=== PATIENT | female | born 1945 | race Caucasian/White ===

== ENCOUNTER 2019-07-24 16:11 | Emergency (ER) | payer MEDICARE, SELFPAY ==
[2019-07-24 16:44] VITALS: BP 159/96; PULSE 113; RESP 16; TEMP 36.6; O2SAT 97; BMI 27.6
--- NOTE | 2019-07-24 17:39 | CTR_ITS ---
PROCEDURE INFORMATION: Exam: CT Head Without Contrast Exam date and time: 07/24/2019 5:40 PM Age: 74 years old Clinical indication: Injury or trauma; Fall; Dizziness and other: Forehead pain; Additional info: Fall/estrada TECHNIQUE: Imaging protocol: Computed tomography of the head without contrast. Total DLP: 735.55 mGy-cm Radiation optimization: All CT scans at this facility use at least one of these dose optimization techniques: automated exposure control; mA and/or kV adjustment per patient size (includes targeted exams where dose is matched to clinical indication); or iterative reconstruction. COMPARISON: CT head wo con* [id number] 07/19/2018 5:55 AM FINDINGS: Brain: There is diffuse volume loss and periventricular low density compatible with small vessel disease changes. There are unchanged basal ganglia calcifications. No hemorrhage. Otherwise unremarkable white matter. No mass effect. Ventricles: Normal. No ventriculomegaly. Bones/joints: Unremarkable. No acute fracture. Sinuses: Visualized sinuses are unremarkable. No fluid levels. Mastoid air cells: Visualized mastoid air cells are well aerated. Soft tissues: Unremarkable. CT/CT head wo con* [id number] IMPRESSION: No acute intracranial abnormality. Unchanged exam. Radiation Dose CTDIVOL = (mGy): DLP = 735.55 (mGy-cm)
--- NOTE | 2019-07-24 17:39 | XR_ITS ---
WS: [id number] RIGHT WRIST 3 VIEWS HISTORY: 74 years old Female with fall/pain AP, oblique, and lateral views no comparison FINDINGS: First carpometacarpal and triscaphe the joint space narrowing with marginal hypertrophic change and s ubcortical sclerosis. No fracture lucency or cortical disruption. No dislocation or subluxation. No o steolytic or osteoblastic change. Arterial calcifications. XR/XR wrist RT min 3V* [id number] IMPRESSION: 1. No evidence of right wrist fracture or dislocation. If there's clinical conc christian for occult fracture, including scaphoid, consider conservative management f ollow-up radiographs in 10 days. 2. Polyarticular degenerative arthritic change. 3. Atherosclerosis.
--- NOTE | 2019-07-24 17:39 | XR_ITS ---
WS: [id number] RIGHT HAND 3 VIEWS HISTORY: 74 years old Female with fall/pain AP, oblique, and lateral views right hand no comparison FINDINGS: Mild-moderate bone demineralization. No fracture lucency or cortical disruption. No dislocation or malin bluxation. No osteolytic or osteoblastic. Arterial calcifications. No radiopaque foreign body. XR/XR hand RT min 3V* [id number] IMPRESSION: 1. No evidence of right hand fracture or dislocation. 2. Atherosclerosis. 3. Mild-moderate bony mineralization.
--- NOTE | 2019-07-24 17:50 | W.ED.FALL ---
HPI - Fall General: Chief Complaint: Fall Stated Complaint: Fall Time Seen by Provider: 07/24/19 17:28 Source: patient Mode of arrival: ambulatory Limitations: no limitations History of Present Illness: HPI Narrative: Patient is a 74-year-old female who presents to ED today requesting an evaluation following a fall. Patient tells me she was upstairs visiting her and was walking down the hallway when she was trying to do too many things at once and reports that she slipped and fell. She states she was carrying a large tote and trying to remove a cell phone from her coat pocket at the same time. Patient denies dizziness, lightheadedness, chest pain, shortness of breath prior to the fall. She complains of right wrist and hand pain and also states that she struck the right side of her forehead. No LOC. No neck or back pain. Patient has been ambulatory since the fall without difficulty. Patient is on Eliquis. complaint: fall Onset (ago): minute(s) Fall from: standing Fall witnessed: yes, by bystander Place fall occurred: other (hospital) Loss of consciousness: None Prolonged down time: no Symptoms prior to fall: none Context: tripped/slipped Location of injury: head Location of injury - extremities: Right: hand Associated symptoms-after fall: Reports no associated symptoms and headache(s); Denies abdominal pain, chest pain, confusion, difficulty walking, lightheadedness or neck pain Review of Systems Const: Denies: fever, chills or body aches Eyes: Denies: change in vision or blurry vision Card: Denies: chest pain, palpitations, irregular heart rhythm, edema, lightheadedness, syncope, pre-syncope, shortness of breath on exertion or shortness of breath when lying down Resp: Denies: shortness of breath, productive cough or pain on inspiration GI: Denies: abdominal pain, nausea, vomiting, heartburn/indigestion or diarrhea : Denies: flank pain Musc: Reports: joint pain (R wrist); Denies: neck pain, back pain, extremity swelling, joint swelling or joint warmth Skin/Breast: Denies: rash Neuro: Reports: headache; Denies: numbness in extremities, weakness in extremities, changes in sensation, lack of coordination, difficulty walking, frequent falls, dizziness, confusion, behavioral changes or slurred speech PFSH ED PFSH: Statuses (acute, chronic, etc) shown below reflect problem list status as previously entered and may not be historically accurate Social History Smoking and tobacco status: former smoker Physical Exam Const: COMMON NORMALS: no apparent distress, oriented x3, no limitations, alert and well nourished ORIENTATION/CONSCIOUSNESS: Yes oriented to person, Yes oriented to place and Yes oriented to time HENMT: COMMON NORMALS: normocephalic, head/scalp atraumatic, EAC's normal, TM's normal bilaterally and external nose normal HEAD & SCALP: normocephalic and atraumatic FACE & SINUS: normal facial exam NOSE: external nose normal EXTERNAL AUDITORY CANAL: EAC's normal TYMPANIC MEMBRANE: TM's normal bilaterally OTHER: complains of pain to R forehead; no abrasions/hematomas noted Eye: COMMON NORMALS: PERRL and EOMs intact bilaterally PUPIL: Yes PERRL Neck/C-Spine: COMMON NORMALS: full ROM and supple CERVICAL SPINE: Yes cervical ROM normal, No pain with cervical ROM, No cervical spine tenderness and No paracervical muscle tenderness Chest: COMMONS NORMALS: inspection of chest normal and palpation of chest normal Resp: COMMON NORMALS: normal respiratory effort and clear to auscultation bilaterally AUSCULTATION: clear to auscultation bilaterally Cardio: COMMON NORMALS: regular rate and regular rhythm RATE: regular rate RHYTHM: regular rhythm GI: COMMON NORMALS: normal to inspection, nondistended, normoactive bowel sounds, soft to palpation and non-tender PALPATION: Yes soft Back/Pelvis: COMMON NORMALS: thoracic and lumbar spine normal to inspection Extremity: OTHER: TTP over dorsal R wrist/hand; minimal swelling noted; ROM intact Neuro: CHERY COMA SCALE: document GCS findings [place] coma scale eye opening: Spontaneous Chery coma scale verbal response: Orientated Chery coma scale motor response: Obey commands Chery coma scale total score: 15 COMMON NORMALS: oriented x3, CN's II-XII intact bilaterally, moves all extremities, no focal motor deficits, no sensory deficits noted and gait normal SENSORIUM/ORIENTATION: Yes alert, Yes oriented to person, Yes oriented to place and Yes oriented to time Skin: COMMON NORMALS: no rashes or lesions noted GENERAL SKIN EXAM: no rashes or lesions noted Course Vital Signs: Vital signs: Vital Signs Temperature 97.8 F 07/24/19 16:44 Pulse Rate 113 H 07/24/19 16:44 Respiratory Rate 16 07/24/19 16:44 Blood Pressure 159/96 07/24/19 16:44 Pulse Oximetry 97 07/24/19 16:44 MDM - Fall Imaging Data^: CT Head: Radiologist's impression: [facility] [address] [place] [address] CT Scan Report Signed Patient: Unique Gage Unit #: [id number] : [id number] Age/Sex: 74 / F ADM Date: 07/24/19 Loc: ER Room/Bed: Attending Dr: Ordering Provider/Ordering MD: Arianna Murdock Date of Service: 07/24/19 Procedure(s): CT head wo con* [id number] Accession Number(s): [id number] Report Number: [id number] PROCEDURE INFORMATION: Exam: CT Head Without Contrast Exam date and time: 07/24/2019 5:40 PM Age: 74 years old Clinical indication: Injury or trauma; Fall; Dizziness and other: Forehead pain; Additional info: Fall/estrada TECHNIQUE: Imaging protocol: Computed tomography of the head without contrast. Total DLP: 735.55 mGy-cm Radiation optimization: All CT scans at this facility use at least one of these dose optimization techniques: automated exposure control; mA and/or kV adjustment per patient size (includes targeted exams where dose is matched to clinical indication); or iterative reconstruction. COMPARISON: CT head wo con* [id number] 07/19/2018 5:55 AM FINDINGS: Brain: There is diffuse volume loss and periventricular low density compatible with small vessel disease changes. There are unchanged basal ganglia calcifications. No hemorrhage. Otherwise unremarkable white matter. No mass effect. Ventricles: Normal. No ventriculomegaly. Bones/joints: Unremarkable. No acute fracture. Sinuses: Visualized sinuses are unremarkable. No fluid levels. Mastoid air cells: Visualized mastoid air cells are well aerated. Soft tissues: Unremarkable. CT/CT head wo con* [id number] IMPRESSION: No acute intracranial abnormality. Unchanged exam. Radiation Dose CTDIVOL = (mGy): DLP = 735.55 (mGy-cm) Dictated By: Eloise Buckley Signed By: Eloise Buckley Signed Date/Time: 07/24/191816 DD/ 15 R wrist/hand XR: My impression: NAD Discharge Plan Discharge Patient Disposition: Home, Self-Care Clinical Impression: Fall Qualifiers: Encounter type: initial encounter Qualified Code(s): W19.XXXA - Unspecified fall, initial encounter Forehead contusion Qualifiers: Encounter type: initial encounter Qualified Code(s): S00.83XA - Contusion of other part of head, initial encounter Right wrist sprain Qualifiers: Encounter type: initial encounter Qualified Code(s): S63.501A - Unspecified sprain of right wrist, initial encounter Condition: Stable Discharge Orders: Discharge Order (Routine); Ordered 07/24/19 Ordered By: Arianna Murdock Referrals: Dao Alba DO [Family Provider] - Discharge Diet: Usual diet Discharge Activity: Increase activity as tolerated Coding Level of Care Code ED Labor Standards Director for Kathyg Fwd Exam Problem Focused
[2019-07-24 18:49] VITALS: BP 141/64; PULSE 78; RESP 16; O2SAT 98
== END 2019-07-24 18:50 | disposition home or self-care (01) ==
PROVIDERS: Emergency Provider Physician Assistant; Family Provider Internal Medicine
DX: S63.501A Unspecified sprain of right wrist, initial encounter (principal); S00.83XA Contusion of other part of head, initial encounter; W01.0XXA Fall on same level from slipping, tripping and stumbling without subsequent striking against object, initial encounter; Y92.239 Unspecified place in hospital as the place of occurrence of the external cause; Z87.891 Personal history of nicotine dependence
CPT/HCPCS: 29125; 70450; 73110; 73130; 99281; 99283

== ENCOUNTER 2019-12-12 17:00 | Emergency (ER) | payer MEDICARE, MEDICAID, SELFPAY ==
[2019-12-12 17:07] VITALS: BP 149/83; PULSE 108; RESP 18; TEMP 36.8; O2SAT 95; BMI 25.4
--- NOTE | 2019-12-12 17:13 | ED_ITS ---
Documented by User: Paz Carrasco MD 12/14/19 13:29 HPI - Altered Mental Status General: Chief Complaint: Psychiatric Symptoms Stated Complaint: VISUAL HALLUCINATIONS; AMS Time Seen by Provider: 12/12/19 17:01 History of Present Illness: HPI narrative: This patient is a 74-year-old female presenting to the emergency department by ambulance. She denies complaints and does not know why the ambulance was called. Per EMS the patient reportedly locked herself out of her apartment accidentally and neighbors apparently called EMS because she was acting strangely. Per EMS she thinks there are some kids with them which there is not. The patient denies a history of schizophrenia to me and is not on any medications that would indicate that history however EMS was told by someone at the scene that she does have a history of schizophrenia. On review of prior records she does have a history of dementia and some delusions. Her blood sugar was over 400. She tells me that is not unusual for her. She takes some sort of injection and metformin for her blood sugar. Her primary care doctor is Dr. Alba. The patient's daughter called the ER looking for her mother. She tells me that the patient lost her in July. Since that time she has been under increased stress and has had problems with confusion. She recently has started seeing people in her apartment that are not there. Her daughter says they are in the process of moving her from her old house to an apartment at the [facility]. Apparently the patient does not have a history of schizophrenia but has been diagnosed with early dementia. Her daughter is going to come to the ED and we can discuss appropriate disposition for her once she is medically evaluated. Review of Systems General: Reports: 10 or more systems reviewed and unremarkable except in HPI and below Const: Denies: fever(s), chills, fatigue or malaise Eyes: Denies: change in vision ENMT: Denies: odynophagia Card: Denies: chest pain or swelling of feet/ankles Resp: Denies: dyspnea, productive cough or non-productive cough GI: Denies: abdominal pain, nausea or vomiting : Denies: flank pain or difficulty voiding Musc: Denies: neck pain or back pain Skin/Breast: Denies: rash Neuro: Denies: headache(s), numbness in extremities or weakness in extremities Oleksandr/Lymph: Denies: easy bruising or easy bleeding PFSH ED PFSH: Social History Smoking and tobacco status: never smoked Physical Exam Const: COMMON NORMALS: no acute distress, patient oriented x3, no limitations and alert GENERAL APPEARANCE: cooperative and comfortable HENMT: HEAD & SCALP: normal to inspection FACE & SINUS: normal facial exam Eye: GENERAL EYE: appearance normal, both eyes and all related structures Neck/C-Spine: COMMON NORMALS: supple, no meningeal signs and no JVD Chest: COMMONS NORMALS: normal inspection of the chest Resp: COMMON NORMALS: normal respiratory effort, No use of accessory muscles and clear to auscultation bilaterally AUSCULTATION: clear to auscultation bilaterally Cardio: COMMON NORMALS: no JVD, regular rate, regular rhythm and No murmurs present (Cardio) RATE: regular rate RHYTHM: regular rhythm GI: COMMON NORMALS: Normal to inspection, nondistended, normoactive bowel sounds present, Soft to palpation and non-tender INSPECTION: Yes normal to inspection AUSCULTATION: Yes normoactive bowel sounds PALPATION: Yes Soft to palpation Back/Pelvis: COMMON NORMALS: thoracic and lumbar spine normal to inspection Extremity: COMMON NORMALS: normal to inspection Neuro: COMMON NORMALS: patient oriented x3, moves all extremities, no focal motor deficits and no sensory deficits noted SENSORIUM/ORIENTATION: Yes alert MENINGEAL SIGNS: Yes no meningeal signs Psych: COMMON NORMALS: mental status grossly normal, cooperative and normal affect Skin: COMMON NORMALS: no rashes or lesions noted and turgor normal GENERAL SKIN EXAM: no rashes or lesions noted and turgor normal Course ED course: The patient initially seemed normal and was able to give me a fairly good history. Prior to my leaving the room however she told me that there were 4 kids in the room and that we needed to let the parents know that they were here. When I told her that I could not see them she looked around the room and then seem to realize that they were not there. She is agreeable to some screening tests and we will continue to evaluate her mental status. We will try to get in touch with her daughter to see if this is her baseline or an acute change. Reevaluation(s): Reevaluation #1: Patient calm and cooperative now. She is able to give a fairly good history but is confused and hallucinating visually. Daughter is on her way to the ER and will help to determine the appropriate disposition. Her blood sugar was elevated on her chemistry but she is not in DKA. Subcutaneous insulin has been ordered. I will be turning her care over to Dr. Machado who is coming on for the night worker. Reevaluation #2: Patient is still in the ED this morning while we attempt to find placement for her. It is felt that she will benefit from admission for medication management and further evaluation of her hallucinations. Time: 11:00 Vital Signs: Vital signs: Vital Signs Temperature 98.3 F 12/12/19 17:07 Pulse Rate 76 12/13/19 12:50 Respiratory Rate 16 12/13/19 12:50 Blood Pressure 113/91 12/13/19 12:50 Pulse Oximetry 93 12/13/19 12:50 MDM - Altered Mental Status Lab Data: Labs: Lab Results 12/12/19 12/12/19 12/12/19 Range/Units 09:11 17:13 17:13 WBC 8.3 (4.0-10.0) 10^3/ uL RBC 4.56 (4.1-5.3) 10^6/u L Hgb 12.1 (11.5-15.3) g/dL Hct 37.6 (37.0-47.0) % MCV 82.5 (81-99) fL MCH 26.5 L (28.0-34.0) pg MCHC 32.2 (30.0-36.0) g/dL RDW 13.0 (12.1-15.1) % Plt Count 381 (130-400) 10^3/c mm MPV 10.9 H (7.4-10.4) fL Neut % (Auto) 70.5 % Lymph % (Auto) 20.0 % [place] % (Auto) 7.9 % Eos % (Auto) 0.4 % Baso % (Auto) 1.0 % Neut # (Auto) 5.9 (1.8-7.7) 10^3/u L Lymph # (Auto) 1.7 (0.8-4.8) 10^3/u L [place] # (Auto) 0.7 (0.2-0.9) 10^3/u L Eos # (Auto) 0.0 (0.0-0.8) 10^3/u L Baso # (Auto) 0.1 (0.0-0.1) 10^3/u L Nucleated RBC % (a uto) 0 % Nucleated RBCs # 0.0 /100WBC Sodium 138 (136-145) mmol/L Potassium 4.0 (3.5-5.1) mmol/L Chloride 97 L (98-107) mmol/L Carbon Dioxide 24 (22-29) mmol/L Anion Gap 21.0 H (5-19) BUN 17 (8-23) mg/dL Creatinine 0.9 (0.5-0.9) mg/dL Glucose 427 H (65-115) mg/dL POC Glucose (70-110) mg/dL Calculated Osmolal ity 301 H (285-295) mOsm/k g Calcium 9.8 (8.5-10.5) mg/dL Total Bilirubin 0.6 (0.15-1.2) mg/dL AST 26 (0-32) U/L ALT 8 (0-33) U/L Alkaline Phosphata se 92 (35-105) IU/L Total Protein 7.1 (6.6-8.7) g/dL Albumin 4.9 (3.5-5.2) g/dL Globulin 2.2 (1.3-4.6) g/dL Urine Color (Yellow) Urine Appearance (CLEAR) Urine pH (5-7) Ur Specific Gravit y (1.005-1.030) Urine Protein (Negative) Urine Glucose (UA) (Normal) Urine Ketones (Negative) Urine Blood (Negative) Urine Nitrate (Negative) Urine Bilirubin (NEGATIVE) Urine Urobilinogen (Negative) mg/dL Ur Leukocyte Mary ase (Negative) Urine Opiates Scre en Negative (Negative) ng/mL Ur Barbiturates Sc reen Negative (Negative) ng/mL Ur Phencyclidine S crn Negative (Negative) ng/mL Ur Amphetamines Sc reen Negative (Negative) ng/mL U Benzodiazepines Scrn Negative (Negative) ng/mL Urine Cocaine Scre en Negative (Negative) ng/mL U Marijuana (THC) Screen Negative (Negative) ng/mL 12/12/19 12/12/19 12/12/19 Range/Units 18:21 21:15 22:09 WBC (4.0-10.0) 10^3/ uL RBC (4.1-5.3) 10^6/u L Hgb (11.5-15.3) g/dL Hct (37.0-47.0) % MCV (81-99) fL MCH (28.0-34.0) pg MCHC (30.0-36.0) g/dL RDW (12.1-15.1) % Plt Count (130-400) 10^3/c mm MPV (7.4-10.4) fL Neut % (Auto) % Lymph % (Auto) % [place] % (Auto) % Eos % (Auto) % Baso % (Auto) % Neut # (Auto) (1.8-7.7) 10^3/u L Lymph # (Auto) (0.8-4.8) 10^3/u L [place] # (Auto) (0.2-0.9) 10^3/u L Eos # (Auto) (0.0-0.8) 10^3/u L Baso # (Auto) (0.0-0.1) 10^3/u L Nucleated RBC % (a uto) % Nucleated RBCs # /100WBC Sodium (136-145) mmol/L Potassium (3.5-5.1) mmol/L Chloride (98-107) mmol/L Carbon Dioxide (22-29) mmol/L Anion Gap (5-19) BUN (8-23) mg/dL Creatinine (0.5-0.9) mg/dL Glucose (65-115) mg/dL POC Glucose 383 108 (70-110) mg/dL Calculated Osmolal ity (285-295) mOsm/k g Calcium (8.5-10.5) mg/dL Total Bilirubin (0.15-1.2) mg/dL AST (0-32) U/L ALT (0-33) U/L Alkaline Phosphata se (35-105) IU/L Total Protein (6.6-8.7) g/dL Albumin (3.5-5.2) g/dL Globulin (1.3-4.6) g/dL Urine Color Yellow (Yellow) Urine Appearance Clear (CLEAR) Urine pH 5 (5-7) Ur Specific Gravit y 1.020 (1.005-1.030) Urine Protein Neg (Negative) Urine Glucose (UA) 4+ H (Normal) Urine Ketones 1+ H (Negative) Urine Blood Neg (Negative) Urine Nitrate Negative (Negative) Urine Bilirubin Neg (NEGATIVE) Urine Urobilinogen Norm (Negative) mg/dL Ur Leukocyte Mary ase Negative (Negative) Urine Opiates Scre en (Negative) ng/mL Ur Barbiturates Sc reen (Negative) ng/mL Ur Phencyclidine S crn (Negative) ng/mL Ur Amphetamines Sc reen (Negative) ng/mL U Benzodiazepines Scrn (Negative) ng/mL Urine Cocaine Scre en (Negative) ng/mL U Marijuana (THC) Screen (Negative) ng/mL 12/12/19 12/13/19 12/13/19 Range/Units 22:53 01:12 01:56 WBC (4.0-10.0) 10^3/ uL RBC (4.1-5.3) 10^6/u L Hgb (11.5-15.3) g/dL Hct (37.0-47.0) % MCV (81-99) fL MCH (28.0-34.0) pg MCHC (30.0-36.0) g/dL RDW (12.1-15.1) % Plt Count (130-400) 10^3/c mm MPV (7.4-10.4) fL Neut % (Auto) % Lymph % (Auto) % [place] % (Auto) % Eos % (Auto) % Baso % (Auto) % Neut # (Auto) (1.8-7.7) 10^3/u L Lymph # (Auto) (0.8-4.8) 10^3/u L [place] # (Auto) (0.2-0.9) 10^3/u L Eos # (Auto) (0.0-0.8) 10^3/u L Baso # (Auto) (0.0-0.1) 10^3/u L Nucleated RBC % (a uto) % Nucleated RBCs # /100WBC Sodium (136-145) mmol/L Potassium (3.5-5.1) mmol/L Chloride (98-107) mmol/L Carbon Dioxide (22-29) mmol/L Anion Gap (5-19) BUN (8-23) mg/dL Creatinine (0.5-0.9) mg/dL Glucose (65-115) mg/dL POC Glucose 109 67 115 (70-110) mg/dL Calculated Osmolal ity (285-295) mOsm/k g Calcium (8.5-10.5) mg/dL Total Bilirubin (0.15-1.2) mg/dL AST (0-32) U/L ALT (0-33) U/L Alkaline Phosphata se (35-105) IU/L Total Protein (6.6-8.7) g/dL Albumin (3.5-5.2) g/dL Globulin (1.3-4.6) g/dL Urine Color (Yellow) Urine Appearance (CLEAR) Urine pH (5-7) Ur Specific Gravit y (1.005-1.030) Urine Protein (Negative) Urine Glucose (UA) (Normal) Urine Ketones (Negative) Urine Blood (Negative) Urine Nitrate (Negative) Urine Bilirubin (NEGATIVE) Urine Urobilinogen (Negative) mg/dL Ur Leukocyte Mary ase (Negative) Urine Opiates Scre en (Negative) ng/mL Ur Barbiturates Sc reen (Negative) ng/mL Ur Phencyclidine S crn (Negative) ng/mL Ur Amphetamines Sc reen (Negative) ng/mL U Benzodiazepines Scrn (Negative) ng/mL Urine Cocaine Scre en (Negative) ng/mL U Marijuana (THC) Screen (Negative) ng/mL 12/13/19 12/13/19 12/13/19 Range/Units 03:20 05:30 06:45 WBC (4.0-10.0) 10^3/ uL RBC (4.1-5.3) 10^6/u L Hgb (11.5-15.3) g/dL Hct (37.0-47.0) % MCV (81-99) fL MCH (28.0-34.0) pg MCHC (30.0-36.0) g/dL RDW (12.1-15.1) % Plt Count (130-400) 10^3/c mm MPV (7.4-10.4) fL Neut % (Auto) % Lymph % (Auto) % [place] % (Auto) % Eos % (Auto) % Baso % (Auto) % Neut # (Auto) (1.8-7.7) 10^3/u L Lymph # (Auto) (0.8-4.8) 10^3/u L [place] # (Auto) (0.2-0.9) 10^3/u L Eos # (Auto) (0.0-0.8) 10^3/u L Baso # (Auto) (0.0-0.1) 10^3/u L Nucleated RBC % (a uto) % Nucleated RBCs # /100WBC Sodium (136-145) mmol/L Potassium (3.5-5.1) mmol/L Chloride (98-107) mmol/L Carbon Dioxide (22-29) mmol/L Anion Gap (5-19) BUN (8-23) mg/dL Creatinine (0.5-0.9) mg/dL Glucose (65-115) mg/dL POC Glucose 113 125 124 (70-110) mg/dL Calculated Osmolal ity (285-295) mOsm/k g Calcium (8.5-10.5) mg/dL Total Bilirubin (0.15-1.2) mg/dL AST (0-32) U/L ALT (0-33) U/L Alkaline Phosphata se (35-105) IU/L Total Protein (6.6-8.7) g/dL Albumin (3.5-5.2) g/dL Globulin (1.3-4.6) g/dL Urine Color (Yellow) Urine Appearance (CLEAR) Urine pH (5-7) Ur Specific Gravit y (1.005-1.030) Urine Protein (Negative) Urine Glucose (UA) (Normal) Urine Ketones (Negative) Urine Blood (Negative) Urine Nitrate (Negative) Urine Bilirubin (NEGATIVE) Urine Urobilinogen (Negative) mg/dL Ur Leukocyte Mary ase (Negative) Urine Opiates Scre en (Negative) ng/mL Ur Barbiturates Sc reen (Negative) ng/mL Ur Phencyclidine S crn (Negative) ng/mL Ur Amphetamines Sc reen (Negative) ng/mL U Benzodiazepines Scrn (Negative) ng/mL Urine Cocaine Scre en (Negative) ng/mL U Marijuana (THC) Screen (Negative) ng/mL Discharge Plan Discharge Prescriptions: No Action benazepril 5 mg tablet 5 mg PO DAILY RF: 0 simvastatin 20 mg tablet 20 mg PO DAILY RF: 0 metformin 500 mg tablet extended release 24 hr 1,000 mg PO BID RF: 0 Novolog Flexpen U-100 Insulin 100 unit/mL (3 mL) insulin pen See Rx Instructions .ROUTE .COMPLEX RF: 0 Eliquis 5 mg tablet 5 mg PO BID RF: 0 Tresiba FlexTouch U-200 200 unit/mL (3 mL) insulin pen 40 unit SUBCUT BEDTIME RF: 0 Referrals: Dao Alba DO [Primary Care Provider] - Discharge Date/Time: 12/13/19 13:57 Coding Level of Care Code ED Shower Attendant for Chg 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 Documented by User: Preet Machado DO 12/13/19 07:02 HPI - Altered Mental Status General: Chief Complaint: Psychiatric Symptoms Stated Complaint: VISUAL HALLUCINATIONS; AMS Time Seen by Provider: 12/12/19 17:01 PFS ED PFSH: Social History Smoking and tobacco status: never smoked Course Vital Signs: Vital signs: Vital Signs Temperature 98.3 F 12/12/19 17:07 Pulse Rate 76 12/13/19 12:50 Respiratory Rate 16 12/13/19 12:50 Blood Pressure 113/91 12/13/19 12:50 Pulse Oximetry 93 12/13/19 12:50 MDM - Altered Mental Status MDM Narrative: Medical decision making narrative: 74-year-old lady checked out to me at shift change by Dr. Carrasco. She presented confused, and uncooperative. Later she was much more cooperative. Her sugar had been high, she was given insulin, with good reduction in her sugar. She was also actively hallucinating which resolved after 3 mg of IV Haldol her laboratory besides the sugar is essentially benign. Head CT is negative. Chest x-ray is negative no evidence for infection. Her sugar is normalized. With resolution of her visual hallucinations and auditory hallucinations following Haldol, and the fact that this lady lives alone, it was thought and geriatric psychiatry evaluation would be valuable. We have received a denial from one facility, and are currently looking for another facility this patient will be checked out at shift change to Dr. Patel while awaiting a geriatric psychiatry bed. The patient's daughter has been informed, and will continue to be. Lab Data: Labs: Lab Results 12/12/19 12/12/19 12/12/19 Range/Units 09:11 17:13 17:13 WBC 8.3 (4.0-10.0) 10^3/ uL RBC 4.56 (4.1-5.3) 10^6/u L Hgb 12.1 (11.5-15.3) g/dL Hct 37.6 (37.0-47.0) % MCV 82.5 (81-99) fL MCH 26.5 L (28.0-34.0) pg MCHC 32.2 (30.0-36.0) g/dL RDW 13.0 (12.1-15.1) % Plt Count 381 (130-400) 10^3/c mm MPV 10.9 H (7.4-10.4) fL Neut % (Auto) 70.5 % Lymph % (Auto) 20.0 % [place] % (Auto) 7.9 % Eos % (Auto) 0.4 % Baso % (Auto) 1.0 % Neut # (Auto) 5.9 (1.8-7.7) 10^3/u L Lymph # (Auto) 1.7 (0.8-4.8) 10^3/u L [place] # (Auto) 0.7 (0.2-0.9) 10^3/u L Eos # (Auto) 0.0 (0.0-0.8) 10^3/u L Baso # (Auto) 0.1 (0.0-0.1) 10^3/u L Nucleated RBC % (a uto) 0 % Nucleated RBCs # 0.0 /100WBC Sodium 138 (136-145) mmol/L Potassium 4.0 (3.5-5.1) mmol/L Chloride 97 L (98-107) mmol/L Carbon Dioxide 24 (22-29) mmol/L Anion Gap 21.0 H (5-19) BUN 17 (8-23) mg/dL Creatinine 0.9 (0.5-0.9) mg/dL Glucose 427 H (65-115) mg/dL POC Glucose (70-110) mg/dL Calculated Osmolal ity 301 H (285-295) mOsm/k g Calcium 9.8 (8.5-10.5) mg/dL Total Bilirubin 0.6 (0.15-1.2) mg/dL AST 26 (0-32) U/L ALT 8 (0-33) U/L Alkaline Phosphata se 92 (35-105) IU/L Total Protein 7.1 (6.6-8.7) g/dL Albumin 4.9 (3.5-5.2) g/dL Globulin 2.2 (1.3-4.6) g/dL Urine Color (Yellow) Urine Appearance (CLEAR) Urine pH (5-7) Ur Specific Gravit y (1.005-1.030) Urine Protein (Negative) Urine Glucose (UA) (Normal) Urine Ketones (Negative) Urine Blood (Negative) Urine Nitrate (Negative) Urine Bilirubin (NEGATIVE) Urine Urobilinogen (Negative) mg/dL Ur Leukocyte Mary ase (Negative) Urine Opiates Scre en Negative (Negative) ng/mL Ur Barbiturates Sc reen Negative (Negative) ng/mL Ur Phencyclidine S crn Negative (Negative) ng/mL Ur Amphetamines Sc reen Negative (Negative) ng/mL U Benzodiazepines Scrn Negative (Negative) ng/mL Urine Cocaine Scre en Negative (Negative) ng/mL U Marijuana (THC) Screen Negative (Negative) ng/mL 12/12/19 12/12/19 12/12/19 Range/Units 18:21 21:15 22:09 WBC (4.0-10.0) 10^3/ uL RBC (4.1-5.3) 10^6/u L Hgb (11.5-15.3) g/dL Hct (37.0-47.0) % MCV (81-99) fL MCH (28.0-34.0) pg MCHC (30.0-36.0) g/dL RDW (12.1-15.1) % Plt Count (130-400) 10^3/c mm MPV (7.4-10.4) fL Neut % (Auto) % Lymph % (Auto) % [place] % (Auto) % Eos % (Auto) % Baso % (Auto) % Neut # (Auto) (1.8-7.7) 10^3/u L Lymph # (Auto) (0.8-4.8) 10^3/u L [place] # (Auto) (0.2-0.9) 10^3/u L Eos # (Auto) (0.0-0.8) 10^3/u L Baso # (Auto) (0.0-0.1) 10^3/u L Nucleated RBC % (a uto) % Nucleated RBCs # /100WBC Sodium (136-145) mmol/L Potassium (3.5-5.1) mmol/L Chloride (98-107) mmol/L Carbon Dioxide (22-29) mmol/L Anion Gap (5-19) BUN (8-23) mg/dL Creatinine (0.5-0.9) mg/dL Glucose (65-115) mg/dL POC Glucose 383 108 (70-110) mg/dL Calculated Osmolal ity (285-295) mOsm/k g Calcium (8.5-10.5) mg/dL Total Bilirubin (0.15-1.2) mg/dL AST (0-32) U/L ALT (0-33) U/L Alkaline Phosphata se (35-105) IU/L Total Protein (6.6-8.7) g/dL Albumin (3.5-5.2) g/dL Globulin (1.3-4.6) g/dL Urine Color Yellow (Yellow) Urine Appearance Clear (CLEAR) Urine pH 5 (5-7) Ur Specific Gravit y 1.020 (1.005-1.030) Urine Protein Neg (Negative) Urine Glucose (UA) 4+ H (Normal) Urine Ketones 1+ H (Negative) Urine Blood Neg (Negative) Urine Nitrate Negative (Negative) Urine Bilirubin Neg (NEGATIVE) Urine Urobilinogen Norm (Negative) mg/dL Ur Leukocyte Mary ase Negative (Negative) Urine Opiates Scre en (Negative) ng/mL Ur Barbiturates Sc reen (Negative) ng/mL Ur Phencyclidine S crn (Negative) ng/mL Ur Amphetamines Sc reen (Negative) ng/mL U Benzodiazepines Scrn (Negative) ng/mL Urine Cocaine Scre en (Negative) ng/mL U Marijuana (THC) Screen (Negative) ng/mL 12/12/19 12/13/19 12/13/19 Range/Units 22:53 01:12 01:56 WBC (4.0-10.0) 10^3/ uL RBC (4.1-5.3) 10^6/u L Hgb (11.5-15.3) g/dL Hct (37.0-47.0) % MCV (81-99) fL MCH (28.0-34.0) pg MCHC (30.0-36.0) g/dL RDW (12.1-15.1) % Plt Count (130-400) 10^3/c mm MPV (7.4-10.4) fL Neut % (Auto) % Lymph % (Auto) % [place] % (Auto) % Eos % (Auto) % Baso % (Auto) % Neut # (Auto) (1.8-7.7) 10^3/u L Lymph # (Auto) (0.8-4.8) 10^3/u L [place] # (Auto) (0.2-0.9) 10^3/u L Eos # (Auto) (0.0-0.8) 10^3/u L Baso # (Auto) (0.0-0.1) 10^3/u L Nucleated RBC % (a uto) % Nucleated RBCs # /100WBC Sodium (136-145) mmol/L Potassium (3.5-5.1) mmol/L Chloride (98-107) mmol/L Carbon Dioxide (22-29) mmol/L Anion Gap (5-19) BUN (8-23) mg/dL Creatinine (0.5-0.9) mg/dL Glucose (65-115) mg/dL POC Glucose 109 67 115 (70-110) mg/dL Calculated Osmolal ity (285-295) mOsm/k g Calcium (8.5-10.5) mg/dL Total Bilirubin (0.15-1.2) mg/dL AST (0-32) U/L ALT (0-33) U/L Alkaline Phosphata se (35-105) IU/L Total Protein (6.6-8.7) g/dL Albumin (3.5-5.2) g/dL Globulin (1.3-4.6) g/dL Urine Color (Yellow) Urine Appearance (CLEAR) Urine pH (5-7) Ur Specific Gravit y (1.005-1.030) Urine Protein (Negative) Urine Glucose (UA) (Normal) Urine Ketones (Negative) Urine Blood (Negative) Urine Nitrate (Negative) Urine Bilirubin (NEGATIVE) Urine Urobilinogen (Negative) mg/dL Ur Leukocyte Mary ase (Negative) Urine Opiates Scre en (Negative) ng/mL Ur Barbiturates Sc reen (Negative) ng/mL Ur Phencyclidine S crn (Negative) ng/mL Ur Amphetamines Sc reen (Negative) ng/mL U Benzodiazepines Scrn (Negative) ng/mL Urine Cocaine Scre en (Negative) ng/mL U Marijuana (THC) Screen (Negative) ng/mL 12/13/19 12/13/19 12/13/19 Range/Units 03:20 05:30 06:45 WBC (4.0-10.0) 10^3/ uL RBC (4.1-5.3) 10^6/u L Hgb (11.5-15.3) g/dL Hct (37.0-47.0) % MCV (81-99) fL MCH (28.0-34.0) pg MCHC (30.0-36.0) g/dL RDW (12.1-15.1) % Plt Count (130-400) 10^3/c mm MPV (7.4-10.4) fL Neut % (Auto) % Lymph % (Auto) % [place] % (Auto) % Eos % (Auto) % Baso % (Auto) % Neut # (Auto) (1.8-7.7) 10^3/u L Lymph # (Auto) (0.8-4.8) 10^3/u L [place] # (Auto) (0.2-0.9) 10^3/u L Eos # (Auto) (0.0-0.8) 10^3/u L Baso # (Auto) (0.0-0.1) 10^3/u L Nucleated RBC % (a uto) % Nucleated RBCs # /100WBC Sodium (136-145) mmol/L Potassium (3.5-5.1) mmol/L Chloride (98-107) mmol/L Carbon Dioxide (22-29) mmol/L Anion Gap (5-19) BUN (8-23) mg/dL Creatinine (0.5-0.9) mg/dL Glucose (65-115) mg/dL POC Glucose 113 125 124 (70-110) mg/dL Calculated Osmolal ity (285-295) mOsm/k g Calcium (8.5-10.5) mg/dL Total Bilirubin (0.15-1.2) mg/dL AST (0-32) U/L ALT (0-33) U/L Alkaline Phosphata se (35-105) IU/L Total Protein (6.6-8.7) g/dL Albumin (3.5-5.2) g/dL Globulin (1.3-4.6) g/dL Urine Color (Yellow) Urine Appearance (CLEAR) Urine pH (5-7) Ur Specific Gravit y (1.005-1.030) Urine Protein (Negative) Urine Glucose (UA) (Normal) Urine Ketones (Negative) Urine Blood (Negative) Urine Nitrate (Negative) Urine Bilirubin (NEGATIVE) Urine Urobilinogen (Negative) mg/dL Ur Leukocyte Mary ase (Negative) Urine Opiates Scre en (Negative) ng/mL Ur Barbiturates Sc reen (Negative) ng/mL Ur Phencyclidine S crn (Negative) ng/mL Ur Amphetamines Sc reen (Negative) ng/mL U Benzodiazepines Scrn (Negative) ng/mL Urine Cocaine Scre en (Negative) ng/mL U Marijuana (THC) Screen (Negative) ng/mL Discharge Plan Discharge Prescriptions: No Action benazepril 5 mg tablet 5 mg PO DAILY RF: 0 simvastatin 20 mg tablet 20 mg PO DAILY RF: 0 metformin 500 mg tablet extended release 24 hr 1,000 mg PO BID RF: 0 Novolog Flexpen U-100 Insulin 100 unit/mL (3 mL) insulin pen See Rx Instructions .ROUTE .COMPLEX RF: 0 Eliquis 5 mg tablet 5 mg PO BID RF: 0 Tresiba FlexTouch U-200 200 unit/mL (3 mL) insulin pen 40 unit SUBCUT BEDTIME RF: 0 Referrals: Dao Alba DO [Primary Care Provider] - Discharge Date/Time: 12/13/19 13:57 Coding Level of Care Code ED Shower Attendant for Chg 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
[2019-12-12 17:24] LABS: Basophils # 0.1 10^3/uL (0.0-0.1); Eosinophils % 0.4 %; Hematocrit 37.6 % (37.0-47.0); Hemoglobin 12.1 g/dL (11.5-15.3); Lymphocytes # 1.7 10^3/uL (0.8-4.8); Mean Corpuscular HGB Conc 32.2 g/dL (30.0-36.0); Mean Corpuscular Hemoglobin 26.5 pg (28.0-34.0); Mean Corpuscular Volume 82.5 fL (81-99); Mean Platelet Volume 10.9 fL (7.4-10.4); Monocytes # 0.7 10^3/uL (0.2-0.9); Monocytes % 7.9 %; Neutrophils # 5.9 10^3/uL (1.8-7.7); Neutrophils % 70.5 %; Nucleated Red Blood Cells % 0 %; Platelet Count 381 10^3/cmm (130-400); Red Blood Count 4.56 10^6/uL (4.1-5.3); White Blood Count 8.3 10^3/uL (4.0-10.0)
[2019-12-12 17:39] LABS: Alanine Aminotransferase 8 U/L (0-33); Albumin Level 4.9 g/dL (3.5-5.2); Alkaline Phosphatase 92 IU/L (35-105); Aspartate Amino Transferase 26 U/L (0-32); Blood Urea Nitrogen 17 mg/dL (8-23); Calcium 9.8 mg/dL (8.5-10.5); Carbon Dioxide 24 mmol/L (22-29); Chloride 97 mmol/L (98-107); Globulin 2.2 g/dL (1.3-4.6); Glucose 427 mg/dL (65-115); Osmolality Calculated 301 mOsm/kg (285-295); Sodium 138 mmol/L (136-145); Total Bilirubin 0.6 mg/dL (0.15-1.2); Total Protein 7.1 g/dL (6.6-8.7)
[2019-12-12] MEDS: insulin aspart 70/30 100 units/1 mL 5 UNIT SUBCUT (17:46)
--- NOTE | 2019-12-12 18:22 | PC.NURSE ---
Patients glucose obtained at this time and reports it is 383.
[2019-12-12 18:25] LABS: Glucose Point of Care 383 mg/dL (70-110)
--- NOTE | 2019-12-12 19:03 | PC.NURSE ---
report received from SREEDHAR Flanagan and care transferred to SREEDHAR Robison
[2019-12-12 19:22] VITALS: BP 135/97; PULSE 114; RESP 16; O2SAT 98
[2019-12-12] MEDS: sodium chloride 0.9% 1,000 ML 999 ML IV (19:36)
[2019-12-12] MEDS: insulin regular-human 100 units/1 mL 10 UNIT IVP (19:37)
[2019-12-12] MEDS: haloperidol inj 5 mg/mL INJ 1 mL 3 MG IVP (20:00)
[2019-12-12 20:01] VITALS: BP 145/86; PULSE 99; RESP 16; O2SAT 96
--- NOTE | 2019-12-12 20:12 | XRR_ITS ---
PROCEDURE INFORMATION: Exam: XR Chest, 1 View Exam date and time: 12/12/2019 8:24 PM Age: 74 years old Clinical indication: Patient HX: AMS with hallucinations TECHNIQUE: Imaging protocol: XR of the chest Views: 1 view. COMPARISON: [facility] Chest 2 views 10/31/2018 7:43 AM FINDINGS: Lungs: Unremarkable. No consolidation. Pleural space: Unremarkable. No pleural effusion. No pneumothorax. Heart/Mediastinum: Unremarkable. No cardiomegaly. Bones/joints: Dextroscoliosis. XR/XR chest 1V portable [id number] IMPRESSION: No acute findings.
--- NOTE | 2019-12-12 20:49 | CTR_ITS ---
[facility] Final Radiology Report Call: [phone] assistance Online chat: [email or web address] Name: XANDER GARCIA Age: 74Years F Date: 12/12/2019 SSN: -- : 1945 Study: CT HEAD WO Requesting Physician: Preet Machado Images: 184 Add?l Studies: Provided Clinical History: ams Procedure Accession CTDI Vol (mGy) DLP (mGy-cm) CT HEAD WO [id number] 741.75 PROCEDURE INFORMATION: Exam: CT Head Without Contrast Exam date and time: 12/12/2019 8:09 PM Age: 74 years old Clinical indication: Altered mental status/memory loss; Patient HX: AMS with hallucinations TECHNIQUE: Imaging protocol: Computed tomography of the head without contrast. Radiation optimization: All CT scans at this facility use at least one of these dose optimization techniques: automated exposure control; mA and/or kV adjustment per patient size (includes targeted exams where dose is matched to clinical indication); or iterative reconstruction. COMPARISON: CT head wo con* [id number] 07/24/2019 6:06 PM RADIATION DOSE METRICS: Total DLP (mGy-cm): 741.75 FINDINGS: Brain: Joe cisterna magna which is a normal variant. Mild to moderate cerebral atrophy and ischemic leukoencephalopathy. Ventricles: Normal. No ventriculomegaly. Bones/joints: Unremarkable. No acute fracture. Sinuses: Visualized sinuses are unremarkable. No fluid levels. Mastoid air cells: Visualized mastoid air cells are well aerated. Soft tissues: Unremarkable. IMPRESSION: No acute intracranial findings. Thank you for allowing us to participate in the care of your patient. Dictated and Authenticated by: Mark Roberts MD 12/12/2019 8:49 PM Central Time ([place] & [place]) [facility]
[2019-12-12 21:17] VITALS: BP 124/80; PULSE 103; RESP 16; O2SAT 96
[2019-12-12 21:41] LABS: Add Urine Microscopic? NO
[2019-12-12 21:52] LABS: Protein Urine Neg (Negative); Urine Appearance Clear (CLEAR); Urine Color Yellow (Yellow); pH Urine 5 (5-7)
[2019-12-12 21:53] LABS: Bilirubin Urine Neg (NEGATIVE); Blood Urine Neg (Negative); Glucose Urine UA 4+ (Normal); Ketones Urine 1+ (Negative); Leukocyte Esterase Urine Negative (Negative); Nitrate Urine Negative (Negative); Urobilinogen Urine Norm (Negative)
[2019-12-12 22:12] VITALS: BP 110/73; PULSE 94; RESP 16; O2SAT 94
--- NOTE | 2019-12-12 22:15 | PC.NURSE ---
bg 108
[2019-12-12 22:18] LABS: Glucose Point of Care 108 mg/dL (70-110)
--- NOTE | 2019-12-12 22:55 | PC.NURSE ---
Patient blood glucose is 109 E.R doctor informed
[2019-12-12 22:58] LABS: Glucose Point of Care 109 mg/dL (70-110)
[2019-12-12 23:19] VITALS: BP 136/76; PULSE 90; RESP 14; O2SAT 97
[2019-12-13] VITALS (13 sets, daily range): BP systolic 101–146; BP diastolic 59–92; PULSE 76–101; RESP 14–18; O2SAT 92–98
[2019-12-13 01:20] LABS: Glucose Point of Care 67 mg/dL (70-110)
[2019-12-13 02:01] LABS: Glucose Point of Care 115 mg/dL (70-110)
[2019-12-13 03:25] LABS: Glucose Point of Care 113 mg/dL (70-110)
--- NOTE | 2019-12-13 05:10 | PC.NURSE ---
Called and faxed to [facility] and received call back of denial of acceptance for patient. faxed at [phone]
--- NOTE | 2019-12-13 05:11 | PC.NURSE ---
called [facility] but no availability for patient. called at [phone]
--- NOTE | 2019-12-13 05:18 | PC.NURSE ---
Called [facility] requested paperwork on patient, paperwork faxed by nurse at [phone]
--- NOTE | 2019-12-13 05:25 | PC.NURSE ---
called [facility] for placement for patient but facility had no beds available
[2019-12-13 05:34] LABS: Glucose Point of Care 125 mg/dL (70-110)
--- NOTE | 2019-12-13 06:26 | PC.NURSE ---
called [facility] for patient placement but no beds available for patient
--- NOTE | 2019-12-13 06:28 | PC.NURSE ---
called for placement at [facility] but no beds available for placement
--- NOTE | 2019-12-13 06:28 | PC.NURSE ---
called for placement in in [facility] but no beds available
--- NOTE | 2019-12-13 06:31 | PC.NURSE ---
called [facility] for patient placement and faxed information to facility at [phone]
--- NOTE | 2019-12-13 06:37 | PC.NURSE ---
called [facility] for placement but no beds available.
--- NOTE | 2019-12-13 06:37 | PC.NURSE ---
called [facility] for placement but no beds available
--- NOTE | 2019-12-13 06:41 | PC.NURSE ---
called [facility] for placement but not beds available
[2019-12-13 06:49] LABS: Glucose Point of Care 124 mg/dL (70-110)
--- NOTE | 2019-12-13 09:22 | PC.NURSE ---
Patient assisted setting up in bed. Breakfast tray set up for patient. Patient currently eating. Will continue to monitor patient. Patient is alert and oriented at this time and is aware she is at [facility].
[2019-12-13 09:43] LABS: Amphetamines Screen Urine Negative (Negative); Barbiturates Screen Urine Negative (Negative); Benzodiazepines Screen Urine Negative (Negative); Cocaine Screen Urine Negative (Negative); Opiate Screen Urine Negative (Negative); PCP Screen Urine Negative (Negative); THC Screen Urine Negative (Negative)
--- NOTE | 2019-12-13 11:37 | PC.NURSE ---
Patient food tray given to patient and set up. Patient setting up in bed eating lunch while watching tv. Patient has no other needs at this time. Will continue to monitor patient.
== END 2019-12-13 13:57 ==
PROVIDERS: Emergency Medicine; Family Medicine; Emergency Provider Emergency Medicine; PCP Internal Medicine
DX: R44.1 Visual hallucinations (principal); Z79.01 Long term (current) use of anticoagulants; Z79.4 Long term (current) use of insulin; Z79.899 Other long term (current) drug therapy
CPT/HCPCS: 12345; 36415; 36416; 70450; 71045; 80053; 80306; 81003; 82962; 85025; 96361; 96372; 96374; 96375; 99285; J1630; J1815; J7030

== ENCOUNTER 2020-05-30 12:03 | Emergency (ER) | payer MEDICARE, MEDICAID, SELFPAY ==
[2020-05-30 12:08] VITALS: BP 134/82; PULSE 118; RESP 18; TEMP 36.4; O2SAT 98; BMI 25.6
--- NOTE | 2020-05-30 12:09 | CT_ITS ---
WS: [id number] CT HEAD TECHNIQUE: Noncontrast CT of the head obtained from the skullbase to the vertex. CLINICAL INFORMATION: fall COMPARISON: December 12, 2019 DLP: 668.[address] scans at [facility] use at least one of these dose optimization techniques: automat ed exposure control; mA and/or kV adjustment per patient size (includes targeted exams where dose is matched to clinical indication); or iterative reconstruction. FINDINGS: No evidence of intracranial hemorrhage or mass effect. Ventricular system and basal cisterns are sanders nt. Mild small vessel changes with moderate parenchymal volume loss. No extra-axial fluid collections . No evidence of mass or mass effect. Normal wilson-white differentiation. Soft tissue edema with scalp hematoma overlying the right frontal calvarium. No underlying frontal ca lvarial fractures. Soft tissue hematoma measures 4.5 x 1.[address]/CT head wo con* [id number] IMPRESSION: 1. No evidence of intracranial hemorrhage or mass effect. 2. Mild small vessel changes with moderate parenchymal volume loss. 3. Right frontal scalp hematoma. No underlying fractures. 4. Paranasal sinuses and mastoid air cells are well aerated. 5. No other significant findings.
--- NOTE | 2020-05-30 12:09 | W.ED.FALL ---
HPI - Fall General: Chief Complaint: Head Injury Stated Complaint: FALL Time Seen by Provider: 05/30/20 12:04 Source: patient and EMS Mode of arrival: EMS Limitations: no limitations History of Present Illness: HPI Narrative: 75-year-old female who is here by EMS after a fall. She states she tripped and fell in her house has concrete floors. She does have a large hematoma to her forehead. She denies any loss of consciousness denies any pain elsewhere and has a mild headache she rates a 2 out of 10. She is on Eliquis at home. Denies any vomiting or diarrhea. Associated symptoms-after fall: Reports headache(s); Denies abdominal pain, chest pain or neck pain Review of Systems Const: Denies: fever(s), chills, body aches or change in appetite Eyes: Denies: blurry vision or eye discomfort ENMT: Denies: throat pain or dental pain Card: Denies: chest pain Resp: Denies: dyspnea GI: Denies: abdominal pain, nausea, vomiting or diarrhea : Denies: dysuria Musc: Denies: neck pain or back pain Skin/Breast: Denies: rash Neuro: Reports: headache(s) Psych: Denies: depression Oleksandr/Lymph: Denies: easy bruising All/Imm: Denies: urticaria PFSH ED PFSH: Social History Smoking and tobacco status: never smoked Physical Exam Const: COMMON NORMALS: no acute distress, patient oriented x3 and healthy appearing HENMT: COMMON NORMALS: normocephalic HEAD & SCALP: normocephalic OTHER: hematoma to forehead Eye: COMMON NORMALS: Equal, round and reactive pupils present and EOMs intact bilaterally PUPIL: Yes Equal, round and reactive pupils present Neck/C-Spine: COMMON NORMALS: full ROM and supple Chest: COMMONS NORMALS: normal inspection of the chest and normal palpation of entire chest wall Resp: COMMON NORMALS: normal respiratory effort, No retractions, No use of accessory muscles and clear to auscultation bilaterally AUSCULTATION: clear to auscultation bilaterally Cardio: COMMON NORMALS: regular rate, regular rhythm and No murmurs present (Cardio) RATE: regular rate RHYTHM: regular rhythm GI: COMMON NORMALS: Normal to inspection, nondistended, normoactive bowel sounds present, Soft to palpation, non-tender and no masses PALPATION: Yes Soft to palpation Extremity: COMMON NORMALS: normal to inspection and full ROM Neuro: COMMON NORMALS: patient oriented x3, moves all extremities and no focal motor deficits Psych: COMMON NORMALS: mental status grossly normal, Normal thought process present and cooperative THOUGHT PROCESS: Normal thought process present Skin: COMMON NORMALS: no rashes or lesions noted and no wounds GENERAL SKIN EXAM: no rashes or lesions noted Course Vital Signs: Vital signs: Vital Signs Temperature 97.6 F 05/30/20 12:08 Pulse Rate 118 H 05/30/20 12:08 Respiratory Rate 18 05/30/20 12:08 Blood Pressure 134/82 05/30/20 12:08 Pulse Oximetry 98 05/30/20 12:08 MDM - Fall MDM Narrative: Medical decision making narrative: Patient presents here with closed head injury from a fall. She does have a hematoma. Patient CT head here is normal. Patient is on Eliquis and I did give her instructions for return. I did inform her that she is at an increased risk for delayed bleed over the next 24 to 48 hours due to her Eliquis. I informed her she has any lightheadedness or headache she is to return immediately. She understands and agrees to this plan. Lab Data: Labs: Lab Results 05/30/20 Range/Units 13:00 PT 14.50 (12.1-14.9) SECO NDS INR 1.09 (0.8-1.2) Imaging Data^: CT Head: Radiologist's impression: [address] [place] [address] CT Scan Report Signed Patient: Unique Gage Unit #: [id number] : 1945 Age/Sex: 75 / F ADM Date: 05/30/20 Loc: ER Room/Bed: Attending Dr: Ordering Provider/Ordering MD: Melissa Jett MD Date of Service: 05/30/20 Procedure(s): CT head wo con* [id number] Accession Number(s): [id number] Report Number: [id number] WS: [id number] CT HEAD TECHNIQUE: Noncontrast CT of the head obtained from the skullbase to the vertex. CLINICAL INFORMATION: fall COMPARISON: December 12, 2019 DLP: 668.[address] scans at [facility] use at least one of these dose optimization techniques: automated exposure control; mA and/or kV adjustment per patient size (includes targeted exams where dose is matched to clinical indication); or iterative reconstruction. FINDINGS: No evidence of intracranial hemorrhage or mass effect. Ventricular system and basal cisterns are patent. Mild small vessel changes with moderate parenchymal volume loss. No extra-axial fluid collections. No evidence of mass or mass effect. Normal wilson-white differentiation. Soft tissue edema with scalp hematoma overlying the right frontal calvarium. No underlying frontal calvarial fractures. Soft tissue hematoma measures 4.5 x 1[address]/CT head wo con* [id number] IMPRESSION: 1. No evidence of intracranial hemorrhage or mass effect. 2. Mild small vessel changes with moderate parenchymal volume loss. 3. Right frontal scalp hematoma. No underlying fractures. 4. Paranasal sinuses and mastoid air cells are well aerated. 5. No other significant findings. Discharge Plan Discharge Patient Disposition: Home Clinical Impression: Closed head injury Qualifiers: Encounter type: initial encounter Qualified Code(s): S09.90XA - Unspecified injury of head, initial encounter Condition: Stable Prescriptions: No Action DOK 100 mg capsule 100 mg PO BID PRN (Reason: Constipation) RF: 0 sertraline 25 mg tablet 25 mg PO BEDTIME@1999 RF: 0 risperidone 0.5 mg tablet 0.5 mg PO BEDTIME@1999 RF: 0 Tylenol 325 mg Tablet 325 mg PO Q4H PRN (Reason: Pain) RF: 0 benazepril 5 mg tablet 5 mg PO DAILY@0700 RF: 0 simvastatin 20 mg tablet 20 mg PO DAILY@0700 RF: 0 metformin 500 mg tablet extended release 24 hr 1,000 mg PO BID@699,1999 RF: 0 Eliquis 5 mg tablet 5 mg PO BID@699,1999 RF: 0 Tresiba FlexTouch U-200 200 unit/mL (3 mL) insulin pen 40 unit SUBCUT BEDTIME@1999 RF: 0 Discharge Orders: Discharge ED (Routine); Ordered 05/30/20 Ordered By: Melissa Jett Referrals: Dao Alba DO [Primary Care Provider] - 1-3 days Discharge Diet: Advance as tolerated Discharge Activity: Resume usual activity Patient Instructions: Minor Head Injury (ED) Coding Level of Care Code ED Sales Support Manager for Shaniqua 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
[2020-05-30 13:40] LABS: INR 1.09 (0.8-1.2)
[2020-05-30 14:21] VITALS: BP 169/99; PULSE 115; RESP 16; O2SAT 99
== END 2020-05-30 14:22 | disposition home or self-care (01) ==
PROVIDERS: Emergency Provider Emergency Medicine; PCP Internal Medicine
DX: S09.8XXA Other specified injuries of head, initial encounter (principal); Z79.01 Long term (current) use of anticoagulants; Z79.4 Long term (current) use of insulin; W01.198A Fall on same level from slipping, tripping and stumbling with subsequent striking against other object, initial encounter
CPT/HCPCS: 12345; 70450; 85610; 99282; 99283

== ENCOUNTER 2020-09-26 14:56 | Emergency (ER) | payer MEDICARE, MEDICAID, SELFPAY ==
[2020-09-26 15:11] VITALS: BP 123/87; PULSE 115; RESP 15; TEMP 36.7; O2SAT 96; BMI 26.6
--- NOTE | 2020-09-26 15:16 | XRR_ITS ---
PROCEDURE INFORMATION: Exam: XR Chest Exam date and time: 09/26/2020 3:20 PM Age: 75 years old Clinical indication: Cough and dyspnea; Additional info: Dyspnea/cough TECHNIQUE: Imaging protocol: XR of the chest. Views: 1 view. Total images: 1 COMPARISON: NM XR chest 1V portable [id number] 12/12/2019 7:39 PM FINDINGS: Lungs: No visible active interstitial or alveolar airspace disease. Pleural spaces: Unremarkable. No pleural effusion. No pneumothorax. Heart/Mediastinum: Cardiac structures and configuration with mild arteriosclerosis. Bones/joints: Scoliosis. Age-appropriate degenerative disease. XR/XR chest 1V portable [id number] IMPRESSION: Nonacute.
--- NOTE | 2020-09-26 15:16 | CT_ITS ---
WS: [id number] CT HEAD NONCONTRAST HISTORY: altered mental status TECHNIQUE: Contiguous axial imaging performed through the brain in 2.5 mm imaging. Bone and soft tiss ue windows. Sagittal and coronal reformats reviewed. All CT scans at [facility] use at ast one of these dose optimization techniques: automated exposure control; mA and/or kV adjustment pe r patient size (includes targeted exams where dose is matched to clinical indication); or iterative r econstruction. DLP: 817.7 mGy.cm COMPARISON: 05/30/2020 No acute intracranial hemorrhage, midline shift or mass effect. Mild atrophy with moderate chronic microvascular ischemic type changes. No prior infarcts. Ventricles: Normal size with no hydrocephalus. No inferior displacement of cerebellar tonsils. Paranasal sinuses: As visualized are clear. Mastoid air cells: Well pneumatized. Calvarium and scalp: Skull is intact with no soft tissue edema or swelling. Residual scalp thickening over the RIGHT frontal bone from the hematoma on 05/30/2020. CT/CT head wo con* [id number] IMPRESSION: 1. No acute intracranial hemorrhage or edema. 2. Mild atrophy with moderate chronic microvascular ischemic disease.
--- NOTE | 2020-09-26 15:17 | ECG_ITS ---
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 Measurements Intervals [place] Rate: 103 P: 66 AR: 147 QRS: 71 QRSD: 90 T: 25 QT: 324 QTc: 425 Interpretive Statements SINUS TACHYCARDIA WITH OCCASIONAL SUPRAVENTRICULAR PREMATURE COMPLEXES NONSPECIFIC ST & T-WAVE ABNORMALITY Compared to ECG 07/19/2018 10:54:09 T-wave abnormality now present Electronically Signed On 09-26-2020 20:10:12 CDT by Bill Sherman M.D. [id number]
[2020-09-26 15:42] LABS: ABG PCO2 37.9 mmHg (35-45); ABG PH Result 7.46 (7.35-7.45); Alveolar-Arterial Oxygen Gradi 3.8 mmHg (5-10); Arterial Blood Gas Hematocrit 40.4 % (37-47); Base Excess ABG 3.1 mmol/L (-2.0-2.0); Blood Gas Operator Identificat AMH; Blood Gas Sample Site Brachial, left; Blood Gas Sample Type Arterial; Carboxyhemoglobin 0.8 %THgb (0.4-20.1); HGB O2 Sat 94.6 % (95-100); Ionized Calcium Level - ABG 1.2 mmol/L (1.1-1.4); Methemoglobin 0.8 % (0.4-1.5); Oxygen Device ROOM AIR; Oxygen Saturation ABG 96.1; PO2 ABG 72.5 mmHg (80.0-100.0); Potassium Level - ABG 3.9 mmol/L (3.5-5.0); Total Hemoglobin 13.2 g/dL (12-16)
--- NOTE | 2020-09-26 15:53 | ED_ITS ---
HPI - Altered Mental Status General: Chief Complaint: Altered Mental Status Stated Complaint: CONFUSION, DEMENTIA, AGITATED @ HOME Time Seen by Provider: 09/26/20 15:12 History of Present Illness: HPI narrative: 75-year-old female presents to the emergency room with a complaint of altered mental status per home health care nurse. Last known normal was yesterday she has been having hallucinations been mildly agitated at home. The emergency room she is pleasantly confused but has no focal neurologic deficits noted she denies any chest pain or shortness of breath. She denies any nausea vomiting or diarrhea no abdominal pain. No dysuria urgency or frequency. MD complaint: altered mental status and confusion Onset (ago): day(s) Timing confirmed by: caregiver Severity: mild Consistency of symptoms: Getting Worse Associated symptoms: Reports auditory hallucinations and visual hallucinations; Deny delusions, depression, homicidal ideation, racing thoughts or suicidal ideation Review of Systems Const: Denies: fever(s), chills, body aches, change in appetite, fatigue or malaise ENMT: Denies: throat pain, ear or mastoid pain, nasal discharge or nasal congestion Card: Denies: chest pain, edema, dyspnea on exertion or orthopnea Resp: Denies: dyspnea, productive cough or non-productive cough GI: Denies: abdominal pain, nausea, vomiting, hematemesis, coffee ground emesis, diarrhea, constipation, bloating, hematochezia or melena : Denies: flank pain, difficulty voiding, dysuria, urinary frequency or urinary urgency Skin/Breast: Denies: rash or pruritus Psych: Reports: visual hallucinations and auditory hallucinations; Denies: depression, suicidal ideation or homicidal ideation [facility] ED PFSH: Social History Smoking and tobacco status: never smoked Physical Exam Const: COMMON NORMALS: no acute distress GENERAL APPEARANCE: cooperative and comfortable ORIENTATION/CONSCIOUSNESS: Yes awake, Yes oriented to person, Yes oriented to place and Yes oriented to time HENMT: COMMON NORMALS: normocephalic, atraumatic and hearing grossly normal bilaterally HEAD & SCALP: normocephalic and atraumatic Neck/C-Spine: COMMON NORMALS: no JVD Resp: COMMON NORMALS: normal respiratory effort, No retractions, No use of accessory muscles and clear to auscultation bilaterally AUSCULTATION: clear to auscultation bilaterally Cardio: COMMON NORMALS: no JVD, regular rate, regular rhythm and No murmurs present (Cardio) RATE: regular rate RHYTHM: regular rhythm GI: COMMON NORMALS: Soft to palpation and No hepatosplenomegaly present AUSCULTATION: Yes normoactive bowel sounds PALPATION: Yes Soft to palpation, No Tenderness to palpation present (GI), No Guarding due to palpation present (GI) and Yes No hepatosplenomegaly present Extremity: COMMON NORMALS: normal to inspection, capillary refill normal, no clubbing, cyanosis or edema, no calf tenderness and no pedal edema Neuro: SENSORIUM/ORIENTATION: Yes oriented to person, Yes oriented to place and Yes oriented to time Psych: THOUGHT CONTENT: No delusions Skin: COMMON NORMALS: no rashes or lesions noted GENERAL SKIN EXAM: no rashes or lesions noted Course Vital Signs: Vital signs: Vital Signs Temperature 98.1 F 09/26/20 15:11 Pulse Rate 104 H 09/26/20 18:00 Respiratory Rate 20 H 09/26/20 18:00 Blood Pressure 132/96 09/26/20 18:00 Pulse Oximetry 98 09/26/20 18:00 MDM - Altered Mental Status MDM Narrative: Medical decision making narrative: Care turned over to Dr. Dumont at change of shift we are waiting on a second troponin. She does have a cystitis for which she was given Rocephin. See his note for final diagnosis and disposition Lab Data: Labs: Lab Results 09/26/20 09/26/20 09/26/20 Range/Units 15:31 15:45 15:45 WBC 8.9 (4.0-10.0) 10^3/ uL RBC 4.53 (4.1-5.3) 10^6/u L Hgb 12.4 (11.5-15.3) g/dL Hct 37.3 (37.0-47.0) % MCV 82.3 (81-99) fL MCH 27.4 L (28.0-34.0) pg MCHC 33.2 (30.0-36.0) g/dL RDW 12.6 (12.1-15.1) % Plt Count 347 (130-400) 10^3/c mm MPV 11.6 H (7.4-10.4) fL Neut % (Auto) 66.9 % Lymph % (Auto) 23.5 % [place] % (Auto) 6.1 % Eos % (Auto) 1.9 % Baso % (Auto) 1.1 % Neut # (Auto) 5.92 (1.8-7.7) 10^3/u L Lymph # (Auto) 2.1 (0.8-4.8) 10^3/u L [place] # (Auto) 0.5 (0.2-0.9) 10^3/u L Eos # (Auto) 0.2 (0.0-0.8) 10^3/u L Baso # (Auto) 0.1 (0.0-0.1) 10^3/u L Nucleated RBC % (a uto) 0 % Nucleated RBCs # 0.0 /100WBC Specimen Type Arterial Sample Site Brachial, left ABG pH 7.46 H (7.35-7.45) ABG pCO2 37.9 (35-45) mmHg ABG pO2 72.5 L (80.0-100.0) mmH g ABG HCO3 27.0 H (22-26) mmol/L ABG O2 Saturation 96.1 ABG Base Excess 3.1 H (-2.0-2.0) mmol/ L Armando Test N/a A-a O2 Gradient 3.8 L (5-10) mmHg Hematocrit 40.4 (37-47) % Hgb O2 Saturation 94.6 L (95-100) % Carboxyhemoglobin 0.8 (0.4-20.1) %THgb Methemoglobin 0.8 (0.4-1.5) % Total Hemoglobin 13.2 (12-16) g/dL Sodium 136.0 137 (131-143) mmol/L Potassium 3.9 4.2 (3.5-5.0) mmol/L Glucose 318.0 H 313 H (70-115) mg/dL Ionized Calcium 1.2 (1.1-1.4) mmol/L O2 Delivery Device Room air FiO2 21.0 % Oil Exploration Engineer ID Amh Chloride 99 (98-107) mmol/L Carbon Dioxide 26 (22-29) mmol/L Anion Gap 16.2 (5-19) BUN 13 (8-23) mg/dL Creatinine 0.6 (0.5-0.9) mg/dL GFR Calculation Not Reportable Calculated Osmolal ity 296 H (285-295) mOsm/k g Calcium 9.1 (8.5-10.5) mg/dL Total Bilirubin 0.3 (0.15-1.2) mg/dL AST 13 (0-32) U/L ALT 11 (0-33) U/L Alkaline Phosphata se 84 (35-105) IU/L Creatine Kinase 160 (26-192) U/L Troponin T Baselin e (0-10) ng/L Total Protein 6.3 L (6.6-8.7) g/dL Albumin 4.4 (3.5-5.2) g/dL Globulin 1.9 (1.3-4.6) g/dL Urine Color (Yellow) Urine Appearance (CLEAR) Urine pH (5-7) Ur Specific Gravit y (1.005-1.030) Urine Protein (Negative) Urine Glucose (UA) (Normal) Urine Ketones (Negative) Urine Blood (Negative) Urine Nitrate (Negative) Urine Bilirubin (Negative) Urine Urobilinogen (Negative) mg/dL Ur Leukocyte Mary ase (Negative) Urine RBC (0-2) /hpf Urine WBC (0-5) /hpf Ur Squamous Epith Cells (0-5) /hpf Amorphous Sediment Urine Bacteria (NONE) /hpf 09/26/20 09/26/20 Range/Units 15:45 15:45 WBC (4.0-10.0) 10^3/ uL RBC (4.1-5.3) 10^6/u L Hgb (11.5-15.3) g/dL Hct (37.0-47.0) % MCV (81-99) fL MCH (28.0-34.0) pg MCHC (30.0-36.0) g/dL RDW (12.1-15.1) % Plt Count (130-400) 10^3/c mm MPV (7.4-10.4) fL Neut % (Auto) % Lymph % (Auto) % [place] % (Auto) % Eos % (Auto) % Baso % (Auto) % Neut # (Auto) (1.8-7.7) 10^3/u L Lymph # (Auto) (0.8-4.8) 10^3/u L [place] # (Auto) (0.2-0.9) 10^3/u L Eos # (Auto) (0.0-0.8) 10^3/u L Baso # (Auto) (0.0-0.1) 10^3/u L Nucleated RBC % (a uto) % Nucleated RBCs # /100WBC Specimen Type Sample Site ABG pH (7.35-7.45) ABG pCO2 (35-45) mmHg ABG pO2 (80.0-100.0) mmH g ABG HCO3 (22-26) mmol/L ABG O2 Saturation ABG Base Excess (-2.0-2.0) mmol/ L Armando Test A-a O2 Gradient (5-10) mmHg Hematocrit (37-47) % Hgb O2 Saturation (95-100) % Carboxyhemoglobin (0.4-20.1) %THgb Methemoglobin (0.4-1.5) % Total Hemoglobin (12-16) g/dL Sodium (131-143) mmol/L Potassium (3.5-5.0) mmol/L Glucose (70-115) mg/dL Ionized Calcium (1.1-1.4) mmol/L O2 Delivery Device FiO2 % Oil Exploration Engineer ID Chloride (98-107) mmol/L Carbon Dioxide (22-29) mmol/L Anion Gap (5-19) BUN (8-23) mg/dL Creatinine (0.5-0.9) mg/dL GFR Calculation Calculated Osmolal ity (285-295) mOsm/k g Calcium (8.5-10.5) mg/dL Total Bilirubin (0.15-1.2) mg/dL AST (0-32) U/L ALT (0-33) U/L Alkaline Phosphata se (35-105) IU/L Creatine Kinase (26-192) U/L Troponin T Baselin e 86 H (0-10) ng/L Total Protein (6.6-8.7) g/dL Albumin (3.5-5.2) g/dL Globulin (1.3-4.6) g/dL Urine Color Yellow (Yellow) Urine Appearance Cloudy (CLEAR) Urine pH 5 (5-7) Ur Specific Gravit y 1.010 (1.005-1.030) Urine Protein Neg (Negative) Urine Glucose (UA) 4+ H (Normal) Urine Ketones 1+ H (Negative) Urine Blood Neg (Negative) Urine Nitrate Positive H (Negative) Urine Bilirubin Neg (Negative) Urine Urobilinogen Norm (Negative) mg/dL Ur Leukocyte Mary ase 1+ H (Negative) Urine RBC 0-4 H (0-2) /hpf Urine WBC 10-15 H (0-5) /hpf Ur Squamous Epith Cells 0-4 H (0-5) /hpf Amorphous Sediment Not Reportable Urine Bacteria 2+ H (NONE) /hpf Discharge Plan Discharge Prescriptions: No Action DOK 100 mg capsule 100 mg PO BID PRN (Reason: Constipation) RF: 0 sertraline 25 mg tablet 25 mg PO BEDTIME@1999 RF: 0 risperidone 0.5 mg tablet 0.5 mg PO BEDTIME@1999 RF: 0 Tylenol 325 mg Tablet 325 mg PO Q4H PRN (Reason: Pain) RF: 0 benazepril 5 mg tablet 5 mg PO DAILY@0700 RF: 0 simvastatin 20 mg tablet 20 mg PO DAILY@0700 RF: 0 metformin 500 mg tablet extended release 24 hr 1,000 mg PO BID@ RF: 0 Eliquis 5 mg tablet 5 mg PO BID@ RF: 0 Tresiba FlexTouch U-200 200 unit/mL (3 mL) insulin pen 40 unit SUBCUT BEDTIME@1999 RF: 0 Coding Level of Care Code ED Safety And Skill Based Pay Manager for Shaniqua 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
[2020-09-26 16:02] LABS: Basophils # 0.1 10^3/uL (0.0-0.1); Basophils % 1.1 %; Eosinophils # 0.2 10^3/uL (0.0-0.8); Eosinophils % 1.9 %; Hematocrit 37.3 % (37.0-47.0); Hemoglobin 12.4 g/dL (11.5-15.3); Lymphocytes # 2.1 10^3/uL (0.8-4.8); Lymphocytes % 23.5 %; Mean Corpuscular HGB Conc 33.2 g/dL (30.0-36.0); Mean Corpuscular Hemoglobin 27.4 pg (28.0-34.0); Mean Corpuscular Volume 82.3 fL (81-99); Mean Platelet Volume 11.6 fL (7.4-10.4); Monocytes # 0.5 10^3/uL (0.2-0.9); Monocytes % 6.1 %; Neutrophils # 5.92 10^3/uL (1.8-7.7); Neutrophils % 66.9 %; Nucleated Red Blood Cells % 0 %; Platelet Count 347 10^3/cmm (130-400); Red Blood Count 4.53 10^6/uL (4.1-5.3); Red Cell Distribution Width 12.6 % (12.1-15.1); White Blood Count 8.9 10^3/uL (4.0-10.0)
[2020-09-26 16:26] LABS: Alanine Aminotransferase 11 U/L (0-33); Albumin Level 4.4 g/dL (3.5-5.2); Alkaline Phosphatase 84 IU/L (35-105); Anion Gap 16.2 (5-19); Aspartate Amino Transferase 13 U/L (0-32); Blood Urea Nitrogen 13 mg/dL (8-23); Calcium 9.1 mg/dL (8.5-10.5); Carbon Dioxide 26 mmol/L (22-29); Chloride 99 mmol/L (98-107); Creatine Phosphokinase 160 U/L (26-192); Creatinine Clr Calc Pharmacy 62.5165; Globulin 1.9 g/dL (1.3-4.6); Glucose 313 mg/dL (65-115); Osmolality Calculated 296 mOsm/kg (285-295); Potassium 4.2 mmol/L (3.5-5.1); Sodium 137 mmol/L (136-145); Total Bilirubin 0.3 mg/dL (0.15-1.2); Total Protein 6.3 g/dL (6.6-8.7)
[2020-09-26 16:31] LABS: Troponin(5th) Baseline 86 ng/L (0-10)
[2020-09-26 16:38] VITALS: BP 138/84; PULSE 110; RESP 18; O2SAT 98
[2020-09-26 16:48] LABS: Bilirubin Urine Neg (Negative); Blood Urine Neg (Negative); Glucose Urine UA 4+ (Normal); Ketones Urine 1+ (Negative); Nitrate Urine Positive (Negative); Protein Urine Neg (Negative); Urine Appearance Cloudy (CLEAR); Urine Color Yellow (Yellow); Urobilinogen Urine Norm (Negative); pH Urine 5 (5-7)
[2020-09-26 16:49] LABS: Add Urine Culture? Yes; Add Urine Microscopic? YES; Bacteria Urine 2+ /hpf; Leukocyte Esterase Urine 1+ (Negative); RBC Urine 0-4 /hpf (0-2); Squamous Epithelial Cell Urine 0-4 /hpf (0-5)
--- NOTE | 2020-09-26 17:17 | ECG_ITS ---
[facility] Test Date: 2020-09-26 Pat Name: Unique Gage Department: Room: Gender: Female Canoe Builder: : 1945 Requested By: Tigre Byrd Order Number: [id number] Jose Francisco MD: Bill Sherman M.D. Measurements Intervals [place] Rate: 98 P: 51 MS: 152 QRS: 47 QRSD: 90 T: -8 QT: 337 QTc: 430 Interpretive Statements SINUS RHYTHM NONSPECIFIC ST & T-WAVE ABNORMALITY Compared to ECG 09/26/2020 15:43:43 Sinus tachycardia no longer present T-wave abnormality still present Electronically Signed On 09-26-2020 20:13:46 CDT by Bill Sherman M.D. [id number]
[2020-09-26] MEDS: cefTRIAXone 1,000 MG in lidocaine 1% 2.1 ML 1 MG IM (17:53)
[2020-09-26 18:00] VITALS: BP 132/96; PULSE 104; RESP 20; O2SAT 98
--- NOTE | 2020-09-26 18:08 | PC.PHAR ---
pt unable to verify medications-pt states she has someone help her but cant remember who it is-pt states to call her daugher states she will know her meds-pts daughter erica verified what medications she thought the pt was taking-notes are made in the pharmacy comments about last fill dates-pts daughter states she is unsure if the pt is taking benazepril-shon states they have a note from 03/10/2020 that benazepril was dced per a nurse from [facility]-shon states they have a rx on hold from 05/24/20-
[2020-09-26 18:57] LABS: Troponin 5 2HR 83.82 ng/L (0-10)
[2020-09-26 19:05] LABS: Troponin 5 2HR Delta -2.18 ABS# (0-10)
[2020-09-26] MEDS: nitrofurantoin SR (BID) 100 mg Capsule PO (19:42)
[2020-09-26 19:47] VITALS: BP 150/100; PULSE 101; RESP 17; TEMP 36.7; O2SAT 97
== END 2020-09-26 20:36 | disposition home or self-care (01) ==
PROVIDERS: Family Medicine; Emergency Provider Emergency Medicine; PCP Internal Medicine
DX: R41.82 Altered mental status, unspecified (principal); Z79.01 Long term (current) use of anticoagulants; Z79.4 Long term (current) use of insulin
CPT/HCPCS: 36415; 36600; 70450; 71045; 80051; 80053; 81001; 82330; 82550; 82805; 84484; 85025; 87077; 87086; 87186; 93005; 96372; 99284; J0696

== ENCOUNTER 2020-10-03 18:19 | Emergency (ER) | payer MEDICARE, MEDICAID, SELFPAY ==
[2020-10-03 18:19] VITALS: BP 126/66; PULSE 100; RESP 16; TEMP 36.9; O2SAT 99; BMI 26.1
[2020-10-03 18:49] VITALS: BP 126/66; PULSE 90; RESP 16; O2SAT 99
[2020-10-03 18:49] LABS: Basophils # 0.1 10^3/uL (0.0-0.1); Basophils % 1.1 %; Eosinophils # 0.1 10^3/uL (0.0-0.8); Eosinophils % 1.5 %; Hematocrit 38.1 % (37.0-47.0); Hemoglobin 12.6 g/dL (11.5-15.3); Lymphocytes # 2.3 10^3/uL (0.8-4.8); Lymphocytes % 26.6 %; Mean Corpuscular HGB Conc 33.1 g/dL (30.0-36.0); Mean Corpuscular Hemoglobin 27.3 pg (28.0-34.0); Mean Corpuscular Volume 82.5 fL (81-99); Mean Platelet Volume 11.8 fL (7.4-10.4); Monocytes # 0.6 10^3/uL (0.2-0.9); Monocytes % 6.4 %; Neutrophils # 5.63 10^3/uL (1.8-7.7); Neutrophils % 63.9 %; Nucleated Red Blood Cells % 0 %; Platelet Count 367 10^3/cmm (130-400); Red Blood Count 4.62 10^6/uL (4.1-5.3); Red Cell Distribution Width 12.7 % (12.1-15.1); White Blood Count 8.8 10^3/uL (4.0-10.0)
--- NOTE | 2020-10-03 19:00 | W.ED.AMS ---
HPI - Altered Mental Status General: Chief Complaint: Altered Mental Status Stated Complaint: AMS WITH HALLUCINATIONS Time Seen by Provider: 10/03/20 18:23 History of Present Illness: HPI narrative: 75-year-old female brought in due to mental status changes and visual hallucinations. Patient was treated here last week for UTI. Patient called EMS because she states that she is seeing children running around her house. And that the boy makes her so mad patient states that she has been seen in the children for a couple years and has seen them grow up. These are not new visual hallucinations. However today she was angry about them. Patient does not have any fevers, chills, nausea, vomiting or other systemic complaints. Associated symptoms: Reports visual hallucinations Review of Systems Const: Denies: fever(s) ENMT: Denies: throat pain Card: Denies: chest pain or palpitations Resp: Denies: dyspnea or productive cough GI: Denies: abdominal pain, nausea or vomiting : Reports: other (see hpi) Skin/Breast: Denies: rash Neuro: Denies: headache(s) or dizziness Psych: Reports: visual hallucinations [facility] ED PFSH: Social History Smoking and tobacco status: never smoked Physical Exam Const: COMMON NORMALS: no acute distress GENERAL APPEARANCE: cooperative ORIENTATION/CONSCIOUSNESS: Yes awake, Yes oriented to person and Yes oriented to place; not oriented to time (thinks 2018) Eye: COMMON NORMALS: Equal, round and reactive pupils present PUPIL: Yes Equal, round and reactive pupils present Resp: COMMON NORMALS: normal respiratory effort and clear to auscultation bilaterally EFFORT & INSPECTION: Yes able to speak in complete sentences AUSCULTATION: clear to auscultation bilaterally Cardio: COMMON NORMALS: regular rate and regular rhythm RATE: regular rate RHYTHM: regular rhythm GI: COMMON NORMALS: Soft to palpation and non-tender PALPATION: Yes Soft to palpation Extremity: COMMON NORMALS: normal to inspection and full ROM Neuro: COMMON NORMALS: no focal motor deficits SENSORIUM/ORIENTATION: Yes oriented to person, Yes oriented to place and No oriented to time (thinks 2018) Psych: COMMON NORMALS: speech normal APPEARANCE: Yes grossly normal SPEECH: Yes normal speech THOUGHT CONTENT: Yes Hallucination(s) present visual Course Vital Signs: Vital signs: Vital Signs Temperature 98.4 F 10/03/20 18:19 Pulse Rate 92 10/03/20 20:07 Respiratory Rate 16 10/03/20 20:07 Blood Pressure 126/66 10/03/20 18:49 Pulse Oximetry 100 10/03/20 20:07 MDM - Altered Mental Status MDM Narrative: Medical decision making narrative: Patient states that her visual hallucinations of seeing the children are longstanding. That these are not new. She does have a possible urinary tract infection. I will treat her with Keflex. She should follow-up with her primary care provider within the week for further evaluation Lab Data: Attestation: I reviewed the patient's lab results. Labs: Lab Results 10/03/20 10/03/20 10/03/20 Range/Units 18:32 18:32 19:20 WBC 8.8 (4.0-10.0) 10^3/ uL RBC 4.62 (4.1-5.3) 10^6/u L Hgb 12.6 (11.5-15.3) g/dL Hct 38.1 (37.0-47.0) % MCV 82.5 (81-99) fL MCH 27.3 L (28.0-34.0) pg MCHC 33.1 (30.0-36.0) g/dL RDW 12.7 (12.1-15.1) % Plt Count 367 (130-400) 10^3/c mm MPV 11.8 H (7.4-10.4) fL Neut % (Auto) 63.9 % Lymph % (Auto) 26.6 % [place]ansom % (Auto) 6.4 % Eos % (Auto) 1.5 % Baso % (Auto) 1.1 % Neut # (Auto) 5.63 (1.8-7.7) 10^3/u L Lymph # (Auto) 2.3 (0.8-4.8) 10^3/u L Ransom # (Auto) 0.6 (0.2-0.9) 10^3/u L Eos # (Auto) 0.1 (0.0-0.8) 10^3/u L Baso # (Auto) 0.1 (0.0-0.1) 10^3/u L Nucleated RBC % (a uto) 0 % Nucleated RBCs # 0.0 /100WBC Sodium 138 (136-145) mmol/L Potassium 3.8 (3.5-5.1) mmol/L Chloride 99 (98-107) mmol/L Carbon Dioxide 28 (22-29) mmol/L Anion Gap 14.8 (5-19) BUN 10 (8-23) mg/dL Creatinine 0.6 (0.5-0.9) mg/dL GFR Calculation Not Reportable Glucose 166 H (65-115) mg/dL Calculated Osmolal ity 289 (285-295) mOsm/k g Lactate 2.6 H (0.5-2.2) mmol/L Calcium 8.8 (8.5-10.5) mg/dL Magnesium 1.6 L (1.7-2.3) mg/dL Total Bilirubin 0.4 (0.15-1.2) mg/dL AST 25 (0-32) U/L ALT 14 (0-33) U/L Alkaline Phosphata se 74 (35-105) IU/L Total Protein 6.4 L (6.6-8.7) g/dL Albumin 4.2 (3.5-5.2) g/dL Globulin 2.2 (1.3-4.6) g/dL Urine Color (Yellow) Urine Appearance (CLEAR) Urine pH (5-7) Ur Specific Gravit y (1.005-1.030) Urine Protein (Negative) Urine Glucose (UA) (Normal) Urine Ketones (Negative) Urine Blood (Negative) Urine Nitrate (Negative) Urine Bilirubin (Negative) Urine Urobilinogen (Negative) mg/dL Ur Leukocyte Mary ase (Negative) Urine RBC (0-2) /hpf Urine WBC (0-5) /hpf Ur Squamous Epith Cells (0-5) /hpf Amorphous Sediment Urine Bacteria (NONE) /hpf / Range/Units 20:03 WBC (4.0-10.0) 10^3/ uL RBC (4.1-5.3) 10^6/u L Hgb (11.5-15.3) g/dL Hct (37.0-47.0) % MCV (81-99) fL MCH (28.0-34.0) pg MCHC (30.0-36.0) g/dL RDW (12.1-15.1) % Plt Count (130-400) 10^3/c mm MPV (7.4-10.4) fL Neut % (Auto) % Lymph % (Auto) % Ransom % (Auto) % Eos % (Auto) % Baso % (Auto) % Neut # (Auto) (1.8-7.7) 10^3/u L Lymph # (Auto) (0.8-4.8) 10^3/u L Ransom # (Auto) (0.2-0.9) 10^3/u L Eos # (Auto) (0.0-0.8) 10^3/u L Baso # (Auto) (0.0-0.1) 10^3/u L Nucleated RBC % (a uto) % Nucleated RBCs # /100WBC Sodium (136-145) mmol/L Potassium (3.5-5.1) mmol/L Chloride (98-107) mmol/L Carbon Dioxide (22-29) mmol/L Anion Gap (5-19) BUN (8-23) mg/dL Creatinine (0.5-0.9) mg/dL GFR Calculation Glucose (65-115) mg/dL Calculated Osmolal ity (285-295) mOsm/k g Lactate (0.5-2.2) mmol/L Calcium (8.5-10.5) mg/dL Magnesium (1.7-2.3) mg/dL Total Bilirubin (0.15-1.2) mg/dL AST (0-32) U/L ALT (0-33) U/L Alkaline Phosphata se (35-105) IU/L Total Protein (6.6-8.7) g/dL Albumin (3.5-5.2) g/dL Globulin (1.3-4.6) g/dL Urine Color Yellow (Yellow) Urine Appearance Clear (CLEAR) Urine pH 6.5 (5-7) Ur Specific Gravit y 1.005 (1.005-1.030) Urine Protein Neg (Negative) Urine Glucose (UA) 2+ (Normal) Urine Ketones Negative (Negative) Urine Blood Neg (Negative) Urine Nitrate Negative (Negative) Urine Bilirubin Neg (Negative) Urine Urobilinogen Norm (Negative) mg/dL Ur Leukocyte Mary ase 1+ H (Negative) Urine RBC 0-4 H (0-2) /hpf Urine WBC 10-15 H (0-5) /hpf Ur Squamous Epith Cells 5-10 H (0-5) /hpf Amorphous Sediment Not Reportable Urine Bacteria 1+ H (NONE) /hpf Discharge Plan Discharge Patient Disposition: Home Clinical Impression: Acute UTI (urinary tract infection), Hallucination, visual Condition: Stable Prescriptions: New cephalexin 500 mg capsule 500 mg PO BID 7 Days Qty: 14 RF: 0 No Action docusate sodium [DOK] 100 mg capsule 100 mg PO PRN PRN (Reason: Constipation) RF: 0 risperidone 0.5 mg tablet 0.5 mg PO BEDTIME@1999 RF: 0 acetaminophen [Tylenol] 325 mg Tablet 650 mg PO BID PRN (Reason: Pain) RF: 0 furosemide 40 mg tablet 40 mg PO DAILY PRN (Reason: Edema) RF: 0 insulin aspart U-100 [Novolog Flexpen U-100 Insulin] 100 unit/mL (3 mL) insulin pen See Rx Instructions .ROUTE .COMPLEX RF: 0 simvastatin 20 mg tablet 20 mg PO DAILY RF: 0 metformin 500 mg tablet extended release 24 hr 1,000 mg PO BID@699,1999 RF: 0 Eliquis 5 mg tablet 5 mg PO BID@699,1999 RF: 0 Tresiba FlexTouch U-200 200 unit/mL (3 mL) insulin pen 20 unit SUBCUT BEDTIME@1999 RF: 0 nitrofurantoin monohyd/m-cryst 100 mg capsule 100 mg PO BID RF: 0 Discharge Orders: Discharge ED (Routine); Ordered 10/03/20 Ordered By: Heladio Roland Referrals: Dao Alba DO [Primary Care Provider] - Discharge Diet: Usual diet Discharge Activity: Resume usual activity Patient Instructions: Urinary Tract Infection in Women (ED), Opioid Safety Activity Restrictions/Additional Instructions: Follow-up with your primary care provider this week to address your longstanding visual hallucinations Coding Level of Care Code 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
[2020-10-03 19:01] LABS: Alanine Aminotransferase 14 U/L (0-33); Albumin Level 4.2 g/dL (3.5-5.2); Alkaline Phosphatase 74 IU/L (35-105); Anion Gap 14.8 (5-19); Aspartate Amino Transferase 25 U/L (0-32); Blood Urea Nitrogen 10 mg/dL (8-23); Calcium 8.8 mg/dL (8.5-10.5); Carbon Dioxide 28 mmol/L (22-29); Chloride 99 mmol/L (98-107); Globulin 2.2 g/dL (1.3-4.6); Glucose 166 mg/dL (65-115); Magnesium 1.6 mg/dL (1.7-2.3); Osmolality Calculated 289 mOsm/kg (285-295); Potassium 3.8 mmol/L (3.5-5.1); Sodium 138 mmol/L (136-145); Total Bilirubin 0.4 mg/dL (0.15-1.2); Total Protein 6.4 g/dL (6.6-8.7)
--- NOTE | 2020-10-03 19:18 | PC.NURSE ---
Report received from GERALD Ovalle and care transferred to SREEDHAR Robison
[2020-10-03] MEDS: sodium chloride 0.9% 1,000 ML 999 ML IV (19:24)
[2020-10-03 20:03] LABS: Lactate (Lactic Acid level) 2.6 mmol/L (0.5-2.2)
[2020-10-03 20:07] VITALS: PULSE 92; RESP 16; O2SAT 100
[2020-10-03 20:29] LABS: Add Urine Microscopic? YES; Bilirubin Urine Neg (Negative); Blood Urine Neg (Negative); Glucose Urine UA 2+ (Normal); Ketones Urine Negative (Negative); Leukocyte Esterase Urine 1+ (Negative); Nitrate Urine Negative (Negative); Protein Urine Neg (Negative); Specific Gravity, Urine 1.005 (1.005-1.030); Urine Appearance Clear (CLEAR); Urine Color Yellow (Yellow); Urobilinogen Urine Norm (Negative); pH Urine 6.5 (5-7)
[2020-10-03 20:30] LABS: Add Urine Culture? Yes; Bacteria Urine 1+ /hpf; RBC Urine 0-4 /hpf (0-2)
[2020-10-03] MEDS: cefTRIAXone 1,000 MG in sodium chloride 0.9% (plus) 50 ML 100 MG IV (20:55)
[2020-10-03 21:23] VITALS: BP 145/75; PULSE 93; O2SAT 97
--- NOTE | 2020-10-03 21:48 | PC.NURSE ---
patient up to bedside bathroom
[2020-10-03 22:38] VITALS: BP 131/80; PULSE 95; RESP 16; O2SAT 99
[2020-10-03 22:39] VITALS: BP 150/82; PULSE 94; RESP 17; O2SAT 100
[2020-10-04 22:19] LABS: Glucose Point of Care 241 mg/dL (70-110)
[2020-10-05 06:40] LABS: Glucose Point of Care 115 mg/dL (70-110)
== END 2020-10-03 22:52 | disposition home or self-care (01) ==
PROVIDERS: Emergency Provider Student in an Organized Health Care Education/Training Program; PCP Internal Medicine
DX: N39.0 Urinary tract infection, site not specified (principal); R44.1 Visual hallucinations; Z79.01 Long term (current) use of anticoagulants; Z79.4 Long term (current) use of insulin
CPT/HCPCS: 36415; 80053; 81001; 83605; 83735; 85025; 87086; 96365; 99284; J0696; J7030

== ENCOUNTER 2020-10-04 15:02 | Inpatient (IN) | payer MEDICARE, MEDICAID, SELFPAY ==
[2020-10-04 15:09] VITALS: BP 133/80; PULSE 115; RESP 18; O2SAT 96; BMI 22.9
--- NOTE | 2020-10-04 15:14 | W.ED.AMS ---
HPI - Altered Mental Status General: Chief Complaint: Altered Mental Status Stated Complaint: INCREASED AMS Time Seen by Provider: 10/04/20 15:03 History of Present Illness: HPI narrative: 75-year-old female brought in by EMS. Patient was found wandering around outside [facility] in the rain/snow. Patient cannot tell you why she is wandering around. Patient is able to tell dates and is really struggling with her memory today. Patient was seen yesterday by me due to visual hallucinations which have been longstanding. However today her mental status seems to be much worse. Her work-up was questionable UTI yesterday but otherwise no acute findings. Patient had a negative head CT yesterday. Patient lives alone at home. Review of Systems Const: Denies: fever(s) or chills ENMT: Denies: throat pain Card: Denies: chest pain or palpitations Resp: Denies: dyspnea or productive cough GI: Denies: abdominal pain, nausea or vomiting : Denies: difficulty voiding or dysuria Skin/Breast: Denies: rash Neuro: Reports: other (Please see HPI) Psych: Reports: other (Please see HPI) PFSH ED PFSH: Social History Smoking and tobacco status: never smoked Physical Exam Const: COMMON NORMALS: no acute distress and patient oriented x3 GENERAL APPEARANCE: disheveled ORIENTATION/CONSCIOUSNESS: Yes oriented to person, Yes oriented to place and Yes confused; not oriented to time HENMT: COMMON NORMALS: moist oral mucous membranes Eye: COMMON NORMALS: Equal, round and reactive pupils present Resp: COMMON NORMALS: normal respiratory effort and clear to auscultation bilaterally EFFORT & INSPECTION: Yes able to speak in complete sentences AUSCULTATION: clear to auscultation bilaterally Cardio: COMMON NORMALS: regular rate and regular rhythm RATE: regular rate RHYTHM: regular rhythm Extremity: COMMON NORMALS: normal to inspection and full ROM Neuro: COMMON NORMALS: patient oriented x3, CN's II-XII intact bilaterally and no focal motor deficits SENSORIUM/ORIENTATION: Yes oriented to person, Yes oriented to place and No oriented to time Psych: THOUGHT PROCESS: disorganized and confused MEMORY/COGNITION: Yes memory grossly impaired INSIGHT: Limited insight present (Psych) Skin: COMMON NORMALS: no rashes or lesions noted GENERAL SKIN EXAM: no rashes or lesions noted Course Vital Signs: Vital signs: Vital Signs Pulse Rate 115 H 10/04/20 15:09 Respiratory Rate 18 10/04/20 15:09 Blood Pressure 133/80 10/04/20 15:09 Pulse Oximetry 96 10/04/20 15:09 MDM - Altered Mental Status MDM Narrative: Medical decision making narrative: Patient is much more confused today than she was yesterday. Patient was stable labs, urine looks improved with no UTI. I am concerned that patient has some worsening dementia or confusional episodes. Discussed with Dr. Guy. Will admit patient for confusion since at this time I do not feel she is safe to be discharged home and lives alone. Patient may have worsening Alzheimer's. Lab Data: Attestation: I reviewed the patient's lab results. Labs: Lab Results 10/04/20 10/04/20 10/04/20 Range/Units 15:29 15:29 15:45 WBC 10.0 (4.0-10.0) 10^3/ uL RBC 4.68 (4.1-5.3) 10^6/u L Hgb 12.7 (11.5-15.3) g/dL Hct 39.6 (37.0-47.0) % MCV 84.6 (81-99) fL MCH 27.1 L (28.0-34.0) pg MCHC 32.1 (30.0-36.0) g/dL RDW 12.7 (12.1-15.1) % Plt Count 351 (130-400) 10^3/c mm MPV 11.0 H (7.4-10.4) fL Neut % (Auto) 76.6 % Lymph % (Auto) 15.5 % [place] % (Auto) 6.0 % Eos % (Auto) 0.4 % Baso % (Auto) 0.8 % Neut # (Auto) 7.64 (1.8-7.7) 10^3/u L Lymph # (Auto) 1.6 (0.8-4.8) 10^3/u L [place] # (Auto) 0.6 (0.2-0.9) 10^3/u L Eos # (Auto) 0.0 (0.0-0.8) 10^3/u L Baso # (Auto) 0.1 (0.0-0.1) 10^3/u L Nucleated RBC % (a uto) 0 % Nucleated RBCs # 0.0 /100WBC Sodium (136-145) mmol/L Potassium (3.5-5.1) mmol/L Chloride (98-107) mmol/L Carbon Dioxide (22-29) mmol/L Anion Gap (5-19) BUN (8-23) mg/dL Creatinine (0.5-0.9) mg/dL GFR Calculation Glucose (65-115) mg/dL Calculated Osmolal ity (285-295) mOsm/k g Calcium (8.5-10.5) mg/dL Total Bilirubin (0.15-1.2) mg/dL AST (0-32) U/L ALT (0-33) U/L Alkaline Phosphata se (35-105) IU/L Total Protein (6.6-8.7) g/dL Albumin (3.5-5.2) g/dL Globulin (1.3-4.6) g/dL Urine Color Yellow (Yellow) Urine Appearance Clear (CLEAR) Urine pH 5 (5-7) Ur Specific Gravit y 1.025 (1.005-1.030) Urine Protein Neg (Negative) Urine Glucose (UA) 4+ H (Normal) Urine Ketones 2+ H (Negative) Urine Blood Neg (Negative) Urine Nitrate Negative (Negative) Urine Bilirubin Neg (Negative) Urine Urobilinogen Norm (Negative) mg/dL Ur Leukocyte Mary ase Negative (Negative) Urine Opiates Scre en Negative (Negative) ng/mL Ur Barbiturates Sc reen Negative (Negative) ng/mL Ur Phencyclidine S crn Negative (Negative) ng/mL Ur Amphetamines Sc reen Negative (Negative) ng/mL U Benzodiazepines Scrn Negative (Negative) ng/mL Urine Cocaine Scre en Negative (Negative) ng/mL U Marijuana (THC) Screen Negative (Negative) ng/mL 10/04/20 Range/Units 15:45 WBC (4.0-10.0) 10^3/ uL RBC (4.1-5.3) 10^6/u L Hgb (11.5-15.3) g/dL Hct (37.0-47.0) % MCV (81-99) fL MCH (28.0-34.0) pg MCHC (30.0-36.0) g/dL RDW (12.1-15.1) % Plt Count (130-400) 10^3/c mm MPV (7.4-10.4) fL Neut % (Auto) % Lymph % (Auto) % [place] % (Auto) % Eos % (Auto) % Baso % (Auto) % Neut # (Auto) (1.8-7.7) 10^3/u L Lymph # (Auto) (0.8-4.8) 10^3/u L [place] # (Auto) (0.2-0.9) 10^3/u L Eos # (Auto) (0.0-0.8) 10^3/u L Baso # (Auto) (0.0-0.1) 10^3/u L Nucleated RBC % (a uto) % Nucleated RBCs # /100WBC Sodium 134 L (136-145) mmol/L Potassium 4.1 (3.5-5.1) mmol/L Chloride 95 L (98-107) mmol/L Carbon Dioxide 26 (22-29) mmol/L Anion Gap 17.1 (5-19) BUN 10 (8-23) mg/dL Creatinine 0.6 (0.5-0.9) mg/dL GFR Calculation Not Reportable Glucose 221 H (65-115) mg/dL Calculated Osmolal ity 284 L (285-295) mOsm/k g Calcium 9.0 (8.5-10.5) mg/dL Total Bilirubin 0.5 (0.15-1.2) mg/dL AST 28 (0-32) U/L ALT 14 (0-33) U/L Alkaline Phosphata se 76 (35-105) IU/L Total Protein 6.8 (6.6-8.7) g/dL Albumin 4.3 (3.5-5.2) g/dL Globulin 2.5 (1.3-4.6) g/dL Urine Color (Yellow) Urine Appearance (CLEAR) Urine pH (5-7) Ur Specific Gravit y (1.005-1.030) Urine Protein (Negative) Urine Glucose (UA) (Normal) Urine Ketones (Negative) Urine Blood (Negative) Urine Nitrate (Negative) Urine Bilirubin (Negative) Urine Urobilinogen (Negative) mg/dL Ur Leukocyte Mary ase (Negative) Urine Opiates Scre en (Negative) ng/mL Ur Barbiturates Sc reen (Negative) ng/mL Ur Phencyclidine S crn (Negative) ng/mL Ur Amphetamines Sc reen (Negative) ng/mL U Benzodiazepines Scrn (Negative) ng/mL Urine Cocaine Scre en (Negative) ng/mL U Marijuana (THC) Screen (Negative) ng/mL Discharge Plan Discharge Patient Disposition: Placed in Observation Clinical Impression: Hallucination, visual, Delirium Condition: Stable Prescriptions: No Action docusate sodium [DOK] 100 mg capsule 100 mg PO PRN PRN (Reason: Constipation) RF: 0 risperidone 0.5 mg tablet 0.5 mg PO BEDTIME@1999 RF: 0 acetaminophen [Tylenol] 325 mg Tablet 650 mg PO BID PRN (Reason: Pain) RF: 0 furosemide 40 mg tablet 40 mg PO DAILY PRN (Reason: Edema) RF: 0 insulin aspart U-100 [Novolog Flexpen U-100 Insulin] 100 unit/mL (3 mL) insulin pen See Rx Instructions .ROUTE .COMPLEX RF: 0 simvastatin 20 mg tablet 20 mg PO DAILY RF: 0 metformin 500 mg tablet extended release 24 hr 1,000 mg PO BID@ RF: 0 Eliquis 5 mg tablet 5 mg PO BID@699,1999 RF: 0 Tresiba FlexTouch U-200 200 unit/mL (3 mL) insulin pen 20 unit SUBCUT BEDTIME@1999 RF: 0 nitrofurantoin monohyd/m-cryst 100 mg capsule 100 mg PO BID RF: 0 cephalexin 500 mg capsule 500 mg PO BID 7 Days Qty: 14 RF: 0 Referrals: Dao Alba DO [Primary Care Provider] - Coding Level of Care Code 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
[2020-10-04 15:36] LABS: Add Urine Microscopic? NO; Charge for UA Resulting for Rev
[2020-10-04 15:49] LABS: Bilirubin Urine Neg (Negative); Blood Urine Neg (Negative); Glucose Urine UA 4+ (Normal); Ketones Urine 2+ (Negative); Leukocyte Esterase Urine Negative (Negative); Nitrate Urine Negative (Negative); Protein Urine Neg (Negative); Specific Gravity, Urine 1.025 (1.005-1.030); Urine Appearance Clear (CLEAR); Urine Color Yellow (Yellow); Urobilinogen Urine Norm (Negative); pH Urine 5 (5-7)
[2020-10-04 15:53] LABS: Basophils # 0.1 10^3/uL (0.0-0.1); Basophils % 0.8 %; Eosinophils % 0.4 %; Hematocrit 39.6 % (37.0-47.0); Hemoglobin 12.7 g/dL (11.5-15.3); Lymphocytes # 1.6 10^3/uL (0.8-4.8); Lymphocytes % 15.5 %; Mean Corpuscular HGB Conc 32.1 g/dL (30.0-36.0); Mean Corpuscular Hemoglobin 27.1 pg (28.0-34.0); Mean Corpuscular Volume 84.6 fL (81-99); Monocytes # 0.6 10^3/uL (0.2-0.9); Neutrophils # 7.64 10^3/uL (1.8-7.7); Neutrophils % 76.6 %; Nucleated Red Blood Cells % 0 %; Platelet Count 351 10^3/cmm (130-400); Red Blood Count 4.68 10^6/uL (4.1-5.3); Red Cell Distribution Width 12.7 % (12.1-15.1)
[2020-10-04 15:54] LABS: Amphetamines Screen Urine Negative (Negative); Barbiturates Screen Urine Negative (Negative); Benzodiazepines Screen Urine Negative (Negative); Cocaine Screen Urine Negative (Negative); Opiate Screen Urine Negative (Negative); PCP Screen Urine Negative (Negative); THC Screen Urine Negative (Negative)
[2020-10-04 16:22] LABS: Alanine Aminotransferase 14 U/L (0-33); Albumin Level 4.3 g/dL (3.5-5.2); Alkaline Phosphatase 76 IU/L (35-105); Anion Gap 17.1 (5-19); Aspartate Amino Transferase 28 U/L (0-32); Blood Urea Nitrogen 10 mg/dL (8-23); Carbon Dioxide 26 mmol/L (22-29); Chloride 95 mmol/L (98-107); Creatinine Clr Calc Pharmacy 58.5699; Globulin 2.5 g/dL (1.3-4.6); Glucose 221 mg/dL (65-115); Osmolality Calculated 284 mOsm/kg (285-295); Potassium 4.1 mmol/L (3.5-5.1); Sodium 134 mmol/L (136-145); Total Bilirubin 0.5 mg/dL (0.15-1.2); Total Protein 6.8 g/dL (6.6-8.7)
--- NOTE | 2020-10-04 17:32 | PM.HP ---
Providers/Chief Complaint Primary Care Provider: Dao Alba DO Chief Complaint: INCREASED AMS History of Present Illness Unique Gage is a 75 year old female with a past medical history of pulmonary emboli on Eliquis, history of congestive heart failure, history of insulin-dependent type 2 diabetes mellitus, hyperlipidemia, history of early dementia, history of visual hallucinations, who has had multiple ER visits in the last few months for visual hallucinations and confusion, who roughly a year ago was transferred [facility] and [facility] who presents [facility] for confusion patient was here in the emergency room yesterday evening for confusion, was treated for UTI and sent home. However patient was brought in by EMS, was found wandering outside [facility] in the rain and snow, was found to be confused, with complaints of visual hallucinations. During my examination, patient is alert to person, not to place, not to time, she does follow commands, but she has no particular complaints, she does not know why she is here, denies any significant pain complaints, no chest pain, no shortness of breath, no headache, no blurry vision, no weakness, but is fairly confused, is difficult to get a straight answer from her, she is often lost in the train of thought. I was able to speak to patient's daughter, who tells me that her roughly a year ago, and since then she has had a slow decline, they have been suspicious of early dementia, but she has been quite confused over the last few days, they think that it might be secondary to UTI, she is not voiced any particular complaints to family members. Patient and Dr. Alba are trying to get her over to an assisted living facility. Review of Systems Const: Denies: fever(s) Eyes: Denies: change in vision or blurry vision ENMT: Denies: nasal congestion Card: Reports: edema; Denies: chest pain or palpitations Resp: Denies: dyspnea, productive cough, non-productive cough or wheezing GI: Denies: abdominal pain, nausea, vomiting, hematemesis, diarrhea, constipation, hematochezia or melena : Denies: flank pain, dysuria or urinary frequency Musc: Denies: neck pain or back pain Skin/Breast: Denies: rash Neuro: Denies: headache(s), dizziness or vertigo Medications/Allergies Home Medications Medication Instructions Recorded Confirmed Last Taken Type apixaban [Eliquis] 5 mg PO BID@0700,199912/13/19 10/04/20 05/30/20 History insulin degludec [Tresiba 20 unit SUBCUT BEDTIME@199912/13/19 10/04/20 05/29/20 History FlexTouch U-200] metformin 1,000 mg PO BID@07,199912/13/19 10/04/20 05/30/20 History simvastatin 20 mg PO DAILY@0712/13/19 10/04/20 05/30/20 History acetaminophen [Tylenol] 650 mg PO Q4H PRN 05/30/20 10/04/20 Unknown History docusate sodium [DOK] 100 mg PO PRN PRN 05/30/20 10/04/20 05/29/20 History risperidone 0.5 mg PO BEDTIME@199905/30/20 10/04/20 05/29/20 History furosemide 40 mg PO DAILY PRN 09/26/20 10/04/20 Unknown History insulin aspart U-100 [Novolog See Rx Instructions .ROUTE .COMPLEX 09/26/20 10/04/20 Unknown History Flexpen U-100 Insulin] aspirin [Aspir-Low] 81 mg PO DAILY 10/04/20 10/04/20 Unknown History benazepril 5 mg PO DAILY@0710/04/20 10/04/20 Unknown History bimatoprost [Lumigan] 1 drp OPHTHALMIC (EYE) BEDTIME@199910/04/20 10/04/20 Unknown History donepezil 5 mg PO BEDTIME@199910/04/20 10/04/20 Unknown History sertraline 25 mg PO DAILY@0700 10/04/20 10/04/20 Unknown History trazodone 50 mg PO BEDTIME PRN 10/04/20 10/04/20 Unknown History Allergies Allergy/AdvReac Type Severity Reaction Status Date / Time flu vaccine Allergy ADR-Nausea Uncoded 10/03/20 18:31 PFSH Acute PFSH: Medical History (Updated 10/04/20 @ 18:00 by Ayo Guy MD) History of heart failure History of pulmonary embolism Hyperlipidemia Insulin dependent type 2 diabetes mellitus Macular degeneration Surgical History (Updated 10/04/20 @ 17:55 by Ayo Guy MD) History of Family History (Updated 10/04/20 @ 17:56 by Ayo Guy MD) Mother Dementia Social History (Updated 10/04/20 @ 17:56 by Ayo Guy MD) Smoking and tobacco status: never smoked Alcohol intake: never Substance/Drug Use: never Vitals/I&O/Wt Last Vital Signs Pulse 115 H 10/04/20 15:09 Resp 18 10/04/20 15:09 BP 133/80 10/04/20 15:09 Pulse Ox 96 10/04/20 15:09 Weight last 48 hrs Weight 62.596 kg Physical Exam Const: COMMON NORMALS: no acute distress GENERAL APPEARANCE: cooperative and comfortable ORIENTATION/CONSCIOUSNESS: Yes awake, Yes oriented to person and Yes confused; not oriented to place and not oriented to time HENMT: COMMON NORMALS: normocephalic HEAD & SCALP: normocephalic Eye: COMMON NORMALS: Equal, round and reactive pupils present GENERAL EYE: appearance normal, both eyes and all related structures PUPIL: Yes Equal, round and reactive pupils present Neck/C-Spine: COMMON NORMALS: full ROM, no lymphadenopathy, no JVD and Thyroid normal Lymph: LYMPHATIC: no lymphadenopathy noted Resp: COMMON NORMALS: normal respiratory effort, No retractions, No use of accessory muscles and clear to auscultation bilaterally AUSCULTATION: clear to auscultation bilaterally Cardio: COMMON NORMALS: no JVD, regular rate, regular rhythm, S1 normal heart sound present, S2 normal heart sound present, No gallops present (Cardio), No clicks present (Cardio) and No murmurs present (Cardio) RATE: regular rate RHYTHM: regular rhythm HEART SOUNDS: S1 normal heart sound present and S2 normal heart sound present GI: COMMON NORMALS: Normal to inspection, nondistended, normoactive bowel sounds present, Soft to palpation, non-tender and No hepatosplenomegaly present PALPATION: Yes Soft to palpation and Yes No hepatosplenomegaly present Extremity: COMMON NORMALS: normal to inspection, full ROM and no pedal edema Neuro: COMMON NORMALS: CN's II-XII intact bilaterally, moves all extremities and no focal motor deficits Psych: APPEARANCE: Yes unkempt ATTITUDE: Yes Withdrawn affect present ACTIVITY/MOTOR BEHAVIOR: Yes fidgeting THOUGHT PROCESS: incoherent, disorganized and confused Data : 10/04/20 15:45 10/04/20 15:45 A&P Assessment and plan (1) Delirium: -Possibly secondary to underlying UTI -Reviewed the records have shown that there is been concerns for dementia, but no formal diagnosis -She was transferred to geriatric psych facility in [facility] for concerns for confusion that was dementia related Plan: -Admit to general medical floors, neurochecks, aspiration precautions seizure precautions -Rocephin for antibiotic coverage -Urine cultures, blood cultures -CT of the head done yesterday had no acute findings -Carotid artery ultrasound, cardiac echo -TSH, B12, folate -Monitor mental status Status: Acute (2) Hallucination, visual: -May be related to UTI, underlying dementia -Continue home risperidone, sertraline Status: Acute (3) History of pulmonary embolism: Continue Eliquis Status: Acute (4) Macular degeneration: Status: Acute (5) Hyperlipidemia: Status: Acute (6) Insulin dependent type 2 diabetes mellitus: -Low-dose sliding scale Status: Acute Additional A&P Information Eliquis for DVT prophylaxis Patient is a full code Attestations Medical Necessity Statement*: Patient requires hospitalization, for delirium, secondary UTI Coding Level of Care Code 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
[2020-10-04 20:13] VITALS: BP 136/72; PULSE 99; RESP 15; TEMP 37.1; O2SAT 97
--- NOTE | 2020-10-04 20:13 | ECG_ITS ---
[facility] ED Test Date: 2020-10-04 Pat Name: Unique Gage Department: Room: 259 Gender: Female Sociology Faculty Member: CHEN AKERS: 1945 Requested By: Ayo Guy Order Number: [id number] Jose Francisco MD: Joseline Vasquez M.D. Measurements Intervals [place] Rate: 95 P: 64 RI: 143 QRS: 72 QRSD: 99 T: -30 QT: 352 QTc: 443 Interpretive Statements SINUS RHYTHM WITH FREQUENT SUPRAVENTRICULAR PREMATURE COMPLEXES NONSPECIFIC ST & T-WAVE ABNORMALITY Compared to ECG 09/26/2020 17:56:32 No significant changes Electronically Signed On 10-08-2020 5:29:08 CDT by Joseline Vasquez M.D. [id number]
[2020-10-04 21:09] LABS: Troponin(5th) Baseline 256 ng/L (0-10)
[2020-10-04 21:13] LABS: NT Pro B Type Natriuretic Pept 3231 pg/mL (0-125); Procalcitonin 0.06 ng/mL (0-0.5)
[2020-10-04 21:32] LABS: Folate Level 14.7 ng/mL (4.8-37.3)
[2020-10-04 21:42] LABS: Thyroid Stimulating Hormone 1.47 uIU/mL (0.27-4.20)
[2020-10-04 21:46] LABS: D Dimer <= 0.27 ug/mIFEU (0-0.59); Vitamin B12 312 pg/mL (232-1245)
[2020-10-04] MEDS: sodium chloride 0.9% 1,000 ML 75 ML IV (22:49)
[2020-10-04] MEDS: apixaban 5 mg Tablet PO (22:54)
[2020-10-04] MEDS: risperiDONE 0.25 mg Tablet 0.5 MG PO (22:54)
[2020-10-04] MEDS: aspirin 81 mg Chew Tablet PO (22:54)
[2020-10-04] MEDS: atorvastatin 40 mg Tablet PO (22:54)
[2020-10-04 23:10] LABS: Troponin 5 2HR 291.2 ng/L (0-10); Troponin 5 2HR Delta 35.2 ABS# (0-10)
[2020-10-05] VITALS (12 sets, daily range): BP systolic 80–113; BP diastolic 44–72; PULSE 75–103; RESP 12–22; TEMP 36.8–37.2; O2SAT 91–97
[2020-10-05] MEDS: cefTRIAXone 1,000 MG in sodium chloride 0.9% (plus) 50 ML 100 MG IV ×2 (00:01→20:40)
--- NOTE | 2020-10-05 00:02 | ECG_ITS ---
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 Measurements Intervals [place] Rate: 95 P: 62 [place]: 143 QRS: 69 QRSD: 97 T: -25 QT: 362 QTc: 457 Interpretive Statements SINUS RHYTHM WITH OCCASIONAL SUPRAVENTRICULAR PREMATURE COMPLEXES NONSPECIFIC ST & T-WAVE ABNORMALITY Compared to ECG 10/04/2020 20:54:28 No significant changes Electronically Signed On 10-08-2020 5:28:56 CDT by Joseline Vasquez M.D. [id number]
[2020-10-05] MEDS: ziprasidone hcl 20 mg Capsule PO (01:55)
[2020-10-05 02:48] LABS: Basophils # 0.1 10^3/uL (0.0-0.1); Basophils % 0.9 %; Eosinophils % 0.4 %; Hematocrit 35.5 % (37.0-47.0); Hemoglobin 11.6 g/dL (11.5-15.3); Lymphocytes # 2.6 10^3/uL (0.8-4.8); Lymphocytes % 27.2 %; Mean Corpuscular HGB Conc 32.7 g/dL (30.0-36.0); Mean Corpuscular Hemoglobin 27.4 pg (28.0-34.0); Mean Corpuscular Volume 83.9 fL (81-99); Monocytes # 0.9 10^3/uL (0.2-0.9); Monocytes % 9.7 %; Neutrophils # 5.79 10^3/uL (1.8-7.7); Neutrophils % 61.6 %; Nucleated Red Blood Cells % 0 %; Platelet Count 328 10^3/cmm (130-400); Red Blood Count 4.23 10^6/uL (4.1-5.3); Red Cell Distribution Width 12.8 % (12.1-15.1); White Blood Count 9.4 10^3/uL (4.0-10.0)
[2020-10-05 03:10] LABS: Alanine Aminotransferase 9 U/L (0-33); Albumin Level 3.7 g/dL (3.5-5.2); Alkaline Phosphatase 63 IU/L (35-105); Anion Gap 9.1 (5-19); Aspartate Amino Transferase 16 U/L (0-32); Blood Urea Nitrogen 8 mg/dL (8-23); Calcium 8.4 mg/dL (8.5-10.5); Carbon Dioxide 29 mmol/L (22-29); Chloride 100 mmol/L (98-107); Creatinine Clr Calc Pharmacy 58.5699; Globulin 1.9 g/dL (1.3-4.6); Glucose 100 mg/dL (65-115); Magnesium 1.4 mg/dL (1.7-2.3); Osmolality Calculated 278 mOsm/kg (285-295); Phosphorus 2.9 mg/dL (2.5-4.5); Potassium 3.1 mmol/L (3.5-5.1); Sodium 135 mmol/L (136-145); Total Bilirubin 0.6 mg/dL (0.15-1.2); Total Protein 5.6 g/dL (6.6-8.7)
[2020-10-05] MEDS: sertraline 50 mg Tablet 25 MG PO (06:09)
[2020-10-05] MEDS: apixaban 5 mg Tablet PO (06:09)
[2020-10-05] MEDS: lisinopril 5 mg Tablet PO (06:09)
--- NOTE | 2020-10-05 07:00 | USCV_ITS ---
Unique Gage Age: 75 Gender: F : 1945 Exam Date: 10/05/2020 07:05 Ordering Phys: Ayo Guy MD Technologist: Kay Fischer [place] [facility] [place]: AMS Risk Factors: Previous Vascular Surgery: Right Brachial BP: / Left Brachial BP: / Right Left Velocity (cm/s) Spectral Plaque Velocity (cm/s) Spectral Plaque Syst/Diast Broadening Syst/Diast Broadening 64.50/ 9.00 Prox CCA 80.80 / 13.30 74.30/ 15.40 Mid CCA 81.70 / 8.00 93.80/ 14.70 Distal CCA 60.40 / 11.50 47.60/ 16.10 Prox ICA 46.30 / 11.10 58.45/ 19.35 Mid ICA 37.70 / 8.60 79.00/ 19.30 Distal ICA 46.30 / 17.20 99.70 ECA 88.80 1.06 ICA/CCA 0.57 Antegrade Vertebral Antegrade 46.00/ 8.90 cm/s 28.60/ 7.70 cm/s Tri Subclavian Tri 47.10 49.10 FINDINGS Minimal dense plaques of the right bifurcation and proximal internal carotid artery moderate heterogeneous plaques of the left bifurcation and proximal internal carotid artery. Intimal thickening in the common carotid arteries bilaterally Antegrade flow in the vertebral arteries bilaterally Normal Doppler flow velocities in the external carotid arteries bilaterally CONCLUSIONS Minimal dense plaques of the right bifurcation and proximal internal carotid artery with the Doppler features, suggesting less than 50% stenosis Moderate heterogeneous plaques of the left bifurcation and proximal internal carotid artery with the Doppler features suggesting less than 50% stenosis. Intimal thickening in the common carotid arteries bilaterally No previous studies are available for comparison. Dr Desmond Ramirez MD [facility] (Electronically Signed) Final Date: 06 October 2020 23:07 S
--- NOTE | 2020-10-05 07:00 | USCV_ITS ---
Unique Gage Age: 75 Gender: F : 1945 Exam Date: 10/05/2020 06:53 Ordering Phys: Ayo Guy MD Technologist: Kay Fischer [place] [facility] [place]ication: AMS BP: 113 / 68 HR: 93 Rhythm: Sinus Technical Quality: Adequate MEASUREMENTS (Male / Female) Normal Values 2D ECHO LV Diastolic Diameter PLAX 3.1 cm 4.2 - 5.9 / 3.9 - 5.3 cm LV Systolic Diameter PLAX 2.4 cm LV Chamber Size 2.5 cm IVS Diastolic Thickness 1.3 cm 0.6 - 1.0 / 0.6 - 0.9 cm IVS Systolic Thickness 1.2 cm LVPW Diastolic Thickness 1.8 cm 0.6 - 1.0 / 0.6 - 0.9 cm LVPW Systolic Thickness 1.8 cm RV Chamber Size 2.2 cm LVOT Diameter 2.1 cm LV Ejection Fraction 2D Teich 49.5 % LV Ejection Fraction MOD 2C 56.0 % LV Ejection Fraction 2C AL 56.9 % LA Diameter 3.1 cm LA Width 3.0 cm LA Height 5.7 cm RA Width 2.8 cm RA Height 4.9 cm Aorta at Sinotubular Diameter 2.3 cm M-MODE LV Diastolic Diameter MM 5.2 cm 4.2 - 5.9 / 3.9 - 5.3 cm LV Systolic Diameter MM 2.8 cm LV Ejection Fraction MM Teich 78.1 % IVS Diastolic Thickness MM 0.9 cm 0.6 - 1.0 / 0.6 - 0.9 cm IVS Systolic Thickness MM 1.3 cm LVPW Diastolic Thickness MM 1.1 cm 0.6 - 1.0 / 0.6 - 0.9 cm LVPW Systolic Thickness MM 1.6 cm Aortic Annulus Diameter 3.1 cm LA Ao Ratio MM 1.0 MV E Point Septal Separation 1.0 cm DOPPLER AV Peak Velocity 119.7 cm/s LVOT Peak Velocity 105.3 cm/s AV Area Cont Eq vti 3.2 cm squared AV Area Cont Eq pk 2.9 cm squared MV Area PHT 2.7 cm squared Mitral E to A Ratio 0.7 MV E' Velocity 47.5 cm/s Mitral E to MV E' Ratio 9.2 Mitral E to LV E' Lateral Ratio 8.2 Mitral E to LV E' Septal Ratio 10.4 TR Peak Velocity 309.0 cm/s TR Peak Gradient 38.2 mmHg TV Peak E Velocity 47.0 cm/s Right Atrial Pressure 3.0 mmHg Pulmonary Artery Systolic Pressu 41.2 mmHg PV Peak Velocity 85.0 cm/s RV Acceleration Time 0.1 s RV Ejection Time 0.4 s RV AcT/ET 0.3 FINDINGS Left Ventricle Normal left ventricular size and systolic function, EF 57 %. No regional wall motion abnormalities. Mild left ventricular hypertrophy. Grade I/IV diastolic dysfunction (abnormal relaxation filling pattern), normal to mildly elevated filling pressures. Right Ventricle The right ventricle is normal in size and function. Right Atrium The right atrium is normal in size. Left Atrium Upper limit of normal size Mitral Valve Thickened mitral valve. Moderate mitral annular calcification. Aortic Valve Thickened aortic valve. Tricuspid Valve Trace tricuspid valve regurgitation. Pulmonic Valve Pulmonic valve not well visualized. Pericardium Normal pericardium without effusion. Aorta Normal ascending aorta dimension. CONCLUSIONS Normal left ventricular size and systolic function, EF 57 %. No regional wall motion abnormalities. Mild left ventricular hypertrophy. Grade I/IV diastolic dysfunction (abnormal relaxation filling pattern), normal to mildly elevated filling pressures. Thickened mitral valve. Moderate mitral annular calcification. Thickened aortic valve. Trace tricuspid valve regurgitation. Estimated pulmonary peak systolic pressure 41 mmHg There is no pericardial effusion. There are no intracardiac masses. Compared to the study from 07/19/2018, there may not be a significant change Dr Desmond Ramirez MD [facility] (Electronically Signed) Final Date: 05 October 2020 14:15 S
--- NOTE | 2020-10-05 07:12 | ECG_ITS ---
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 Measurements Intervals [place] Rate: 74 P: 48 NV: 142 QRS: 44 QRSD: 95 T: -40 QT: 413 QTc: 461 Interpretive Statements SINUS RHYTHM WITH OCCASIONAL SUPRAVENTRICULAR PREMATURE COMPLEXES MODERATE T-WAVE ABNORMALITY, CONSIDER INFERIOR ISCHEMIA [-0.1+ mV T WAVE IN II/aVF] Compared to ECG 10/05/2020 01:27:28 Possible ischemia now present T-wave abnormality still present Electronically Signed On 10-08-2020 5:28:50 CDT by Joseline Vasquez M.D. [id number]
[2020-10-05 07:31] LABS: Glucose Point of Care 119 mg/dL (70-110)
[2020-10-05] MEDS: aspirin 81 mg EC Tablet PO (09:13)
[2020-10-05] MEDS: metoprolol tartrate 25 mg Tablet 12.5 MG PO ×2 (09:13→20:41)
--- NOTE | 2020-10-05 09:15 | ECG_ITS ---
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 Measurements Intervals [place] Rate: 75 P: 50 MO: 146 QRS: 51 QRSD: 93 T: -30 QT: 418 QTc: 468 Interpretive Statements SINUS RHYTHM MODERATE T-WAVE ABNORMALITY, CONSIDER INFERIOR ISCHEMIA [-0.1+ mV T WAVE IN II/aVF] Compared to ECG 10/05/2020 08:58:03 No significant changes Electronically Signed On 10-08-2020 5:28:42 CDT by Joseline Vasquez M.D. [email or web address]/[id number] f
--- NOTE | 2020-10-05 09:45 | P.CONIM_ITS ---
Providers/Reason For Consult Consulting Physican/Specialty*: DYLAN Ramirez MD/cardiology Reason for Consult*: Patient is altered mental status and elevated troponin T Attending Physician: Ayo Guy MD Primary Care Provider: Dao Alba DO History of Present Illness History of Present Illness Unique Gage is a 75 year old female admitted to hospital with a complaints of altered mental status. She was found to have elevated troponin T with significant delta. Cardiology consult is requested for further cardiac evaluation recommendations. Patient is an extremely poor historian. She seems to be drowsy and answers to questions only by us or no. She is not able to give any detailed history. Apparently she was brought to the hospital yesterday when the family found her confused, disoriented, wandering in the [facility] parking lot. He denies any chest pain or chest tightness. No unusual shortness of breath. No fever or chills. No similar cough. She was found to have better troponin T with a 6- hour delta of 150. Patient has no previous history for coronary disease, myocardial infarction or congestive heart failure. Apparently she had multiple ER visits in the recent past for altered mental status. Patient is known to have essential benign hypertension, type 2 diabetes and dyslipidemia. She has not had any recent cardiac work-up. Patient apparently had multiple ER visits in the recent past for various complaints, mostly with confusion, altered mental status, recurrent falls, visual hallucination etc. Patient is known to have dementia. She was in a geriatric psych facility for some time. Review of Systems Narrative: CONSTITUTIONAL: No fever or chills. [] EYES: No blurring of vision or other visual disturbances lately. [] ENT: No hoarseness of voice, auditory disturbances or sore throat. [] CARDIOVASCULAR: As mentioned above. RESPIRATORY: No significant cough. GASTROINTESTINAL: No hematemesis or melena. GENITOURINARY: No dysuria or hematuria. INTEGUMENTARY: No skin rashes or history of skin cancer. NEURO: Altered mental status, disorientation as mentioned above PSYCHIATRIC: No history of psychosis or major depression. HEMATOLOGIC: No bleeding disorders or significant anemia. ENDOCRINE: History of diabetes MUSCULOSKELETAL: No recent joint pain or swelling. ALLERGY/IMMUNOLOGY: As mentioned above. Meds/Allergies Home Medications and Allergies Home Medications Medication Instructions Recorded Confirmed Last Taken Type apixaban [Eliquis] 5 mg PO BID@0700,199912/13/19 10/04/20 05/30/20 History insulin degludec [Tresiba 20 unit SUBCUT BEDTIME@199912/13/19 10/04/20 05/29/20 History FlexTouch U-200] metformin 1,000 mg PO BID@07,199912/13/19 10/04/20 05/30/20 History simvastatin 20 mg PO DAILY@0712/13/19 10/04/20 05/30/20 History acetaminophen [Tylenol] 650 mg PO Q4H PRN 05/30/20 10/04/20 Unknown History docusate sodium [DOK] 100 mg PO PRN PRN 05/30/20 10/04/20 05/29/20 History risperidone 0.5 mg PO BEDTIME@199905/30/20 10/04/20 05/29/20 History furosemide 40 mg PO DAILY PRN 09/26/20 10/04/20 Unknown History insulin aspart U-100 [Novolog See Rx Instructions .ROUTE .COMPLEX 09/26/20 10/04/20 Unknown History Flexpen U-100 Insulin] aspirin [Aspir-Low] 81 mg PO DAILY 10/04/20 10/04/20 Unknown History benazepril 5 mg PO DAILY@69910/04/20 10/04/20 Unknown History bimatoprost [Lumigan] 1 drp OPHTHALMIC (EYE) BEDTIME@199910/04/20 10/04/20 Unknown History donepezil 5 mg PO BEDTIME@199910/04/20 10/04/20 Unknown History sertraline 25 mg PO DAILY@0710/04/20 10/04/20 Unknown History trazodone 50 mg PO BEDTIME PRN 10/04/20 10/04/20 Unknown History Allergies Allergy/AdvReac Type Severity Reaction Status Date / Time flu vaccine Allergy ADR-Nausea Uncoded 10/03/20 18:31 Current Medications Current Medications Generic Name Dose Route Start Last Admin Trade Name Freq PRN Reason Stop Dose Admin Apixaban 5 mg 10/04/20 20:13 10/05/20 06:09 Apixaban 5 Mg Tablet PO 5 mg BID@ MILKA Administration Aspirin 81 mg 10/05/20 09:00 10/05/20 09:13 Aspirin 81 Mg Ec Tablet PO 81 mg DAILY MILKA Administration Atorvastatin Calcium 40 mg 10/04/20 21:00 10/04/20 22:54 Atorvastatin 40 Mg Tablet PO 40 mg BEDTIME MILKA Administration Bimatoprost 1 drop 10/04/20 20:13 10/04/20 22:55 Bimatoprost 0.01% Op Soln 2.5 Ml Btl EYE-BOTH Not Given BEDTIME@1999 MILKA Ceftriaxone Sodium 1,000 mg/ 50 mls @ 100 mls/hr 10/04/20 21:00 10/05/20 00:36 Sodium Chloride IV Infused Q24H MILKA Infusion Protocol Insulin Aspart 0 unit 10/04/20 20:13 10/05/20 07:34 Insulin Aspart 100 Unit/1 Ml SUBCUT Not Given TIDWM [facility] Protocol Lisinopril 5 mg 10/05/20 07:00 10/05/20 06:09 Lisinopril 5 Mg Tablet PO 5 mg DAILY@0700 MILKA Administration Metoprolol Tartrate 12.5 mg 10/05/20 09:00 10/05/20 09:13 Metoprolol Tartrate 25 Mg Tablet PO 12.5 mg BID@0900,2100 MILKA Administration Risperidone 0.5 mg 10/04/20 21:00 10/04/20 22:54 Risperidone 0.25 Mg Tablet PO 0.5 mg BEDTIME@1999 MILKA Administration Sertraline HCl 25 mg 10/05/20 07:00 10/05/20 06:09 Sertraline 50 Mg Tablet PO 25 mg DAILY@0700 MILKA Administration PFSH Acute PFSH: Medical History History of heart failure History of pulmonary embolism Hyperlipidemia Insulin dependent type 2 diabetes mellitus Macular degeneration Surgical History History of Family History Mother Dementia Social History Smoking and tobacco status: never smoked Alcohol intake: never Substance/Drug Use: never Vitals/I&O/Wt Last Vital Signs Temp 98.3 F 10/05/20 07:59 Pulse 83 10/05/20 07:59 Resp 17 10/05/20 07:59 BP 101/57 10/05/20 07:59 Pulse Ox 93 10/05/20 07:59 10/04/20 10/05/20 10/05/20 22:59 06:59 14:59 Intake Total 50 / 50 Output Total Balance 49 / 49 Weight last 48 hrs Weight 138 lb Physical Exam Narrative: EXAM NARRATIVE: GENERAL: The patient is drowsy and answers to questions by yes or no. Spontaneously moving all extremities. HEENT: Minimal pallor. No icterus or lymphadenopathy. Oral cavity: There are no mucous membrane lesions. Funduscopic examination: Fundus is not visualized NECK: Trachea appears to be central. No masses noted. No JVD or thyromegaly appreciated. No carotid bruit. [] RESPIRATORY: Chest is symmetrical. No intercostals muscle retraction or any accessory muscle activation. There is no chest wall tenderness. Breath sounds are heard bilaterally. No rales or rhonchi heard. No evidence of any consolidation. [] BREASTS: Deferred. [] HEART: The PMI could not be palpated . No palpable precordial events. S1 and S2 are normal. No S3 or S4 heard. No pericardial rub or any click heard. [] ABDOMEN: No vessel pulsations or distention. No tenderness. No organomegaly appreciated. No abdominal bruit. Bowel sounds are normally heard. [] : Deferred. [] RECTAL: Deferred. [] LYMPHATIC: No lymphadenopathy noted in the neck or groin. [] EXTREMITIES: No edema or cyanosis. No clubbing. The dorsalis pedis and posterior tibial pulses are palpable but weak bilaterally. MUSCULOSKELETAL: No acute joint deformities or swelling SKIN: There are no significant scars or skin rash noted. [] NEUROPSYCHIATRIC: The patient is very drowsy. Answers to questions by yes or no. No focal motor deficits. Data Labs: Other Labs: Laboratory Last Values WBC 9.4 10^3/uL (4.0- 10.0) 10/05/20 02:35 RBC 4.23 10^6/uL (4.1 -5.3) 10/05/20 02:35 Hgb 11.6 g/dL (11.5-1 5.3) 10/05/20 02:35 Hct 35.5 % (37.0-47.0 ) L 10/05/20 02:35 MCV 83.9 fL (81-99) 10/05/20 02:35 MCH 27.4 pg (28.0-34. 0) L 10/05/20 02:35 MCHC 32.7 g/dL (30.0-3 6.0) 10/05/20 02:35 RDW 12.8 % (12.1-15.1 ) 10/05/20 02:35 Plt Count 328 10^3/cmm (130 -400) 10/05/20 02:35 MPV 11.0 fL (7.4-10.4 ) H 10/05/20 02:35 Neut % (Auto) 61.6 % 10/05/20 02:35 Lymph % (Auto) 27.2 % 10/05/20 02:35 [place] % (Auto) 9.7 % 10/05/20 02:35 Eos % (Auto) 0.4 % 10/05/20 02:35 Baso % (Auto) 0.9 % 10/05/20 02:35 Neut # (Auto) 5.79 10^3/uL (1.8 -7.7) 10/05/20 02:35 Lymph # (Auto) 2.6 10^3/uL (0.8- 4.8) 10/05/20 02:35 [place] # (Auto) 0.9 10^3/uL (0.2- 0.9) 10/05/20 02:35 Eos # (Auto) 0.0 10^3/uL (0.0- 0.8) 10/05/20 02:35 Baso # (Auto) 0.1 10^3/uL (0.0- 0.1) 10/05/20 02:35 Nucleated RBC % (a uto) 0 % 10/05/20 02:35 Nucleated RBCs # 0.0 /100WBC 10/05/20 02:35 D-Dimer <= 0.27 ug/mIFEU (0-0.59) 10/04/20 20:30 Sodium 135 mmol/L (136-1 45) L 10/05/20 02:35 Potassium 3.1 mmol/L (3.5-5 .1) L 10/05/20 02:35 Chloride 100 mmol/L (98-10 7) 10/05/20 02:35 Carbon Dioxide 29 mmol/L (22-29) 10/05/20 02:35 Anion Gap 9.1 (5-19) 10/05/20 02:35 BUN 8 mg/dL (8-23) 10/05/20 02:35 Creatinine 0.6 mg/dL (0.5-0. 9) 10/05/20 02:35 GFR Calculation Not Reportable 10/05/20 02:35 Glucose 100 mg/dL (65-115 ) 10/05/20 02:35 POC Glucose 119 mg/dL (70-110 ) H 10/05/20 07:27 Calculated Osmolal ity 278 mOsm/kg (285- 295) L 10/05/20 02:35 Calcium 8.4 mg/dL (8.5-10 .5) L 10/05/20 02:35 Phosphorus 2.9 mg/dL (2.5-4. 5) 10/05/20 02:35 Magnesium 1.4 mg/dL (1.7-2. 3) L 10/05/20 02:35 Total Bilirubin 0.6 mg/dL (0.15-1 .2) 10/05/20 02:35 AST 16 U/L (0-32) 10/05/20 02:35 ALT 9 U/L (0-33) 10/05/20 02:35 Alkaline Phosphata se 63 IU/L (35-105) 10/05/20 02:35 Troponin T Baselin e 256 ng/L (0-10) H* 10/04/20 20:30 Troponin T 120 Min port gamble 291.2 ng/L (0-10) H 10/04/20 22:41 Delta Troponin T 35.2 ABS# (0-10) H* 10/04/20 22:41 Troponin T Hi Sens 6Hr 407.0 ng/L (0-10) H 10/05/20 02:35 Troponin T Hi Sens 6Hr Delta 151.0 ng/L (0-12) H* 10/05/20 02:35 NT-Pro-B Natriuret Pep 3231 pg/mL (0-125 ) H 10/04/20 20:30 Total Protein 5.6 g/dL (6.6-8.7 ) L 10/05/20 02:35 Albumin 3.7 g/dL (3.5-5.2 ) 10/05/20 02:35 Globulin 1.9 g/dL (1.3-4.6 ) 10/05/20 02:35 Vitamin B12 312 pg/mL (232-12 45) 10/04/20 20:30 Folate 14.7 ng/mL (4.8-3 7.3) 10/04/20 20:30 Procalcitonin 0.06 ng/mL (0-0.5 ) 10/04/20 20:30 TSH 1.47 uIU/mL (0.27 -4.20) 10/04/20 20:30 Urine Color Yellow (Yellow) 10/04/20 15:29 Urine Appearance Clear (CLEAR) 10/04/20 15:29 Urine pH 5 (5-7) 10/04/20 15:29 Ur Specific Gravit y 1.025 (1.005-1.0 30) 10/04/20 15:29 Urine Protein Neg (Negative) 10/04/20 15:29 Urine Glucose (UA) 4+ (Normal) H 10/04/20 15:29 Urine Ketones 2+ (Negative) H 10/04/20 15:29 Urine Blood Neg (Negative) 10/04/20 15:29 Urine Nitrate Negative (Negati ve) 10/04/20 15:29 Urine Bilirubin Neg (Negative) 10/04/20 15:29 Urine Urobilinogen Norm mg/dL (Negat biju) 10/04/20 15:29 Ur Leukocyte [place] Negative (Negati ve) 10/04/20 15:29 Urine Opiates Scre en Negative ng/mL (N egative) 10/04/20 15:29 Ur Barbiturates Sc reen Negative ng/mL (N egative) 10/04/20 15:29 Ur Phencyclidine S crn Negative ng/mL (N egative) 10/04/20 15:29 Ur Amphetamines Sc reen Negative ng/mL (N egative) 10/04/20 15:29 U Benzodiazepines Scrn Negative ng/mL (N egative) 10/04/20 15:29 Urine Cocaine Scre en Negative ng/mL (N egative) 10/04/20 15:29 U Marijuana (THC) Screen Negative ng/mL (N egative) 10/04/20 15:29 Micro: Micro: Microbiology 10/04/20 20:30 Blood Culture - Pr eliminary Blood SPECIMEN [facility] 10/04/20 20:33 Blood Culture - Pr eliminary Blood SPECIMEN [facility] Imaging^: Echo: My impression: Normal left ventricular size and systolic function, EF 57 %. No regional wall motion abnormalities. Mild left ventricular hypertrophy. Grade I/IV diastolic dysfunction (abnormal relaxation filling pattern), normal to mildly elevated filling pressures. Thickened mitral valve. Moderate mitral annular calcification. Thickened aortic valve. Trace tricuspid valve regurgitation. Estimated pulmonary peak systolic pressure 41 mmHg There is no pericardial effusion. There are no intracardiac masses. Compared to the study from 07/19/2018, there may not be a significant change EKG^: EKG 1: My Interpretation: Normal sinus rhythm with diffuse nonspecific T wave changes. Prolonged QTC of 461. Occasional PACs. A&P Assessment and plan (1) NSTEMI (non-ST elevated myocardial infarction): In view of the abnormal EKG and elevated troponin T, it may be appropriate to start her on subcu Lovenox, Plavix and a beta-adriano. Echocardiogram would be helpful to evaluate the LV function and rule out any other pathology. She may require a stress test or cardiac catheterization to further evaluate her coronary status. This will be decided after reviewing the echocardiogram. I also will be discussing this with the patient's family. Status: Acute (2) Insulin dependent type 2 diabetes mellitus: Aggressive management of the diabetes would be appropriate at this point. Status: Acute (3) Hyperlipidemia: May continue on the current medications. Status: Acute Qualifiers: Hyperlipidemia type: mixed hyperlipidemia Qualified Code(s): E78.2 - Mixed hyperlipidemia (4) History of pulmonary embolism: Patient is not on any oral anticoagulant at this point. 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 Status: Acute (5) Hypotension (arterial): The etiology of hypotension is not clear at this point. This could be multifactorial. Poor fluid intake, LV dysfunction, etc. are considerations. Patient may be carefully treated with IV hydration. Discontinue all the blood pressure lowering agents. Status: Acute Qualifiers: Hypotension type: unspecified hypotension type Qualified Code(s): I95.9 - Hypotension, unspecified Additional A&P Information Other problems are Hypokalemia, needs to be corrected Dementia Recurrent falls Based on the patient's clinical progress and the results of the above, further recommendations will be made. Thank you for the opportunity to eval this patient make these recommendations Consult Attestations Medical Necessity Statement: Patient requires continued hospital stay for close monitoring and further management Coding Level of Care Code Acute [facility] for [facility] Diagnoses NSTEMI (non-ST elevated myocardial infarction) I21.4 Insulin dependent type 2 diabetes mellitus E11.9; Z79.4 Hyperlipidemia E78.2 Hyperlipidemia type: mixed hyperlipidemia History of pulmonary embolism Z86.711 Hypotension (arterial) I95.9 Hypotension type: unspecified hypotension type
[2020-10-05 10:22] LABS: Troponin T (5th) Once 364 ng/L (0-10)
[2020-10-05] MEDS: sodium chloride 0.9% 500 ML IV (11:02)
[2020-10-05 11:34] LABS: Glucose Point of Care 128 mg/dL (70-110)
--- NOTE | 2020-10-05 12:15 | ECG_ITS ---
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 Measurements Intervals [place] Rate: 75 P: 46 NM: 144 QRS: 50 QRSD: 96 T: -34 QT: 426 QTc: 476 Interpretive Statements SINUS RHYTHM WITH OCCASIONAL SUPRAVENTRICULAR PREMATURE COMPLEXES ST DEVIATION AND MODERATE T-WAVE ABNORMALITY, CONSIDER INFERIOR ISCHEMIA [-0.1+ mV T WAVE IN II/aVF] Compared to ECG 10/05/2020 10:26:50 No significant changes Electronically Signed On 10-08-2020 5:28:34 CDT by Joseline Vasquez M.D. [email or web address]/[id number]
--- NOTE | 2020-10-05 12:42 | PM.PN ---
Subjective Subjective: Interval history: Patient was seen this morning, she does have episodes of confusion, she did knows her name, she does know that she is in the hospital, she does not know the year, she does follow commands, her mentation has improved, but she does have episodes of forgetfulness, difficult for her to answer questions at times Vitals/I&O/Wt Last Vital Signs Temp 98.7 F 10/05/20 12:00 Pulse 75 10/05/20 12:00 Resp 17 10/05/20 12:00 BP 84/72 10/05/20 12:00 Pulse Ox 95 10/05/20 12:00 10/04/20 10/05/20 10/05/20 22:59 06:59 14:59 Intake Total 50 / 50 Output Total Balance 49 / 49 Weight last 48 hrs Weight 62.596 kg Physical Exam Const: COMMON NORMALS: no acute distress ORIENTATION/CONSCIOUSNESS: Yes awake, Yes oriented to person, Yes oriented to place and Yes confused; not oriented to time Neck/C-Spine: COMMON NORMALS: no JVD Resp: COMMON NORMALS: normal respiratory effort, No retractions, No use of accessory muscles and clear to auscultation bilaterally AUSCULTATION: clear to auscultation bilaterally Cardio: COMMON NORMALS: no JVD, regular rate, regular rhythm, S1 normal heart sound present and S2 normal heart sound present RATE: regular rate RHYTHM: regular rhythm HEART SOUNDS: S1 normal heart sound present and S2 normal heart sound present GI: COMMON NORMALS: Normal to inspection, nondistended, normoactive bowel sounds present, Soft to palpation, non-tender and No hepatosplenomegaly present PALPATION: Yes Soft to palpation and Yes No hepatosplenomegaly present Neuro: SENSORIUM/ORIENTATION: Yes oriented to person, Yes oriented to place and No oriented to time OTHER: Does follow commands Data : 10/05/20 02:35 10/05/20 02:35 Micro: Microbiology 10/04/20 20:30 Blood Culture - Preliminary Blood SPECIMEN COLLECTED 10/04/20 20:33 Blood Culture - Preliminary Blood SPECIMEN COLLECTED A&P Assessment and plan (1) NSTEMI (non-ST elevated myocardial infarction): -No complaints of chest pain, asymptomatic, except persistent confusion -No known cardiovascular history -Baseline troponin 256, 6-hour 407, delta 151, troponin at 9 AM 364 -BNP 3231 -EKG this morning shows T wave inversions inferior leads indicated with ischemia -Blood pressures are a bit borderline, is receiving 1 unit PRBC Plan: -Move to CSU -Received Eliquis this morning, hold for now -Aspirin, statin, switch to Lovenox, Plavix load -Telemetry monitoring, monitor for chest pain, monitor pressures -Cardiac echocardiogram ordered -Cardiology consulted for cardiac catheterization -I have talked to patient's daughter, advised her of our concern, she will come to the hospital to see her mom Status: Acute (2) Insulin dependent type 2 diabetes mellitus: -Low-dose sliding scale Status: Acute (3) Hyperlipidemia: Status: Acute (4) Macular degeneration: Status: Acute (5) History of pulmonary embolism: Currently on Lovenox Status: Acute (6) Hallucination, visual: Currently no visual hallucinations Status: Acute (7) Delirium: -Possibly secondary to underlying UTI, NSTEMI -Reviewed the records have shown that there is been concerns for dementia, but no formal diagnosis -She was transferred to geriatric psych facility in [facility] for concerns for confusion that was dementia related Plan: -neurochecks, aspiration precautions seizure precautions -Rocephin for antibiotic coverage -Urine cultures, blood cultures -CT of the head done yesterday had no acute findings -Carotid artery ultrasound, cardiac echo pending -TSH, B12, folate within normal limits -Monitor mental status Status: Acute Additional A&P Information Eliquis for DVT prophylaxis Patient is a full code Attestations Medical Necessity Statement*: Patient requires hospitalization, inpatient, greater than 2 midnights, for NSTEMI, delirium, UTI, proceeding to cardiac catheterization Coding Level of Care Code Acute Vendor Relationship Manager for [facility] Diagnoses NSTEMI (non-ST elevated myocardial infarction) I21.4 Insulin dependent type 2 diabetes mellitus E11.9; Z79.4 Hyperlipidemia E78.5 Macular degeneration H35.30 History of pulmonary embolism Z86.711 Hallucination, visual R44.1 Delirium R41.0
--- NOTE | 2020-10-05 12:47 | PC.OT ---
OT note: From chart review potassium under 3.2 and pt has elevated troponins. Will hold at this time.
[2020-10-05] MEDS: clopidogrel 300 mg Tablet 600 MG PO (13:53)
--- NOTE | 2020-10-05 15:15 | ECG_ITS ---
[facility] Test Date: 2020-10-05 Pat Name: Unique Gage Department: Room: 111 Gender: Female School Principal: : 1945 Requested By: Ayo Guy Order Number: [id number] Reading MD: CECIL GARCIA Measurements Intervals [place] Rate: 73 P: 46 AL: 134 QRS: 38 QRSD: 94 T: -51 QT: 422 QTc: 466 Interpretive Statements SINUS RHYTHM WITH OCCASIONAL SUPRAVENTRICULAR PREMATURE COMPLEXES ST DEVIATION AND MODERATE T-WAVE ABNORMALITY, CONSIDER ANTERIOR ISCHEMIA [-0.1+ mV T WAVE IN V3/V4] ST DEVIATION AND MODERATE T-WAVE ABNORMALITY, CONSIDER INFERIOR ISCHEMIA [-0.1+ mV T WAVE IN II/aVF] Compared to ECG 10/05/2020 11:59:23 No significant changes Electronically Signed On 10-05-2020 19:23:50 CDT by CECIL GARCIA [id number] f
[2020-10-05] MEDS: lactated ringers 500 ML 999 ML IV (17:40)
[2020-10-05] MEDS: enoxaparin 60 mg/0.6 mL Syringe SUBCUT (17:40)
--- NOTE | 2020-10-05 17:44 | PC.PT ---
From chart review potassium under 3.2 and pt has elevated troponins. Will hold at this time.
--- NOTE | 2020-10-05 18:15 | ECG_ITS ---
[facility] Test Date: 2020-10-05 Pat Name: Unique Gage Department: Room: 111 Gender: Female Placement Specialist: : 1945 Requested By: Ayo Guy Order Number: [id number] Reading MD: CECIL GARCIA Measurements Intervals [place] Rate: 73 P: 55 MD: 137 QRS: 55 QRSD: 92 T: -20 QT: 395 QTc: 436 Interpretive Statements SINUS RHYTHM NONSPECIFIC T-WAVE ABNORMALITY Compared to ECG 10/05/2020 15:54:20 Possible ischemia no longer present T-wave abnormality still present Electronically Signed On 10-05-2020 19:23:42 CDT by CECIL GARCIA [email or web address].[email or web address]/store/[id number] f
[2020-10-05 20:24] LABS: Glucose Point of Care 450 mg/dL (70-110)
[2020-10-05] MEDS: risperiDONE 1 mg Tablet 0.5 MG PO (20:40)
[2020-10-05] MEDS: atorvastatin 40 mg Tablet PO (20:41)
[2020-10-05] MEDS: donepezil 5 MG Tablet PO (20:41)
--- NOTE | 2020-10-05 21:15 | ECG_ITS ---
[facility] Test Date: 2020-10-05 Pat Name: Unique Gage Department: Room: 111 Gender: Female Franchise Development Manager: samir AKERS: 1945 Requested By: Ayo Guy Order Number: [id number] Jose Francicso MD: Desmond Ramirez M.D. Measurements Intervals [place] Rate: 84 P: 61 NC: 147 QRS: 63 QRSD: 96 T: -48 QT: 400 QTc: 475 Interpretive Statements SINUS RHYTHM ST DEVIATION AND MODERATE T-WAVE ABNORMALITY, CONSIDER INFERIOR ISCHEMIA [-0.1+ mV T WAVE IN II/aVF] Compared to ECG 10/05/2020 18:08:19 Possible ischemia now present T-wave abnormality still present Electronically Signed On 10-06-2020 21:51:56 CDT by Desmond Ramirez M.D. [email or web address]/[id number]
[2020-10-06] VITALS (47 sets, daily range): BP systolic 115–142; BP diastolic 57–83; PULSE 72–123; RESP 10–34; TEMP 36.6–37.1; O2SAT 94–98
[2020-10-06] MEDS: trazodone 50 mg Tablet PO ×2 (03:05→20:48)
--- NOTE | 2020-10-06 04:06 | PC.NURSE ---
Patient becoming more agitated, aggressive and uncooperative. Patient not wanting to stay in bed and is confused by surroundings. Informed Dr Goodwin and received telephone orders for Geodon 20mg PO to be attempted first once. If patient, refuses may give Geodon 20mg IM once. RBVO.
[2020-10-06] MEDS: ziprasidone hcl 20 mg Capsule PO (04:11)
--- NOTE | 2020-10-06 04:20 | PC.NURSE ---
Patient took PO Geodon. IM dose nonadministered per Dr. Goodwin's telephone orders. Patient confused at this time. Unsure of surroundings. Bed in low, locked position, bed alarm activated. call light within reach. nurse to continue to monitor.
[2020-10-06 05:37] LABS: Basophils # 0.1 10^3/uL (0.0-0.1); Basophils % 0.9 %; Eosinophils # 0.2 10^3/uL (0.0-0.8); Eosinophils % 1.8 %; Hematocrit 37.1 % (37.0-47.0); Lymphocytes # 2.3 10^3/uL (0.8-4.8); Lymphocytes % 26.7 %; Mean Corpuscular HGB Conc 32.3 g/dL (30.0-36.0); Mean Corpuscular Hemoglobin 27.1 pg (28.0-34.0); Mean Corpuscular Volume 83.9 fL (81-99); Mean Platelet Volume 11.9 fL (7.4-10.4); Monocytes # 0.8 10^3/uL (0.2-0.9); Monocytes % 9.2 %; Neutrophils # 5.15 10^3/uL (1.8-7.7); Nucleated Red Blood Cells % 0 %; Platelet Count 306 10^3/cmm (130-400); Red Blood Count 4.42 10^6/uL (4.1-5.3); Red Cell Distribution Width 12.6 % (12.1-15.1); White Blood Count 8.4 10^3/uL (4.0-10.0)
[2020-10-06] MEDS: enoxaparin 60 mg/0.6 mL Syringe SUBCUT ×2 (05:41→18:02)
[2020-10-06 05:53] LABS: Alanine Aminotransferase 9 U/L (0-33); Albumin Level 3.8 g/dL (3.5-5.2); Alkaline Phosphatase 65 IU/L (35-105); Anion Gap 12.5 (5-19); Aspartate Amino Transferase 15 U/L (0-32); Blood Urea Nitrogen 13 mg/dL (8-23); Calcium 8.5 mg/dL (8.5-10.5); Carbon Dioxide 25 mmol/L (22-29); Chloride 99 mmol/L (98-107); Creatinine Clr Calc Pharmacy 58.5699; Globulin 2.2 g/dL (1.3-4.6); Glucose 156 mg/dL (65-115); Magnesium 1.6 mg/dL (1.7-2.3); Osmolality Calculated 279 mOsm/kg (285-295); Phosphorus 3.4 mg/dL (2.5-4.5); Potassium 3.5 mmol/L (3.5-5.1); Sodium 133 mmol/L (136-145); Total Bilirubin 0.5 mg/dL (0.15-1.2)
[2020-10-06 07:20] LABS: Glucose Point of Care 261 mg/dL (70-110)
[2020-10-06] MEDS: sertraline 50 mg Tablet 25 MG PO (07:51)
[2020-10-06] MEDS: aspirin 81 mg EC Tablet PO (07:51)
--- NOTE | 2020-10-06 08:51 | PC.NURSE ---
Patients blood pressure is 84/50 manually. Held metoprolol and lisinopril. Received orders from Dr. Ramirez for a 250ml NS bolus at 75ml/hr. Will continue to monitor patient.
--- NOTE | 2020-10-06 09:26 | PM.PN ---
Subjective Subjective: Interval history: Patient has not had any chest pain. She still seems to be confused. He was somewhat coherent and cooperative this morning. But this afternoon, she become very agitated and is hallucinating. Her daughter came to the hospital. Medications: Reviewed: Yes Medication Review Details: Current Medications Acetaminophen (Acetaminophen 325 Mg Tablet) 650 mg PO Q6H PRN PRN Reason: Mild/Mod Pain Or Temp >/= 101 Apixaban (Apixaban 5 Mg Tablet) 5 mg PO BID@699,1999 [facility] Last Admin: 10/05/20 06:09 Dose: 5 mg Documented by: Aspirin (Aspirin 81 Mg Ec Tablet) 81 mg PO DAILY [facility] Last Admin: 10/06/20 07:51 Dose: 81 mg Documented by: Atorvastatin Calcium (Atorvastatin 40 Mg Tablet) 40 mg PO BEDTIME [facility] Last Admin: 10/05/20 20:41 Dose: 40 mg Documented by: Bimatoprost (Bimatoprost 0.01% Op Soln 2.5 Ml Btl) 1 drop EYE-BOTH BEDTIME@1999 [facility] Last Admin: 10/05/20 20:29 Dose: Not Given Documented by: Dextrose (Dextrose 50% Syringe 50 Ml) 25 ml IVP ONCE PRN; Protocol PRN Reason: hypoglycemia protocol Dextrose (Dextrose 50% Syringe 50 Ml) 50 ml IVP PRN PRN; Protocol PRN Reason: hypoglycemia protocol Donepezil HCl (Donepezil 5 Mg Tablet) 5 mg PO BEDTIME@1999 [facility] Last Admin: 10/05/20 20:41 Dose: 5 mg Documented by: Enoxaparin Sodium (Enoxaparin 60 Mg/0.6 Ml Syringe) 60 mg SUBCUT Q12H [facility] Last Admin: 10/06/20 05:41 Dose: 60 mg Documented by: Glucagon (Glucagon 1 Mg/Ml Inj 1 Ml) 1 mg IM ONCE PRN; Protocol PRN Reason: Adult Acute Hypoglycemia Prot. Ceftriaxone Sodium 1,000 mg/ (Sodium Chloride) 50 mls @ 100 mls/hr IV Q24H [facility]; Protocol Last Infusion: 10/05/20 21:47 Dose: Infused Documented by: Dextrose (D5w) 500 mls @ 100 mls/hr IV ONCE PRN; Protocol PRN Reason: Adult Acute Hypoglycemia Prot Sodium Chloride (Sodium Chloride 0.9%) 250 mls @ 75 mls/hr IV .Q3H20M [facility] Stop: 10/06/20 12:00 Insulin Aspart (Insulin Aspart 100 Unit/1 Ml) 0 unit SUBCUT TIDWM [facility]; Protocol Last Admin: 10/06/20 07:51 Dose: 8 unit Documented by: Insulin Aspart (Insulin Aspart 100 Unit/1 Ml) 0 unit SUBCUT BEDTIME [facility]; Protocol Last Admin: 10/05/20 21:17 Dose: 14 unit Documented by: Lisinopril (Lisinopril 5 Mg Tablet) 5 mg PO DAILY [facility] Last Admin: 10/06/20 08:51 Dose: Not Given Documented by: Metoprolol Tartrate (Metoprolol Tartrate 25 Mg Tablet) 12.5 mg PO BID@0900,2100 [facility] Last Admin: 10/06/20 08:51 Dose: Not Given Documented by: Naloxone HCl (Naloxone 0.4 Mg/Ml Sdv) 0.1 mg IVP Q2M PRN PRN Reason: OPIATERV Ondansetron HCl (Ondansetron 2 Mg/Ml Sdv 2 Ml) 4 mg IVP Q8H PRN PRN Reason: vomiting, or N/V if npo Risperidone (Risperidone 1 Mg Tablet) 0.5 mg PO BEDTIME@1999 [facility] Last Admin: 10/05/20 20:40 Dose: 0.5 mg Documented by: Sertraline HCl (Sertraline 50 Mg Tablet) 25 mg PO DAILY [facility] Last Admin: 10/06/20 07:51 Dose: 25 mg Documented by: Trazodone HCl (Trazodone 50 Mg Tablet) 50 mg PO BEDTIME PRN PRN Reason: Insomnia Last Admin: 10/06/20 03:05 Dose: 50 mg Documented by: Ziprasidone (Ziprasidone Hcl 20 Mg Capsule) 20 mg PO ONCE [facility] Last Admin: 10/06/20 04:11 Dose: 20 mg Documented by: Vitals/I&O/Wt Last Vital Signs Temp 98.4 F 10/06/20 08:00 Pulse 93 10/06/20 08:00 Resp 21 H 10/06/20 08:00 BP 133/71 10/06/20 08:00 Pulse Ox 97 10/06/20 07:49 10/05/20 10/06/20 10/06/20 22:59 06:59 14:59 Intake Total 2150 / 2150 100 / 2250 360 / 360 Output Total 600 / 600 300 / 900 Balance 1550 / 1550 -200 / 1350 360 / 360 Weight last 48 hrs Weight 138 lb Physical Exam Narrative: EXAM NARRATIVE: GENERAL: The patient is agitated and seems hallucinating. Spontaneously moving all extremities. HEENT: Minimal pallor. No icterus or lymphadenopathy. Oral cavity: There are no mucous membrane lesions. NECK: Trachea appears to be central. No masses noted. No JVD or thyromegaly appreciated. No carotid bruit. RESPIRATORY: Chest is symmetrical. No intercostals muscle retraction or any accessory muscle activation. There is no chest wall tenderness. Breath sounds are heard bilaterally. No rales or rhonchi heard. No evidence of any consolidation. BREASTS: Deferred. HEART: The PMI could not be palpated . No palpable precordial events. S1 and S2 are normal. No S3 or S4 heard. No pericardial rub or any click heard. Short systolic murmur at the base of the heart. No diastolic murmurs. ABDOMEN: No vessel pulsations or distention. No tenderness. No organomegaly appreciated. No abdominal bruit. Bowel sounds are normally heard. : Deferred. RECTAL: Deferred. LYMPHATIC: No lymphadenopathy noted in the neck or groin. EXTREMITIES: No edema or cyanosis. No clubbing. The dorsalis pedis and posterior tibial pulses are palpable but weak bilaterally. MUSCULOSKELETAL: No acute joint deformities or swelling SKIN: There are no significant scars or skin rash noted. NEUROPSYCHIATRIC: The patient is very drowsy. Answers to questions by yes or no. No focal motor deficits. Data : 10/06/20 04:12 10/06/20 04:12 Other Labs: Laboratory Last Values WBC 8.4 10^3/uL (4.0-10.0) 10/06/20 04:12 RBC 4.42 10^6/uL (4.1-5.3) 10/06/20 04:12 Hgb 12.0 g/dL (11.5-15.3) 10/06/20 04:12 Hct 37.1 % (37.0-47.0) 10/06/20 04:12 MCV 83.9 fL (81-99) 10/06/20 04:12 MCH 27.1 pg (28.0-34.0) L 10/06/20 04:12 MCHC 32.3 g/dL (30.0-36.0) 10/06/20 04:12 RDW 12.6 % (12.1-15.1) 10/06/20 04:12 Plt Count 306 10^3/cmm (130-400) 10/06/20 04:12 MPV 11.9 fL (7.4-10.4) H 10/06/20 04:12 Neut % (Auto) 61.0 % 10/06/20 04:12 Lymph % (Auto) 26.7 % 10/06/20 04:12 [place] % (Auto) 9.2 % 10/06/20 04:12 Eos % (Auto) 1.8 % 10/06/20 04:12 Baso % (Auto) 0.9 % 10/06/20 04:12 Neut # (Auto) 5.15 10^3/uL (1.8-7.7) 10/06/20 04:12 Lymph # (Auto) 2.3 10^3/uL (0.8-4.8) 10/06/20 04:12 [place] # (Auto) 0.8 10^3/uL (0.2-0.9) 10/06/20 04:12 Eos # (Auto) 0.2 10^3/uL (0.0-0.8) 10/06/20 04:12 Baso # (Auto) 0.1 10^3/uL (0.0-0.1) 10/06/20 04:12 Nucleated RBC % (auto) 0 % 10/06/20 04:12 Nucleated RBCs # 0.0 /100WBC 10/06/20 04:12 D-Dimer <= 0.27 ug/mIFEU (0-0.59) 10/04/20 20:30 Sodium 133 mmol/L (136-145) L 10/06/20 04:12 Potassium 3.5 mmol/L (3.5-5.1) 10/06/20 04:12 Chloride 99 mmol/L (98-107) 10/06/20 04:12 Carbon Dioxide 25 mmol/L (22-29) 10/06/20 04:12 Anion Gap 12.5 (5-19) 10/06/20 04:12 BUN 13 mg/dL (8-23) 10/06/20 04:12 Creatinine 0.6 mg/dL (0.5-0.9) 10/06/20 04:12 GFR Calculation Not Reportable 10/06/20 04:12 Glucose 156 mg/dL (65-115) H 10/06/20 04:12 POC Glucose 261 mg/dL (70-110) H 10/06/20 06:40 Calculated Osmolality 279 mOsm/kg (285-295) L 10/06/20 04:12 Lactic Acid 1.0 mmol/L (0.5-2.2) 10/05/20 17:42 Calcium 8.5 mg/dL (8.5-10.5) 10/06/20 04:12 Phosphorus 3.4 mg/dL (2.5-4.5) 10/06/20 04:12 Magnesium 1.6 mg/dL (1.7-2.3) L 10/06/20 04:12 Total Bilirubin 0.5 mg/dL (0.15-1.2) 10/06/20 04:12 AST 15 U/L (0-32) 10/06/20 04:12 ALT 9 U/L (0-33) 10/06/20 04:12 Alkaline Phosphatase 65 IU/L (35-105) 10/06/20 04:12 Troponin T Gen 5 ng/L 364 ng/L (0-10) H* 10/05/20 09:38 Troponin T Baseline 256 ng/L (0-10) H* 10/04/20 20:30 Troponin T 120 Minute 291.2 ng/L (0-10) H 10/04/20 22:41 Delta Troponin T 35.2 ABS# (0-10) H* 10/04/20 22:41 Troponin T Hi Sens 6Hr 407.0 ng/L (0-10) H 10/05/20 02:35 Troponin T Hi Sens 6Hr Delta 151.0 ng/L (0-12) H* 10/05/20 02:35 NT-Pro-B Natriuret Pep 3231 pg/mL (0-125) H 10/04/20 20:30 Total Protein 6.0 g/dL (6.6-8.7) L 10/06/20 04:12 Albumin 3.8 g/dL (3.5-5.2) 10/06/20 04:12 Globulin 2.2 g/dL (1.3-4.6) 10/06/20 04:12 Vitamin B12 312 pg/mL (232-1245) 10/04/20 20:30 Folate 14.7 ng/mL (4.8-37.3) 10/04/20 20:30 Procalcitonin 0.06 ng/mL (0-0.5) 10/04/20 20: TSH 1.47 uIU/mL (0.27-4.20) 10/04/20 20:30 Urine Color Yellow (Yellow) 10/04/20 15:29 Urine Appearance Clear (CLEAR) 10/04/20 15:29 Urine pH 5 (5-7) 10/04/20 15:29 Ur Specific [place] 1.025 (1.005-1.030) 10/04/20 15:29 Urine Protein Neg (Negative) 10/04/20 15:29 Urine Glucose (UA) 4+ (Normal) H 10/04/20 15:29 Urine Ketones 2+ (Negative) H 10/04/20 15:29 Urine Blood Neg (Negative) 10/04/20 15:29 Urine Nitrate Negative (Negative) 10/04/20 15:29 Urine Bilirubin Neg (Negative) 10/04/20 15:29 Urine Urobilinogen Norm mg/dL (Negative) 10/04/20 15:29 Ur Leukocyte Esterase Negative (Negative) 10/04/20 15:29 Urine Opiates Screen Negative ng/mL (Negative) 10/04/20 15:29 Ur Barbiturates Screen Negative ng/mL (Negative) 10/04/20 15:29 Ur Phencyclidine Scrn Negative ng/mL (Negative) 10/04/20 15:29 Ur Amphetamines Screen Negative ng/mL (Negative) 10/04/20 15:29 U Benzodiazepines Scrn Negative ng/mL (Negative) 10/04/20 15:29 Urine Cocaine Screen Negative ng/mL (Negative) 10/04/20 15:29 U Marijuana (THC) Screen Negative ng/mL (Negative) 10/04/20 15:29 Micro: Microbiology 10/04/20 20:33 Blood Culture - Preliminary Blood NEGATIVE TO DATE 10/04/20 20:30 Blood Culture - Preliminary Blood NEGATIVE TO DATE A&P Assessment and plan (1) NSTEMI (non-ST elevated myocardial infarction): Patient had echocardiogram. She did not have any significant wall motion normalities. Most likely she has underlying coronary artery disease causing the non-ST relation myocardial infarction. She requires a cardiac catheterization, to further evaluate the coronary status and decide on further management. But in view of her agitation and hallucination, this could be technically challenging. This was discussed with the patient's daughter in detail. The daughter wants her to have the procedure. The risk of bleeding, hematoma, vascular injury, myocardial infarction, CVA, renal failure and other concomitant complications were explained in detail. She understood this well and consented to proceed. Status: Acute (2) Insulin dependent type 2 diabetes mellitus: Aggressive management of the diabetes would be appropriate at this point. Status: Acute (3) Hyperlipidemia: May continue on the current medications. Status: Acute Qualifiers: Hyperlipidemia type: mixed hyperlipidemia Qualified Code(s): E78.2 - Mixed hyperlipidemia (4) History of pulmonary embolism: Patient is not on any oral anticoagulant at this point. Apparently she had the pulmonary embolism many years ago. Status: Acute (5) Hypotension (arterial): Patient has been having episodes of hypotension. This morning her blood pressure was in the 80s. Currently it is in the normal range. Her all intake is very poor. Blood pressure came up with IV hydration. Status: Acute Qualifiers: Hypotension type: unspecified hypotension type Qualified Code(s): I95.9 - Hypotension, unspecified Additional A&P Information Other problems are Hypokalemia, currently is corrected Dementia Recurrent falls Based on the patient's the clinical progress and the results of the cardiac catheterization, further recommendations will be made. Attestations Medical Necessity Statement*: Patient requires continued hospital stay for close monitoring and further management Coding Level of Care Code Acute Insurance Agents Supervisor for [facility] Diagnoses NSTEMI (non-ST elevated myocardial infarction) I21.4 Insulin dependent type 2 diabetes mellitus E11.9; Z79.4 Hyperlipidemia E78.2 Hyperlipidemia type: mixed hyperlipidemia History of pulmonary embolism Z86.711 Hypotension (arterial) I95.9 Hypotension type: unspecified hypotension type
--- NOTE | 2020-10-06 10:14 | PC.NURSE ---
IV bolus of 250ml has not been administered due to no IV access. Doctor is aware and smokehouse worker has been notified of need for IV. Patients blood pressure, however, has improved to 111/65.
--- NOTE | 2020-10-06 10:44 | PC.CHAP ---
Pastoral Care Encounter/Spiritual Assessment Type of Contact [] Declined top installer visit [] Patient/Family/Request visit [] Outpatient visit [] Follow-up visit [] Physician referral [] Code/Alert [x] Routine visit [] Staff referral [] Actively dying [] Patient sleeping [] Family support [] [] Out of room [] Palliative care [] [x] Receiving care in room [] Pre-surgical visit [] Trauma [x] Long length of stay [] ICU visit [] Other: Relational/Emotional Strength [] Patient feels connected with others/family/visitors/staff [x] Distress [] Loneliness/isolation [] Abandonment Spirituality of Patient [x] Person of Génesis [] Attends Confucianist of their Génesis [x] Believes in Prayer [] Reads Bible or Bahai materials [] There are Spiritual issues to be addressed Jockey'S Agent Interventions [x] Prayer [x] Active listening [x] Non-anxious presence [x] Spiritual/emotional support [] Crisis/trauma care [x] Spiritual counseling [] Bereavement support [] Provided bereavement packet [] Provided Bible/devotional materials [] Provided toy/stuffed animal, coloring book to patient or family member [] Provided Communion [] Anointing/[place] [] Salvation [x] Completed spiritual assessment [] Other: Impact on Illness or Injury [] Angry [] Fearful [x] Anxious [] Often cries [] Exhaustion [] Unable to work [] Unable to attend samaritan [] Unable to walk/stand [] Unable to read [] Unable to drive [] Unable to eat/drink [] Unable to sleep [] Unable to be with family [] Patient intubated [] Other: Summary she is feeling better, doesn't about her health, has a good attitude Time spent with patient 10 miins
[2020-10-06 10:53] LABS: Glucose Point of Care 326 mg/dL (70-110)
[2020-10-06] MEDS: sodium chloride 0.9% 250 ML 75 ML IV (12:05)
--- NOTE | 2020-10-06 13:28 | P.PN_ITS ---
Subjective Subjective: Interval history: Patient was examined this morning, she is alert to person, to place, to time, she does follow commands, she has no complaints of chest pain, no complaints of shortness of breath, she is surprised when I tell her that she was found wandering outside [facility], she does not know how she got there, she tells me that she has had heart attacks in the past, she thinks she has had them, but she is never seen a hooker inspector, she also tells me that she has had strokes in the past, she has had the symptoms, but never seen a neurologist, denies any slurring of her speech, no facial droop, no paresthesias, no paralysis, Medications: Medication Review Details: Current Medications Acetaminophen (Acetaminophen 325 Mg Tablet) 650 mg PO Q6H PRN PRN Reason: Mild/Mod Pain Or Temp >/= 101 Apixaban (Apixaban 5 Mg Tablet) 5 mg PO BID@699,1999 [facility] Last Admin: 10/05/20 06:09 Dose: 5 mg Documented by: Aspirin (Aspirin 81 Mg Ec Tablet) 81 mg PO DAILY [facility] Last Admin: 10/06/20 07:51 Dose: 81 mg Documented by: Atorvastatin Calcium (Atorvastatin 40 Mg Tablet) 40 mg PO BEDTIME [facility] Last Admin: 10/05/20 20:41 Dose: 40 mg Documented by: Bimatoprost (Bimatoprost 0.01% Op Soln 2.5 Ml Btl) 1 drop EYE-BOTH BEDTIME@1999 [facility] Last Admin: 10/05/20 20:29 Dose: Not Given Documented by: Dextrose (Dextrose 50% Syringe 50 Ml) 25 ml IVP ONCE PRN; Protocol PRN Reason: hypoglycemia protocol Dextrose (Dextrose 50% Syringe 50 Ml) 50 ml IVP PRN PRN; Protocol PRN Reason: hypoglycemia protocol Donepezil HCl (Donepezil 5 Mg Tablet) 5 mg PO BEDTIME@1999 [facility] Last Admin: 10/05/20 20:41 Dose: 5 mg Documented by: Enoxaparin Sodium (Enoxaparin 60 Mg/0.6 Ml Syringe) 60 mg SUBCUT Q12H [facility] Last Admin: 10/06/20 05:41 Dose: 60 mg Documented by: Glucagon (Glucagon 1 Mg/Ml Inj 1 Ml) 1 mg IM ONCE PRN; Protocol PRN Reason: Adult Acute Hypoglycemia Prot. Ceftriaxone Sodium 1,000 mg/ (Sodium Chloride) 50 mls @ 100 mls/hr IV Q24H [facility]; Protocol Last Infusion: 10/05/20 21:47 Dose: Infused Documented by: Dextrose (D5w) 500 mls @ 100 mls/hr IV ONCE PRN; Protocol PRN Reason: Adult Acute Hypoglycemia Prot Sodium Chloride (Sodium Chloride 0.9%) 250 mls @ 75 mls/hr IV .Q3H20M [facility] Stop: 10/06/20 12:00 Insulin Aspart (Insulin Aspart 100 Unit/1 Ml) 0 unit SUBCUT TIDWM [facility]; Protocol Last Admin: 10/06/20 07:51 Dose: 8 unit Documented by: Insulin Aspart (Insulin Aspart 100 Unit/1 Ml) 0 unit SUBCUT BEDTIME [facility]; Protocol Last Admin: 10/05/20 21:17 Dose: 14 unit Documented by: Lisinopril (Lisinopril 5 Mg Tablet) 5 mg PO DAILY [facility] Last Admin: 10/06/20 08:51 Dose: Not Given Documented by: Metoprolol Tartrate (Metoprolol Tartrate 25 Mg Tablet) 12.5 mg PO BID@0900,2100 [facility] Last Admin: 10/06/20 08:51 Dose: Not Given Documented by: Naloxone HCl (Naloxone 0.4 Mg/Ml Sdv) 0.1 mg IVP Q2M PRN PRN Reason: OPIATERV Ondansetron HCl (Ondansetron 2 Mg/Ml Sdv 2 Ml) 4 mg IVP Q8H PRN PRN Reason: vomiting, or N/V if npo Risperidone (Risperidone 1 Mg Tablet) 0.5 mg PO BEDTIME@2000 [facility] Last Admin: 10/05/20 20:40 Dose: 0.5 mg Documented by: Sertraline HCl (Sertraline 50 Mg Tablet) 25 mg PO DAILY [facility] Last Admin: 10/06/20 07:51 Dose: 25 mg Documented by: Trazodone HCl (Trazodone 50 Mg Tablet) 50 mg PO BEDTIME PRN PRN Reason: Insomnia Last Admin: 10/06/20 03:05 Dose: 50 mg Documented by: Ziprasidone (Ziprasidone Hcl 20 Mg Capsule) 20 mg PO ONCE [facility] Last Admin: 10/06/20 04:11 Dose: 20 mg Documented by: Vitals/I&O/Wt Last Vital Signs Temp 98.4 F 10/06/20 12:00 Pulse 72 10/06/20 12:00 Resp 18 10/06/20 12:00 BP 124/72 10/06/20 12:00 Pulse Ox 94 10/06/20 12:00 10/05/20 10/06/20 10/06/20 22:59 06:59 14:59 Intake Total 2150 / 2150 100 / 2250 600 / 600 Output Total 600 / 600 300 / 900 Balance 1550 / 1550 -200 / 1350 600 / 600 Weight last 48 hrs Weight 62.596 kg Physical Exam Const: COMMON NORMALS: no acute distress and alert ORIENTATION/CONSCIOUSNESS: Yes awake, Yes oriented to person, Yes oriented to pl [address] and Yes oriented to time Neck/C-Spine: COMMON NORMALS: no JVD Resp: COMMON NORMALS: normal respiratory effort, No retractions, No use of accessory muscles and clear to auscultation bilaterally AUSCULTATION: clear to auscultation bilaterally Cardio: COMMON NORMALS: no JVD, regular rate, regular rhythm, S1 normal heart sound present and S2 normal heart sound present RATE: regular rate RHYTHM: regular rhythm HEART SOUNDS: S1 normal heart sound present and S2 normal heart sound present GI: COMMON NORMALS: Normal to inspection, nondistended, normoactive bowel sounds present, Soft to palpation, non-tender and No hepatosplenomegaly present PALPATION: Yes Soft to palpation and Yes No hepatosplenomegaly present : COMMON NORMALS: Yes no CVA tenderness BLADDER/KIDNEY EXAM: Yes no CVA tenderness Back/Pelvis: COMMON NORMALS: no CVA tenderness Neuro: SENSORIUM/ORIENTATION: Yes alert, Yes oriented to person, Yes oriented to place and Yes oriented to time Data : 10/06/20 04:12 10/06/20 04:12 Micro: Microbiology 10/04/20 20:33 Blood Culture - Preliminary Blood NEGATIVE TO DATE 10/04/20 20:30 Blood Culture - Preliminary Blood NEGATIVE TO DATE A&P Assessment and plan (1) NSTEMI (non-ST elevated myocardial infarction): -No complaints of chest pain, asymptomatic, except persistent confusion -No known cardiovascular history -Baseline troponin 256, 6-hour 407, delta 151, troponin at 9 AM 364 -BNP 3231 -EKG this morning shows T wave inversions inferior leads indicated with ischemia -Blood pressures are looking better Plan: -In CSU -Aspirin, statin, switch to Lovenox, Plavix load -Blood pressure medications on hold due to soft blood pressures -Telemetry monitoring, monitor for chest pain, monitor pressures -Cardiac echocardiogram showed EF of 57%, no regional wall motion abnormalities, mild LVH, grade 1 or 4 diastolic dysfunction, -Cardiology consulted for cardiac catheterization -I have talked to patient's daughteR Status: Acute (2) Insulin dependent type 2 diabetes mellitus: -Low-dose sliding scale Status: Acute (3) Hyperlipidemia: Status: Acute Qualifiers: Hyperlipidemia type: mixed hyperlipidemia Qualified Code(s): E78.2 - Mixed hyperlipidemia (4) Macular degeneration: Status: Acute (5) History of pulmonary embolism: Currently on Lovenox Status: Acute (6) Hallucination, visual: Currently no visual hallucinations Status: Acute (7) Delirium: -Possibly secondary to underlying UTI, NSTEMI -Reviewed the records have shown that there is been concerns for dementia, but no formal diagnosis -She was transferred to geriatric psych facility in [facility] for concerns for confusion that was dementia related Plan: -Continues to have intermittent episodes of confusion -neurochecks, aspiration precautions seizure precautions -Rocephin for antibiotic coverage -Urine cultures, blood cultures -CT of the head done yesterday had no acute findings -Carotid artery ultrasound pending -TSH, B12, folate within normal limits -Monitor mental status Status: Acute Additional A&P Information Eliquis for DVT prophylaxis Patient is a full code Attestations Medical Necessity Statement*: Patient requires hospitalization for NSTEMI, delirium Coding Level of Care Code Acute Tableau Lead for [facility] Diagnoses NSTEMI (non-ST elevated myocardial infarction) I21.4 Insulin dependent type 2 diabetes mellitus E11.9; Z79.4 Hyperlipidemia E78.2 Hyperlipidemia type: mixed hyperlipidemia Macular degeneration H35.30 History of pulmonary embolism Z86.711 Hallucination, visual R44.1 Delirium R41.0
--- NOTE | 2020-10-06 13:30 | PC.NURSE ---
Patient started to become agitated and combative. Patient does not think she is in the hospital and does not think we are nurses. Dr. Guy gave verbal order for Ativan 1mg IM. This was administered to the patient and she is sitting on the side of the bed, her agitation seems to be dissipating. Nurse will continue to monitor.
[2020-10-06] MEDS: LORazepam 2 mg/mL INJ 1 mL 1 MG IM (13:31)
[2020-10-06 17:18] LABS: Glucose Point of Care 243 mg/dL (70-110)
[2020-10-06 20:35] LABS: Glucose Point of Care 174 mg/dL (70-110)
[2020-10-06] MEDS: cefTRIAXone 1,000 MG in sodium chloride 0.9% (plus) 50 ML 100 MG IV (20:47)
[2020-10-06] MEDS: risperiDONE 1 mg Tablet 0.5 MG PO (20:47)
[2020-10-06] MEDS: atorvastatin 40 mg Tablet PO (20:47)
[2020-10-06] MEDS: donepezil 5 MG Tablet PO (20:47)
[2020-10-06] MEDS: haloperidol inj 5 mg/mL INJ 1 mL 2 MG IM ×2 (22:14→23:46)
--- NOTE | 2020-10-06 23:35 | PC.NURSE ---
Patient very agitated, attempting to get out bed, yelling, uncooperative. Informed Dr Goodwin and received a onetime order to give an additional dose of Haldol 2mg IM once now.
[2020-10-07] VITALS (17 sets, daily range): BP systolic 112–149; BP diastolic 60–91; PULSE 73–128; RESP 10–28; TEMP 36.5–36.8; O2SAT 93–99
--- NOTE | 2020-10-07 02:23 | PC.NURSE ---
Shift Summary Patient is very confused that seems to worsen as the night progresses. Patient is having hallucinations of people, dogs and children pretty frequently. Patient was given her home meds, along with tramodol at bedtime to help her rest. Patient also has a sitter to redirect her. Patient was continuously trying to get out of bed and yelling so the sitter and I got her up to the bedside commode to have her empty her bladder, then got her back to bed, she continued to yell and be agitated and resltess, trying to get out of bed frequently so gave her 2mg of IM haldol. Patient seems to be less agitated but still continues to try to get out of bed and yells often, received an order at [address] Allison for another dose of IM haldol, gave that and now she seems to be trying to rest intermittently but also trying to get up and still yelling at times. Nurse resuming care at 0230, sitter still at bedside
--- NOTE | 2020-10-07 03:23 | PC.NURSE ---
Patient has increased confusion and agitation at night. Yelling and attempts to get out of bed. Patient has not slept in several days or nights. Medications administered as ordered.
--- NOTE | 2020-10-07 04:06 | PC.NURSE ---
Dr Goodwin on the floor listening to patient yell out. Received verbal order to give next dose of Haldol now and also to change order of Lovenox to more reasonable time . Changed Lovenox time to begin today at 0800 every 12 hours.
[2020-10-07] MEDS: haloperidol inj 5 mg/mL INJ 1 mL 2 MG IM (04:15)
--- NOTE | 2020-10-07 09:44 | USCV_ITS ---
Unique Gage Age: 75 Gender: F : 1945 Exam Date: 10/07/2020 14:24 Ordering Phys: Desmond Ramirez MD ([email or web address]) Technologist: GILLIAN [place] [facility] [place]: COLD FEET Risk Factors: Previous Vascular Surgery: RIGHT LEFT BP: 149.0 / 86.00 BP: / 0 Waveform Velocity (cm/s) Velocity (cm/s) Waveform Biphasic 87.0 Iliac Prox 79.4 Biphasic Biphasic 103.6 Iliac Mid 86.8 Biphasic Biphasic 91.5 Iliac Distal 76.3 Biphasic Biphasic 87.1 CONVEYOR FEEDER OFFBEARER 67.9 Biphasic Biphasic 79.4 SFA Prox 73.6 Biphasic Biphasic 135.2 SFA Mid 75.1 Biphasic Biphasic 130.5 SFA Dist 59.5 Biphasic Biphasic 55.2 POP 62.3 Biphasic Biphasic 164.8 PLANNING AND ANALYSIS MANAGER 28.4 Biphasic Biphasic 35.2 DPA 50.3 Biphasic FINDINGS RT PLANNING AND ANALYSIS MANAGER > 220, RT DPA 110 LT PLANNING AND ANALYSIS MANAGER >220 , LT DPA 130 Mild diffuse plaques in the iliac and femoral arteries bilaterally Supranormal resting ABIs bilaterally Elevated Doppler velocity in the right posterior tibial artery CONCLUSIONS 1. Noncompressible vessels bilaterally at the ankle 2. Mild diffuse plaques in the iliac and femoral arteries bilaterally 3. Elevated Doppler flow velocity in the right posterior tibial artery, suggestive of hemodynamically significant stenosis. 4. Features of extensive arterial sclerosis No similar previous studies are available for comparison Dr Desmond Ramirez MD [facility] (Electronically Signed) Final Date: 07 October 2020 17:38 S
--- NOTE | 2020-10-07 09:45 | PM.PN ---
Subjective Subjective: Interval history: Pt received several doses of Haldol last night. Currently she seems to be drowsy. She is not wanting to answer any questions Medications: Reviewed: Yes Medication Review Details: Current Medications Acetaminophen (Acetaminophen 325 Mg Tablet) 650 mg PO Q6H PRN PRN Reason: Mild/Mod Pain Or Temp >/= 101 Apixaban (Apixaban 5 Mg Tablet) 5 mg PO BID@00,1999 [facility] Last Admin: 10/05/20 06:09 Dose: 5 mg Documented by: Aspirin (Aspirin 81 Mg Ec Tablet) 81 mg PO DAILY [facility] Last Admin: 10/06/20 07:51 Dose: 81 mg Documented by: Atorvastatin Calcium (Atorvastatin 40 Mg Tablet) 40 mg PO BEDTIME [facility] Last Admin: 10/06/20 20:47 Dose: 40 mg Documented by: Bimatoprost (Bimatoprost 0.01% Op Soln 2.5 Ml Btl) 1 drop EYE-BOTH BEDTIME@1999 [facility] Last Admin: 10/06/20 20:55 Dose: Not Given Documented by: Dextrose (Dextrose 50% Syringe 50 Ml) 25 ml IVP ONCE PRN; Protocol PRN Reason: hypoglycemia protocol Dextrose (Dextrose 50% Syringe 50 Ml) 50 ml IVP PRN PRN; Protocol PRN Reason: hypoglycemia protocol Donepezil HCl (Donepezil 5 Mg Tablet) 5 mg PO BEDTIME@1999 [facility] Last Admin: 10/06/20 20:47 Dose: 5 mg Documented by: Enoxaparin Sodium (Enoxaparin 60 Mg/0.6 Ml Syringe) 60 mg SUBCUT Q12H [facility] Glucagon (Glucagon 1 Mg/Ml Inj 1 Ml) 1 mg IM ONCE PRN; Protocol PRN Reason: Adult Acute Hypoglycemia Prot. Haloperidol Lactate (Haloperidol Inj 5 Mg/Ml Inj 1 Ml) 2 mg IM Q6H PRN PRN Reason: AGITATION Last Admin: 10/07/20 04:15 Dose: 2 mg Documented by: Ceftriaxone Sodium 1,000 mg/ (Sodium Chloride) 50 mls @ 100 mls/hr IV Q24H [facility]; Protocol Last Infusion: 10/06/20 21:30 Dose: Infused Documented by: Dextrose (D5w) 500 mls @ 100 mls/hr IV ONCE PRN; Protocol PRN Reason: Adult Acute Hypoglycemia Prot Insulin Aspart (Insulin Aspart 100 Unit/1 Ml) 0 unit SUBCUT TIDWM [facility]; Protocol Last Admin: 10/06/20 18:01 Dose: 6 unit Documented by: Insulin Aspart (Insulin Aspart 100 Unit/1 Ml) 0 unit SUBCUT BEDTIME [facility]; Protocol Last Admin: 10/06/20 20:47 Dose: 2 unit Documented by: Lisinopril (Lisinopril 5 Mg Tablet) 5 mg PO DAILY [facility] Last Admin: 10/06/20 08:51 Dose: Not Given Documented by: Metoprolol Tartrate (Metoprolol Tartrate 25 Mg Tablet) 12.5 mg PO BID@0900,2100 [facility] Last Admin: 10/06/20 08:51 Dose: Not Given Documented by: Naloxone HCl (Naloxone 0.4 Mg/Ml Sdv) 0.1 mg IVP Q2M PRN PRN Reason: OPIATERV Ondansetron HCl (Ondansetron 2 Mg/Ml Sdv 2 Ml) 4 mg IVP Q8H PRN PRN Reason: vomiting, or N/V if npo Risperidone (Risperidone 1 Mg Tablet) 0.5 mg PO BEDTIME@2000 [facility] Last Admin: 10/06/20 20:47 Dose: 0.5 mg Documented by: Sertraline HCl (Sertraline 50 Mg Tablet) 25 mg PO DAILY [facility] Last Admin: 10/06/20 07:51 Dose: 25 mg Documented by: Trazodone HCl (Trazodone 50 Mg Tablet) 50 mg PO BEDTIME PRN PRN Reason: Insomnia Last Admin: 10/06/20 20:48 Dose: 50 mg Documented by: Vitals/I&O/Wt Last Vital Signs Temp 98.2 F 10/07/20 07:48 Pulse 106 H 10/07/20 07:48 Resp 16 10/07/20 07:48 BP 149/79 10/07/20 07:48 Pulse Ox 98 10/07/20 07:48 10/06/20 10/07/20 10/07/20 22:59 06:59 14:59 Intake Total 590 / 1190 0 / 0 Output Total 400 / 400 200 / 600 Balance 190 / 790 -200 / 590 0 / 0 Physical Exam Narrative: EXAM NARRATIVE: GENERAL: The patient is agitated and seems hallucinating. Spontaneously moving all extremities. HEENT: Minimal pallor. No icterus or lymphadenopathy. Oral cavity: There are no mucous membrane lesions. NECK: Trachea appears to be central. No masses noted. No JVD or thyromegaly appreciated. No carotid bruit. RESPIRATORY: Chest is symmetrical. No intercostals muscle retraction or any accessory muscle activation. There is no chest wall tenderness. Breath sounds are heard bilaterally. No rales or rhonchi heard. No evidence of any consolidation. BREASTS: Deferred. HEART: The PMI could not be palpated . No palpable precordial events. S1 and S2 are normal. No S3 or S4 heard. No pericardial rub or any click heard. Short systolic murmur at the base of the heart. No diastolic murmurs. ABDOMEN: No vessel pulsations or distention. No tenderness. No organomegaly appreciated. No abdominal bruit. Bowel sounds are normally heard. : Deferred. RECTAL: Deferred. LYMPHATIC: No lymphadenopathy noted in the neck or groin. EXTREMITIES: No edema or cyanosis. No clubbing. The dorsalis pedis and posterior tibial pulses are palpable but weak bilaterally. MUSCULOSKELETAL: No acute joint deformities or swelling SKIN: There are no significant scars or skin rash noted. NEUROPSYCHIATRIC: The patient is very drowsy. Answers to questions by yes or no. No focal motor deficits. Data : 10/06/20 04:12 10/06/20 04:12 Other Labs: Laboratory Last Values WBC 8.4 10^3/uL (4.0-10.0) 10/06/20 04:12 RBC 4.42 10^6/uL (4.1-5.3) 10/06/20 04:12 Hgb 12.0 g/dL (11.5-15.3) 10/06/20 04:12 Hct 37.1 % (37.0-47.0) 10/06/20 04:12 MCV 83.9 fL (81-99) 10/06/20 04:12 MCH 27.1 pg (28.0-34.0) L 10/06/20 04:12 MCHC 32.3 g/dL (30.0-36.0) 10/06/20 04:12 RDW 12.6 % (12.1-15.1) 10/06/20 04:12 Plt Count 306 10^3/cmm (130-400) 10/06/20 04:12 MPV 11.9 fL (7.4-10.4) H 10/06/20 04:12 Neut % (Auto) 61.0 % 10/06/20 04:12 Lymph % (Auto) 26.7 % 10/06/20 04:12 Dawson % (Auto) 9.2 % 10/06/20 04:12 Eos % (Auto) 1.8 % 10/06/20 04:12 Baso % (Auto) 0.9 % 10/06/20 04:12 Neut # (Auto) 5.15 10^3/uL (1.8-7.7) 10/06/20 04:12 Lymph # (Auto) 2.3 10^3/uL (0.8-4.8) 10/06/20 04:12 Dawson # (Auto) 0.8 10^3/uL (0.2-0.9) 10/06/20 04:12 Eos # (Auto) 0.2 10^3/uL (0.0-0.8) 10/06/20 04:12 Baso # (Auto) 0.1 10^3/uL (0.0-0.1) 10/06/20 04:12 Nucleated RBC % (auto) 0 % 10/06/20 04:12 Nucleated RBCs # 0.0 /100WBC 10/06/20 04:12 D-Dimer <= 0.27 ug/mIFEU (0-0.59) 10/04/20 20:30 Sodium 133 mmol/L (136-145) L 10/06/20 04:12 Potassium 3.5 mmol/L (3.5-5.1) 10/06/20 04:12 Chloride 99 mmol/L (98-107) 10/06/20 04:12 Carbon Dioxide 25 mmol/L (22-29) 10/06/20 04:12 Anion Gap 12.5 (5-19) 10/06/20 04:12 BUN 13 mg/dL (8-23) 10/06/20 04:12 Creatinine 0.6 mg/dL (0.5-0.9) 10/06/20 04:12 GFR Calculation Not Reportable 10/06/20 04:12 Glucose 156 mg/dL (65-115) H 10/06/20 04:12 POC Glucose 174 mg/dL (70-110) H 10/06/20 20:04 Calculated Osmolality 279 mOsm/kg (285-295) L 10/06/20 04:12 Lactic Acid 1.0 mmol/L (0.5-2.2) 10/05/20 17:42 Calcium 8.5 mg/dL (8.5-10.5) 10/06/20 04:12 Phosphorus 3.4 mg/dL (2.5-4.5) 10/06/20 04:12 Magnesium 1.6 mg/dL (1.7-2.3) L 10/06/20 04:12 Total Bilirubin 0.5 mg/dL (0.15-1.2) 10/06/20 04:12 AST 15 U/L (0-32) 10/06/20 04:12 ALT 9 U/L (0-33) 10/06/20 04:12 Alkaline Phosphatase 65 IU/L (35-105) 10/06/20 04:12 Troponin T Gen 5 ng/L 364 ng/L (0-10) H* 10/05/20 09:38 Troponin T Baseline 256 ng/L (0-10) H* 10/04/20 20:30 Troponin T 120 Minute 291.2 ng/L (0-10) H 10/04/20 22:41 Delta Troponin T 35.2 ABS# (0-10) H* 10/04/20 22:41 Troponin T Hi Sens 6Hr 407.0 ng/L (0-10) H 10/05/20 02:35 Troponin T Hi Sens 6Hr Delta 151.0 ng/L (0-12) H* 10/05/20 02:35 NT-Pro-B Natriuret Pep 3231 pg/mL (0-125) H 10/04/20 20:30 Total Protein 6.0 g/dL (6.6-8.7) L 10/06/20 04:12 Albumin 3.8 g/dL (3.5-5.2) 10/06/20 04:12 Globulin 2.2 g/dL (1.3-4.6) 10/06/20 04:12 Vitamin B12 312 pg/mL (232-1245) 10/04/20 20:30 Folate 14.7 ng/mL (4.8-37.3) 10/04/20 20:30 Procalcitonin 0.06 ng/mL (0-0.5) 10/04/20 20: TSH 1.47 uIU/mL (0.27-4.20) 10/04/20 20: Urine Color Yellow (Yellow) 10/04/20 15: Urine Appearance Clear (CLEAR) 10/04/20 15: Urine pH 5 (5-7) 10/04/20 15: Ur Specific Hendricks 1.025 (1.005-1.030) 10/04/20 15: Urine Protein Neg (Negative) 10/04/20 15: Urine Glucose (UA) 4+ (Normal) H 10/04/20 15: Urine Ketones 2+ (Negative) H 10/04/20: Urine Blood Neg (Negative) 10/04/20: Urine Nitrate Negative (Negative) 10/04/20 15: Urine Bilirubin Neg (Negative) 10/04/20 15: Urine Urobilinogen Norm mg/dL (Negative) 10/04/20 15: Ur Leukocyte Esterase Negative (Negative) 10/04/20 15:29 Urine Opiates Screen Negative ng/mL (Negative) 10/04/20 15:29 Ur Barbiturates Screen Negative ng/mL (Negative) 10/04/20 15:29 Ur Phencyclidine Scrn Negative ng/mL (Negative) 10/04/20 15:29 Ur Amphetamines Screen Negative ng/mL (Negative) 10/04/20 15:29 U Benzodiazepines Scrn Negative ng/mL (Negative) 10/04/20 15: Urine Cocaine Screen Negative ng/mL (Negative) 10/04/20 15: U Marijuana (THC) Screen Negative ng/mL (Negative) 10/04/20 15:29 A&P Assessment and plan (1) NSTEMI (non-ST elevated myocardial infarction): Patient had echocardiogram. She did not have any significant wall motion normalities. Most likely she has underlying coronary artery disease causing the non-ST relation myocardial infarction. She requires a cardiac catheterization, to further evaluate the coronary status and decide on further management. But in view of her agitation and hallucination, this could be technically challenging. This was discussed with the patient's daughter in detail. The daughter wants her to have the procedure. The risk of bleeding, hematoma, vascular injury, myocardial infarction, CVA, renal failure and other concomitant complications were explained in detail. She understood this well and consented to proceed. Dr. Donohue from psychiatry was consulted. With the patient not able to take medications as instructed, could be an issue during the post intervention management. We will wait for the input from Dr. Donohue. Status: Acute (2) Insulin dependent type 2 diabetes mellitus: Aggressive management of the diabetes would be appropriate at this point. Status: Acute (3) Hyperlipidemia: May continue on the current medications. Status: Acute Qualifiers: Hyperlipidemia type: mixed hyperlipidemia Qualified Code(s): E78.2 - Mixed hyperlipidemia (4) History of pulmonary embolism: Patient is not on any oral anticoagulant at this point. Apparently she had the pulmonary embolism many years ago. Status: Acute (5) Hypotension (arterial): Patient has been having episodes of hypotension. Currently the blood pressure is stable. May continue on the current measures. Status: Acute Qualifiers: Hypotension type: unspecified hypotension type Qualified Code(s): I95.9 - Hypotension, unspecified Additional A&P Information Other problems are Hypokalemia, currently is corrected Dementia Recurrent falls Based on the patient's the clinical progress and input from Dr. Donohue, further my decisions will be made Attestations Medical Necessity Statement*: Patient requires continued hospital stay for close monitoring and further management Coding Level of Care Code Acute Wire Border Assembler for [facility] Diagnoses NSTEMI (non-ST elevated myocardial infarction) I21.4 Insulin dependent type 2 diabetes mellitus E11.9; Z79.4 Hyperlipidemia E78.2 Hyperlipidemia type: mixed hyperlipidemia History of pulmonary embolism Z86.711 Hypotension (arterial) I95.9 Hypotension type: unspecified hypotension type
[2020-10-07 09:54] LABS: Glucose Point of Care 229 mg/dL (70-110)
[2020-10-07] MEDS: enoxaparin 60 mg/0.6 mL Syringe SUBCUT ×2 (09:56→22:08)
[2020-10-07] MEDS: aspirin 81 mg EC Tablet PO (09:56)
[2020-10-07] MEDS: sertraline 50 mg Tablet 25 MG PO (09:56)
[2020-10-07 10:17] LABS: Basophils # 0.1 10^3/uL (0.0-0.1); Basophils % 0.8 %; Eosinophils % 0.2 %; Hematocrit 41.7 % (37.0-47.0); Hemoglobin 13.2 g/dL (11.5-15.3); Lymphocytes # 1.3 10^3/uL (0.8-4.8); Lymphocytes % 14.1 %; Mean Corpuscular HGB Conc 31.7 g/dL (30.0-36.0); Mean Corpuscular Hemoglobin 27.4 pg (28.0-34.0); Mean Corpuscular Volume 86.7 fL (81-99); Mean Platelet Volume 11.5 fL (7.4-10.4); Monocytes # 0.5 10^3/uL (0.2-0.9); Monocytes % 5.3 %; Neutrophils # 7.39 10^3/uL (1.8-7.7); Neutrophils % 79.3 %; Nucleated Red Blood Cells % 0 %; Platelet Count 328 10^3/cmm (130-400); Red Blood Count 4.81 10^6/uL (4.1-5.3); Red Cell Distribution Width 12.7 % (12.1-15.1); White Blood Count 9.3 10^3/uL (4.0-10.0)
[2020-10-07 10:31] LABS: Alanine Aminotransferase 11 U/L (0-33); Alkaline Phosphatase 77 IU/L (35-105); Anion Gap 17.8 (5-19); Aspartate Amino Transferase 15 U/L (0-32); Blood Urea Nitrogen 8 mg/dL (8-23); Calcium 8.7 mg/dL (8.5-10.5); Carbon Dioxide 24 mmol/L (22-29); Chloride 100 mmol/L (98-107); Creatinine Clr Calc Pharmacy 58.5699; Globulin 2.6 g/dL (1.3-4.6); Glucose 218 mg/dL (65-115); Magnesium 1.6 mg/dL (1.7-2.3); Osmolality Calculated 291 mOsm/kg (285-295); Phosphorus 3.3 mg/dL (2.5-4.5); Potassium 3.8 mmol/L (3.5-5.1); Sodium 138 mmol/L (136-145); Total Bilirubin 0.5 mg/dL (0.15-1.2); Total Protein 6.6 g/dL (6.6-8.7)
--- NOTE | 2020-10-07 11:32 | P.CONIM_ITS ---
Providers/Reason for Consult Consulting Physican/Specialty*: Nestor Donohue MD. Psychiatry. Reason for Consult*: Altered mental status. Attending Physician: Ayo Guy MD Primary Care Provider: Dao Alba, DO Psych Consult HPI History of Present Illness Unique Gage is a 75 year old female who presented to the emergency department with the following report: HPI narrative: 75-year-old female brought in by EMS. Patient was found wandering around outside [facility] in the rain/snow. Patient cannot tell you why she is wandering around. Patient is able to tell dates and is really struggling with her memory today. Patient was seen yesterday by me due to visual wesly lucinations which have been longstanding. However today her mental status seems to be much worse. Her work-up was questionable UTI yesterday but otherwise no acute findings. Patient had a negative head CT yesterday. Patient lives alone at home. She was admitted to the [facility] department for definitive treatment of those issues. After receiving some treatment for the UTI and exploration of possible other causes for her delirium/altered mental status she started having elevation of her troponin. Previous EKG did not identify a STEMI nor did the second 1 so suspicion of a non-STEMI was considered. She was transferred to [facility] for definitive treatment of those issues and a psychiatric consult was requested after she had some agitation and required some medication to assist her in calming down. She presents today as she did with the initial history and physical from the hospitalist with alertness and general orientation. She knew the current president, the month, the state, city, formerly [facility], [facility]. She suggested that it was 2002 and did not know the day of the week or the date but knew was September. She initially stated that she was at a assisted living center but then she identified that she was in the hospital. She can give me the general breakdown of her medical comorbidities but could not give me any clear sense of what her current challenges are and why they want to do a procedure. She denied any psychiatric history but did identify that she is having some struggles with memory. She denies any smoking history or any significant addiction history. She endorsed a history of having and having a least 1 child. She was able to identify that she currently lives in assisted living facility, but I do not believe that is accurate as she had earlier stated and address which confirmed was in the chart which was an apartment and she had earlier but stated that this was an assisted living center and that she lived here. Previous document suggest that she has had [facility] in the past Meds Current Medications: Current Medications Generic Name Dose Route Start Last Admin Trade Name Kelin PRN Reason Stop Dose Admin Apixaban 5 mg 10/04/20 20:13 10/05/20 06:09 Apixaban 5 Mg Ta blet PO 5 mg BID@07,1999 [facility] Administration Aspirin 81 mg 10/05/20 09:00 10/07/20 09:56 Aspirin 81 Mg Ec Tablet PO 81 mg DAILY [facility] Administration Atorvastatin Calci um 40 mg 10/04/20 21:00 10/06/20 20:47 Atorvastatin 40 Mg Tablet PO 40 mg BEDTIME [facility] Administration Bimatoprost 1 drop 10/04/20 20:13 10/06/20 20:55 Bimatoprost 0.01 % Op Soln 2.5 Ml B tl EYE-BOTH Not Given BEDTIME@1999 [facility] Donepezil HCl 5 mg 10/05/20 20:00 10/06/20 20:47 Donepezil 5 Mg T ablet PO 5 mg BEDTIME@1999 [facility] Administration Enoxaparin Sodium 60 mg 10/07/20 08:00 10/07/20 09:56 Enoxaparin 60 Mg /0.6 Ml Syringe SUBCUT 60 mg Q12H [facility] Administration Haloperidol Lactat e 2 mg 10/06/20 15:38 10/07/20 04:15 Haloperidol Inj 5 Mg/Ml Inj 1 Ml IM 2 mg Q6H PRN Administration AGITATION Ceftriaxone Sodium 1,000 mg/ 50 mls @ 100 mls/ hr 10/04/20 21:00 10/06/20 21:30 Sodium Chloride IV Infused Q24H [facility] Infusion Protocol Insulin Aspart 0 unit 10/04/20 20:13 10/07/20 09:55 Insulin Aspart 1 00 Unit/1 Ml SUBCUT 6 unit TIDWM [facility] Administration Protocol Insulin Aspart 0 unit 10/05/20 21:15 10/06/20 20:47 Insulin Aspart 1 00 Unit/1 Ml SUBCUT 2 unit BEDTIME [facility] Administration Protocol Lisinopril 5 mg 10/06/20 09:00 10/06/20 08:51 Lisinopril 5 Mg Tablet PO Not Given DAILY [facility] Metoprolol Tartrat e 12.5 mg 10/05/20 09:00 10/06/20 08:51 Metoprolol Tartr ate 25 Mg Tablet PO Not Given BID@0900,2100 [facility] Risperidone 0.5 mg 10/05/20 20:30 10/06/20 20:47 Risperidone 1 Mg Tablet PO 0.5 mg BEDTIME@1999 [facility] Administration Sertraline HCl 25 mg 10/06/20 09:00 10/07/20 09:56 Sertraline 50 Mg Tablet PO 25 mg DAILY [facility] Administration Trazodone HCl 50 mg 10/04/20 20:13 10/06/20 20:48 Trazodone 50 Mg Tablet PO 50 mg BEDTIME PRN Administration Insomnia PFSH NPU PFSH: Medical History History of heart failure History of pulmonary embolism Hyperlipidemia Insulin dependent type 2 diabetes mellitus Macular degeneration Surgical History History of Family History Mother Dementia Social History Smoking and tobacco status: never smoked Alcohol intake: never Substance/Drug Use: never Mental Status Exam MSE Comments: This is a well-nourished, well-developed elderly appearing white female with a hospital gown on with limited grooming and eye contact often keeping her eyes closed but she did look at this securities underwriter a few times. No abnormal movements except for mild psychomotor retardation. Cooperative with exam in no acute distress. Speech was mostly normal rate and volume mood described as okay right now, affect slightly subdued. Thought process mostly organized. Thought content: Patient denied suicidal or homicidal ideation, there were no delusions reported or noted, she denied any auditory hallucinations. Attention and concentration were mostly intact but she did need to be asked questions a couple times in circumstances memory is intermittently reliable but none were formally tested. She is alert and oriented times person and place mostly. Insight and judgment are limited versus impaired impulse control is currently fair. Vitals/I&O/Wt Last Vital Signs Temp 97.7 F 10/07/20 11:02 Pulse 104 H 10/07/20 11:02 Resp 17 10/07/20 11:02 BP 149/86 10/07/20 11:02 Pulse Ox 99 10/07/20 11:02 10/06/20 10/07/20 10/07/20 22:59 06:59 14:59 Intake Total 590 / 1190 0 / 0 Output Total 400 / 400 200 / 600 Balance 190 / 790 -200 / 590 0 / 0 A&P Assessment and plan (1) Hypotension (arterial): Status: Acute Qualifiers: Hypotension type: unspecified hypotension type Qualified Code(s): I95.9 - Hypotension, unspecified (2) Benign essential hypertension with target blood pressure below 140/90: Status: Acute (3) NSTEMI (non-ST elevated myocardial infarction): Status: Acute (4) Insulin dependent type 2 diabetes mellitus: Status: Acute (5) Hyperlipidemia: Status: Acute Qualifiers: Hyperlipidemia type: mixed hyperlipidemia Qualified Code(s): E78.2 - Mixed hyperlipidemia (6) Macular degeneration: Status: Acute (7) History of pulmonary embolism: Status: Acute (8) Hallucination, visual: Status: Acute (9) Delirium: Status: Acute (10) Memory problem: Status: Acute (11) Mild dementia: Status: Acute Additional A&P Information This is a 75-year-old white female with a limited history given her memory issues and possible ongoing delirium which seems to be resolving who presents with some memory limitations which makes her capacity questionable with some moments of agitation. 1. Continue current medication. 2. If there is need for treatment for agitation would recommend Zyprexa, possibly Seroquel given her cardiac concerns. There is some evidence that use of Haldol in this patient population could create a slightly higher risk of negative outcome from a cardiac standpoint. So 2.5 to 10 mg of Zyprexa and 25 to 50 mg of Seroquel will be my recommendation. Given the possibility of getting Zyprexa and Zydis form Zyprexa is probably the best option given this patient presentation. The depression and also be possible in injectable form as well. 3. I will continue to follow. Attestations NPU Medical Necessity Statement*: N/A. Please see primary team note for full details of medical necessity. 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
[2020-10-07 11:33] LABS: Glucose Point of Care 263 mg/dL (70-110)
--- NOTE | 2020-10-07 11:57 | PM.PN ---
Subjective Subjective: Interval history: Yesterday afternoon, patient had episodes of confusion and agitation, she was restless in bed, received Ativan and Haldol, she seemed to rest through the early evening, however again developed episodes of confusion and agitation requiring multiple doses of Haldol, she was restless throughout the night, did not get any sleep, finally fell asleep at 630, currently she is sleeping, will arouse, after receiving multiple sedating medications Medications: Medication Review Details: Current Medications Acetaminophen (Acetaminophen 325 Mg Tablet) 650 mg PO Q6H PRN PRN Reason: Mild/Mod Pain Or Temp >/= 101 Apixaban (Apixaban 5 Mg Tablet) 5 mg PO BID@699,1999 [facility] Last Admin: 10/05/20 06:09 Dose: 5 mg Documented by: Aspirin (Aspirin 81 Mg Ec Tablet) 81 mg PO DAILY [facility] Last Admin: 10/06/20 07:51 Dose: 81 mg Documented by: Atorvastatin Calcium (Atorvastatin 40 Mg Tablet) 40 mg PO BEDTIME [facility] Last Admin: 10/06/20 20:47 Dose: 40 mg Documented by: Bimatoprost (Bimatoprost 0.01% Op Soln 2.5 Ml Btl) 1 drop EYE-BOTH BEDTIME@1999 [facility] Last Admin: 10/06/20 20:55 Dose: Not Given Documented by: Dextrose (Dextrose 50% Syringe 50 Ml) 25 ml IVP ONCE PRN; Protocol PRN Reason: hypoglycemia protocol Dextrose (Dextrose 50% Syringe 50 Ml) 50 ml IVP PRN PRN; Protocol PRN Reason: hypoglycemia protocol Donepezil HCl (Donepezil 5 Mg Tablet) 5 mg PO BEDTIME@1999 [facility] Last Admin: 10/06/20 20:47 Dose: 5 mg Documented by: Enoxaparin Sodium (Enoxaparin 60 Mg/0.6 Ml Syringe) 60 mg SUBCUT Q12H [facility] Glucagon (Glucagon 1 Mg/Ml Inj 1 Ml) 1 mg IM ONCE PRN; Protocol PRN Reason: Adult Acute Hypoglycemia Prot. Haloperidol Lactate (Haloperidol Inj 5 Mg/Ml Inj 1 Ml) 2 mg IM Q6H PRN PRN Reason: AGITATION Last Admin: 10/07/20 04:15 Dose: 2 mg Documented by: Ceftriaxone Sodium 1,000 mg/ (Sodium Chloride) 50 mls @ 100 mls/hr IV Q24H [facility]; Protocol Last Infusion: 10/06/20 21:30 Dose: Infused Documented by: Dextrose (D5w) 500 mls @ 100 mls/hr IV ONCE PRN; Protocol PRN Reason: Adult Acute Hypoglycemia Prot Insulin Aspart (Insulin Aspart 100 Unit/1 Ml) 0 unit SUBCUT TIDWM [facility]; Protocol Last Admin: 10/06/20 18:01 Dose: 6 unit Documented by: Insulin Aspart (Insulin Aspart 100 Unit/1 Ml) 0 unit SUBCUT BEDTIME [facility]; Protocol Last Admin: 10/06/20 20:47 Dose: 2 unit Documented by: Lisinopril (Lisinopril 5 Mg Tablet) 5 mg PO DAILY [facility] Last Admin: 10/06/20 08:51 Dose: Not Given Documented by: Metoprolol Tartrate (Metoprolol Tartrate 25 Mg Tablet) 12.5 mg PO BID@0900,2100 [facility] Last Admin: 10/06/20 08:51 Dose: Not Given Documented by: Naloxone HCl (Naloxone 0.4 Mg/Ml Sdv) 0.1 mg IVP Q2M PRN PRN Reason: OPIATERV Ondansetron HCl (Ondansetron 2 Mg/Ml Sdv 2 Ml) 4 mg IVP Q8H PRN PRN Reason: vomiting, or N/V if npo Risperidone (Risperidone 1 Mg Tablet) 0.5 mg PO BEDTIME@2000 [facility] Last Admin: 10/06/20 20:47 Dose: 0.5 mg Documented by: Sertraline HCl (Sertraline 50 Mg Tablet) 25 mg PO DAILY [facility] Last Admin: 10/06/20 07:51 Dose: 25 mg Documented by: Trazodone HCl (Trazodone 50 Mg Tablet) 50 mg PO BEDTIME PRN PRN Reason: Insomnia Last Admin: 10/06/20 20:48 Dose: 50 mg Documented by: Vitals/I&O/Wt Last Vital Signs Temp 97.7 F 10/07/20 11:02 Pulse 104 H 10/07/20 11:02 Resp 17 10/07/20 11:02 BP 149/86 10/07/20 11:02 Pulse Ox 99 10/07/20 11:02 10/06/20 10/07/20 10/07/20 22:59 06:59 14:59 Intake Total 590 / 1190 0 / 0 Output Total 400 / 400 200 / 600 Balance 190 / 790 -200 / 590 0 / 0 Physical Exam Const: COMMON NORMALS: no acute distress GENERAL APPEARANCE: cooperative and comfortable ORIENTATION/CONSCIOUSNESS: not awake, not oriented to person, not oriented to place and not oriented to time OTHER: Currently sleeping, will arouse HENMT: COMMON NORMALS: normocephalic HEAD & SCALP: normocephalic Eye: COMMON NORMALS: Equal, round and reactive pupils present GENERAL EYE: appearance normal, both eyes and all related structures PUPIL: Yes Equal, round and reactive pupils present Neck/C-Spine: COMMON NORMALS: no JVD and Thyroid normal THYROID: Thyroid normal Lymph: LYMPHATIC: no lymphadenopathy noted Resp: COMMON NORMALS: normal respiratory effort, No retractions, No use of accessory muscles and clear to auscultation bilaterally AUSCULTATION: clear to auscultation bilaterally Cardio: COMMON NORMALS: no JVD, regular rate, regular rhythm, S1 normal heart sound present and S2 normal heart sound present RATE: regular rate RHYTHM: regular rhythm HEART SOUNDS: S1 normal heart sound present and S2 normal heart sound present GI: COMMON NORMALS: Normal to inspection, nondistended, normoactive bowel sounds present, Soft to palpation and non-tender PALPATION: Yes Soft to palpation : COMMON NORMALS: Yes no CVA tenderness BLADDER/KIDNEY EXAM: Yes no CVA tenderness Back/Pelvis: COMMON NORMALS: no CVA tenderness Extremity: COMMON NORMALS: no pedal edema Neuro: COMMON NORMALS: CN's II-XII intact bilaterally, moves all extremities and no focal motor deficits SENSORIUM/ORIENTATION: No oriented to person, No oriented to place and No oriented to time OTHER: Does follow commands Psych: APPEARANCE: Yes unkempt ATTITUDE: Yes Withdrawn affect present ACTIVITY/MOTOR BEHAVIOR: Yes fidgeting THOUGHT PROCESS: incoherent, disorganized and confused Data : 10/07/20 10:02 10/07/20 10:02 A&P Assessment and plan (1) NSTEMI (non-ST elevated myocardial infarction): -No complaints of chest pain, asymptomatic, except persistent confusion -No known cardiovascular history -Baseline troponin 256, 6-hour 407, delta 151, troponin at 9 AM 364 -BNP 3231 -EKG this morning shows T wave inversions inferior leads indicated with ischemia -Blood pressures are looking better Plan: -In [facility] -Aspirin, statin, switch to Lovenox, Plavix load -Blood pressure medications are better -Telemetry monitoring, monitor for chest pain, monitor pressures -Cardiac echocardiogram showed EF of 57%, no regional wall motion abnormalities, mild LVH, grade 1 or 4 diastolic dysfunction, -Cardiology consulted for cardiac catheterization -Cardiac catheterization has to be delayed until patient's mentation improves, or we have a remedy for her sundowning -I have talked to patient's daughteR Status: Acute (2) Insulin dependent type 2 diabetes mellitus: -Low-dose sliding scale Status: Acute (3) Hyperlipidemia: Status: Acute Qualifiers: Hyperlipidemia type: mixed hyperlipidemia Qualified Code(s): E78.2 - Mixed hyperlipidemia (4) Macular degeneration: Status: Acute (5) History of pulmonary embolism: Currently on Lovenox Status: Acute (6) Hallucination, visual: Currently no visual hallucinations Status: Acute (7) Delirium: -Likely secondary to underlying UTI, NSTEMI -However has baseline dementia, significant sundowning, episodes of agitation -Reviewed the records have shown that there is been concerns for dementia, but no formal diagnosis -She was transferred to geriatric psych facility in [facility] for concerns for confusion that was dementia related Plan: -Continues to have intermittent episodes of confusion -neurochecks, aspiration precautions seizure precautions -Rocephin for antibiotic coverage for E. coli UTI -Blood cultures negative -CT of the head done yesterday had no acute findings -Carotid artery ultrasound less than 50% stenosis bilaterally -TSH, B12, folate within normal limits -Monitor mental status -Haldol for agitation -Psychiatry, Dr. 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
--- NOTE | 2020-10-07 14:23 | PC.OT ---
OT attempted to see pt this afternoon. Nursing asks that therapy be held at this time. Nursing reports pt has only slept 1 hour in the last three days. Will attempt to treat pt tomorrow. LOLA Gerard/Torsten ZIMMERMAN/[place]
[2020-10-07 16:33] LABS: Glucose Point of Care 148 mg/dL (70-110)
--- NOTE | 2020-10-07 19:00 | PC.NURSE ---
1:1 sitter Pt is asleep and bed alarm is reset. Pt is closer to nurses' station. Will keep monitoring for a need of sitter tonight. Discuss to night nurses.
[2020-10-07 20:40] LABS: Glucose Point of Care 243 mg/dL (70-110)
[2020-10-07] MEDS: cefTRIAXone 1,000 MG in sodium chloride 0.9% (plus) 50 ML 100 MG IV (22:29)
[2020-10-07] MEDS: sodium chloride 0.9% (100 ml) 100 ML 25 ML (22:50)
[2020-10-08] VITALS (9 sets, daily range): BP systolic 104–144; BP diastolic 62–91; PULSE 80–106; RESP 12–23; TEMP 36.6–37.1; O2SAT 96–100
[2020-10-08 04:36] LABS: Basophils # 0.1 10^3/uL (0.0-0.1); Basophils % 1.3 %; Eosinophils # 0.2 10^3/uL (0.0-0.8); Eosinophils % 2.6 %; Hemoglobin 12.5 g/dL (11.5-15.3); Lymphocytes # 1.8 10^3/uL (0.8-4.8); Lymphocytes % 26.2 %; Mean Corpuscular HGB Conc 29.8 g/dL (30.0-36.0); Mean Corpuscular Hemoglobin 27.1 pg (28.0-34.0); Mean Corpuscular Volume 90.9 fL (81-99); Mean Platelet Volume 11.6 fL (7.4-10.4); Monocytes # 0.7 10^3/uL (0.2-0.9); Monocytes % 9.4 %; Neutrophils # 4.23 10^3/uL (1.8-7.7); Neutrophils % 60.2 %; Nucleated Red Blood Cells % 0 %; Platelet Count 291 10^3/cmm (130-400); Red Blood Count 4.62 10^6/uL (4.1-5.3)
[2020-10-08 05:07] LABS: Alanine Aminotransferase 9 U/L (0-33); Albumin Level 3.4 g/dL (3.5-5.2); Alkaline Phosphatase 65 IU/L (35-105); Aspartate Amino Transferase 13 U/L (0-32); Blood Urea Nitrogen 10 mg/dL (8-23); Calcium 8.6 mg/dL (8.5-10.5); Carbon Dioxide 23 mmol/L (22-29); Chloride 104 mmol/L (98-107); Creatinine Clr Calc Pharmacy 58.5699; Globulin 2.5 g/dL (1.3-4.6); Glucose 119 mg/dL (65-115); Magnesium 1.7 mg/dL (1.7-2.3); Osmolality Calculated 288 mOsm/kg (285-295); Sodium 139 mmol/L (136-145); Total Bilirubin 0.4 mg/dL (0.15-1.2); Total Protein 5.9 g/dL (6.6-8.7)
[2020-10-08 05:11] LABS: Anion Gap 15.5 (5-19); Potassium 3.5 mmol/L (3.5-5.1)
[2020-10-08 06:54] LABS: Glucose Point of Care 121 mg/dL (70-110)
--- NOTE | 2020-10-08 07:15 | PC.NURSE ---
Patient lethargic and unable to take PO night time medications. Night time medication were held on 10/[address] condition[address]. Goodwin notified.
--- NOTE | 2020-10-08 08:54 | DCPLANNER ---
Pg 2 of IM updated and reviewed with pt. No questions, copy provided.
[2020-10-08] MEDS: enoxaparin 60 mg/0.6 mL Syringe SUBCUT ×2 (10:42→23:39)
[2020-10-08] MEDS: sertraline 50 mg Tablet 25 MG PO (10:43)
[2020-10-08] MEDS: aspirin 81 mg EC Tablet PO (10:44)
[2020-10-08 11:25] LABS: Glucose Point of Care 286 mg/dL (70-110)
--- NOTE | 2020-10-08 14:29 | P.PN_ITS ---
Subjective Subjective: Interval history: This morning patient was examined, she is quite pleasant, she is alert to person, to place, not to time, she follows commands, she has no complaints, no chest pain, no shortness of breath, she had a good night, she slept throughout the night, Medications: Medication Review Details: Current Medications Acetaminophen (Acetaminophen 325 Mg Tablet) 650 mg PO Q6H PRN PRN Reason: Mild/Mod Pain Or Temp >/= 101 Apixaban (Apixaban 5 Mg Tablet) 5 mg PO BID@699,1999 [facility] Last Admin: 10/05/20 06:09 Dose: 5 mg Documented by: Aspirin (Aspirin 81 Mg Ec Tablet) 81 mg PO DAILY [facility] Last Admin: 10/06/20 07:51 Dose: 81 mg Documented by: Atorvastatin Calcium (Atorvastatin 40 Mg Tablet) 40 mg PO BEDTIME [facility] Last Admin: 10/06/20 20:47 Dose: 40 mg Documented by: Bimatoprost (Bimatoprost 0.01% Op Soln 2.5 Ml Btl) 1 drop EYE-BOTH BEDTIME@1999 [facility] Last Admin: 10/06/20 20:55 Dose: Not Given Documented by: Dextrose (Dextrose 50% Syringe 50 Ml) 25 ml IVP ONCE PRN; Protocol PRN Reason: hypoglycemia protocol Dextrose (Dextrose 50% Syringe 50 Ml) 50 ml IVP PRN PRN; Protocol PRN Reason: hypoglycemia protocol Donepezil HCl (Donepezil 5 Mg Tablet) 5 mg PO BEDTIME@1999 [facility] Last Admin: 10/06/20 20:47 Dose: 5 mg Documented by: Enoxaparin Sodium (Enoxaparin 60 Mg/0.6 Ml Syringe) 60 mg SUBCUT Q12H [facility] Glucagon (Glucagon 1 Mg/Ml Inj 1 Ml) 1 mg IM ONCE PRN; Protocol PRN Reason: Adult Acute Hypoglycemia Prot. Haloperidol Lactate (Haloperidol Inj 5 Mg/Ml Inj 1 Ml) 2 mg IM Q6H PRN PRN Reason: AGITATION Last Admin: 10/07/20 04:15 Dose: 2 mg Documented by: Ceftriaxone Sodium 1,000 mg/ (Sodium Chloride) 50 mls @ 100 mls/hr IV Q24H [facility]; Protocol Last Infusion: 10/06/20 21:30 Dose: Infused Documented by: Dextrose (D5w) 500 mls @ 100 mls/hr IV ONCE PRN; Protocol PRN Reason: Adult Acute Hypoglycemia Prot Insulin Aspart (Insulin Aspart 100 Unit/1 Ml) 0 unit SUBCUT TIDWM [facility]; Protocol Last Admin: 10/06/20 18:01 Dose: 6 unit Documented by: Insulin Aspart (Insulin Aspart 100 Unit/1 Ml) 0 unit SUBCUT BEDTIME [facility]; Protocol Last Admin: 10/06/20 20:47 Dose: 2 unit Documented by: Lisinopril (Lisinopril 5 Mg Tablet) 5 mg PO DAILY [facility] Last Admin: 10/06/20 08:51 Dose: Not Given Documented by: Metoprolol Tartrate (Metoprolol Tartrate 25 Mg Tablet) 12.5 mg PO BID@0900,2100 [facility] Last Admin: 10/06/20 08:51 Dose: Not Given Documented by: Naloxone HCl (Naloxone 0.4 Mg/Ml Sdv) 0.1 mg IVP Q2M PRN PRN Reason: OPIATERV Ondansetron HCl (Ondansetron 2 Mg/Ml Sdv 2 Ml) 4 mg IVP Q8H PRN PRN Reason: vomiting, or N/V if npo Risperidone (Risperidone 1 Mg Tablet) 0.5 mg PO BEDTIME@1999 [facility] Last Admin: 10/06/20 20:47 Dose: 0.5 mg Documented by: Sertraline HCl (Sertraline 50 Mg Tablet) 25 mg PO DAILY [facility] Last Admin: 10/06/20 07:51 Dose: 25 mg Documented by: Trazodone HCl (Trazodone 50 Mg Tablet) 50 mg PO BEDTIME PRN PRN Reason: Insomnia Last Admin: 10/06/20 20:48 Dose: 50 mg Documented by: Vitals/I&O/Wt Last Vital Signs Temp 97.9 F 10/08/20 12:00 Pulse 102 H 10/08/20 12:00 Resp 23 H 10/08/20 12:00 BP 104/62 10/08/20 12:00 Pulse Ox 96 10/08/20 12:00 10/07/20 10/08/20 10/08/20 22:59 06:59 14:59 Intake Total 50 / 50 10.417 / 60.417 360 / 360 Output Total 200 / 200 400 / 600 700 / 700 Balance -150 / -150 -389.583 / -539.583 -340 / -340 Physical Exam Const: COMMON NORMALS: no acute distress ORIENTATION/CONSCIOUSNESS: Yes awake and Yes oriented to person; not oriented to place HENMT: COMMON NORMALS: normocephalic HEAD & SCALP: normocephalic Neck/C-Spine: COMMON NORMALS: no JVD Resp: COMMON NORMALS: normal respiratory effort, No retractions, No use of accessory muscles and clear to auscultation bilaterally AUSCULTATION: clear to auscultation bilaterally Cardio: COMMON NORMALS: no JVD, regular rate, regular rhythm, S1 normal heart sound present and S2 normal heart sound present RATE: regular rate RHYTHM: regular rhythm HEART SOUNDS: S1 normal heart sound present and S2 normal heart sound present GI: COMMON NORMALS: Normal to inspection, nondistended, normoactive bowel sounds present, Soft to palpation, non-tender, No hepatosplenomegaly present, no masses and no bruits PALPATION: Yes Soft to palpation and Yes No hepatosplenomegaly present Extremity: COMMON NORMALS: no clubbing, cyanosis or edema, no calf tenderness and no pedal edema Neuro: SENSORIUM/ORIENTATION: Yes oriented to person and No oriented to place Psych: COMMON NORMALS: mental status grossly normal Data : 10/08/20 04:06 10/08/20 04:06 A&P Assessment and plan (1) NSTEMI (non-ST elevated myocardial infarction): -No complaints of chest pain, asymptomatic, except persistent confusion -No known cardiovascular history -Baseline troponin 256, 6-hour 407, delta 151, troponin at 9 AM 364 -BNP 3231 -EKG this morning shows T wave inversions inferior leads indicated with ischemia -Blood pressures are looking better Plan: -In [facility] -Aspirin, statin, switch to Lovenox, Plavix load -Blood pressure medications are better -Telemetry monitoring, monitor for chest pain, monitor pressures -Cardiac echocardiogram showed EF of 57%, no regional wall motion abnormalities, mild LVH, grade 1 or 4 diastolic dysfunction, -Cardiology consulted plan on medical management, unless she has chest pain or EKG changes -I have talked to patient's daughteR Status: Acute (2) Insulin dependent type 2 diabetes mellitus: -Low-dose sliding scale Status: Acute (3) Hyperlipidemia: Status: Acute Qualifiers: Hyperlipidemia type: mixed hyperlipidemia Qualified Code(s): E78.2 - Mixed hyperlipidemia (4) Macular degeneration: Status: Acute (5) History of pulmonary embolism: Currently on Lovenox Status: Acute (6) Hallucination, visual: Currently no visual hallucinations Status: Acute (7) Delirium: -Likely secondary to underlying UTI, NSTEMI -However has baseline dementia, significant sundowning, episodes of agitation -Reviewed the records have shown that there is been concerns for dementia, but no formal diagnosis -She was transferred to geriatric psych facility in [facility] for concerns for confusion that was dementia related Plan: -Continues to have intermittent episodes of confusion -neurochecks, aspiration precautions seizure precautions -Rocephin for antibiotic coverage for E. coli UTI, has finished course -Blood cultures negative -CT of the head done yesterday had no acute findings -Carotid artery ultrasound less than 50% stenosis bilaterally -TSH, B12, folate within normal limits -Monitor mental status -Haldol for agitation -Scheduled Zyprexa during the night - working on placement at her shelter -Psychiatry, Dr. 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
--- NOTE | 2020-10-08 14:55 | PM.PN ---
Subjective Subjective: Interval history: Patient denies any complaint. I tried to discuss with the patient in detail regarding compliance with the medicine. She does not appear to be grasping it well. Patient has behavioral problem which until does not resolve it will be hard for her to take the medicine such as dual antiplatelet therapy which is very imperative for PCI. At this point I believe we should treat her medically since she will be high risk for noncompliance. Continue aspirin statin beta-adriano and Plavix along with isosorbide mononitrate Vitals/I&O/Wt Last Vital Signs Temp 97.9 F 10/08/20 12:00 Pulse 102 H 10/08/20 12:00 Resp 23 H 10/08/20 12:00 BP 104/62 10/08/20 12:00 Pulse Ox 96 10/08/20 12:00 10/07/20 10/08/20 10/08/20 22:59 06:59 14:59 Intake Total 50 / 50 10.417 / 60.417 360 / 360 Output Total 200 / 200 400 / 600 700 / 700 Balance -150 / -150 -389.583 / -539.583 -340 / -340 Physical Exam Narrative: EXAM NARRATIVE: GENERAL: Patient is alert, awake and oriented x2. NECK: No jugular vein distension. HEENT: No cyanosis. No icterus. No pallor. HEART: Regular S1 and S2. No murmur, rub or gallop. LUNGS: Clear to auscultate bilaterally. ABDOMEN: Soft, nontender and nondistended. Positive bowel sounds. No guarding, rebound or tenderness. CENTRAL NERVOUS SYSTEM: Grossly nonfocal. EXTREMITIES: Lower extremities without edema bilaterally. Data : 10/08/20 04:06 10/08/20 04:06 A&P Assessment and plan (1) NSTEMI (non-ST elevated myocardial infarction): Patient has mild dementia with behavioral issues and hallucinations.Patient denies any complaint. I tried to discuss with the patient in detail regarding compliance with the medicine. She does not appear to be grasping it well. Patient's behavioral problem can make her high risk for noncompliance with PCI medicines such as dual antiplatelet therapy which is very imperative . At this point I would treat her medically. 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
[2020-10-08 16:36] LABS: Glucose Point of Care 297 mg/dL (70-110)
--- NOTE | 2020-10-08 16:54 | PC.NURSE ---
pt has been very cooperative today.alert and oriented x 2.has sat up in chair x 3 today.
--- NOTE | 2020-10-08 17:20 | PC.NURSE ---
cycle specialist reports that pt stated you better get that boy out of here ! RIGHT NOW ...pointing her finger toward the end of the bed and gritting her teeth.reoriented..to place,situation.
[2020-10-08 20:22] LABS: Glucose Point of Care 244 mg/dL (70-110)
[2020-10-08] MEDS: atorvastatin 40 mg Tablet PO (22:05)
[2020-10-08] MEDS: donepezil 5 MG Tablet PO (22:05)
[2020-10-08] MEDS: OLANZapine 10 mg TABLET PO (22:06)
[2020-10-09] VITALS (9 sets, daily range): BP systolic 100–151; BP diastolic 60–80; PULSE 76–114; RESP 13–36; TEMP 36.6–36.9; O2SAT 92–99
[2020-10-09 06:19] LABS: Basophils # 0.1 10^3/uL (0.0-0.1); Eosinophils # 0.2 10^3/uL (0.0-0.8); Eosinophils % 3.2 %; Hematocrit 35.2 % (37.0-47.0); Hemoglobin 11.2 g/dL (11.5-15.3); Lymphocytes # 1.8 10^3/uL (0.8-4.8); Lymphocytes % 29.5 %; Mean Corpuscular HGB Conc 31.8 g/dL (30.0-36.0); Mean Corpuscular Hemoglobin 27.3 pg (28.0-34.0); Mean Corpuscular Volume 85.6 fL (81-99); Mean Platelet Volume 11.9 fL (7.4-10.4); Monocytes # 0.7 10^3/uL (0.2-0.9); Monocytes % 11.1 %; Neutrophils # 3.42 10^3/uL (1.8-7.7); Neutrophils % 54.7 %; Nucleated Red Blood Cells % 0 %; Platelet Count 279 10^3/cmm (130-400); Red Blood Count 4.11 10^6/uL (4.1-5.3); Red Cell Distribution Width 12.9 % (12.1-15.1); White Blood Count 6.2 10^3/uL (4.0-10.0)
[2020-10-09 06:41] LABS: Glucose Point of Care 204 mg/dL (70-110)
[2020-10-09 06:41] LABS: Alanine Aminotransferase 20 U/L (0-33); Albumin Level 3.3 g/dL (3.5-5.2); Alkaline Phosphatase 65 IU/L (35-105); Anion Gap 11.4 (5-19); Aspartate Amino Transferase 28 U/L (0-32); Blood Urea Nitrogen 10 mg/dL (8-23); Calcium 8.5 mg/dL (8.5-10.5); Carbon Dioxide 29 mmol/L (22-29); Chloride 104 mmol/L (98-107); Creatinine Clr Calc Pharmacy 58.5699; Globulin 2.4 g/dL (1.3-4.6); Glucose 178 mg/dL (65-115); Magnesium 1.7 mg/dL (1.7-2.3); Osmolality Calculated 295 mOsm/kg (285-295); Phosphorus 3.3 mg/dL (2.5-4.5); Potassium 3.4 mmol/L (3.5-5.1); Sodium 141 mmol/L (136-145); Total Bilirubin 0.5 mg/dL (0.15-1.2); Total Protein 5.7 g/dL (6.6-8.7)
[2020-10-09] MEDS: aspirin 81 mg EC Tablet PO (07:53)
[2020-10-09] MEDS: sertraline 50 mg Tablet 25 MG PO (07:53)
[2020-10-09] MEDS: enoxaparin 60 mg/0.6 mL Syringe SUBCUT (07:55)
[2020-10-09] MEDS: potassium chloride ER 20 mEq Tablet 40 MEQ PO (10:07)
--- NOTE | 2020-10-09 11:08 | PC.NURSE ---
ngt advanced approx 6 cm ,per suggestion of dr sullivan.
[2020-10-09 11:27] LABS: Glucose Point of Care 270 mg/dL (70-110)
--- NOTE | 2020-10-09 12:01 | P.PN_ITS ---
Subjective Subjective: Interval history: Was seen this morning, she sitting up to the side of the bed, alert to person, to place, to the month, she follows all commands, she had a good night, no episodes confusion overnight, had good sleep last night, no chest pain, no shortness of breath, currently she will require special admission, for admission to a care home Medications: Medication Review Details: Current Medications Acetaminophen (Acetaminophen 325 Mg Tablet) 650 mg PO Q6H PRN PRN Reason: Mild/Mod Pain Or Temp >/= 101 Apixaban (Apixaban 5 Mg Tablet) 5 mg PO BID@699,1999 [facility] Last Admin: 10/05/20 06:09 Dose: 5 mg Documented by: Aspirin (Aspirin 81 Mg Ec Tablet) 81 mg PO DAILY [facility] Last Admin: 10/06/20 07:51 Dose: 81 mg Documented by: Atorvastatin Calcium (Atorvastatin 40 Mg Tablet) 40 mg PO BEDTIME [facility] Last Admin: 10/06/20 20:47 Dose: 40 mg Documented by: Bimatoprost (Bimatoprost 0.01% Op Soln 2.5 Ml Btl) 1 drop EYE-BOTH BEDTIME@1999 [facility] Last Admin: 10/06/20 20:55 Dose: Not Given Documented by: Dextrose (Dextrose 50% Syringe 50 Ml) 25 ml IVP ONCE PRN; Protocol PRN Reason: hypoglycemia protocol Dextrose (Dextrose 50% Syringe 50 Ml) 50 ml IVP PRN PRN; Protocol PRN Reason: hypoglycemia protocol Donepezil HCl (Donepezil 5 Mg Tablet) 5 mg PO BEDTIME@1999 [facility] Last Admin: 10/06/20 20:47 Dose: 5 mg Documented by: Enoxaparin Sodium (Enoxaparin 60 Mg/0.6 Ml Syringe) 60 mg SUBCUT Q12H [facility] Glucagon (Glucagon 1 Mg/Ml Inj 1 Ml) 1 mg IM ONCE PRN; Protocol PRN Reason: Adult Acute Hypoglycemia Prot. Haloperidol Lactate (Haloperidol Inj 5 Mg/Ml Inj 1 Ml) 2 mg IM Q6H PRN PRN Reason: AGITATION Last Admin: 10/07/20 04:15 Dose: 2 mg Documented by: Ceftriaxone Sodium 1,000 mg/ (Sodium Chloride) 50 mls @ 100 mls/hr IV Q24H [facility]; Protocol Last Infusion: 10/06/20 21:30 Dose: Infused Documented by: Dextrose (D5w) 500 mls @ 100 mls/hr IV ONCE PRN; Protocol PRN Reason: Adult Acute Hypoglycemia Prot Insulin Aspart (Insulin Aspart 100 Unit/1 Ml) 0 unit SUBCUT TIDWM [facility]; Protocol Last Admin: 10/06/20 18:01 Dose: 6 unit Documented by: Insulin Aspart (Insulin Aspart 100 Unit/1 Ml) 0 unit SUBCUT BEDTIME [facility]; Protocol Last Admin: 10/06/20 20:47 Dose: 2 unit Documented by: Lisinopril (Lisinopril 5 Mg Tablet) 5 mg PO DAILY [facility] Last Admin: 10/06/20 08:51 Dose: Not Given Documented by: Metoprolol Tartrate (Metoprolol Tartrate 25 Mg Tablet) 12.5 mg PO BID@0900,2100 [facility] Last Admin: 10/06/20 08:51 Dose: Not Given Documented by: Naloxone HCl (Naloxone 0.4 Mg/Ml Sdv) 0.1 mg IVP Q2M PRN PRN Reason: OPIATERV Ondansetron HCl (Ondansetron 2 Mg/Ml Sdv 2 Ml) 4 mg IVP Q8H PRN PRN Reason: vomiting, or N/V if npo Risperidone (Risperidone 1 Mg Tablet) 0.5 mg PO BEDTIME@1999 [facility] Last Admin: 10/06/20 20:47 Dose: 0.5 mg Documented by: Sertraline HCl (Sertraline 50 Mg Tablet) 25 mg PO DAILY [facility] Last Admin: 10/06/20 07:51 Dose: 25 mg Documented by: Trazodone HCl (Trazodone 50 Mg Tablet) 50 mg PO BEDTIME PRN PRN Reason: Insomnia Last Admin: 10/06/20 20:48 Dose: 50 mg Documented by: Vitals/I&O/Wt Last Vital Signs Temp 98.0 F 10/09/20 07:25 Pulse 82 10/09/20 07:25 Resp 19 H 10/09/20 07:25 BP 142/80 10/09/20 07:25 Pulse Ox 97 10/09/20 07:25 10/08/20 10/09/20 10/09/20 22:59 06:59 14:59 Intake Total 170 / 530 360 / 360 Output Total 1200 / 1900 Balance 170 / -170 -1200 / -1370 360 / 360 Physical Exam Const: COMMON NORMALS: no acute distress and alert GENERAL APPEARANCE: cooperative and comfortable ORIENTATION/CONSCIOUSNESS: Yes oriented to person, Yes oriented to place and Yes oriented to time OTHER: Currently sleeping, will arouse HENMT: COMMON NORMALS: normocephalic HEAD & SCALP: normocephalic Eye: COMMON NORMALS: Equal, round and reactive pupils present GENERAL EYE: appearance normal, both eyes and all related structures PUPIL: Yes Equal, round and reactive pupils present Neck/C-Spine: COMMON NORMALS: no JVD and Thyroid normal THYROID: Thyroid normal Lymph: LYMPHATIC: no lymphadenopathy noted Resp: COMMON NORMALS: normal respiratory effort, No retractions, No use of accessory muscles and clear to auscultation bilaterally AUSCULTATION: clear to auscultation bilaterally Cardio: COMMON NORMALS: no JVD, regular rate, regular rhythm, S1 normal heart sound present and S2 normal heart sound present RATE: regular rate RHYTHM: regular rhythm HEART SOUNDS: S1 normal heart sound present and S2 normal heart sound present GI: COMMON NORMALS: Normal to inspection, nondistended, normoactive bowel sounds present, Soft to palpation, non-tender, No hepatosplenomegaly present, no masses and no bruits PALPATION: Yes Soft to palpation and Yes No hepatosplenomegaly present : COMMON NORMALS: Yes no CVA tenderness BLADDER/KIDNEY EXAM: Yes no CVA tenderness Back/Pelvis: COMMON NORMALS: no CVA tenderness Extremity: COMMON NORMALS: capillary refill normal, no clubbing, cyanosis or edema, no calf tenderness and no pedal edema Neuro: COMMON NORMALS: CN's II-XII intact bilaterally, moves all extremities and no focal motor deficits SENSORIUM/ORIENTATION: Yes alert, Yes oriented to person, Yes oriented to place and Yes oriented to time OTHER: Does follow commands Psych: COMMON NORMALS: mental status grossly normal APPEARANCE: Yes unkempt ATTITUDE: Yes Withdrawn affect present ACTIVITY/MOTOR BEHAVIOR: Yes fidgeting THOUGHT PROCESS: incoherent, disorganized and confused Data : 10/09/20 04:48 10/09/20 04:48 A&P Assessment and plan (1) NSTEMI (non-ST elevated myocardial infarction): -No complaints of chest pain, asymptomatic, except persistent confusion -No known cardiovascular history -Baseline troponin 256, 6-hour 407, delta 151, troponin at 9 AM 364 -BNP 3231 -EKG did show T wave inversions in inferior leads -Blood pressures are looking better Plan: -In [facility] -statin, Plavix, Eliquis will be resumed tonight, discontinue Lovenox, cardiology okay to discontinue aspirin -Blood pressure medications are better -Telemetry monitoring, monitor for chest pain, monitor pressures -Cardiac echocardiogram showed EF of 57%, no regional wall motion abnormalities, mild LVH, grade 1 or 4 diastolic dysfunction, -Cardiology consulted plan on medical management, unless she has chest pain or EKG changes A Status: Acute (2) Insulin dependent type 2 diabetes mellitus: -Low-dose sliding scale Status: Acute (3) Hyperlipidemia: Status: Acute Qualifiers: Hyperlipidemia type: mixed hyperlipidemia Qualified Code(s): E78.2 - Mixed hyperlipidemia (4) Macular degeneration: Status: Acute (5) History of pulmonary embolism: Currently on Lovenox Status: Acute (6) Hallucination, visual: Currently no visual hallucinations Status: Acute (7) Delirium: -Likely secondary to underlying UTI, NSTEMI -However has baseline dementia, significant sundowning, episodes of agitation -Reviewed the records have shown that there is been concerns for dementia, but no formal diagnosis -She was transferred to geriatric psych facility in [facility] for concerns for confusion that was dementia related Plan: -Continues to have intermittent episodes of confusion -neurochecks, aspiration precautions seizure precautions -Rocephin for antibiotic coverage for E. coli UTI, has finished course -Blood cultures negative -CT of the head done yesterday had no acute findings -Carotid artery ultrasound less than 50% stenosis bilaterally -TSH, B12, folate within normal limits -Monitor mental status -Haldol for agitation -Scheduled Zyprexa during the night - working on placement at her care home -Psychiatry, Dr. 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
[2020-10-09] MEDS: isosorbide mononitrate ER 30 mg Tablet PO (12:57)
[2020-10-09] MEDS: clopidogrel 75 mg Tablet PO (12:58)
--- NOTE | 2020-10-09 13:50 | PM.PN ---
Subjective Subjective: Interval history: Denies any complaint [place] chest pain Medications: Reviewed: Yes Medication Review Details: Current Medications Acetaminophen (Acetaminophen 325 Mg Tablet) 650 mg PO Q6H PRN PRN Reason: Mild/Mod Pain Or Temp >/= 101 Apixaban (Apixaban 5 Mg Tablet) 5 mg PO BID@699,1999 [facility] Last Admin: 10/05/20 06:09 Dose: 5 mg Documented by: Aspirin (Aspirin 81 Mg Ec Tablet) 81 mg PO DAILY [facility] Last Admin: 10/06/20 07:51 Dose: 81 mg Documented by: Atorvastatin Calcium (Atorvastatin 40 Mg Tablet) 40 mg PO BEDTIME [facility] Last Admin: 10/06/20 20:47 Dose: 40 mg Documented by: Bimatoprost (Bimatoprost 0.01% Op Soln 2.5 Ml Btl) 1 drop EYE-BOTH BEDTIME@1999 [facility] Last Admin: 10/06/20 20:55 Dose: Not Given Documented by: Dextrose (Dextrose 50% Syringe 50 Ml) 25 ml IVP ONCE PRN; Protocol PRN Reason: hypoglycemia protocol Dextrose (Dextrose 50% Syringe 50 Ml) 50 ml IVP PRN PRN; Protocol PRN Reason: hypoglycemia protocol Donepezil HCl (Donepezil 5 Mg Tablet) 5 mg PO BEDTIME@1999 [facility] Last Admin: 10/06/20 20:47 Dose: 5 mg Documented by: Enoxaparin Sodium (Enoxaparin 60 Mg/0.6 Ml Syringe) 60 mg SUBCUT Q12H [place] Glucagon (Glucagon 1 Mg/Ml Inj 1 Ml) 1 mg IM ONCE PRN; Protocol PRN Reason: Adult Acute Hypoglycemia Prot. Haloperidol Lactate (Haloperidol Inj 5 Mg/Ml Inj 1 Ml) 2 mg IM Q6H PRN PRN Reason: AGITATION Last Admin: 10/07/20 04:15 Dose: 2 mg Documented by: Ceftriaxone Sodium 1,000 mg/ (Sodium Chloride) 50 mls @ 100 mls/hr IV Q24H [facility]; Protocol Last Infusion: 10/06/20 21:30 Dose: Infused Documented by: Dextrose (D5w) 500 mls @ 100 mls/hr IV ONCE PRN; Protocol PRN Reason: Adult Acute Hypoglycemia Prot Insulin Aspart (Insulin Aspart 100 Unit/1 Ml) 0 unit SUBCUT TIDWM [facility]; Protocol Last Admin: 10/06/20 18:01 Dose: 6 unit Documented by: Insulin Aspart (Insulin Aspart 100 Unit/1 Ml) 0 unit SUBCUT BEDTIME [facility]; Protocol Last Admin: 10/06/20 20:47 Dose: 2 unit Documented by: Lisinopril (Lisinopril 5 Mg Tablet) 5 mg PO DAILY [facility] Last Admin: 10/06/20 08:51 Dose: Not Given Documented by: Metoprolol Tartrate (Metoprolol Tartrate 25 Mg Tablet) 12.5 mg PO BID@0900,2100 [facility] Last Admin: 10/06/20 08:51 Dose: Not Given Documented by: Naloxone HCl (Naloxone 0.4 Mg/Ml Sdv) 0.1 mg IVP Q2M PRN PRN Reason: OPIATERV Ondansetron HCl (Ondansetron 2 Mg/Ml Sdv 2 Ml) 4 mg IVP Q8H PRN PRN Reason: vomiting, or N/V if npo Risperidone (Risperidone 1 Mg Tablet) 0.5 mg PO BEDTIME@2000 [facility] Last Admin: 10/06/20 20:47 Dose: 0.5 mg Documented by: Sertraline HCl (Sertraline 50 Mg Tablet) 25 mg PO DAILY [facility] Last Admin: 10/06/20 07:51 Dose: 25 mg Documented by: Trazodone HCl (Trazodone 50 Mg Tablet) 50 mg PO BEDTIME PRN PRN Reason: Insomnia Last Admin: 10/06/20 20:48 Dose: 50 mg Documented by: Vitals/I&O/Wt Last Vital Signs Temp 98.4 F 10/09/20 12:00 Pulse 104 H 10/09/20 12:00 Resp 36 H 10/09/20 12:00 BP 109/66 10/09/20 12:00 Pulse Ox 99 10/09/20 12:00 10/08/20 10/09/20 10/09/20 22:59 06:59 14:59 Intake Total 170 / 530 600 / 600 Output Total 1200 / 1900 Balance 170 / -170 -1200 / -1370 600 / 600 Physical Exam Narrative: EXAM NARRATIVE: GENERAL: Patient is alert, awake and oriented x2. NECK: No jugular vein distension. HEENT: No cyanosis. No icterus. No pallor. HEART: Regular S1 and S2. No murmur, rub or gallop. LUNGS: Clear to auscultate bilaterally. ABDOMEN: Soft, nontender and nondistended. Positive bowel sounds. No guarding, rebound or tenderness. CENTRAL NERVOUS SYSTEM: Grossly nonfocal. EXTREMITIES: Lower extremities without edema bilaterally. Data : 10/09/20 04:48 10/09/20 04:48 A&P Assessment and plan (1) NSTEMI (non-ST elevated myocardial infarction): Patient has mild dementia with behavioral issues and hallucinations.Patient denies any complaint. I tried to discuss with the patient in detail regarding compliance with the medicine. She does not appear to be grasping it well. Patient's behavioral problem can make her high risk for noncompliance with PCI medicines such as dual antiplatelet therapy which is very imperative . At this point I would treat her medically. Continue aspirin statin beta-adriano and Plavix along with isosorbide mononitrate As defined above since patient is responding to medical management under given her behavioral issues dementia we will continue to manage her medically. She will be following up with Dr. Ramirez as an outpatient at some point when it is felt that patient can take medicines and she is not responding to medical treatment consider coronary angiogram then. Status: Acute (2) Hallucination, visual: As per psych service Status: Acute (3) Benign essential hypertension with target blood pressure below 140/90: Continue current regimen Status: Acute Additional A&P Information Other problems are Hypokalemia, currently is corrected Dementia Recurrent falls Based on the patient's the clinical progress and input from Dr. Donohue, further my decisions will be made Attestations Medical Necessity Statement*: As per medicine Coding Level of Care Code Established Pt Acute Business Planner for Shaniqua Ruth Patient Type Established History Detailed Exam Detailed Medical Decision Making Moderate Complexity Diagnoses NSTEMI (non-ST elevated myocardial infarction) I21.4 Hallucination, visual R44.1 Benign essential hypertension with target blood pressure below 140/90 I10
[2020-10-09 16:22] LABS: Glucose Point of Care 304 mg/dL (70-110)
--- NOTE | 2020-10-09 18:23 | PC.NURSE ---
1600 vitals not done as pt was confused and uncooperative. RN notified per CONFIGURATION ENGINEER. TMorraminata,CONFIGURATION ENGINEER
[2020-10-09] MEDS: donepezil 5 MG Tablet PO (20:31)
[2020-10-09] MEDS: atorvastatin 40 mg Tablet PO (20:31)
[2020-10-09] MEDS: trazodone 50 mg Tablet PO (20:31)
[2020-10-09] MEDS: OLANZapine 10 mg TABLET PO (20:31)
[2020-10-09] MEDS: apixaban 5 mg Tablet PO (21:19)
[2020-10-09 21:40] LABS: Glucose Point of Care 506 mg/dL (70-110)
[2020-10-10] VITALS (8 sets, daily range): BP systolic 91–157; BP diastolic 55–92; PULSE 73–96; RESP 10–21; TEMP 36.6–37; O2SAT 90–98
[2020-10-10 05:02] LABS: Alanine Aminotransferase 55 U/L (0-33); Alkaline Phosphatase 81 IU/L (35-105); Anion Gap 14.9 (5-19); Aspartate Amino Transferase 77 U/L (0-32); Blood Urea Nitrogen 15 mg/dL (8-23); Calcium 9.1 mg/dL (8.5-10.5); Carbon Dioxide 28 mmol/L (22-29); Chloride 103 mmol/L (98-107); Creatinine Clr Calc Pharmacy 58.5699; Globulin 2.5 g/dL (1.3-4.6); Glucose 79 mg/dL (65-115); Magnesium 1.8 mg/dL (1.7-2.3); Osmolality Calculated 294 mOsm/kg (285-295); Potassium 3.9 mmol/L (3.5-5.1); Sodium 142 mmol/L (136-145); Total Bilirubin 0.4 mg/dL (0.15-1.2); Total Protein 6.5 g/dL (6.6-8.7)
[2020-10-10 05:25] LABS: Basophils # 0.1 10^3/uL (0.0-0.1); Basophils % 1.1 %; Eosinophils # 0.3 10^3/uL (0.0-0.8); Eosinophils % 3.5 %; Hematocrit 37.5 % (37.0-47.0); Lymphocytes # 2.4 10^3/uL (0.8-4.8); Lymphocytes % 33.1 %; Mean Corpuscular Hemoglobin 27.5 pg (28.0-34.0); Mean Platelet Volume 11.9 fL (7.4-10.4); Monocytes # 0.7 10^3/uL (0.2-0.9); Neutrophils # 3.82 10^3/uL (1.8-7.7); Neutrophils % 52.7 %; Nucleated Red Blood Cells % 0 %; Platelet Count 293 10^3/cmm (130-400); Red Blood Count 4.36 10^6/uL (4.1-5.3); Red Cell Distribution Width 12.8 % (12.1-15.1); White Blood Count 7.2 10^3/uL (4.0-10.0)
[2020-10-10 06:58] LABS: Glucose Point of Care 166 mg/dL (70-110)
[2020-10-10] MEDS: lisinopril 5 mg Tablet PO (09:17)
[2020-10-10] MEDS: clopidogrel 75 mg Tablet PO (09:17)
[2020-10-10] MEDS: sertraline 50 mg Tablet 25 MG PO (09:17)
[2020-10-10] MEDS: isosorbide mononitrate ER 30 mg Tablet PO (09:18)
[2020-10-10] MEDS: apixaban 5 mg Tablet PO ×2 (09:18→22:26)
[2020-10-10] MEDS: metoprolol tartrate 25 mg Tablet 12.5 MG PO (09:25)
--- NOTE | 2020-10-10 10:46 | PC.SOCIAL ---
*IMM UPDATE* Plater Helper gave patient's daughter, Marcella verbal IMM update via phone. Verbalized understanding. 10/10/20 @ 1047 Initialed, dated, timed and placed in chart.
[2020-10-10 11:30] LABS: Glucose Point of Care 239 mg/dL (70-110)
[2020-10-10 17:03] LABS: Glucose Point of Care 259 mg/dL (70-110)
--- NOTE | 2020-10-10 20:55 | PM.PN ---
Subjective Subjective: Interval history: Denies any complaint. Patient daughter sitting next to her. Patient told me that I need to get people out of the house. Medications: Reviewed: Yes Medication Review Details: Current Medications Acetaminophen (Acetaminophen 325 Mg Tablet) 650 mg PO Q6H PRN PRN Reason: Mild/Mod Pain Or Temp >/= 101 Apixaban (Apixaban 5 Mg Tablet) 5 mg PO BID@699,1999 [facility] Last Admin: 10/05/20 06:09 Dose: 5 mg Documented by: Aspirin (Aspirin 81 Mg Ec Tablet) 81 mg PO DAILY [facility] Last Admin: 10/06/20 07:51 Dose: 81 mg Documented by: Atorvastatin Calcium (Atorvastatin 40 Mg Tablet) 40 mg PO BEDTIME [facility] Last Admin: 10/06/20 20:47 Dose: 40 mg Documented by: Bimatoprost (Bimatoprost 0.01% Op Soln 2.5 Ml Btl) 1 drop EYE-BOTH BEDTIME@1999 [facility] Last Admin: 10/06/20 20:55 Dose: Not Given Documented by: Dextrose (Dextrose 50% Syringe 50 Ml) 25 ml IVP ONCE PRN; Protocol PRN Reason: hypoglycemia protocol Dextrose (Dextrose 50% Syringe 50 Ml) 50 ml IVP PRN PRN; Protocol PRN Reason: hypoglycemia protocol Donepezil HCl (Donepezil 5 Mg Tablet) 5 mg PO BEDTIME@1999 [facility] Last Admin: 10/06/20 20:47 Dose: 5 mg Documented by: Enoxaparin Sodium (Enoxaparin 60 Mg/0.6 Ml Syringe) 60 mg SUBCUT Q12H [place] Glucagon (Glucagon 1 Mg/Ml Inj 1 Ml) 1 mg IM ONCE PRN; Protocol PRN Reason: Adult Acute Hypoglycemia Prot. Haloperidol Lactate (Haloperidol Inj 5 Mg/Ml Inj 1 Ml) 2 mg IM Q6H PRN PRN Reason: AGITATION Last Admin: 10/07/20 04:15 Dose: 2 mg Documented by: Ceftriaxone Sodium 1,000 mg/ (Sodium Chloride) 50 mls @ 100 mls/hr IV Q24H [facility]; Protocol Last Infusion: 10/06/20 21:30 Dose: Infused Documented by: Dextrose (D5w) 500 mls @ 100 mls/hr IV ONCE PRN; Protocol PRN Reason: Adult Acute Hypoglycemia Prot Insulin Aspart (Insulin Aspart 100 Unit/1 Ml) 0 unit SUBCUT TIDWM [facility]; Protocol Last Admin: 10/06/20 18:01 Dose: 6 unit Documented by: Insulin Aspart (Insulin Aspart 100 Unit/1 Ml) 0 unit SUBCUT BEDTIME [facility]; Protocol Last Admin: 10/06/20 20:47 Dose: 2 unit Documented by: Lisinopril (Lisinopril 5 Mg Tablet) 5 mg PO DAILY [facility] Last Admin: 10/06/20 08:51 Dose: Not Given Documented by: Metoprolol Tartrate (Metoprolol Tartrate 25 Mg Tablet) 12.5 mg PO BID@0900,2100 [facility] Last Admin: 10/06/20 08:51 Dose: Not Given Documented by: Naloxone HCl (Naloxone 0.4 Mg/Ml Sdv) 0.1 mg IVP Q2M PRN PRN Reason: OPIATERV Ondansetron HCl (Ondansetron 2 Mg/Ml Sdv 2 Ml) 4 mg IVP Q8H PRN PRN Reason: vomiting, or N/V if npo Risperidone (Risperidone 1 Mg Tablet) 0.5 mg PO BEDTIME@2000 [facility] Last Admin: 10/06/20 20:47 Dose: 0.5 mg Documented by: Sertraline HCl (Sertraline 50 Mg Tablet) 25 mg PO DAILY [facility] Last Admin: 10/06/20 07:51 Dose: 25 mg Documented by: Trazodone HCl (Trazodone 50 Mg Tablet) 50 mg PO BEDTIME PRN PRN Reason: Insomnia Last Admin: 10/06/20 20:48 Dose: 50 mg Documented by: Vitals/I&O/Wt Last Vital Signs Temp 98.6 F 10/10/20 20:00 Pulse 74 10/10/20 20:00 Resp 15 10/10/20 20:00 BP 101/55 10/10/20 20:00 Pulse Ox 98 10/10/20 20:00 10/10/20 10/10/20 10/10/20 06:59 14:59 22:59 Intake Total 450 / 1610 360 / 360 480 / 840 Balance 450 / 1210 360 / 360 480 / 840 Physical Exam Narrative: EXAM NARRATIVE: GENERAL: Patient is alert, awake and oriented x2. NECK: No jugular vein distension. HEENT: No cyanosis. No icterus. No pallor. HEART: Regular S1 and S2. No murmur, rub or gallop. LUNGS: Clear to auscultate bilaterally. ABDOMEN: Soft, nontender and nondistended. Positive bowel sounds. No guarding, rebound or tenderness. CENTRAL NERVOUS SYSTEM: Grossly nonfocal. EXTREMITIES: Lower extremities without edema bilaterally. Data : 10/10/20 03:27 10/10/20 03:27 Micro: Microbiology 10/04/20 20:33 Blood Culture - Final Blood NO GROWTH AFTER 5 DAYS 10/04/20 20:30 Blood Culture - Final Blood NO GROWTH AFTER 5 DAYS A&P Assessment and plan (1) NSTEMI (non-ST elevated myocardial infarction): Patient has mild dementia with behavioral issues and hallucinations.Patient denies any complaint. I tried to discuss with the patient in detail regarding compliance with the medicine. She does not appear to be grasping it well. Patient's behavioral problem can make her high risk for noncompliance with PCI medicines such as dual antiplatelet therapy which is very imperative . At this point I would treat her medically. Continue aspirin statin beta-adriano and Plavix along with isosorbide mononitrate As defined above since patient is responding to medical management under given her behavioral issues dementia we will continue to manage her medically. She will be following up with Dr. Ramirez as an outpatient at some point when it is felt that patient can take medicines and she is not responding to medical treatment consider coronary angiogram then. Stable continue to manage medical Status: Acute (2) Hallucination, visual: As per psych service Status: Acute (3) Benign essential hypertension with target blood pressure below 140/90: Continue current regimen Status: Acute Additional A&P Information Other problems are Hypokalemia, currently is corrected Dementia Recurrent falls Based on the patient's the clinical progress and input from Dr. Donohue, further my decisions will be made Attestations Medical Necessity Statement*: Patient require continuation hospitalization for above defined care. Coding Level of Care Code Established Pt Acute Oysterman for Shaniqua Fwleona Patient Type Established History Expanded Problem Focused Exam Expanded Problem Focused Medical Decision Making Moderate Complexity Diagnoses NSTEMI (non-ST elevated myocardial infarction) I21.4 Hallucination, visual R44.1 Benign essential hypertension with target blood pressure below 140/90 I10
--- NOTE | 2020-10-10 21:05 | P.PN_ITS ---
Subjective Subjective: Interval history: Sleeping during my visit. It appears had worked some with physical therapy earlier in the morning. Denies chest pain or pressure. Denies shortness of breath. Thinks she is at home. Does not remember the year. Vitals/I&O/Wt Last Vital Signs Temp 98.6 F 10/10/20 20:00 Pulse 74 10/10/20 20:00 Resp 15 10/10/20 20:00 BP 101/55 10/10/20 20:00 Pulse Ox 98 10/10/20 20:00 10/10/20 10/10/20 10/10/20 06:59 14:59 22:59 Intake Total 450 / 1610 360 / 360 480 / 840 Balance 450 / 1210 360 / 360 480 / 840 Physical Exam Const: COMMON NORMALS: no acute distress; negative for patient oriented x3 GENERAL APPEARANCE: cooperative and comfortable HENMT: COMMON NORMALS: oropharynx normal Neck/C-Spine: COMMON NORMALS: no JVD Resp: COMMON NORMALS: normal respiratory effort and clear to auscultation bi laterally AUSCULTATION: clear to auscultation bilaterally Cardio: COMMON NORMALS: no JVD, regular rhythm, S1 normal heart sound present, S2 normal heart sound present and No murmurs present (Cardio) RHYTHM: regular rhythm HEART SOUNDS: S1 normal heart sound present and S2 normal heart sound present GI: COMMON NORMALS: Normal to inspection, nondistended, normoactive bowel sounds present, Soft to palpation and non-tender PALPATION: Yes Soft to palpation Extremity: COMMON NORMALS: no joint enlargement and no pedal edema Neuro: COMMON NORMALS: moves all extremities; negative for patient oriented x3 Skin: COMMON NORMALS: no rashes or lesions noted GENERAL SKIN EXAM: no rashes or lesions noted Data : 10/10/20 03:27 10/10/20 03:27 Micro: Microbiology 10/04/20 20:33 Blood Culture - Final Blood NO GROWTH AFTER 5 DAYS 10/04/20 20:30 Blood Culture - Final Blood NO GROWTH AFTER 5 DAYS A&P Assessment and plan (1) NSTEMI (non-ST elevated myocardial infarction): Continue monitoring and management after non-STEMI as recommended by cardiology. Continue medical treatment. In case of any worsening may need additional relation by coronary angiography. Will need follow-up with cardiology after discharge. Monitor for any bleeding. Blood pressures are on the soft side. Will reduce Imdur dose to 15 mg. -Cardiac echocardiogram showed EF of 57%, no regional wall motion abnor malities, mild LVH, grade 1 or 4 diastolic dysfunction, Status: Acute (2) Insulin dependent type 2 diabetes mellitus: -Low-dose sliding scale Status: Acute (3) Hyperlipidemia: Status: Acute Qualifiers: Hyperlipidemia type: mixed hyperlipidemia Qualified Code(s): E78.2 - Mixed hyperlipidemia (4) Macular degeneration: Status: Acute (5) History of pulmonary embolism: Currently on Lovenox Status: Acute (6) Hallucination, visual: Currently no visual hallucinations Status: Acute (7) Delirium: -Likely secondary to underlying UTI, NSTEMI -However has baseline dementia, significant sundowning, episodes of agitation -records have shown that there is been concerns for dementia, but no formal diagnosis -She was transferred to geriatric psych facility in [facility] for concerns for confusion that was dementia related Appears to have intermittent episodes of confusion, sundowning. Sleeping too much the morning. Wakes up. Pleasant, cooperative. Thinks she is at home. Does not remember the year. Denies any pain or discomfort. Completed antibiotics for UTI -Blood cultures negative -CT of the head done yesterday had no acute findings -Carotid artery ultrasound less than 50% stenosis bilaterally -TSH, B12, folate within normal limits -Monitor mental status -Haldol for agitation -Scheduled Zyprexa during the night Discharge planning working on placement arrangements. Status: Acute Additional A&P Information Eliquis for DVT prophylaxis Patient is a full code Attestations Medical Necessity Statement*: Continue admission for optimization of medical management following NSTEMI, monitoring of condition including blood pressures which are low. Continue arrangements for placement to [facility] facility. Coding Level of Care Code Acute Screen Printing Machine Loader Unloader for [facility] Fwd Diagnoses NSTEMI (non-ST elevated myocardial infarction) I21.4 Insulin dependent type 2 diabetes mellitus E11.9; Z79.4 Hyperlipidemia E78.2 Hyperlipidemia type: mixed hyperlipidemia Macular degeneration H35.30 History of pulmonary embolism Z86.711 Hallucination, visual R44.1 Delirium R41.0
[2020-10-10 21:41] LABS: Glucose Point of Care 260 mg/dL (70-110)
[2020-10-10] MEDS: trazodone 50 mg Tablet PO (22:27)
[2020-10-10] MEDS: donepezil 5 MG Tablet PO (22:27)
[2020-10-10] MEDS: OLANZapine 10 mg TABLET PO (22:28)
[2020-10-10] MEDS: atorvastatin 40 mg Tablet PO (22:28)
[2020-10-11] VITALS (13 sets, daily range): BP systolic 81–140; BP diastolic 42–90; PULSE 0–91; RESP 13–24; TEMP 36.6–36.9; O2SAT 94–98
[2020-10-11 05:56] LABS: Alanine Aminotransferase 47 U/L (0-33); Albumin Level 3.5 g/dL (3.5-5.2); Alkaline Phosphatase 72 IU/L (35-105); Anion Gap 11.9 (5-19); Aspartate Amino Transferase 44 U/L (0-32); Blood Urea Nitrogen 13 mg/dL (8-23); Calcium 8.8 mg/dL (8.5-10.5); Carbon Dioxide 29 mmol/L (22-29); Chloride 104 mmol/L (98-107); Creatinine Clr Calc Pharmacy 58.5699; Globulin 2.5 g/dL (1.3-4.6); Glucose 102 mg/dL (65-115); Osmolality Calculated 292 mOsm/kg (285-295); Potassium 3.9 mmol/L (3.5-5.1); Sodium 141 mmol/L (136-145); Total Bilirubin 0.4 mg/dL (0.15-1.2)
[2020-10-11 06:51] LABS: Glucose Point of Care 117 mg/dL (70-110)
[2020-10-11] MEDS: sertraline 50 mg Tablet 25 MG PO (09:34)
[2020-10-11] MEDS: clopidogrel 75 mg Tablet PO (09:34)
[2020-10-11] MEDS: apixaban 5 mg Tablet PO ×2 (09:34→21:48)
[2020-10-11] MEDS: metoprolol tartrate 25 mg Tablet 12.5 MG PO ×2 (09:35→21:47)
[2020-10-11] MEDS: isosorbide mononitrate ER 30 mg Tablet 15 MG PO (09:35)
[2020-10-11] MEDS: lisinopril 5 mg Tablet PO (09:35)
--- NOTE | 2020-10-11 10:58 | PM.PN ---
Subjective Subjective: Interval history: Today she appears to be doing better. She denies chest pain or pressure. She is breathing comfortably. He is able to tell me that she is in [facility]. Identifies the year is 2020. Tells me she is here because she may have had a heart attack. At the same time she feels pretty certain that she had had not had a bowel movement in a while, although her nurse seems to remember that she may have been taken for a bowel movement this morning. Vitals/I&O/Wt Last Vital Signs Temp 98.4 F 10/11/20 07:09 Pulse 91 10/11/20 07:09 Resp 13 10/11/20 07:09 BP 140/80 10/11/20 07:09 Pulse Ox 98 10/11/20 07:09 10/10/20 10/11/20 10/11/20 22:59 06:59 14:59 Intake Total 960 / 1320 240 / 1560 Output Total 400 / 400 Balance 560 / 920 240 / 1160 Physical Exam Const: COMMON NORMALS: no acute distress and patient oriented x3 GENERAL APPEARANCE: cooperative and comfortable HENMT: COMMON NORMALS: oropharynx normal Neck/C-Spine: COMMON NORMALS: no JVD Resp: COMMON NORMALS: normal respiratory effort and clear to auscultation bilaterally AUSCULTATION: clear to auscultation bilaterally Cardio: COMMON NORMALS: no JVD, regular rhythm, S1 normal heart sound present, S2 normal heart sound present and No murmurs present (Cardio) RHYTHM: regular rhythm HEART SOUNDS: S1 normal heart sound present and S2 normal heart sound present GI: COMMON NORMALS: Normal to inspection, nondistended, normoactive bowel sounds present, Soft to palpation and non-tender PALPATION: Yes Soft to palpation Extremity: COMMON NORMALS: no joint enlargement and no pedal edema Neuro: COMMON NORMALS: patient oriented x3 and moves all extremities Skin: COMMON NORMALS: no rashes or lesions noted GENERAL SKIN EXAM: no rashes or lesions noted Data : 10/10/20 03:27 10/11/20 04:53 A&P Assessment and plan (1) Delirium: Delirium appears to be improving. Appears superimposed on chronic dementia, however, today she appears to be oriented x3. Appears to have decent insight is able to tell me that she has been treated for heart attack while in the hospital. Cooperating with physical therapy. There appears to be disagreement as to whether or not she had actually had a bowel movement this morning. We will continue to monitor mental status. -Likely secondary to underlying UTI, NSTEMI -However has baseline dementia, significant sundowning, episodes of agitation -records have shown that there is been concerns for dementia, but no formal diagnosis -She was transferred to geriatric psych facility in [facility] for concerns for confusion that was dementia related Appears to have intermittent episodes of confusion, sundowning. Sleeping too much the morning. Wakes up. Pleasant, cooperative. Thinks she is at home. Does not remember the year. Denies any pain or discomfort. Completed antibiotics for UTI -Blood cultures negative -CT of the head done yesterday had no acute findings -Carotid artery ultrasound less than 50% stenosis bilaterally -TSH, B12, folate within normal limits -Monitor mental status -Haldol for agitation -Scheduled Zyprexa during the night Discharge planning working on placement arrangements. Status: Acute (2) NSTEMI (non-ST elevated myocardial infarction): Continue medical treatment. Imdur dose reduced to 50 mg. Blood pressure subsequently is doing better. No chest pain. In case of any worsening may need additional relation by coronary angiography. Will need follow-up with cardiology after discharge. Monitor for any bleeding. -Cardiac echocardiogram showed EF of 57%, no regional wall motion abnormalities, mild LVH, grade 1 or 4 diastolic dysfunction, Status: Acute (3) Insulin dependent type 2 diabetes mellitus: -Low-dose sliding scale Status: Acute (4) Hyperlipidemia: Status: Acute Qualifiers: Hyperlipidemia type: mixed hyperlipidemia Qualified Code(s): E78.2 - Mixed hyperlipidemia (5) Macular degeneration: Status: Acute (6) History of pulmonary embolism: Currently on Lovenox Status: Acute (7) Hallucination, visual: Currently no visual hallucinations Status: Acute Additional A&P Information Eliquis for DVT prophylaxis Patient is a full code Attestations Medical Necessity Statement*: Continue admission for assessment management of delirium superimposed on dementia, medical treatment following STEMI, optimization of medications in the setting of fluctuating blood pressures. Arrangements for [facility]. Coding Level of Care Code Acute Financial Economist for Shaniqua Ruth Diagnoses Delirium R41.0 NSTEMI (non-ST elevated myocardial infarction) I21.4 Insulin dependent type 2 diabetes mellitus E11.9; Z79.4 Hyperlipidemia E78.2 Hyperlipidemia type: mixed hyperlipidemia Macular degeneration H35.30 History of pulmonary embolism Z86.711 Hallucination, visual R44.1
[2020-10-11 11:12] LABS: Glucose Point of Care 385 mg/dL (70-110)
[2020-10-11 16:56] LABS: Glucose Point of Care 253 mg/dL (70-110)
[2020-10-11 20:42] LABS: Glucose Point of Care 308 mg/dL (70-110)
--- NOTE | 2020-10-11 21:25 | P.PN_ITS ---
Subjective Subjective: Interval history: Stable denies any complaint Medications: Reviewed: Yes Medication Review Details: Current Medications Acetaminophen (Acetaminophen 325 Mg Tablet) 650 mg PO Q6H PRN PRN Reason: Mild/Mod Pain Or Temp >/= 101 Apixaban (Apixaban 5 Mg Tablet) 5 mg PO BID@699,1999 FOR[facility]LY [facility], [facility] Last Admin: 10/05/20 06:09 Dose: 5 mg Documented by: Aspirin (Aspirin 81 Mg Ec Tablet) 81 mg PO DAILY FOR[facility], [facility] Last Admin: 10/06/20 07:51 Dose: 81 mg Documented by: Atorvastatin Calcium (Atorvastatin 40 Mg Tablet) 40 mg PO BEDTIME FOR[facility]LY [facility], [facility] Last Admin: 10/06/20 20:47 Dose: 40 mg Documented by: Bimatoprost (Bimatoprost 0.01% Op Soln 2.5 Ml Btl) 1 drop EYE-BOTH BEDTIME@1999 FOR[facility], [facility] Last Admin: 10/06/20 20:55 Dose: Not Given Documented by: Dextrose (Dextrose 50% Syringe 50 Ml) 25 ml IVP ONCE PRN; Protocol PRN Reason: hypoglycemia protocol Dextrose (Dextrose 50% Syringe 50 Ml) 50 ml IVP PRN PRN; Protocol PRN Reason: hypoglycemia protocol Donepezil HCl (Donepezil 5 Mg Tablet) 5 mg PO BEDTIME@1999 FOR[facility], [facility] Last Admin: 10/06/20 20:47 Dose: 5 mg Documented by: Enoxaparin Sodium (Enoxaparin 60 Mg/0.6 Ml Syringe) 60 mg SUBCUT Q12H FOR[facility], [facility] Glucagon (Glucagon 1 Mg/Ml Inj 1 Ml) 1 mg IM ONCE PRN; Protocol PRN Reason: Adult Acute Hypoglycemia Prot. Haloperidol Lactate (Haloperidol Inj 5 Mg/Ml Inj 1 Ml) 2 mg IM Q6H PRN PRN Reason: AGITATION Last Admin: 10/07/20 04:15 Dose: 2 mg Documented by: Ceftriaxone Sodium 1,000 mg/ (Sodium Chloride) 50 mls @ 100 mls/hr IV Q24H [facility], [facility]; Protocol Last Infusion: 10/06/20 21:30 Dose: Infused Documented by: Dextrose (D5w) 500 mls @ 100 mls/hr IV ONCE PRN; Protocol PRN Reason: Adult Acute Hypoglycemia Prot Insulin Aspart (Insulin Aspart 100 Unit/1 Ml) 0 unit SUBCUT TIDWM FOR[facility]LY [facility], [facility]; Protocol Last Admin: 10/06/20 18:01 Dose: 6 unit Documented by: Insulin Aspart (Insulin Aspart 100 Unit/1 Ml) 0 unit SUBCUT BEDTIME [facility], [facility]; Protocol Last Admin: 10/06/20 20:47 Dose: 2 unit Documented by: Lisinopril (Lisinopril 5 Mg Tablet) 5 mg PO DAILY FOR[facility] Last Admin: 10/06/20 08:51 Dose: Not Given Documented by: Metoprolol Tartrate (Metoprolol Tartrate 25 Mg Tablet) 12.5 mg PO BID@0900,2100 [facility], [facility] Last Admin: 10/06/20 08:51 Dose: Not Given Documented by: Naloxone HCl (Naloxone 0.4 Mg/Ml Sdv) 0.1 mg IVP Q2M PRN PRN Reason: OPIATERV Ondansetron HCl (Ondansetron 2 Mg/Ml Sdv 2 Ml) 4 mg IVP Q8H PRN PRN Reason: vomiting, or N/V if npo Risperidone (Risperidone 1 Mg Tablet) 0.5 mg PO BEDTIME@2000 FOR[facility], [facility] Last Admin: 10/06/20 20:47 Dose: 0.5 mg Documented by: Sertraline HCl (Sertraline 50 Mg Tablet) 25 mg PO DAILY [facility] Last Admin: 10/06/20 07:51 Dose: 25 mg Documented by: Trazodone HCl (Trazodone 50 Mg Tablet) 50 mg PO BEDTIME PRN PRN Reason: Insomnia Last Admin: 10/06/20 20:48 Dose: 50 mg Documented by: Vitals/I&O/Wt Last Vital Signs Temp 98 F 10/11/20 20:00 Pulse 81 10/11/20 20:00 Resp 24 H 10/11/20 20:00 BP 87/42 10/11/20 20:00 Pulse Ox 97 10/11/20 20:00 10/11/20 10/11/20 10/11/20 06:59 14:59 22:59 Intake Total 240 / 1560 240 / 240 240 / 480 Output Total 1100 / 1100 Balance 240 / 1160 240 / 240 -860 / -620 Physical Exam Narrative: EXAM NARRATIVE: GENERAL: Patient is alert, awake and oriented x2. NECK: No jugular vein distension. HEENT: No cyanosis. No icterus. No pallor. HEART: Regular S1 and S2. No murmur, rub or gallop. LUNGS: Clear to auscultate bilaterally. ABDOMEN: Soft, nontender and nondistended. Positive bowel sounds. No guarding, rebound or tenderness. CENTRAL NERVOUS SYSTEM: Grossly nonfocal. EXTREMITIES: Lower extremities without edema bilaterally. Data : 10/10/20 03:27 10/11/20 04:53 A&P Assessment and plan (1) NSTEMI (non-ST elevated myocardial infarction): Patient has mild dementia with behavioral issues and estrada llucinations.Patient denies any complaint. I tried to discuss with the patient in detail regarding compliance with the medicine. She does not appear to be grasping it well. Patient's behavioral problem can make her high risk for noncompliance with PCI medicines such as dual antiplatelet therapy which is very imperative . At this point I would treat her medically. Continue aspirin statin beta-adriano and Plavix along with isosorbide mononitrate As defined above since patient is responding to medical management under given her behavioral issues dementia we will continue to manage her medically. She will be following up with Dr. Ramirez as an outpatient at some point when it is felt that patient can take medicines and she is not responding to medical treatment consider coronary angiogram then. Stable continue to manage medical Patient doing fine from cardiovascular perspective continue medical management Status: Acute (2) Hallucination, visual: As per psych service Status: Acute (3) Benign essential hypertension with target blood pressure below 140/90: Continue current regimen Status: Acute Additional A&P Information Other problems are Hypokalemia, currently is corrected Dementia Recurrent falls Based on the patient's the clinical progress and input from Dr. 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
[2020-10-11] MEDS: atorvastatin 40 mg Tablet PO (21:44)
[2020-10-11] MEDS: OLANZapine 10 mg TABLET PO (21:45)
[2020-10-11] MEDS: donepezil 5 MG Tablet PO (21:45)
[2020-10-12] VITALS (12 sets, daily range): BP systolic 93–136; BP diastolic 51–71; PULSE 0–136; RESP 13–23; TEMP 36.6–36.8; O2SAT 95–98
[2020-10-12 05:09] LABS: Alanine Aminotransferase 44 U/L (0-33); Albumin Level 3.5 g/dL (3.5-5.2); Alkaline Phosphatase 73 IU/L (35-105); Anion Gap 12.8 (5-19); Aspartate Amino Transferase 41 U/L (0-32); Blood Urea Nitrogen 25 mg/dL (8-23); Calcium 8.3 mg/dL (8.5-10.5); Carbon Dioxide 27 mmol/L (22-29); Chloride 102 mmol/L (98-107); Creatinine Clr Calc Pharmacy 58.5699; Globulin 2.1 g/dL (1.3-4.6); Glucose 168 mg/dL (65-115); Osmolality Calculated 292 mOsm/kg (285-295); Potassium 4.8 mmol/L (3.5-5.1); Sodium 137 mmol/L (136-145); Total Bilirubin 0.3 mg/dL (0.15-1.2); Total Protein 5.6 g/dL (6.6-8.7)
[2020-10-12 06:45] LABS: Glucose Point of Care 171 mg/dL (70-110)
--- NOTE | 2020-10-12 07:51 | PC.NURSE ---
Pt presents sitting on bsc. Pt had bm medium formed stool. Pt resp even and non-labored no distress noted. Pt now lying in bed resting and talking to staff. no c/o pain or discomfort. No needs voiced. Call light in reach.
[2020-10-12] MEDS: metoprolol tartrate 25 mg Tablet 12.5 MG PO ×2 (08:40→20:16)
[2020-10-12] MEDS: apixaban 5 mg Tablet PO ×2 (08:41→20:00)
[2020-10-12] MEDS: isosorbide mononitrate ER 30 mg Tablet 15 MG PO (08:41)
[2020-10-12] MEDS: sertraline 50 mg Tablet 25 MG PO (08:41)
[2020-10-12] MEDS: clopidogrel 75 mg Tablet PO (08:42)
[2020-10-12] MEDS: lisinopril 2.5 mg Tablet PO (08:42)
--- NOTE | 2020-10-12 09:56 | PC.SOCIAL ---
IMM Updated Updated pt's daughter, via phone, on Pg 2 IMM. No questions voiced. Provided pt a copy. Initialed, dated, & timed copy in chart.
[2020-10-12 11:47] LABS: Glucose Point of Care 329 mg/dL (70-110)
--- NOTE | 2020-10-12 15:49 | PC.NURSE ---
pt wants bath tonight
[2020-10-12 16:24] LABS: Glucose Point of Care 125 mg/dL (70-110)
--- NOTE | 2020-10-12 19:51 | PM.PN ---
Subjective Subjective: Interval history: Wakes up. Pleasant, cooperative. Denies pain or discomfort. No trouble breathing. Cannot say where she currently is in terms of the building. Does not remember the name of the town. Knows it is 2020. Per discussion with one-to-one sitter this morning, has been doing well without any issues. Vitals/I&O/Wt Last Vital Signs Temp 97.8 F 10/12/20 19:33 Pulse 92 10/12/20 19:33 Resp 23 H 10/12/20 19:33 BP 100/59 10/12/20 19:33 Pulse Ox 98 10/12/20 19:33 10/12/20 10/12/20 10/12/20 06:59 14:59 22:59 Intake Total 150 / 750 240 / 240 120 / 360 Balance 150 / -350 240 / 240 120 / 360 Physical Exam Const: COMMON NORMALS: no acute distress and alert; negative for patient oriented x3 GENERAL APPEARANCE: cooperative and comfortable ORIENTATION/CONSCIOUSNESS: Yes awake and Yes oriented to time HENMT: COMMON NORMALS: oropharynx normal Neck/C-Spine: COMMON NORMALS: no JVD Resp: COMMON NORMALS: normal respiratory effort and clear to auscultation bilaterally AUSCULTATION: clear to auscultation bilaterally Cardio: COMMON NORMALS: no JVD, regular rhythm, S1 normal heart sound present, S2 normal heart sound present and No murmurs present (Cardio) RHYTHM: regular rhythm HEART SOUNDS: S1 normal heart sound present and S2 normal heart sound present GI: COMMON NORMALS: Normal to inspection, nondistended, normoactive bowel sounds present, Soft to palpation and non-tender PALPATION: Yes Soft to palpation Extremity: COMMON NORMALS: no joint enlargement and no pedal edema Neuro: COMMON NORMALS: moves all extremities; negative for patient oriented x3 SENSORIUM/ORIENTATION: Yes alert and Yes oriented to time Skin: COMMON NORMALS: no rashes or lesions noted GENERAL SKIN EXAM: no rashes or lesions noted Data : 10/10/20 03:27 10/12/20 04:12 A&P Assessment and plan (1) Delirium: Orientation/insight appears to be fluctuating. She is awake alert, comfortable. Has no pain. No issues with one-to-one sitter, and so this has been discontinued. She is oriented to year. Does not remember where she is or the name of the town. Denies any questions or requests. We will again reassess mental status tomorrow. Monitor blood pressures, de-escalate antihypertensives given blood pressure soft last night, 81/43. Overall mental status appears to have stabilized. Appears had had delirium superimposed on chronic dementia, however, today she appears to be oriented x3. Appears to have decent insight is able to tell me that she has been treated for heart attack while in the hospital. Cooperating with physical therapy. -Likely secondary to underlying UTI, NSTEMI -However has baseline dementia, significant owning, episodes of agitation -records have shown that there is been concerns for dementia, but no formal diagnosis -She was transferred to geriatric psych facility in [facility] for concerns for confusion that was dementia related Completed antibiotics for UTI -Blood cultures negative -CT of the head done yesterday had no acute findings -Carotid artery ultrasound less than 50% stenosis bilaterally -TSH, B12, folate within normal limits -Monitor mental status -Haldol for agitation -Scheduled Zyprexa during the night Discharge planning working [facility] Status: Acute (2) NSTEMI (non-ST elevated myocardial infarction): Continue medical treatment. Blood pressure somewhat soft again, down as low as 81/43 yesterday evening reduce the dose of lisinopril to 2.5 mg. Monitor blood pressures. In case of any worsening may need additional relation by coronary angiography. Will need follow-up with cardiology after discharge. Monitor for any bleeding. -Cardiac echocardiogram showed EF of 57%, no regional wall motion abnormalities, mild LVH, grade 1 or 4 diastolic dysfunction, Status: Acute (3) Insulin dependent type 2 diabetes mellitus: -Low-dose sliding scale Status: Acute (4) Hyperlipidemia: Status: Acute Qualifiers: Hyperlipidemia type: mixed hyperlipidemia Qualified Code(s): E78.2 - Mixed hyperlipidemia (5) Macular degeneration: Status: Acute (6) History of pulmonary embolism: Currently on Lovenox Status: Acute (7) Hallucination, visual: Currently no visual hallucinations Status: Acute Additional A&P Information Eliquis for DVT prophylaxis Patient is a full code Attestations Medical Necessity Statement*: Continue admission for management following NSTEMI, reassessment of mental status, optimization of medical treatment of CAD, following NSTEMI, with soft blood pressures, occasional hypotension. Coding Level of Care Code Acute Watch Parts Grinder for Chg Fwd Diagnoses Delirium R41.0 NSTEMI (non-ST elevated myocardial infarction) I21.4 Insulin dependent type 2 diabetes mellitus E11.9; Z79.4 Hyperlipidemia E78.2 Hyperlipidemia type: mixed hyperlipidemia Macular degeneration H35.30 History of pulmonary embolism Z86.711 Hallucination, visual R44.1
[2020-10-12 19:53] LABS: Glucose Point of Care 240 mg/dL (70-110)
[2020-10-12] MEDS: OLANZapine 10 mg TABLET PO (20:11)
[2020-10-12] MEDS: donepezil 5 MG Tablet PO (20:11)
[2020-10-12] MEDS: atorvastatin 40 mg Tablet PO (20:11)
[2020-10-13] VITALS (7 sets, daily range): BP systolic 100–133; BP diastolic 60–75; PULSE 0–110; RESP 18–20; TEMP 36.4–37.1; O2SAT 98–99
[2020-10-13 04:47] LABS: Alanine Aminotransferase 59 U/L (0-33); Albumin Level 3.9 g/dL (3.5-5.2); Alkaline Phosphatase 97 IU/L (35-105); Anion Gap 13.3 (5-19); Aspartate Amino Transferase 73 U/L (0-32); Blood Urea Nitrogen 21 mg/dL (8-23); Calcium 8.8 mg/dL (8.5-10.5); Carbon Dioxide 26 mmol/L (22-29); Chloride 98 mmol/L (98-107); Creatinine Clr Calc Pharmacy 58.5699; Globulin 2.5 g/dL (1.3-4.6); Glucose 247 mg/dL (65-115); Osmolality Calculated 287 mOsm/kg (285-295); Potassium 4.3 mmol/L (3.5-5.1); Sodium 133 mmol/L (136-145); Total Bilirubin 0.3 mg/dL (0.15-1.2); Total Protein 6.4 g/dL (6.6-8.7)
[2020-10-13 06:40] LABS: Glucose Point of Care 290 mg/dL (70-110)
--- NOTE | 2020-10-13 07:13 | PC.NURSE ---
During Bedside report patient is wandering room and [address] unable to redirect patient yells profanity when approached with pain potty or position patient eventually calmed self and is now sitting in chair in the [address]
--- NOTE | 2020-10-13 07:32 | PC.NURSE ---
patient approched with explanation to patient of her BG of 290; explained to patient the doctor had prescribed her some insulin to help control bg patient stated 'No i will not take it this nurse calmly asked patient if she would be willing to let me administer medications patient continued to state no I do not want it I am fed up with all this patient refused medication
[2020-10-13] MEDS: isosorbide mononitrate ER 30 mg Tablet 15 MG PO (08:43)
[2020-10-13] MEDS: clopidogrel 75 mg Tablet PO (08:43)
[2020-10-13] MEDS: sertraline 50 mg Tablet 25 MG PO (08:43)
[2020-10-13] MEDS: lisinopril 2.5 mg Tablet PO (08:44)
[2020-10-13] MEDS: metoprolol tartrate 25 mg Tablet 12.5 MG PO (10:38)
[2020-10-13 11:24] LABS: Glucose Point of Care 254 mg/dL (70-110)
[2020-10-13 16:04] LABS: SARS Covid-2 Antigen Negative (Negative)
--- NOTE | 2020-10-13 16:42 | P.DS_ITS ---
Discharge Providers Date of Admission: 10/05/20 15:09 Date of Discharge: October 13, 2020 Attending Provider at Admission: Ayo Guy MD Attending Provider at Discharge: Eddie Leal Primary Care Provider: Dao Alba DO Diagnoses at Discharge Discharge Diagnosis (1) Delirium: Status: Acute (2) NSTEMI (non-ST elevated myocardial infarction): Status: Acute (3) Insulin dependent type 2 diabetes mellitus: Status: Acute (4) Hyperlipidemia: Status: Acute Qualifiers: Hyperlipidemia type: mixed hyperlipidemia Qualified Code(s): E78.2 - Mixed hyperlipidemia (5) Macular degeneration: Status: Acute (6) History of pulmonary embolism: Status: Acute (7) Hallucination, visual: Status: Acute Reason for Visit Reason for Visit: INCREASED AMS Hospital Course Hospital Course 75-year-old lady was brought in to the hospital for evaluation when she was found wandering outside [facility] in rain and snow, confused, complaining of visual hallucinations. She had no particular complaints on presentation. Alert to person, not place or time. It appears since about a year ago after her husb and had she had had a slow decline, and symptoms suspicious of early dementia. While in the hospital, episodes of hallucinations had recurred, with varying levels of orientation and alertness. Initially she was treated for urinary tract infection, with thought that perhaps there was superimposed delirium as well. She completed treatment with Rocephin, eventually growing E. coli in the urine. She was also treated medically for NSTEMI, seen by cardiology due to noted elevation of troponin on presentation. She had since remained stable, without any complaints of chest pain or pressure, no shortness of breath. She has been ambulating without any difficulty. She is noted to have labile blood pressures, ranging between 150s systolic down to as low as high 80s, 90s systolic. Good explanation for this was not found, but however, this is thought perhaps related to autonomic dysfunction. Her lisinopril (and benazepril on discharge) dose has been cut down to 2.5 mg. Metoprolol dose decreased to 12.5 mg. Blood pressure is appear to have improved, ranging between 100 systolic to 130s systolic. Evaluation by echocardiogram showed normal ejection fraction, grade 1 diastolic dysfunction, thickened mitral valve, moderate mitral annular calcification, thickened aortic valve, trace tricuspid valve regurgitation, estimated pulmonary peak systolic pressure 41 mmHg, no pericardial effusion, no intracardiac masses, probably no change since 07/19/2018. She was also assessed by carotid artery Doppler ultrasound with finding of minimal dense plaques of right bifurcation and proximal internal carotid artery with Doppler features suggesting less than 50% stenosis. Moderate heterogenous plaques of left bifurcation and proximal internal carotid artery with Doppler features suggesting less than 50% stenosis. Intimal thickening in common carotid arteries bilaterally no previous studies available for comparison. Head CT on 09/26 with no intracranial hemorrhage or edema, mild atrophy with moderate chronic microvascular ischemic changes. Her blood cultures remain negative. TSH, B12, folic acid within normal limits. She was started on Zyprexa at night. She was assessed by psychiatry who gave recommendations regarding episodes of agitation. Year ago she was admitted to geriatric psychiatric facility for assessment due to similar symptoms. She was discharged, and had since then been living in an apartment by herself, although recently due to progression of the symptoms her daughter had been living with her up until department building placed Covid restrictions in place, not allowing any additional residence. Per discussion with her daughter episodes of hallucinations have been going on for a while. Discussing with her that despite treatment of medical comorbidities, NSTEMI, UTI, and with otherwise unremarkable work-up, with chronic symptoms, with alertness fluctuations, visual hallucinations, memory issues, the concern is for progressive neurological condition, possibly Lewy body dementia among other conditions. As she otherwise has been doing well, without any complaints, stable from cardiac perspective, she is discharged from the hospital with p gaby to [facility] as per discussion with her and her daughter. She is asked to follow-up with neurology for additional assessment. She is asked to follow-up with cardiology in office. Physical Exam Const: COMMON NORMALS: no acute distress, patient oriented x3 (Orientation fluctuating) and alert GENERAL APPEARANCE: cooperative and comfortable ORIENTATION/CONSCIOUSNESS: Yes awake and Yes oriented to time OTHER: Tells me she sometimes has been seeing people, mostly at her house. Otherwise denies any pain or discomfort. Denies any trouble breathing. Walking around C[facility]. HENMT: COMMON NORMALS: oropharynx normal Neck/C-Spine: COMMON NORMALS: no JVD Resp: COMMON NORMALS: normal respiratory effort and clear to auscultation bilaterally AUSCULTATION: clear to auscultation bilaterally Cardio: COMMON NORMALS: no JVD, regular rhythm, S1 normal heart sound present, S2 normal heart sound present and No murmurs present (Cardio) RHYTHM: regular rhythm HEART SOUNDS: S1 normal heart sound present and S2 normal heart sound present GI: COMMON NORMALS: Normal to inspection, nondistended, normoactive bowel sounds present, Soft to palpation and non-tender PALPATION: Yes Soft to palpation Extremity: COMMON NORMALS: no joint enlargement and no pedal edema Neuro: COMMON NORMALS: patient oriented x3 (Orientation fluctuating) and moves all extremities SENSORIUM/ORIENTATION: Yes alert and Yes oriented to time Skin: COMMON NORMALS: no rashes or lesions noted GENERAL SKIN EXAM: no rashes or lesions noted Discharge Data Data Completed and Pending: Completed Studies During Hospitalization Category Date Time [place] [id number] Rout ine Ultrasound 10/07/20 09:44 Completed CV carotid duplex BI* [id number] Routine Ultrasound 10/05/20 07:00 Completed CV echo complete* [id number] Routine Ultrasound 10/05/20 07:00 Completed Labs from last 24 hours 10/13/20 10/13/20 10/13/20 14:50 11:21 06:35 Sodium Potassium Chloride Carbon Dioxide Anion Gap BUN Creatinine GFR Calculation Glucose POC Glucose 254 H 290 H Calculated Osmolal ity Calcium Total Bilirubin AST ALT Alkaline Phosphata se Total Protein Albumin Globulin SARS-CoV-2 Ag (Rap id) Negative 10/13/20 10/12/20 04:17 19:51 Sodium 133 L Potassium 4.3 Chloride 98 Carbon Dioxide 26 Anion Gap 13.3 BUN 21 Creatinine 0.6 GFR Calculation Not Reportable Glucose 247 H POC Glucose 240 H Calculated Osmolal ity 287 Calcium 8.8 Total Bilirubin 0.3 AST 73 H ALT 59 H Alkaline Phosphata se 97 Total Protein 6.4 L Albumin 3.9 Globulin 2.5 SARS-CoV-2 Ag (Rap id) Vitals: Last Vital Signs Temp 98.8 F 10/13/20 15:15 Pulse 110 H 10/13/20 15:15 Resp 20 H 10/13/20 15:15 BP 100/60 10/13/20 15:15 Pulse Ox 99 10/13/20 15:15 Discharge Plan Discharge Patient Disposition: Xfer SNF Condition: Stable Prescriptions: New atorvastatin 40 mg Tablet 40 mg PO BEDTIME Qty: 30 RF: 0 isosorbide mononitrate 30 mg Tablet Extended Release 24 Hr 15 mg PO DAILY Qty: 30 RF: 0 clopidogrel 75 mg Tablet 75 mg PO DAILY Qty: 30 RF: 0 metoprolol tartrate 25 mg Tablet 12.5 mg PO BID@0900,2100 Qty: 30 RF: 0 Continued docusate sodium [DOK] 100 mg capsule 100 mg PO PRN PRN (Reason: Constipation) RF: 0 risperidone 0.5 mg tablet 0.5 mg PO BEDTIME@1999 RF: 0 acetaminophen [Tylenol] 325 mg Tablet 650 mg PO Q4H PRN (Reason: Pain/FEVER) RF: 0 furosemide 40 mg tablet 40 mg PO DAILY PRN (Reason: Edema) RF: 0 insulin aspart U-100 [Novolog Flexpen U-100 Insulin] 100 unit/mL (3 mL) insulin pen See Rx Instructions .ROUTE .COMPLEX RF: 0 metformin 500 mg tablet extended release 24 hr 1,000 mg PO BID@699,1999 RF: 0 Eliquis 5 mg tablet 5 mg PO BID@699,1999 RF: 0 Lumigan 0.01 % Drops 1 drp OPHTHALMIC (EYE) BEDTIME@1999 RF: 0 trazodone 50 mg tablet 50 mg PO BEDTIME PRN (Reason: Insomnia) RF: 0 sertraline 25 mg tablet 25 mg PO DAILY@07 RF: 0 donepezil 5 mg tablet,disintegrating 5 mg PO BEDTIME@1999 RF: 0 Changed benazepril 5 mg Tablet 2.5 mg PO DAILY@0700 Qty: 0 RF: 0 Tresiba FlexTouch U-200 200 unit/mL (3 mL) insulin pen 13 unit SUBCUT BEDTIME@1999 Qty: 0 RF: 0 Discontinued simvastatin 20 mg tablet 20 mg PO DAILY@0700 RF: 0 aspirin [Aspir-Low] 81 mg Tablet,Delayed Release (Dr/Ec) 81 mg PO DAILY RF: 0 Discharge Orders: Discharge Order (Routine); Ordered 10/13/20 Ordered By: Eddie Leal Referrals: [facility] [Provider Group] (Possible lewy body dementia) Desmond Ramirez MD [Physician] - 1 month Mera Jara FNP [Nurse Practitioner] - 1 week Dao Alba DO [Primary Care Provider] - 4-7 days Discharge Diet: Cardiac and Diabetic Discharge Activity: Increase activity as tolerated and As per PT/OT instructions Activity Restrictions/Additional Instructions: Please monitor blood pressures, if blood pressure becoming low, please hold benazepril. Consider holding metoprolol as well if needed. Please follow-up with cardiology following NSTEMI. Discharge Attestations Time Spent in Discharge Care*: greater than 30 min Quality Metrics Clinical Quality Measures During this hospital stay, did patient experience: AMI Clinical Trial Participant: No Contraindication to aspirin (AMI): On Warfarin or Pradaxa at discharge Contraindication to statin: Statin prescribed Contraindication to PCI: Intervention not indicated Coding Level of Care Code Acute [facility] note Diagnoses Delirium R41.0 NSTEMI (non-ST elevated myocardial infarction) I21.4 Insulin dependent type 2 diabetes mellitus E11.9; Z79.4 Hyperlipidemia E78.2 Hyperlipidemia type: mixed hyperlipidemia Macular degeneration H35.30 History of pulmonary embolism Z86.711 Hallucination, visual R44.1
[2020-10-13 16:52] LABS: Glucose Point of Care 255 mg/dL (70-110)
== END 2020-10-13 17:17 | disposition skilled nursing facility (03) | DRG 281 ==
LOC: ER 17:39 → MEDSURG 18:03 → CSU 10-05 14:44
PROVIDERS: Internal Medicine; Admitting Provider Family Medicine; Emergency Provider Student in an Organized Health Care Education/Training Program; PCP Internal Medicine; Visit Provider Internal Medicine
DX: I21.4 Non-ST elevation (NSTEMI) myocardial infarction (principal); N39.0 Urinary tract infection, site not specified; F05 Delirium due to known physiological condition; Z86.711 Personal history of pulmonary embolism; E11.9 Type 2 diabetes mellitus without complications; E78.2 Mixed hyperlipidemia; G31.83 Neurocognitive disorder with Lewy bodies; F02.80 Dementia in other diseases classified elsewhere, unspecified severity, without behavioral disturbance, psychotic disturbance, mood disturbance, and anxiety; H35.30 Unspecified macular degeneration; I10 Essential (primary) hypertension; I95.9 Hypotension, unspecified; E87.6 Hypokalemia; R29.6 Repeated falls; I25.10 Atherosclerotic heart disease of native coronary artery without angina pectoris; E11.51 Type 2 diabetes mellitus with diabetic peripheral angiopathy without gangrene; B96.20 Unspecified Escherichia coli [E. coli] as the cause of diseases classified elsewhere; Z79.01 Long term (current) use of anticoagulants; Z79.4 Long term (current) use of insulin
CPT/HCPCS: 36415; 36416; 80053; 80306; 81001; 81003; 82607; 82746; 82962; 83605; 83735; 83880; 84100; 84145; 84443; 84484; 85025; 85378; 87040; 87086; 87426; 93005; 93306; 93880; 93925; 96365; 96372; 97110; 97116; 97161; 97165; 97530; 97535; 99284; 99291; G0378; J0696; J1630; J1650; J1815; J2060; J7030; J7040; J7050

== ENCOUNTER → 2022-01-17 08:12 | Outpatient (BNVA) | payer MEDICARE, MEDICAID, SELFPAY | PROVIDERS: PCP Internal Medicine; Visit Provider Podiatrist Foot & Ankle Surgery | DX: W18.30XA Fall on same level, unspecified, initial encounter (principal); S92.351A Displaced fracture of fifth metatarsal bone, right foot, initial encounter for closed fracture; E11.21 Type 2 diabetes mellitus with diabetic nephropathy; Z79.4 Long term (current) use of insulin; Z79.84 Long term (current) use of oral hypoglycemic drugs | CPT/HCPCS: 28475; 99204 ==

== ENCOUNTER → 2022-02-21 11:38 | Outpatient (BNVA) | payer MEDICARE, MEDICAID, SELFPAY | PROVIDERS: PCP Internal Medicine; Visit Provider Podiatrist Foot & Ankle Surgery | DX: E11.21 Type 2 diabetes mellitus with diabetic nephropathy (principal); S92.351D Displaced fracture of fifth metatarsal bone, right foot, subsequent encounter for fracture with routine healing; W19.XXXD Unspecified fall, subsequent encounter; Z79.84 Long term (current) use of oral hypoglycemic drugs; Z79.4 Long term (current) use of insulin; S92.353D Displaced fracture of fifth metatarsal bone, unspecified foot, subsequent encounter for fracture with routine healing | CPT/HCPCS: 73630; 99214 ==

== ENCOUNTER 2023-06-21 16:39 | Inpatient (IN) | payer MEDICARE, MEDICAID, SELFPAY ==
[2023-06-21] VITALS (8 sets, daily range): BP systolic 126–160; BP diastolic 70–99; PULSE 102–125; RESP 13–18; TEMP 36.1–36.9; O2SAT 94–99; BMI 26.6; BMI 25.6
--- NOTE | 2023-06-21 17:04 | ECG_ITS ---
[facility] Test Date: 2023-06-21 Pat Name: Unique Gage Department: Room: Gender: Female Ui Programmer: : 1945 Requested By: Tigre Byrd Order Number: [id number] Jose Francisco MD: Bill Sherman M.D. Measurements Intervals [place] Rate: 106 P: 56 FL: 150 QRS: 64 QRSD: 110 T: -58 QT: 316 QTc: 420 Interpretive Statements SINUS TACHYCARDIA MODERATE INTRAVENTRICULAR CONDUCTION DELAY [105+ ms QRS DURATION, 80+ ms Q/S IN V1/V2, NO Q AND 60+ ms R IN I/aVL/V5/V6] ST DEVIATION AND MODERATE T-WAVE ABNORMALITY, CONSIDER INFERIOR ISCHEMIA [-0.1+ mV T-WAVE IN II/aVF] Compared to ECG 10/05/2020 21:11:00 Intraventricular conduction delay now present Sinus rhythm no longer present T-wave abnormality still present Possible ischemia still present Electronically Signed On 06-22-2023 3:54:56 CRUISE GUIDE by Bill Sherman M.D. [id number]
[2023-06-21 17:33] LABS: Basophils # 0.1 10^3/uL (0.0-0.1); Basophils % 1.1 %; Eosinophils # 0.1 10^3/uL (0.0-0.8); Eosinophils % 1.5 %; Hematocrit 31.3 % (36-47); Lymphocytes # 1.4 10^3/uL (0.8-4.8); Lymphocytes % 18.5 %; Mean Corpuscular HGB Conc 32.3 g/dL (30-55); Mean Corpuscular Hemoglobin 26.4 pg (27-33); Mean Corpuscular Volume 81.7 fl (85-98); Mean Platelet Volume 10.5 fL (7.4-10.4); Monocytes # 0.4 10^3/uL (0.2-0.9); Monocytes % 5.7 %; Neutrophils # 5.17 10^3/uL (1.8-7.7); Neutrophils % 70.3 %; Nucleated Red Blood Cells % 0 %; Platelet Count 450 10^3/cmm (157-399); Red Blood Count 3.83 10^6/uL (3.85-5.65); Red Cell Distribution Width 14.1 % (12.1-15.1); White Blood Count 7.35 10^3/uL (3.29-11.43)
--- NOTE | 2023-06-21 17:41 | XRR_ITS ---
PROCEDURE INFORMATION: Exam: XR Chest Exam date and time: 06/21/2023 5:45 PM Age: 78 years old Clinical indication: Cough and dyspnea; Additional info: Dyspnea/cough TECHNIQUE: Imaging protocol: Radiologic exam of the chest. Views: 1 view. COMPARISON: CR XR chest 1V portable [id number] 09/26/2020 3:14 PM FINDINGS: Lungs: Unremarkable. No consolidation. Pleural spaces: Unremarkable. No pleural effusion. No pneumothorax. Heart/Mediastinum: Unremarkable. No cardiomegaly. Bones/joints: No acute abnormality. XR/XR chest 1V portable [id number] IMPRESSION: No acute findings.
[2023-06-21 17:50] LABS: Alanine Aminotransferase 12 U/L (0-33); Albumin Level 3.7 g/dL (3.5-5.2); Alkaline Phosphatase 109 U/L (35-105); Anion Gap 23.5 (5-19); Aspartate Amino Transferase 12 U/L (0-32); Carbon Dioxide 22 mmol/L (22-29); Chloride 92 mmol/L (98-107); Globulin 3.5 g/dL (1.3-4.6); Glucose 287 mg/dL (65-115); Magnesium 2.4 mg/dL (1.7-2.3); Osmolality Calculated 307 mOsm/kg (285-295); Phosphorus 6.1 mg/dL (2.5-4.5); Sodium 131 mmol/L (136-145); Total Bilirubin 0.2 mg/dL (0.15-1.2); Total Protein 7.2 g/dL (6.6-8.7)
--- NOTE | 2023-06-21 17:58 | ED_ITS ---
HPI - Recheck/Abnormal Lab/Rx 2 General: Chief Complaint: Recheck/Abnormal Lab/Rx Stated Complaint: Abnormal Labs Time Seen by Provider: 06/21/23 16:49 Source: patient Mode of arrival: ambulatory History of Present Illness: 78-year-old male female presents emergen cy room had abnormal labs to her doctor's office today with acute increase in her creatinine and hyperkalemia. She presents here from the long-term she is mildly confused she thinks she still at the long-term she denies any pain or discomfort no chest pain abdominal pain no nausea vomiting or diarrhea recently. No vomiting. Review of Systems 2 Const: Denies: fever(s) or chills Card: Denies: chest pain Resp: Denies: dyspnea GI: Denies: abdominal pain : Denies: dysuria, urinary frequency or urinary urgency Musc: Denies: neck pain or back pain Skin/Breast: Denies: rash PFSH ED 2 PFSH: Medical History Status post non-ST elevation myocardial infarction (NSTEMI) Benign essential hypertension with target blood pressure below 140/90 NSTEMI (non-ST elevated myocardial infarction) History of heart failure Hyperlipidemia Macular degeneration Insulin dependent type 2 diabetes mellitus History of pulmonary embolism Hallucination, visual Surgical History History of Family History Mother Dementia CAD (coronary artery disease) Lung disease Family/Other Dementia Diabetes Grandfather Dementia Father Diabetes Lung disease Stroke Denies family history of Clotting disorder Chronic kidney disease (CKD) Suicide Anesthesia complication Bleeding disorder Cancer Social History Smoking and tobacco/nicotine status: former use of tobacco/nicotine Alcohol intake: never Substance/Drug Use: never Physical Exam 2 Const: COMMON NORMALS: no acute distress GENERAL APPEARANCE: cooperative and comfortable ORIENTATION/CONSCIOUSNESS: Yes awake and Yes confused HENMT: COMMON NORMALS: normocephalic, atraumatic and hearing grossly normal bilaterally HEAD & SCALP: normocephalic and atraumatic Resp: COMMON NORMALS: normal respiratory effort, No retractions, No use of accessory muscles and clear to auscultation bilaterally AUSCULTATION: clear to auscultation bilaterally Cardio: COMMON NORMALS: regular rate, regular rhythm and No murmurs present (Cardio) RATE: regular rate RHYTHM: regular rhythm GI: COMMON NORMALS: Soft to palpation and No hepatosplenomegaly present A USCULTATION: Yes normoactive bowel sounds PALPATION: Yes Soft to palpation, No Tenderness to palpation present (GI), No Guarding due to palpation present (GI) and Yes No hepatosplenomegaly present Extremity: COMMON NORMALS: normal to inspection, capillary refill normal, no clubbing, cyanosis or edema, no calf tenderness and no pedal edema Skin: COMMON NORMALS: no rashes or lesions noted GENERAL SKIN EXAM: no rashes or lesions noted Course 2 Vital Signs: Vital signs: Vital Signs Temperature 99.0 F 06/26/23 16:40 Pulse Rate 92 06/26/23 16:40 Respiratory Rate 17 06/26/23 16:40 Blood Pressure 119/72 06/26/23 16:40 Pulse Oximetry 98 06/26/23 16:40 Oxygen Delivery Me thod Room Air 06/26/23 08:00 MDM - Recheck/Abnormal Lab/Rx Medical Decision Making Acute renal failure with hyperkalemia. Initial hyperkalemia treatments began. Will consult nephrology. Discussed with hospitalist admit to ICU. Medical Records I reviewed the patient's medical records. Lab Data I reviewed the patient's lab results. 06/26/23 06:17 06/26/23 06:17 Radiology Impressions Abdomen/Pelvis CT 06/21/23 18:46 IMPRESSION: 1. Tiny gallstones versus milk of calcium versus radiopaque debris in the dependent portion of the gallbladder. 2. Severe calcified coronary artery disease. Gallbladder Ultrasound 06/22/23 06:00 IMPRESSION: Cholelithiasis with mild gallbladder wall thickening. Laboratory Results WBC 7.35 10^3/uL (3.29-11.43) 06/21/23 17:20 RBC 3.83 10^6/uL (3.85-5.65) L 06/21/23 17:20 Hgb 10.10 g/dL (11.27-16.99) L 06/21/23 17:20 Hct 31.3 % (36-47) L 06/21/23 17:20 MCV 81.7 fl (85-98) L 06/21/23 17:20 MCH 26.4 pg (27-33) L 06/21/23 17:20 MCHC 32.3 g/dL (30-55) 06/21/23 17:20 RDW 14.1 % (12.1-15.1) 06/21/23 17:20 Plt Count 450 10^3/cmm (157-399) H 06/21/23 17:20 MPV 10.5 fL (7.4-10.4) H 06/21/23 17:20 Neut % (Auto) 70.3 % 06/21/23 17:20 Lymph % (Auto) 18.5 % 06/21/23 17:20 Beadle % (Auto) 5.7 % 06/21/23 17:20 Eos % (Auto) 1.5 % 06/21/23 17:20 Baso % (Auto) 1.1 % 06/21/23 17:20 Neut # (Auto) 5.17 10^3/uL (1.8-7.7) 06/21/23 17:20 Lymph # (Auto) 1.4 10^3/uL (0.8-4.8) 06/21/23 17:20 Beadle # (Auto) 0.4 10^3/uL (0.2-0.9) 06/21/23 17:20 Eos # (Auto) 0.1 10^3/uL (0.0-0.8) 06/21/23 17:20 Baso # (Auto) 0.1 10^3/uL (0.0-0.1) 06/21/23 17:20 Nucleated RBC % (auto) 0 % 06/21/23 17:20 Nucleated RBCs # 0.0 /100WBC 06/21/23 17:20 Sodium 131 mmol/L (136-145) L 06/21/23 17:20 Potassium 6.5 mmol/L (3.5-5.1) H* 06/21/23 17:20 Chloride 92 mmol/L (98-107) L 06/21/23 17:20 Carbon Dioxide 22 mmol/L (22-29) 06/21/23 17:20 Anion Gap 23.5 (5-19) H 06/21/23 17:20 BUN 82 mg/dL (8-23) H* D 06/21/23 17:20 Creatinine 6.1 mg/dL (0.5-0.9) H* 06/21/23 17:20 GFR Calculation Not Reportable 06/21/23 17:20 Glucose 287 mg/dL (65-115) H 06/21/23 17:20 Calculated Osmolality 307 mOsm/kg (285-295) H 06/21/23 17:20 Calcium 9.0 mg/dL (8.5-10.5) 06/21/23 17:20 Phosphorus 6.1 mg/dL (2.5-4.5) H 06/21/23 17:20 Magnesium 2.4 mg/dL (1.7-2.3) H 06/21/23 17:20 Total Bilirubin 0.2 mg/dL (0.15-1.2) 06/21/23 17:20 AST 12 U/L (0-32) 06/21/23 17:20 ALT 12 U/L (0-33) 06/21/23 17:20 Alkaline Phosphatase 109 U/L (35-105) H 06/21/23 17:20 Total Protein 6.5 g/dL (6.1-8.1) 06/21/23 17:20 Total Protein 7.2 g/dL (6.6-8.7) 06/21/23 17:20 Albumin 3.4 g/dL (3.8-4.8) L 06/21/23 17:20 Albumin 3.7 g/dL (3.5-5.2) 06/21/23 17:20 Globulin 3.5 g/dL (1.3-4.6) 06/21/23 17:20 Ghvwt-2-Movbtgrne 0.4 g/dL (0.2-0.3) H 06/21/23 17:20 Syoah-8-Bmkmqzfgs 1.1 g/dL (0.5-0.9) H 06/21/23 17:20 Fcsc-6-Biwaahpj 0.4 g/dL (0.4-0.6) 06/21/23 17:20 Pqft-7-Kiqefyxe 0.4 g/dL (0.2-0.5) 06/21/23 17:20 Gamma Globulins 0.9 g/dL (0.8-1.7) 06/21/23 17:20 Abnorm Protein Band 1 Not Reportable 06/21/23 17:20 U Abnormal Prot Band 2 Not Reportable 06/21/23 17:20 U Abnormal Prot Band 3 Not Reportable 06/21/23 17:20 Pro Electrophoresis Int See note 06/21/23 17:20 All radiology interpretation(s) finalized by discharge Discharge Plan Discharge Patient Disposition: Admitted As Inpatient Admit Provider: Diana Almanza Clinical Impression: Acute hyperkalemia, Acute renal failure, Dementia, Hypertension Condition: Stable Coding Level of Care Code ED [employer] Installer for Shaniqua Ruth
[2023-06-21 18:05] LABS: Blood Urea Nitrogen 82 mg/dL (8-23); Potassium 6.5 mmol/L (3.5-5.1)
[2023-06-21] MEDS: insulin regular-human 100 units/1 mL 10 UNIT IVP (18:40)
[2023-06-21] MEDS: sodium chloride 0.9% 1,000 ML 999 ML IV (18:43)
[2023-06-21] MEDS: sodium polystyrene sulfonate 15 gm/60 mL Btl PO ×2 (18:46→22:29)
[2023-06-21] MEDS: calcium gluconate 0.1 gm/mL 10% SDV 10mL 2 GM IVP (18:46)
--- NOTE | 2023-06-21 18:46 | CTR_ITS ---
PROCEDURE INFORMATION: Exam: CT Abdomen And Pelvis Without Contrast Exam date and time: 06/21/2023 7:21 PM Age: 78 years old Clinical indication: Other: Acute renal failure TECHNIQUE: Imaging protocol: Computed tomography of the abdomen and pelvis without contrast. Radiation optimization: All CT scans at this facility use at least one of these dose optimization techniques: automated exposure control; mA and/or kV adjustment per patient size (includes targeted exams where dose is matched to clinical indication); or iterative reconstruction. COMPARISON: CT abdomen pelvis wo con [id number] 07/19/2018 9:53 AM RADIATION DOSE METRICS: Total DLP (mGy-cm): 686.34 FINDINGS: Coronary arteries: Severe calcified coronary artery disease. Liver: Normal. No mass. Gallbladder and bile ducts: Tiny gallstones versus milk of calcium versus radiopaque debris in the dependent portion of the gallbladder. Pancreas: Normal. No ductal dilation. Spleen: Normal. No splenomegaly. Adrenal glands: Normal. No mass. Kidneys and ureters: Normal. No hydronephrosis. Stomach and bowel: Unremarkable. No obstruction. No mucosal thickening. Appendix: No evidence of appendicitis. Intraperitoneal space: Unremarkable. No free air. No significant fluid collection. Vasculature: Calcification of the abdominal aorta and/or iliac arteries consistent with atherosclerotic vessel disease. One or more calcified pelvic phleboliths. Lymph nodes: Unremarkable. No enlarged lymph nodes. Urinary bladder: Unremarkable as visualized. Reproductive: One or more calcified uterine fibroids. Bones/joints: Moderate to severe multilevel spine degenerative changes including degenerative disc disease, spondylosis and facet degenerative changes. Moderate L4-L5 central spinal stenosis. Soft tissues: Unremarkable. CT/CT abdomen pelvis con [id number] IMPRESSION: 1. Tiny gallstones versus milk of calcium versus radiopaque debris in the dependent portion of the gallbladder. 2. Severe calcified coronary artery disease.
--- NOTE | 2023-06-21 18:50 | P.HP_ITS ---
Providers/Chief Complaint 2 Primary Care Provider: Dao Alba DO Chief Complaint: Abnormal Labs History of Present Illness Unique Gage is a 78 year old female resident of a group home presented to the hospital due to abnormal lab work which was done today. Patient is stating that she is not sure which group home she is from, she is able to tell me her date of , pleasant and cooperative during my evaluation, she is denying chest pain, shortness of breath, fever, diarrhea, nausea, or vomiting. Patient is stating that she sometimes uses a wheelchair at the facility. Her medications does include nephrotoxic agents such as BenzePil, metformin. CT abdomen pelvis was requested without contrast Potassium is extremely high she received cocktail for treatment of hyperkalemia, will repeat BMP, nephro consulted Patient will be admitted to ICU No QTc prolongation or widening of QRS noted Review of Systems 2 Eyes: Denies: change in vision ENMT: Denies: throat pain Card: Denies: chest pain Resp: Denies: dyspnea GI: Denies: abdominal pain : Denies: flank pain Medications/Allergies Home Medications Medication Instructions Recorded Confirmed Last Taken Type metformin 500 mg tablet,extended 1,000 mg PO BID@07,199912/13/19 02/21/22 05/30/20 History release 24 hr acetaminophen 325 mg tablet 650 mg PO Q4H PRN Pain/FEVER 05/30/20 02/21/22 Unknown History (Tylenol) docusate sodium 100 mg capsule 100 mg PO PRN PRN Constipation 05/30/20 02/21/22 05/29/20 History (DOK) furosemide 40 mg tablet 40 mg PO DAILY PRN Edema 09/26/20 02/21/22 Unknown History insulin aspart U-100 100 unit/mL See Rx Instructions .Route .COMPLEX 09/26/20 02/21/22 Unknown History (3 mL) subcutaneous pen (Novolog FlexPen U-100 Insulin aspart) bimatoprost 0.01 % eye drops 1 drp ophthalmic (eye) BEDTIME@199910/04/20 02/21/22 Unknown History (Hayleeigan) sertraline 25 mg tablet 25 mg PO DAILY@0710/04/20 02/21/22 Unknown History benazepril 5 mg tablet 2.5 mg (1/2 x 5 mg) PO DAILY@69910/13/20 02/21/22 Unknown Rx #0 tabs clopidogrel 75 mg tablet 75 mg PO DAILY #30 tabs 10/13/20 02/21/22 Unknown Rx insulin degludec 200 unit/mL (3 13 unit (0.065 mL) SUBCUT 10/13/20 02/21/22 05/29/20 Rx mL) subcutaneous pen (Tresiba BEDTIME@2000 #0 mL FlexTouch U-200 insulin) metoprolol tartrate 25 mg tablet 12.5 mg (1/2 x 25 mg) PO 10/13/20 02/21/22 Unknown Rx BID@0900,2100 #30 tabs loperamide 2 mg tablet 2 mg PO Q4H PRN 01/17/22 02/21/22 Unknown History memantine ER 28 mg-donepezil 10 mg 1 cap PO DAILY 01/17/22 02/21/22 Unknown History capsule sprinkle,ext.release 24 hr (Namzaric) Allergies Allergy/AdvReac Type Severity Reaction Status Date / Time Sulfa (Sulfonamide Allergy Mild Rash Verified 02/21/22 11:35 Antibiotics) atorvastatin Allergy rash Verified 02/21/22 11:35 flu vaccine Allergy ADR-Nausea Uncoded 02/21/22 11:35 PFSH Acute 2 PFSH: Medical History Status post non-ST elevation myocardial infarction (NSTEMI) Benign essential hypertension with target blood pressure below 140/90 NSTEMI (non-ST elevated myocardial infarction) History of heart failure Hyperlipidemia Macular degeneration Insulin dependent type 2 diabetes mellitus History of pulmonary embolism Hallucination, visual Surgical History History of Family History Mother Dementia CAD (coronary artery disease) Lung disease Family/Other Dementia Diabetes Grandfather Dementia Father Diabetes Lung disease Stroke Denies family history of Clotting disorder Chronic kidney disease (CKD) Suicide Anesthesia complication Bleeding disorder Cancer Social History Smoking and tobacco/nicotine status: former use of tobacco/nicotine Alcohol intake: never Substance/Drug Use: never Vitals/I&O/Wt Last Vital Signs Temp 98.4 F 06/21/23 16:50 Pulse 103 H 06/21/23 18:49 Resp 18 06/21/23 16:50 BP 158/83 06/21/23 18:49 Pulse Ox 99 06/21/23 18:49 O2 Del Method Room Air 06/21/23 18:49 Weight last 48 hrs Weight 72.575 kg Physical Exam 2 Narrative: Patient is awake and alert DC 50 Euvolemic Abdomen soft Nonfocal neuroexam Cognitive impairment Short attention span Very pleasant during my evaluation Answer my questions appropriately She knows her date of She does not follow Does not know the name of the president Nonfocal neuroexam Asterixis negative Low extremity venous dermatitis No active edema Currently well on room air Hypertensive Data 06/21/23 17:20 06/21/23 17:20 A&P Assessment and plan (1) Benign essential hypertension with target blood pressure below 140/90: (2) History of pulmonary embolism: (3) Memory problem: (4) Mild dementia: (5) Hyperkalemia: (6) Acute renal failure: Plan Acute renal failure Critical high potassium level Stop nephrotoxic agents BenzePrO Requested CT abdomen pelvis without contrast Patient clinical looks euvolemic Hold Lasix Patient has been given hyperkalemia cocktail Monitor in ICU Nephro consulted Repeat BMP within an hour History of dementia/Lewy body No acute exacerbation Pleasant and cooperative No signs of stroke Records from the [place] assisted [facility] reviewed, full CODE STATUS Renal nondialysis diet Nephro consulted History of CHF without acute exacerbation, preserved action fraction grade 1 diastolic function Hold Lasix History of thromboembolic phenomenon Currently on DVT prophylaxis 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 History of E. coli, check UA This patient needed critical care assessment for hyperkalemia acute renal failure requiring ICU admission Previous records reviewed Patient is not a good historian Most information taken with the collateral previous notes, [place] was called to get more information:-Nurse told me that patient normally gets psychotic episodes when she talks a lot otherwise recently they have not noticed any significant event other than lethargy fatigue and she has stopped eating to their liking, patient has stopped taking losartan as well and as per the nursing staff her sugar was staying consistently within normal range which was odd because she used to get hyperglycemic episodes a lot, her p.o. intake has been very poor, her daughter checks on her at the facility Attestations 2 Medical Necessity Statement*: Patient will need more than 2 midnights Coding Level of Care Code Critical Care >/= 30 minutes Critical care time (in minutes): 55 The high probability of a clinically significant, sudden or life threatening deterioration, as referenced in this documentation, required my full and direct attention, intervention and personal management. The critical care time shown is in addition to time spent performing any reported separately billable procedures and includes the following: [x] Data and vital sign review and interpretation [x ] Patient assessment, examination and intervention [x] Medication orders and management [x] Patient/Family updates as able [x] Care Coordination and Documentation. Diagnoses Benign essential hypertension with target blood pressure below 140/90 I10 History of pulmonary embolism Z86.711 Memory problem R41.3 Mild dementia F03.90 Hyperkalemia E87.5 Acute renal failure N17.9
--- NOTE | 2023-06-21 19:45 | PC.NURSE ---
[facility] CALLED REQUESTING PATIENT UPDATE.
[2023-06-21] MEDS: heparin 5,000 unit/mL INJ 1 mL 5000 UNIT SUBCUT (20:04)
--- NOTE | 2023-06-21 20:16 | PM.CONSULT ---
Providers/Reason For Consult Consulting Physician/Specialty*: Randi Flores D.O., telenephrology Reason for Consult*: hyperkalemia, renal failure Requesting Physician: Diana Almanza MD Attending Physician: Diana Almanza MD Primary Care Provider: Dao Alba DO History of Present Illness History of Present Illness Unqiue Gage is a 78 year old female sent from [facility] for evaluation of abnormal labs. Medications/Allergies Home Medications Medication Instructions Recorded Confirmed Last Taken Type acetaminophen 325 mg tablet 650 mg PO Q6H PRN Pain/FEVER 05/30/20 06/22/23 Unknown History (Tylenol) bimatoprost 0.01 % eye drops 1 drp ophthalmic (eye) BEDTIME@199910/04/20 06/22/23 Unknown History (Lumigan) benazepril 5 mg tablet 2.5 mg (1/2 x 5 mg) PO DAILY@0710/13/20 06/22/23 Unknown Rx #0 tabs clopidogrel 75 mg tablet 75 mg PO DAILY #30 tabs 10/13/20 06/22/23 Unknown Rx memantine ER 28 mg-donepezil 10 mg 1 cap PO BEDTIME@06/22/23 06/22/23 Unknown History capsule sprinkle,ext.release 24 hr (Namzaric) metformin 1,000 mg tablet 1,000 mg PO BID@06/22/23 06/22/23 Unknown History metoprolol tartrate 25 mg tablet 25 mg PO BID@06/22/23 06/22/23 Unknown History mirtazapine 7.5 mg tablet 7.5 mg PO BEDTIME@06/22/23 06/22/23 Unknown History naloxone 2 mg/2 mL syringe kit See Rx Instructions .Route .COMPLEX 06/22/23 06/22/23 Unknown History risperidone 0.5 mg tablet 0.5 mg PO BID@06/22/23 06/22/23 Unknown History sertraline 100 mg tablet 150 mg PO DAILY@06/22/23 06/22/23 Unknown History Allergies Allergy/AdvReac Type Severity Reaction Status Date / Time Sulfa (Sulfonamide Allergy Mild Rash Verified 06/22/23 09:58 Antibiotics) atorvastatin Allergy rash Verified 06/22/23 09:58 flu vaccine Allergy ADR-Nausea Uncoded 02/21/22 11:35 Current Medications Generic Name Dose Route Start Last Admin Trade Name Freq PRN Reason Stop Dose Admin Heparin Sodium (Porcine) 5,000 unit 06/21/23 18:45 06/21/23 20:04 Heparin 5,000 Unit/Ml Inj 1 Ml SUBCUT 5,000 unit Q12H MILKA Administration PFSH Acute PFSH: Medical History Status post non-ST elevation myocardial infarction (NSTEMI) Benign essential hypertension with target blood pressure below 140/90 NSTEMI (non-ST elevated myocardial infarction) History of heart failure Hyperlipidemia Macular degeneration Insulin dependent type 2 diabetes mellitus History of pulmonary embolism Hallucination, visual Surgical History History of Family History Mother Dementia CAD (coronary artery disease) Lung disease Family/Other Dementia Diabetes Grandfather Dementia Father Diabetes Lung disease Stroke Denies family history of Clotting disorder Chronic kidney disease (CKD) Suicide Anesthesia complication Bleeding disorder Cancer Social History Smoking and tobacco/nicotine status: former use of tobacco/nicotine Alcohol intake: never Substance/Drug Use: never Vitals/I&O/Wt Last Vital Signs Temp 98.4 F 06/21/23 16:50 Pulse 103 H 06/21/23 18:49 Resp 18 06/21/23 16:50 BP 158/83 06/21/23 18:49 Pulse Ox 99 06/21/23 18:49 O2 Del Method Room Air 06/21/23 18:49 Weight last 48 hrs Weight 72.575 kg Data 06/22/23 03:37 06/22/23 03:37 Other Labs: phos 6.1 EKG 1: Director Of Property Management Interpretation: SINUS TACHYCARDIA MODERATE INTRAVENTRICULAR CONDUCTION DELAY [105+ ms QRS DURATION, 80+ ms Q/S IN V1/V2, NO Q AND 60+ ms R IN I/aVL/V5/V6] ST DEVIATION AND MODERATE T-WAVE ABNORMALITY, CONSIDER INFERIOR ISCHEMIA [-0.1+ mV T-WAVE IN II/aVF] A&P Assessment and plan (1) Hyperkalemia: Plan 1. Severely impaired renal function. Duration unknown. Serum creatinine normal in 2020. Possible volume depletion. Medications include ACEi, furosemide 2. Hyperkalemia 3. Mild hyponatremia 4. Anemia 5. History of DM, hypertension, dementia Recommend: lal catheter, image kidneys rule-out hydronephrosis, U/A, urine Na/Cr, CK IVF hydration NSS, received D50, insulin, kayexylate, Q4h labs and repeat medical management of hyperkalemia until K < 5.5. Will recommend dialysis if improvement is not seen in AM and imaging does not reveal obstruction Coding Level of Care Code Acute Code for Chg Fwd Diagnoses Hyperkalemia E87.5
[2023-06-21] MEDS: albuterol 2.5 mg/3 mL Neb 5 MG INHALATION (20:48)
[2023-06-21 21:30] LABS: Glucose Point of Care 69 mg/dL (70-110)
[2023-06-21] MEDS: donepezil 5 MG Tablet PO (21:33)
[2023-06-21] MEDS: sodium bicarbonate 8.4% 1 mEq/mL 50mL Syr 100 MEQ IVP (21:33)
[2023-06-21 21:37] LABS: Alanine Aminotransferase 11 U/L (0-33); Albumin Level 3.8 g/dL (3.5-5.2); Alkaline Phosphatase 107 U/L (35-105); Anion Gap 24.5 (5-19); Aspartate Amino Transferase 13 U/L (0-32); Blood Urea Nitrogen 78 mg/dL (8-23); Calcium 9.6 mg/dL (8.5-10.5); Carbon Dioxide 22 mmol/L (22-29); Chloride 95 mmol/L (98-107); Globulin 3.6 g/dL (1.3-4.6); Glucose 65 mg/dL (65-115); Osmolality Calculated 303 mOsm/kg (285-295); Potassium 5.5 mmol/L (3.5-5.1); Sodium 136 mmol/L (136-145); Total Bilirubin 0.2 mg/dL (0.15-1.2); Total Protein 7.4 g/dL (6.6-8.7)
[2023-06-21 22:12] LABS: Potassium, Radom Urine 22 mmol/L; UPRO/UCREAT Ratio 1.41 mg/mg CR; Urine Creatinine 29 mg/dL (28-217); Urine Protein Random 41 mg/dL; Urine Random Chloride 64 mmol/L; Urine Random Sodium 71 mmol/L
[2023-06-21 22:29] LABS: Add Urine Microscopic? YES; Bilirubin Urine Neg (Negative); Blood Urine 3+ (Negative); Glucose Urine UA 1+ (Normal); Ketones Urine 1+ (Negative); Leukocyte Esterase Urine 2+ (Negative); Nitrate Urine Negative (Negative); Protein Urine 1+ (Negative); RBC Urine 25-40 /hpf (0-2); Squamous Epithelial Cell Urine 0-4 /hpf (0-5); Urine Appearance Cloudy (CLEAR); Urine Color Light yellow (Yellow); Urobilinogen Urine Norm (Negative); WBC Urine >100 /hpf (0-5); pH Urine 5 (5-7)
[2023-06-21] MEDS: sodium chloride 0.45% 1,000 ML 60 ML IV (22:29)
[2023-06-21] MEDS: metoprolol tartrate 25 mg Tablet 12.5 MG PO (22:29)
[2023-06-21 22:30] LABS: Bacteria Urine 2+ /hpf; Mucus Urine 4+ /hpf
[2023-06-21] MEDS: dextrose 50% syringe 50 mL 25 ML IVP (23:09)
[2023-06-21] MEDS: insulin regular-human 10 UNIT in SYRINGE 1 EACH IVP (23:10)
[2023-06-21 23:33] LABS: Estmated Average Glucose 146; Hemoglobin A1C 6.7 % (4.0-6.0)
[2023-06-21] MEDS: cefTRIAXone 1,000 MG in sodium chloride 0.9% (plus) 50 ML 100 MG IV (23:44)
[2023-06-21 23:47] LABS: Glucose Point of Care 179 mg/dL (70-110)
[2023-06-22] VITALS (89 sets, daily range): BP systolic 80–141; BP diastolic 46–89; PULSE 87–137; RESP 4–27; TEMP 36.4–36.9; O2SAT 88–100
[2023-06-22 00:38] LABS: Glucose Point of Care 115 mg/dL (70-110)
--- NOTE | 2023-06-22 00:41 | PC.NURSE ---
Admit note Pt arrive from ED via stretcher. A&Ox2. Pt is pleasant with moments of clarity, reciting current events Is it still snowing outside? . Pt head favors left side, denies hst of CVA - no deficits. Documented redness to sacrum. Pt is incontinent of bowel and bladder at baseline and is in a depends. Pt had BM on arrival, depends changed and barrier cream applied. 16 FR lal inserted, thick purulent return initially. Urine has since cleared up since IVF administration. Physician contacted for UA results, abx ordered. Neurologist contacted per request on return of CMP results, several orders received. Pt repositioned on each side but requests to sleep sitting up, educated on turn schedule. Pt is ST 110-120's, bilateral lobes clear, on RA, hyperactive bowel sounds and denies pain at this time.
[2023-06-22 03:58] LABS: Basophils # 0.1 10^3/uL (0.0-0.1); Basophils % 0.8 %; Eosinophils # 0.1 10^3/uL (0.0-0.8); Eosinophils % 0.8 %; Hematocrit 29.5 % (36-47); Lymphocytes # 1.4 10^3/uL (0.8-4.8); Lymphocytes % 16.3 %; Mean Corpuscular HGB Conc 32.5 g/dL (30-55); Mean Corpuscular Hemoglobin 26.1 pg (27-33); Mean Corpuscular Volume 80.2 fl (85-98); Mean Platelet Volume 10.2 fL (7.4-10.4); Monocytes # 0.6 10^3/uL (0.2-0.9); Monocytes % 7.4 %; Neutrophils # 6.13 10^3/uL (1.8-7.7); Neutrophils % 72.5 %; Nucleated Red Blood Cells % 0 %; Platelet Count 433 10^3/cmm (157-399); Red Blood Count 3.68 10^6/uL (3.85-5.65); Red Cell Distribution Width 14.2 % (12.1-15.1); White Blood Count 8.47 10^3/uL (3.29-11.43)
[2023-06-22 04:28] LABS: Magnesium 2.1 mg/dL (1.7-2.3)
[2023-06-22 04:29] LABS: Anion Gap 21.1 (5-19); Blood Urea Nitrogen 74 mg/dL (8-23); Carbon Dioxide 26 mmol/L (22-29); Chloride 98 mmol/L (98-107); Glucose 91 mg/dL (65-115); Osmolality Calculated 311 mOsm/kg (285-295); Potassium 5.1 mmol/L (3.5-5.1); Sodium 140 mmol/L (136-145)
[2023-06-22] MEDS: heparin 5,000 unit/mL INJ 1 mL 5000 UNIT SUBCUT ×2 (05:47→18:01)
--- NOTE | 2023-06-22 06:00 | USR_ITS ---
PROCEDURE INFORMATION: Exam: US Abdomen, Limited; Right Upper Quadrant Exam date and time: 06/22/2023 8:20 AM Age: 78 years old Clinical indication: Abnormal findings; Abnormal radiologic finding of the abdomen; Radiologic exam and body structure: CT; Additional info: [place] TECHNIQUE: Imaging protocol: Real time ultrasound of the abdomen with image documentation. Limited exam focused on the right upper quadrant. COMPARISON: CT abdomen pelvis wo con [id number] 06/21/2023 7:21 PM FINDINGS: Liver: Normal. No masses. Gallbladder: Cholelithiasis with mild gallbladder wall thickening measuring 5 mm. Biliary ducts: No intrahepatic or extrahepatic biliary ductal dilatation. Visualized common duct measures 3 mm in diameter. Pancreas: Obscured by poor acoustic windows with shadowing bowel gas. Right kidney: Measures approximately 9.8 cm in length with partial obscuration of the lower pole. No mass. No hydronephrosis. Portal venous: Appropriately directed flow in the portal vein. US/US gall bladder [id number] IMPRESSION: Cholelithiasis with mild gallbladder wall thickening.
[2023-06-22 08:04] LABS: Glucose Point of Care 86 mg/dL (70-110)
--- NOTE | 2023-06-22 08:57 | PC.PHAR ---
Addendum entered by Keiry Mcintosh 06/22/23 10:11: medications entered are from [facility] maría and tar that was faxed-per radha wright from [place] states the pt is not taking any kind of insulins Original Note: shanna from [facility] [phone] will fax mar and tar
[2023-06-22] MEDS: cefTRIAXone 1,000 MG in sodium chloride 0.9% (plus) 50 ML 100 MG IV (09:25)
[2023-06-22] MEDS: memantine 5 mg tablet 10 MG PO (09:25)
[2023-06-22] MEDS: metoprolol tartrate 25 mg Tablet 12.5 MG PO ×2 (09:25→20:20)
[2023-06-22 11:15] LABS: Glucose Point of Care 121 mg/dL (70-110)
--- NOTE | 2023-06-22 12:41 | P.PN_ITS ---
Subjective 2 Subjective: urine output improved, urine initially milky, now clearer Vitals/I&O/Wt Last Vital Signs Temp 98 F 06/22/23 00:34 Pulse 102 H 06/22/23 10:15 Resp 17 06/22/23 10:15 BP 123/73 06/22/23 09:00 Pulse Ox 88 L 06/22/23 09:00 O2 Del Method Room Air 06/22/23 08:00 06/21/23 06/22/23 06/22/23 22:59 06:59 14:59 Intake Total 50 / 80 240 / 240 Output Total 900 / 900 Balance -850 / -820 240 / 240 Weight last 48 hrs Weight 68.492 kg Weight 69.853 kg Weight 72.575 kg Physical Exam 2 Const: COMMON NORMALS: no acute distress and alert Extremity: NARRATIVE EXTREMITY EXAM: no edema Neuro: SENSORIUM/ORIENTATION: Yes alert Urinary Catheter Management: Esteban: Cath Placed During This Visit: yes Reason for Continuing Indwelling Catheter: Accurate Measurement of Urinary Output in Critically Ill Patients Urinary Catheter Date of Insertion: 06/21/23 Urinary Catheter Time of Insertion: 21:41 Data 06/22/23 03:37 06/22/23 03:37 Other Labs: urine: TNTC WBC, + RBC urine sodium 71 albumin 3.8, Ca 9, phos 6.1, Mg 2.1 CT Abd/Pel: Radiologist's impression: Adrenal glands: Normal. No mass. Kidneys and ureters: Normal. No hydronephrosis. Unremarkable bladder Other data: seen via telemedicnie with assistance of RN at bedside A&P Assessment and plan (1) Acute renal failure: Qualifiers: Acute renal failure type: unspecified Qualified Code(s): N17.9 - Acute kidney failure, unspecified (2) Hyperkalemia: Plan 1. Severely impaired renal function. Duration unknown. Serum creatinine normal in 2020. Possible volume depletion. Medications include ACEi, furosemide 2. Hyperkalemia, resolved 3. Mild hyponatremia, resolved 4. Anemia, check iron studies, B12 5. UTI, receiving rocephin pending C&S 6. History of DM, hypertension, dementia Recommend: continue IVF hydration. check CK, K/L, SPEP. Need recent blood blood to determine duration of renal disease. Attestations 2 Medical Necessity Statement*: see above Time Spent in Patient Care: 16 - 35 minutes Coding Level of Care Code Acute Code for Chg Fwd Diagnoses Acute renal failure, unspecified acute renal failure type N17.9 Acute renal failure type: unspecified Hyperkalemia E87.5
--- NOTE | 2023-06-22 13:48 | PC.NURSE ---
transfer to room 277-1 via bed at this time.report given to kyle tellez.
--- NOTE | 2023-06-22 13:58 | P.PN_ITS ---
Subjective 2 Subjective: Seen today. Labs appear better. Creatinine slightly improved to 5.7. Potassium 5.1. Esteban draining clear yellow urine with some white sediment. Vitals/I&O/Wt Last Vital Signs Temp 98.4 F 06/22/23 12:00 Pulse 105 H 06/22/23 12:50 Resp 21 H 06/22/23 12:50 BP 113/84 06/22/23 12:00 Pulse Ox 88 L 06/22/23 09:00 O2 Del Method Room Air 06/22/23 08:00 06/21/23 06/22/23 06/22/23 22:59 06:59 14:59 Intake Total 50 / 80 480 / 480 Output Total 900 / 900 Balance -850 / -820 480 / 480 Weight last 48 hrs Weight 68.492 kg Weight 69.853 kg Weight 72.575 kg Physical Exam 2 Narrative: Patient is awake and alert Euvolemic Abdomen soft Nonfocal neuroexam Cognitive impairment Short attention span Answer my questions appropriately She knows her date of She does not follow Does not know the name of the president Nonfocal neuroexam Asterixis negative Low extremity venous dermatitis No active edema Currently well on room air Hypertensive Urinary Catheter Management: Esteban: Cath Placed During This Visit: yes Reason for Continuing Indwelling Catheter: Accurate Measurement of Urinary Output in Critically Ill Patients Urinary Catheter Date of Insertion: 06/21/23 Urinary Catheter Time of Insertion: 21:41 Data 06/22/23 03:37 06/22/23 03:37 A&P Assessment and plan (1) Benign essential hypertension with target blood pressure below 140/90: (2) History of pulmonary embolism: (3) Memory problem: (4) Mild dementia: (5) Hyperkalemia: (6) Acute renal failure: Qualifiers: Acute renal failure type: unspecified Qualified Code(s): N17.9 - Acute kidney failure, unspecified Plan Acute renal failure Critical high potassium level Stop nephrotoxic agents BenzePrO Requested CT abdomen pelvis without contrast. No evidence of hydronephrosis. Patient clinical looks euvolemic Hold Lasix Patient has been given hyperkalemia cocktail. Hyperkalemia has resolved. Potassium 5.1 this morning. 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 History of E. coli, check UA 06/22/2023 today's plan ? Transfer to floor. ? Continue to monitor urine output and creatinine. ? Continue to hydrate patient. Half-normal saline 60 cc/h ? Continue ceftriaxone ? Urine culture pending ? Check BMP every 12 hours ? Check iron studies ? Check vitamin B12 level ? Check ferritin ? Check CK. Initial 2900 ? Check kappa lambda light free serum routine. ? Nephrology following. Patient recommendations Previous records reviewed Patient is not a good historian Most information taken with the collateral previous notes, [place] was called to get more information:-Nurse told me that patient normally gets psychotic episodes when she talks a lot otherwise recently they have not noticed any significant event other than lethargy fatigue and she has stopped eating to their liking, patient has stopped taking losartan as well and as per the nursing staff her sugar was staying consistently within normal range which was odd because she used to get hyperglycemic episodes a lot, her p.o. intake has been very poor, her daughter checks on her at the facility Attestations 2 Medical Necessity Statement*: Requires inpatient hospitalization for management of acute kidney injury Diagnoses Benign essential hypertension with target blood pressure below 140/90 I10 History of pulmonary embolism Z86.711 Memory problem R41.3 Mild dementia F03.90 Hyperkalemia E87.5 Acute renal failure, unspecified acute renal failure type N17.9 Acute renal failure type: unspecified
[2023-06-22 14:54] LABS: Creatine Phosphokinase 37 U/L (26-192); Ferritin 222 ng/mL (15-150); Iron 73 ug/dL (37-145); Percent Saturation 35.6 % (20-50); Total Iron Binding Capacity 205 mcg/dl; Unsaturated Iron Binding 132 ug/dL (112-347); Vitamin B12 271 pg/mL (232-1245)
--- NOTE | 2023-06-22 16:03 | PC.CHAP ---
routine declined prayer
[2023-06-22 16:31] LABS: Glucose Point of Care 181 mg/dL (70-110)
[2023-06-22] MEDS: sodium chloride 0.45% 1,000 ML 60 ML IV (16:35)
[2023-06-22 17:41] LABS: Anion Gap 15.5 (5-19); Blood Urea Nitrogen 67 mg/dL (8-23); Calcium 8.9 mg/dL (8.5-10.5); Carbon Dioxide 28 mmol/L (22-29); Chloride 94 mmol/L (98-107); Glucose 172 mg/dL (65-115); Osmolality Calculated 299 mOsm/kg (285-295); Potassium 4.5 mmol/L (3.5-5.1); Sodium 133 mmol/L (136-145)
[2023-06-22] MEDS: insulin lispro 100 unit/1 mL SUBCUT (18:00)
[2023-06-22] MEDS: donepezil 5 MG Tablet PO (20:20)
[2023-06-22 21:02] LABS: Glucose Point of Care 182 mg/dL (70-110)
[2023-06-22] MEDS: insulin glargine 100 units/1 mL 10 UNIT SUBCUT (21:49)
[2023-06-22] MEDS: OLANZapine 10 mg VIAL 2.5 MG IM (23:22)
[2023-06-23] VITALS (9 sets, daily range): BP systolic 101–147; BP diastolic 62–92; PULSE 81–107; RESP 16–20; TEMP 36.4–37.1; O2SAT 96–99
[2023-06-23 04:46] LABS: Anion Gap 20.6 (5-19); Blood Urea Nitrogen 59 mg/dL (8-23); Calcium 8.3 mg/dL (8.5-10.5); Carbon Dioxide 23 mmol/L (22-29); Chloride 97 mmol/L (98-107); Glucose 99 mg/dL (65-115); Osmolality Calculated 301 mOsm/kg (285-295); Potassium 3.6 mmol/L (3.5-5.1); Sodium 137 mmol/L (136-145)
[2023-06-23] MEDS: heparin 5,000 unit/mL INJ 1 mL 5000 UNIT SUBCUT ×2 (05:57→18:00)
[2023-06-23 06:40] LABS: Glucose Point of Care 104 mg/dL (70-110)
[2023-06-23] MEDS: cefTRIAXone 1,000 MG in sodium chloride 0.9% (plus) 50 ML 100 MG IV (08:44)
[2023-06-23] MEDS: memantine 5 mg tablet 10 MG PO (08:52)
[2023-06-23] MEDS: metoprolol tartrate 25 mg Tablet 12.5 MG PO ×2 (08:52→20:28)
--- NOTE | 2023-06-23 09:32 | P.PN_ITS ---
Subjective 2 Subjective: states she is feeling better Vitals/I&O/Wt Last Vital Signs Temp 98.2 F 06/23/23 08:00 Pulse 81 06/23/23 08:19 Resp 16 06/23/23 08:19 BP 147/92 06/23/23 08:00 Pulse Ox 96 06/23/23 08:19 O2 Del Method Room Air 06/23/23 08:19 06/22/23 06/23/23 06/23/23 22:59 06:59 14:59 Intake Total 1120 / 1650 1000.1 / 1000.1 Output Total 1550 / 1550 650 / 2200 Balance -430 / 100 -650 / -550 1000.1 / 1000.1 Weight last 48 hrs Weight 72.631 kg Weight 68.492 kg Weight 69.853 kg Weight 72.575 kg Physical Exam 2 Const: COMMON NORMALS: no acute distress and alert Extremity: NARRATIVE EXTREMITY EXAM: no edema Neuro: SENSORIUM/ORIENTATION: Yes alert Urinary Catheter Management: Esteban: Cath Placed During This Visit: yes Reason for Continuing Indwelling Catheter: Acute Urinary Retention or Obstruction Urinary Catheter Date of Insertion: 06/21/23 Urinary Catheter Time of Insertion: 21:41 Data 06/22/23 03:37 06/23/23 03:27 Other Labs: TSAT 35.6%, SF 222, B12 271 CK 37 Micro: Microbiology 06/21/23 21:25 Urine Culture - Preliminary Urine Catheterized Gram Negative Rods Other data: seen via telemedicine with assistance of RN at bedside A&P Assessment and plan (1) Acute renal failure: Qualifiers: Acute renal failure type: unspecified Qualified Code(s): N17.9 - Acute kidney failure, unspecified Plan 1. Severely impaired renal function, duration unknown, slowly improving. Serum creatinine normal in 2020. Possible volume depletion. Medications included ACEi, furosemide 2. Hyperkalemia, resolved 3. Mild hyponatremia, resolved 4. Anemia, iron studies replete, B12 low normal 5. UTI, GNR, receiving rocephin pending C&S 6. History of DM, hypertension, dementia Recommend: continue IVF hydration. K/L, SPEP pending. Need recent lab results to determine duration of renal disease. Attestations 2 Medical Necessity Statement*: see above Time Spent in Patient Care: 16 - 35 minutes Coding Level of Care Code Acute Code for Chg Fwd Diagnoses Acute renal failure, unspecified acute renal failure type N17.9 Acute renal failure type: unspecified
[2023-06-23] MEDS: sodium chloride 0.45% 1,000 ML 60 ML IV (10:20)
[2023-06-23 11:31] LABS: Glucose Point of Care 139 mg/dL (70-110)
--- NOTE | 2023-06-23 15:24 | P.PN_ITS ---
Subjective 2 Subjective: Seen today. Renal function slowly improving. She says she feels well and also feels hungry. She says that she had stopped taking care of herself but now feels a lot better and feels like getting restarted back on her health. She says the food better be appetizing today afternoon as she is looking forward to it. Vitals/I&O/Wt Last Vital Signs Temp 97.7 F 06/23/23 10:23 Pulse 99 06/23/23 10:23 Resp 16 06/23/23 10:23 BP 101/62 06/23/23 10:23 Pulse Ox 98 06/23/23 10:23 O2 Del Method Room Air 06/23/23 10:23 06/23/23 06/23/23 06/23/23 06:59 14:59 22:59 Intake Total 2530.1 / 2530.1 Output Total 650 / 2200 700 / 700 Balance -650 / -550 1830.1 / 1830.1 Weight last 48 hrs Weight 72.631 kg Weight 68.492 kg Weight 69.853 kg Weight 72.575 kg Physical Exam 2 Narrative: Patient is awake and alert and oriented x 3 Abdomen soft nontender Esteban draining clear yellow urine. Mental status a lot better compared to admission. Bilateral lower extremities venous stasis dermatitis On room air Clear to auscultation bilaterally no wheezes no rhonchi. Urinary Catheter Management: Esteban: Cath Placed During This Visit: yes Reason for Continuing Indwelling Catheter: Acute Urinary Retention or Obstruction Urinary Catheter Date of Insertion: 06/21/23 Urinary Catheter Time of Insertion: 21:41 Data 06/22/23 03:37 06/23/23 03:27 Micro: Microbiology 06/21/23 21:25 Urine Culture - Preliminary Urine Catheterized Gram Negative Rods A&P Assessment and plan (1) Benign essential hypertension with target blood pressure below 140/90: (2) History of pulmonary embolism: (3) Memory problem: (4) Mild dementia: (5) Hyperkalemia: (6) Acute renal failure: Qualifiers: Acute renal failure type: unspecified Qualified Code(s): N17.9 - Acute kidney failure, unspecified Plan Acute renal failure Critical high potassium level Stop nephrotoxic agents BenzePrO Requested CT abdomen pelvis without contrast. No evidence of hydronephrosis. Patient clinical looks euvolemic Hold Lasix Patient has been given hyperkalemia cocktail. Hyperkalemia has resolved. Potassium 5.1 this morning. 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 History of E. coli, check UA 06/23/2023 today's plan ? Continue to monitor urine output and creatinine. ? Continue to hydrate patient. Half-normal saline 60 cc/h ? Continue ceftriaxone ? Urine culture pending. Showing gram-negative rods. ? Check BMP every 12 hours ? Check iron studies. Iron 73, TIBC 205, percent saturation 35.6, ferritin 222. Consistent with anemia of chronic disease ? Check vitamin B12 level?271. Will start repleting B12. ? Check ferritin?222 ? Check CK. Initial 2900. Now 37 ? Check kappa lambda light free serum routine. ? Nephrology following. Patient recommendations ? Gallbladder ultrasound shows cholelithiasis with mild gallbladder wall thickening Previous records reviewed Patient is not a good historian Most information taken with the collateral previous notes, [place] was called to get more information:-Nurse told me that patient normally gets psychotic episodes when she talks a lot otherwise recently they have not noticed any significant event other than lethargy fatigue and she has stopped eating to their liking, patient has stopped taking losartan as well and as per the nursing staff her sugar was staying consistently within normal range which was odd because she used to get hyperglycemic episodes a lot, her p.o. intake has been very poor, her daughter checks on her at the facility Attestations 2 Medical Necessity Statement*: Requires inpatient hospitalization for management of acute kidney injury Diagnoses Benign essential hypertension with target blood pressure below 140/90 I10 History of pulmonary embolism Z86.711 Memory problem R41.3 Mild dementia F03.90 Hyperkalemia E87.5 Acute renal failure, unspecified acute renal failure type N17.9 Acute renal failure type: unspecified
[2023-06-23 15:58] LABS: Glucose Point of Care 205 mg/dL (70-110)
[2023-06-23 17:07] LABS: Glucose Point of Care 186 mg/dL (70-110)
[2023-06-23] MEDS: insulin lispro 100 unit/1 mL SUBCUT (18:00)
[2023-06-23 20:26] LABS: Glucose Point of Care 186 mg/dL (70-110)
[2023-06-23] MEDS: donepezil 5 MG Tablet PO (20:28)
[2023-06-23] MEDS: insulin glargine 100 units/1 mL 10 UNIT SUBCUT (20:29)
[2023-06-24] VITALS (9 sets, daily range): BP systolic 113–146; BP diastolic 66–84; PULSE 84–112; RESP 16–19; TEMP 36.5–37; O2SAT 96–100
[2023-06-24] MEDS: sodium chloride 0.45% 1,000 ML 60 ML IV ×2 (03:01→21:18)
[2023-06-24 03:32] LABS: Basophils # 0.1 10^3/uL (0.0-0.1); Basophils % 1.1 %; Eosinophils # 0.2 10^3/uL (0.0-0.8); Eosinophils % 2.6 %; Hematocrit 31.7 % (36-47); Lymphocytes # 2.2 10^3/uL (0.8-4.8); Lymphocytes % 23.1 %; Mean Corpuscular HGB Conc 32.8 g/dL (30-55); Mean Corpuscular Hemoglobin 26.5 pg (27-33); Mean Corpuscular Volume 80.7 fl (85-98); Mean Platelet Volume 11.7 fL (7.4-10.4); Monocytes # 0.7 10^3/uL (0.2-0.9); Monocytes % 7.2 %; Neutrophils # 6.07 10^3/uL (1.8-7.7); Neutrophils % 64.4 %; Nucleated Red Blood Cells % 0 %; Platelet Count 145 10^3/cmm (157-399); Red Blood Count 3.93 10^6/uL (3.85-5.65); Red Cell Distribution Width 13.9 % (12.1-15.1); White Blood Count 9.41 10^3/uL (3.29-11.43)
[2023-06-24 03:52] LABS: Blood Urea Nitrogen 47 mg/dL (8-23); Calcium 8.7 mg/dL (8.5-10.5); Carbon Dioxide 21 mmol/L (22-29); Chloride 96 mmol/L (98-107); Glucose 88 mg/dL (65-115); Magnesium 1.7 mg/dL (1.7-2.3); Osmolality Calculated 292 mOsm/kg (285-295); Sodium 135 mmol/L (136-145)
[2023-06-24 03:53] LABS: Anion Gap 22.3 (5-19); Potassium 4.3 mmol/L (3.5-5.1)
[2023-06-24] MEDS: heparin 5,000 unit/mL INJ 1 mL 5000 UNIT SUBCUT ×2 (06:00→17:13)
[2023-06-24 07:17] LABS: Glucose Point of Care 85 mg/dL (70-110)
[2023-06-24] MEDS: metoprolol tartrate 25 mg Tablet 12.5 MG PO ×2 (07:52→21:05)
[2023-06-24] MEDS: memantine 5 mg tablet 10 MG PO (07:53)
[2023-06-24] MEDS: cefTRIAXone 1,000 MG in sodium chloride 0.9% (plus) 50 ML 100 MG IV (07:53)
--- NOTE | 2023-06-24 11:09 | P.PN_ITS ---
Subjective 2 Subjective: no new complaints Medications: Reviewed: Yes Vitals/I&O/Wt Last Vital Signs Temp 97.9 F 06/24/23 07:22 Pulse 103 H 06/24/23 08:00 Resp 18 06/24/23 08:00 BP 133/84 06/24/23 07:22 Pulse Ox 96 06/24/23 08:00 O2 Del Method Room Air 06/24/23 08:00 06/23/23 06/24/23 06/24/23 22:59 06:59 14:59 Intake Total 480 / 3010.1 1600 / 4610.1 530 / 530 Output Total 1200 / 1900 1000 / 2900 Balance -720 / 1110.1 600 / 1710.1 530 / 530 Weight last 48 hrs Weight 72.631 kg Weight 72.631 kg Physical Exam 2 Const: COMMON NORMALS: no acute distress and alert Extremity: NARRATIVE EXTREMITY EXAM: no edema Neuro: SENSORIUM/ORIENTATION: Yes alert Urinary Catheter Management: Esteban: Cath Placed During This Visit: yes Reason for Continuing Indwelling Catheter: Acute Urinary Retention or Obstruction Urinary Catheter Date of Insertion: 06/21/23 Urinary Catheter Time of Insertion: 21:41 Data 06/24/23 02:50 06/24/23 02:50 Micro: Microbiology 06/21/23 21:25 Urine Culture - Preliminary Urine Catheterized Gram Negative Rods A&P Assessment and plan (1) Acute renal failure: Qualifiers: Acute renal failure type: unspecified Qualified Code(s): N17.9 - Acute kidney failure, unspecified Plan 1. Severely impaired renal function, duration unknown, slowly improving. Serum creatinine normal in 2020. Possible volume depletion. Medications included ACEi, furosemide 2. Hyperkalemia, resolved 3. Mild hyponatremia, resolved 4. Anemia, iron studies replete, B12 low normal 5. UTI, GNR, receiving rocephin pending C&S 6. History of DM, hypertension, dementia Recommend:Cr improving , continue IVF hydration. K/L, SPEP pending. Need recent lab results to determine duration of renal disease. Attestations 2 Medical Necessity Statement*: per medicne Coding Level of Care Code Acute Code for Chg Fwd Diagnoses Acute renal failure, unspecified acute renal failure type N17.9 Acute renal failure type: unspecified
[2023-06-24 11:52] LABS: Glucose Point of Care 73 mg/dL (70-110)
[2023-06-24 14:40] LABS: KAPPA LIGHT CHAIN, FREE, SERUM 113.1 mg/L (3.3-19.4); KAPPA/LAMBDA LIGHT CHAINS FREE 1.94 (0.26-1.65); LAMBDA LIGHT CHAIN, FREE, SERU 58.2 mg/L (5.7-26.3)
--- NOTE | 2023-06-24 15:23 | PM.PN ---
Subjective Subjective: seen today no acute events overnight Vitals/I&O/Wt Last Vital Signs Temp 97.7 F 06/24/23 12:00 Pulse 84 06/24/23 12:00 Resp 16 06/24/23 12:00 BP 144/84 06/24/23 12:00 Pulse Ox 100 06/24/23 12:00 O2 Del Method Room Air 06/24/23 12:00 06/24/23 06/24/23 06/24/23 06:59 14:59 22:59 Intake Total 1600 / 4610.1 770 / 770 Output Total 1000 / 2900 1000 / 1000 Balance 600 / 1710.1 -230 / -230 Weight last 48 hrs Weight 72.631 kg Weight 72.631 kg Physical Exam Narrative: Patient is awake and alert and oriented x 3 Abdomen soft nontender Esteban draining clear yellow urine. Mental status a lot better compared to admission. Bilateral lower extremities venous stasis dermatitis On room air Clear to auscultation bilaterally no wheezes no rhonchi. Urinary Catheter Management: Esteban: Cath Placed During This Visit: yes Reason for Continuing Indwelling Catheter: Acute Urinary Retention or Obstruction Urinary Catheter Date of Insertion: 06/21/23 Urinary Catheter Time of Insertion: 21:41 Data 06/24/23 02:50 06/24/23 02:50 Micro: Microbiology 06/21/23 21:25 Urine Culture - Final Urine Catheterized Klebsiella pneumonia esbl A&P Assessment and plan (1) Benign essential hypertension with target blood pressure below 140/90: (2) History of pulmonary embolism: (3) Memory problem: (4) Mild dementia: (5) Hyperkalemia: (6) Acute renal failure: Qualifiers: Acute renal failure type: unspecified Qualified Code(s): N17.9 - Acute kidney failure, unspecified Plan Acute renal failure Critical high potassium level Stop nephrotoxic agents BenzePrO Requested CT abdomen pelvis without contrast. No evidence of hydronephrosis. Patient clinical looks euvolemic Hold Lasix Patient has been given hyperkalemia cocktail. Hyperkalemia has resolved. Potassium 5.1 this morning. 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 History of E. coli, check UA 06/24/2023 today's plan ? Continue to monitor urine output and creatinine. ? Continue to hydrate patient. Half-normal saline 60 cc/h ? Continue ceftriaxone ? Urine culture pending. Showing klebsiella pna esbl sensitive to zosyn. Will stop ceftriaxone and switch to Zosyn. Will renally dose. Patient will need total 14 days. At discharge we may switch her to ertapenem. July 08 last day of antibiotic. ? Check BMP every 12 hours ? Check iron studies. Iron 73, TIBC 205, percent saturation 35.6, ferritin 222. Consistent with anemia of chronic disease ? Check vitamin B12 level?271. Will start repleting B12. ? Check ferritin?222 ? Check CK. Initial 2900. Now 37 ? Check kappa lambda light free serum routine. ? Nephrology following. Patient recommendations ? Gallbladder ultrasound shows cholelithiasis with mild gallbladder wall thickening Previous records reviewed Patient is not a good historian Most information taken with the collateral previous notes, [facility] was called to get more information:-Nurse told me that patient normally gets psychotic episodes when she talks a lot otherwise recently they have not noticed any significant event other than lethargy fatigue and she has stopped eating to their liking, patient has stopped taking losartan as well and as per the nursing staff her sugar was staying consistently within normal range which was odd because she used to get hyperglycemic episodes a lot, her p.o. intake has been very poor, her daughter checks on her at the facility Attestations Medical Necessity Statement*: Requires inpatient hospitalization for acute kidney injury and ESBL UTI. Diagnoses Benign essential hypertension with target blood pressure below 140/90 I10 History of pulmonary embolism Z86.711 Memory problem R41.3 Mild dementia F03.90 Hyperkalemia E87.5 Acute renal failure, unspecified acute renal failure type N17.9 Acute renal failure type: unspecified
[2023-06-24 15:49] LABS: PROTEIN, TOTAL 6.5 g/dL (6.1-8.1)
[2023-06-24 17:10] LABS: Glucose Point of Care 120 mg/dL (70-110)
[2023-06-24] MEDS: piperacillin-tazobactam 3.375 GM in sodium chloride 0.9% (plus) 50 ML IV (17:14)
[2023-06-24 20:20] LABS: Glucose Point of Care 245 mg/dL (70-110)
[2023-06-24] MEDS: insulin glargine 100 units/1 mL 10 UNIT SUBCUT (21:06)
[2023-06-24] MEDS: donepezil 5 MG Tablet PO (21:06)
[2023-06-25] VITALS (11 sets, daily range): BP systolic 109–156; BP diastolic 64–88; PULSE 63–106; RESP 16–20; TEMP 36.3–37; O2SAT 94–99
[2023-06-25] MEDS: piperacillin-tazobactam 3.375 GM in sodium chloride 0.9% (plus) 50 ML IV ×2 (03:07→18:11)
[2023-06-25 06:29] LABS: Glucose Point of Care 100 mg/dL (70-110)
[2023-06-25] MEDS: heparin 5,000 unit/mL INJ 1 mL 5000 UNIT SUBCUT ×2 (06:37→18:10)
--- NOTE | 2023-06-25 06:53 | P.PN_ITS ---
Subjective 2 Subjective: no new complaints Medications: Reviewed: Yes Vitals/I&O/Wt Last Vital Signs Temp 98.2 F 06/25/23 04:53 Pulse 98 06/25/23 04:53 Resp 17 06/25/23 04:53 BP 120/76 06/25/23 04:53 Pulse Ox 98 06/25/23 04:53 O2 Del Method Room Air 06/24/23 18:13 06/24/23 06/24/23 06/25/23 14:59 22:59 06:59 Intake Total 770 / 770 1530 / 2300 500 / 2800 Output Total 1000 / 1000 2000 / 3000 Balance -230 / -230 1530 / 1300 -1500 / -200 Weight last 48 hrs Weight 72.631 kg Weight 72.631 kg Physical Exam 2 Const: COMMON NORMALS: no acute distress and alert Extremity: NARRATIVE EXTREMITY EXAM: no edema Neuro: SENSORIUM/ORIENTATION: Yes alert Urinary Catheter Management: Esteban: Cath Placed During This Visit: yes Reason for Continuing Indwelling Catheter: Acute Urinary Retention or Obstruction Urinary Catheter Date of Insertion: 06/21/23 Urinary Catheter Time of Insertion: 21:41 Data 06/25/23 06:38 06/25/23 06:38 Micro: Microbiology 06/21/23 21:25 Urine Culture - Final Urine Catheterized Klebsiella pneumonia esbl A&P Assessment and plan (1) Acute renal failure: Qualifiers: Acute renal failure type: unspecified Qualified Code(s): N17.9 - Acute kidney failure, unspecified Plan 1. Severely impaired renal function, duration unknown, slowly improving. Serum creatinine normal in 2020. Possible volume depletion. Medications included ACEi, furosemide 2. Hyperkalemia, resolved 3. Mild hyponatremia, resolved 4. Anemia, iron studies replete, B12 low normal 5. UTI, GNR, receiving rocephin pending C&S 6. History of DM, hypertension, dementia Recommend:Cr improving , replace k ( ordered Kcl IV) , continue IVF hydration. K/L, SPEP pending. Need recent lab results to determine duration of renal disease. Attestations 2 Medical Necessity Statement*: PER [facility] Coding Level of Care Code Acute Code for Chg Fwd Diagnoses Acute renal failure, unspecified acute renal failure type N17.9 Acute renal failure type: unspecified
[2023-06-25 07:03] LABS: Basophils # 0.1 10^3/uL (0.0-0.1); Basophils % 1.3 %; Eosinophils # 0.2 10^3/uL (0.0-0.8); Eosinophils % 3.4 %; Hematocrit 28.2 % (36-47); Lymphocytes # 1.5 10^3/uL (0.8-4.8); Lymphocytes % 23.8 %; Mean Corpuscular HGB Conc 31.9 g/dL (30-55); Mean Corpuscular Volume 81.5 fl (85-98); Mean Platelet Volume 10.5 fL (7.4-10.4); Monocytes # 0.5 10^3/uL (0.2-0.9); Monocytes % 8.7 %; Neutrophils # 3.74 10^3/uL (1.8-7.7); Neutrophils % 61.3 %; Nucleated Red Blood Cells % 0 %; Platelet Count 404 10^3/cmm (157-399); Red Blood Count 3.46 10^6/uL (3.85-5.65); Red Cell Distribution Width 13.8 % (12.1-15.1)
[2023-06-25 07:17] LABS: Anion Gap 15.9 (5-19); Blood Urea Nitrogen 33 mg/dL (8-23); Calcium 8.4 mg/dL (8.5-10.5); Carbon Dioxide 25 mmol/L (22-29); Chloride 103 mmol/L (98-107); Glucose 86 mg/dL (65-115); Magnesium 1.6 mg/dL (1.7-2.3); Osmolality Calculated 299 mOsm/kg (285-295); Sodium 141 mmol/L (136-145)
[2023-06-25 08:04] LABS: Potassium 2.9 mmol/L (3.5-5.1)
--- NOTE | 2023-06-25 09:13 | XR_ITS ---
WS: [id number] XR chest 1V portable [id number] REASON FOR EXAM: PICC PLACEMENT FINDINGS: Right arm PICC line with the tip positioned in the distal superior vena cava in proper position for u se. No acute lung abnormality identified. IMPRESSION: Right arm PICC line placed in proper position for use. PICC line position was confirmed with tissue technologist over the phone at 1047 hours.
[2023-06-25 10:40] LABS: ALBUMIN 3.4 g/dL (3.8-4.8); ALPHA 1 GLOBULIN 0.4 g/dL (0.2-0.3); ALPHA 2 GLOBULIN 1.1 g/dL (0.5-0.9); BETA 1 GLOBULIN 0.4 g/dL (0.4-0.6); BETA 2 GLOBULIN 0.4 g/dL (0.2-0.5); GAMMA GLOBULIN 0.9 g/dL (0.8-1.7)
[2023-06-25] MEDS: memantine 5 mg tablet 10 MG PO (11:23)
[2023-06-25] MEDS: metoprolol tartrate 25 mg Tablet 12.5 MG PO (11:23)
[2023-06-25] MEDS: potassium chloride premix 100 ML 25 MEQ IV ×2 (11:23→15:14)
--- NOTE | 2023-06-25 11:29 | PC.NURSE ---
0945- Spoke with daughter, Marcella on the phone and she verbalized understanding and consent for PICC line insertion of the patient. The patient was very cooperative and pleasant for the procedure that took a little over an hour.
[2023-06-25 11:37] LABS: Glucose Point of Care 92 mg/dL (70-110)
--- NOTE | 2023-06-25 12:43 | P.PN_ITS ---
Subjective 2 Subjective: Creatinine improving Requested PICC line for ESBL UTI Patient will need a ertapenem 1 g for 14 days Creatinine improving as per nephro Multiple myeloma workup is pending Potassium is 2.9 Patient is pleasantly confused Magnesium 1.6 Vitals/I&O/Wt Last Vital Signs Temp 97.7 F 06/25/23 11:39 Pulse 95 06/25/23 11:39 Resp 18 06/25/23 11:39 BP 156/88 06/25/23 11:39 Pulse Ox 98 06/25/23 11:39 O2 Del Method Room Air 06/25/23 11:39 06/24/23 06/25/23 06/25/23 22:59 06:59 14:59 Intake Total 1530 / 2300 500 / 2800 50 / 50 Output Total 2000 / 3000 Balance 1530 / 1300 -1500 / -200 50 / 50 Weight last 48 hrs Weight 72.631 kg Weight 72.631 kg Physical Exam 2 Narrative: Right arm PICC line Pleasant and confused Oriented to herself Full code No new focal deficit GCS 15 Able to answer questions Euvolemic S1, S2 Currently on room air Urinary Catheter Management: Esteban: Cath Placed During This Visit: yes Reason for Continuing Indwelling Catheter: Acute Urinary Retention or Obstruction Urinary Catheter Date of Insertion: 06/21/23 Urinary Catheter Time of Insertion: 21:41 Data 06/25/23 06:38 06/25/23 06:38 Micro: Microbiology 06/21/23 21:25 Urine Culture - Final Urine Catheterized Klebsiella pneumonia esbl A&P Assessment and plan (1) Hyperlipidemia: Qualifiers: Hyperlipidemia type: mixed hyperlipidemia Qualified Code(s): E78.2 - Mixed hyperlipidemia (2) History of pulmonary embolism: (3) Acute renal failure: Qualifiers: Acute renal failure type: unspecified Qualified Code(s): N17.9 - Acute kidney failure, unspecified (4) Hyperkalemia: (5) Memory problem: (6) Mild dementia: (7) UTI (urinary tract infection): Plan JOSEPH: Creatinine improving Appreciate nephro recommendations PICC line placed for 2 weeks of IV antibiotics for ESBL UTI Metabolic encephalopathy improved Patient at baseline has cognitive impairment for dementia Full code Continue nondialysis renal diet Continue insulin with sliding scale Full code PICC line placed 06/25 Attestations 2 Medical Necessity Statement*: Continue medical management Diagnoses Mixed hyperlipidemia E78.2 Hyperlipidemia type: mixed hyperlipidemia History of pulmonary embolism Z86.711 Acute renal failure, unspecified acute renal failure type N17.9 Acute renal failure type: unspecified Hyperkalemia E87.5 Memory problem R41.3 Mild dementia F03.90 UTI (urinary tract infection) N39.0
[2023-06-25] MEDS: sodium chloride 0.45% 1,000 ML 60 ML IV (15:13)
[2023-06-25 16:39] LABS: Glucose Point of Care 223 mg/dL (70-110)
[2023-06-25] MEDS: insulin lispro 100 unit/1 mL SUBCUT (18:10)
[2023-06-25 20:43] LABS: Glucose Point of Care 166 mg/dL (70-110)
--- NOTE | 2023-06-25 20:49 | ECG_ITS ---
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 Measurements Intervals [place] Rate: 105 P: 47 WI: 146 QRS: 68 QRSD: 108 T: 33 QT: 339 QTc: 448 Interpretive Statements SINUS TACHYCARDIA NONSPECIFIC T-WAVE ABNORMALITY ABNORMAL RHYTHM ECG Compared to ECG 06/21/2023 17:04:56 Intraventricular conduction delay no longer present Possible ischemia no longer present T-wave abnormality still present Electronically Signed On 06-25-2023 21:43:53 REGULATORY LAW SPECIALIST by Desmond Ramirez M.D. [id number]
[2023-06-25] MEDS: insulin glargine 100 units/1 mL 10 UNIT SUBCUT (22:04)
[2023-06-25] MEDS: donepezil 5 MG Tablet PO (22:04)
[2023-06-26] VITALS (8 sets, daily range): BP systolic 119–134; BP diastolic 72–81; PULSE 79–100; RESP 15–18; TEMP 36.6–37.2; O2SAT 95–98
[2023-06-26] MEDS: metoprolol tartrate 25 mg Tablet PO ×2 (00:48→08:23)
[2023-06-26] MEDS: piperacillin-tazobactam 3.375 GM in sodium chloride 0.9% (plus) 50 ML IV (04:46)
[2023-06-26] MEDS: sodium chloride 0.45% 1,000 ML 60 ML IV (04:46)
[2023-06-26] MEDS: heparin 5,000 unit/mL INJ 1 mL 5000 UNIT SUBCUT (06:13)
[2023-06-26 06:47] LABS: Glucose Point of Care 105 mg/dL (70-110)
[2023-06-26 06:48] LABS: Basophils # 0.1 10^3/uL (0.0-0.1); Basophils % 1.2 %; Eosinophils # 0.2 10^3/uL (0.0-0.8); Eosinophils % 3.1 %; Hematocrit 25.7 % (36-47); Lymphocytes % 27.4 %; Mean Corpuscular HGB Conc 31.1 g/dL (30-55); Mean Corpuscular Hemoglobin 26.7 pg (27-33); Mean Corpuscular Volume 85.7 fl (85-98); Mean Platelet Volume 10.7 fL (7.4-10.4); Monocytes # 0.6 10^3/uL (0.2-0.9); Neutrophils % 58.8 %; Nucleated Red Blood Cells % 0 %; Platelet Count 336 10^3/cmm (157-399); Red Cell Distribution Width 14.1 % (12.1-15.1); White Blood Count 7.33 10^3/uL (3.29-11.43)
[2023-06-26 07:10] LABS: Anion Gap 12.1 (5-19); Blood Urea Nitrogen 30 mg/dL (8-23); Calcium 8.6 mg/dL (8.5-10.5); Carbon Dioxide 26 mmol/L (22-29); Chloride 106 mmol/L (98-107); Glucose 106 mg/dL (65-115); Osmolality Calculated 297 mOsm/kg (285-295); Potassium 4.1 mmol/L (3.5-5.1); Sodium 140 mmol/L (136-145)
[2023-06-26] MEDS: memantine 5 mg tablet 10 MG PO (08:23)
--- NOTE | 2023-06-26 10:51 | P.PN_ITS ---
Subjective 2 Subjective: doing well Medications: Reviewed: Yes Vitals/I&O/Wt Last Vital Signs Temp 98.8 F 06/26/23 07:58 Pulse 88 06/26/23 08:00 Resp 18 06/26/23 08:00 BP 130/78 06/26/23 07:58 Pulse Ox 96 06/26/23 08:00 O2 Del Method Room Air 06/26/23 08:00 06/25/23 06/26/23 06/26/23 22:59 06:59 14:59 Intake Total 576.25 / 2106.25 863 / 2969.25 210 / 210 Output Total 1000 / 1700 1400 / 3100 Balance -423.75 / 406.25 -537 / -130.75 210 / 210 Weight last 48 hrs Weight 75.75 kg Weight 72.631 kg Physical Exam 2 Const: COMMON NORMALS: no acute distress and alert Extremity: NARRATIVE EXTREMITY EXAM: no edema Neuro: SENSORIUM/ORIENTATION: Yes alert Urinary Catheter Management: Esteban: Cath Placed During This Visit: yes Reason for Continuing Indwelling Catheter: Chronic Indwelling Urinary Catheter on Admission Urinary Catheter Date of Insertion: 06/21/23 Urinary Catheter Time of Insertion: 21:41 Data 06/26/23 06:17 06/26/23 06:17 A&P Assessment and plan (1) Acute renal failure: Qualifiers: Acute renal failure type: unspecified Qualified Code(s): N17.9 - Acute kidney failure, unspecified Plan 1. Severely impaired renal function, duration unknown, slowly improving. Serum creatinine normal in 2020. Possible volume depletion. Medications included ACEi, furosemide 2. Hyperkalemia, resolved 3. Mild hyponatremia, resolved 4. Anemia, iron studies replete, B12 low normal 5. UTI, GNR, receiving rocephin pending C&S 6. History of DM, hypertension, dementia Recommend:Cr improving, can dc with close pcp follow up Attestations 2 Medical Necessity Statement*: per medicine Coding Level of Care Code Acute Code for Chg Fwd Diagnoses Acute renal failure, unspecified acute renal failure type N17.9 Acute renal failure type: unspecified
[2023-06-26 11:20] LABS: SARS Covid-2 Antigen negative (Negative)
[2023-06-26 11:53] LABS: Glucose Point of Care 187 mg/dL (70-110)
[2023-06-26] MEDS: insulin lispro 100 unit/1 mL SUBCUT (11:56)
--- NOTE | 2023-06-26 12:24 | P.DS_ITS ---
Discharge Providers Date of Admission: 06/21/23 20:03 Date of Discharge: June 26, 2023 Attending Provider at Admission: Diana Almanza MD Attending Provider at Discharge: Clotilde Hutton MD Primary Care Provider: Dao Alba DO Diagnoses at Discharge Discharge Diagnosis (1) Acute renal failure: Status: Acute Qualifiers: Acute renal failure type: unspecified Qualified Code(s): N17.9 - Acute kidney failure, unspecified Reason for Visit Reason for Visit: Abnormal Labs Hospital Course Hospital Course 78-year-old female who came from the [facility] after sustaining a fall, patient was confused with altered mental status, she was diagnosed with UTI and acute renal failure, she was on BenzePril, nephro was consulted, her creatinine improved with IV fluid hydration, kappa lambda chain results are still pending, creatinine is 2.7 at the time of discharge it peaked at 6.1, patient never required dialysis, patient confusion improved as well, patient will need outpatient nephro consultation, she was diagnosed with Klebsiella ESBL UTI for which she will require ertapenem 1 g for 2 weeks at the time of discharge, right arm PICC line placed 06/25. Blood cultures negative She will return to her facility, Esteban catheter will be removed it was placed for accurate urine output measurement Patient is full code Physical Exam Narrative: Awake and alert Pleasant GCS 15 Esteban catheter removed Euvolemic Abdomen soft S1, S2 Currently on room air Urinary Catheter Management: Esteban: Cath Placed During This Visit: yes Reason for Continuing Indwelling Catheter: Chronic Indwelling Urinary Catheter on Admission Urinary Catheter Date of Insertion: 06/21/23 Urinary Catheter Time of Insertion: 21:41 Discharge Data Studies Completed and Pending Completed Studies During Hospitalization Category Date Time Status CT abdomen pelvis wo con [id number] Stat Cat Scan 06/21/23 18:46 Completed CXRP [XR chest 1V portable [id number]] Routine Exams 06/25/23 09:13 Completed XR chest 1V portable [id number] Stat Exams 06/21/23 17:41 Completed US gall bladder [id number] Routine Ultrasound 06/22/23 06:00 Completed Radiology Impressions Abdomen/Pelvis CT 06/21/23 18:46 IMPRESSION: 1. Tiny gallstones versus milk of calcium versus radiopaque debris in the dependent portion of the gallbladder. 2. Severe calcified coronary artery disease. Gallbladder Ultrasound 06/22/23 06:00 IMPRESSION: Cholelithiasis with mild gallbladder wall thickening. Laboratory Results WBC 7.33 10^3/uL (3.29-11.43) 06/26/23 06:17 RBC 3.00 10^6/uL (3.85-5.65) L 06/26/23 06:17 Hgb 8.00 g/dL (11.27-16.99) L 06/26/23 06:17 Hct 25.7 % (36-47) L 06/26/23 06:17 MCV 85.7 fl (85-98) D 06/26/23 06:17 MCH 26.7 pg (27-33) L 06/26/23 06:17 MCHC 31.1 g/dL (30-55) 06/26/23 06:17 RDW 14.1 % (12.1-15.1) 06/26/23 06:17 Plt Count 336 10^3/cmm (157-399) 06/26/23 06:17 MPV 10.7 fL (7.4-10.4) H 06/26/23 06:17 Neut % (Auto) 58.8 % 06/26/23 06:17 Lymph % (Auto) 27.4 % 06/26/23 06:17 [place] % (Auto) 8.0 % 06/26/23 06:17 Eos % (Auto) 3.1 % 06/26/23 06:17 Baso % (Auto) 1.2 % 06/26/23 06:17 Neut # (Auto) 4.30 10^3/uL (1.8-7.7) 06/26/23 06:17 Lymph # (Auto) 2.0 10^3/uL (0.8-4.8) 06/26/23 06:17 [place] # (Auto) 0.6 10^3/uL (0.2-0.9) 06/26/23 06:17 Eos # (Auto) 0.2 10^3/uL (0.0-0.8) 06/26/23 06:17 Baso # (Auto) 0.1 10^3/uL (0.0-0.1) 06/26/23 06:17 Nucleated RBC % (auto) 0 % 06/26/23 06:17 Nucleated RBCs # 0.0 /100WBC 06/26/23 06:17 Sodium 140 mmol/L (136-145) 06/26/23 06:17 Potassium 4.1 mmol/L (3.5-5.1) 06/26/23 06:17 Chloride 106 mmol/L (98-107) 06/26/23 06:17 Carbon Dioxide 26 mmol/L (22-29) 06/26/23 06:17 Anion Gap 12.1 (5-19) 06/26/23 06:17 BUN 30 mg/dL (8-23) H 06/26/23 06:17 Creatinine 2.7 mg/dL (0.5-0.9) H 06/26/23 06:17 GFR Calculation Not Reportable 06/26/23 06:17 Glucose 106 mg/dL (65-115) 06/26/23 06:17 POC Glucose 187 mg/dL (70-110) H 06/26/23 11:50 Estimat Average Glucose 146 06/21/23 21:11 Hemoglobin A1c 6.7 % (4.0-6.0) H 06/21/23 21:11 Calculated Osmolality 297 mOsm/kg (285-295) H 06/26/23 06:17 Calcium 8.6 mg/dL (8.5-10.5) 06/26/23 06:17 Phosphorus 6.1 mg/dL (2.5-4.5) H 06/21/23 17:20 Magnesium 1.6 mg/dL (1.7-2.3) L 06/25/23 06:38 Iron 73 ug/dL (37-145) 06/22/23 03:54 TIBC 205 mcg/dl 06/22/23 03:54 % Saturation 35.6 % (20-50) 06/22/23 03:54 Unsat Iron Binding 132 ug/dL (112-347) 06/22/23 03:54 Ferritin 222 ng/mL (15-150) H 06/22/23 03:54 Total Bilirubin 0.2 mg/dL (0.15-1.2) 06/21/23 21:11 AST 13 U/L (0-32) 06/21/23 21:11 ALT 11 U/L (0-33) 06/21/23 21:11 Alkaline Phosphatase 107 U/L (35-105) H 06/21/23 21:11 Creatine Kinase 37 U/L (26-192) 06/22/23 03:54 Total Protein 7.4 g/dL (6.6-8.7) 06/21/23 21:11 Albumin 3.8 g/dL (3.5-5.2) 06/21/23 21:11 Globulin 3.6 g/dL (1.3-4.6) 06/21/23 21:11 Dozrw-4-Bclayxeoz 0.4 g/dL (0.2-0.3) H 06/21/23 17:20 Djhoe-6-Fmaibzaeg 1.1 g/dL (0.5-0.9) H 06/21/23 17:20 Nqwr-8-Vdqekqui 0.4 g/dL (0.4-0.6) 06/21/23 17:20 Xrdd-0-Pgxswnmm 0.4 g/dL (0.2-0.5) 06/21/23 17:20 Gamma Globulins 0.9 g/dL (0.8-1.7) 06/21/23 17:20 Abnorm Protein Band 1 Not Reportable 06/21/23 17:20 Vitamin B12 271 pg/mL (232-1245) 06/22/23 03:54 Urine Color Light yellow (Yellow) 06/21/23 21:25 Urine Appearance Cloudy (CLEAR) A 06/21/23 21:25 Urine pH 5 (5-7) 06/21/23 21:25 Ur Specific Aubrey 1.010 (1.005-1.030) 06/21/23 21:25 Urine Protein 1+ (Negative) H 06/21/23 21:25 Urine Glucose (UA) 1+ (Normal) H 06/21/23 21:25 Urine Ketones 1+ (Negative) H 06/21/23 21:25 Urine Blood 3+ (Negative) H 06/21/23 21:25 Urine Nitrate Negative (Negative) 06/21/23 21: Urine Bilirubin Neg (Negative) 06/21/23 21: Urine Urobilinogen Norm mg/dL (Negative) 06/21/23 21:25 Ur Leukocyte Esterase 2+ (Negative) H 06/21/23 21:25 Urine RBC 25-40 /hpf (0-2) H 06/21/23 21:25 Urine WBC >100 /hpf (0-5) H 06/21/23 21:25 Ur Squamous Epith Cells 0-4 /hpf (0-5) H 06/21/23 21:25 Amorphous Sediment Not Reportable 06/21/23 21:25 Urine Bacteria 2+ /hpf (NONE) H 06/21/23 21:25 Urine Mucus 4+ /hpf 06/21/23 21:25 U Random Total Protein 41 mg/dL 06/21/23 21:25 Ur Random Sodium 71 mmol/L 06/21/23 21:25 Ur Random Potassium 22 mmol/L 06/21/23 21:25 Ur Random Chloride 64 mmol/L 06/21/23 21:25 Urine Creatinine 29 mg/dL (28-217) 06/21/23 21:25 Protein/Creatinin Ratio 1.41 mg/mg CR 06/21/23 21:25 U Abnormal Prot Band 2 Not Reportable 06/21/23 17:20 U Abnormal Prot Band 3 Not Reportable 06/21/23 17:20 Pro Electrophoresis Int See note 06/21/23 17:20 Free [place] Light Chains 113.1 mg/L (3.3-19.4) H 06/22/23 03:54 Free Lambda Light Chain 58.2 mg/L (5.7-26.3) H 06/22/23 03:54 Free [place]/Lambda Ratio 1.94 (0.26-1.65) H 06/22/23 03:54 SARS-CoV-2 Ag (Rapid) negative (Negative) 06/26/23 10:55 Vitals Last Vital Signs Temp 98.8 F 06/26/23 07:58 Pulse 88 06/26/23 08:00 Resp 18 06/26/23 08:00 BP 130/78 06/26/23 07:58 Pulse Ox 96 06/26/23 08:00 O2 Del Method Room Air 06/26/23 08:00 Discharge Plan Discharge Patient Disposition: Home Condition: Stable Prescriptions: New metoprolol tartrate 25 mg Tablet 25 mg PO BID@0900,2100 Qty: 60 3RF Continued acetaminophen [Tylenol] 325 mg Tablet 650 mg PO Q6H PRN (Reason: Pain/FEVER) Lumigan 0.01 % Drops 1 drp OPHTHALMIC (EYE) BEDTIME@1999 Rx Instructions: both eyes clopidogrel 75 mg Tablet 75 mg PO DAILY Qty: 30 0RF sertraline 100 mg tablet 150 mg PO DAILY@ risperidone 0.5 mg tablet 0.5 mg PO BID@ metoprolol tartrate 25 mg tablet 25 mg PO BID@ Rx Instructions: hold if sbp less than 100 and dbp less than 60 Namzaric 28-10 mg capsule,sprinkle,ER 24hr 1 cap PO BEDTIME@ naloxone 2 mg/2 mL Syringe Kit See Rx Instructions .ROUTE .COMPLEX Rx Instructions: as directed as needed Discontinued benazepril 5 mg Tablet 2.5 mg PO DAILY@0700 Qty: 0 0RF Rx Instructions: hold if sbp less than 100 or dbp less than 60 metformin 1,000 mg tablet 1,000 mg PO BID@ mirtazapine 7.5 mg tablet 7.5 mg PO BEDTIME@ Discharge Orders: Discharge Order (Routine); Ordered 06/26/23 Ordered By: Clotilde Hutton Referrals: Elisa Mclaughlin MD [Referring] - 4-7 days (Acute renal failure kappa lambda chain is still pending) Dao Alba DO [Primary Care Provider] - 7-10 days Patient Instructions: Opioid Safety Discharge Attestations Time Spent in Discharge Care*: greater than 30 min Quality Metrics Clinical Quality Measures [ No reported AMI, CVA or VTE this stay] Coding Level of Care Code Acute Code for Chg Fwd Diagnoses Acute renal failure, unspecified acute renal failure type N17.9 Acute renal failure type: unspecified
--- NOTE | 2023-06-26 13:38 | PC.NURSE ---
Report called to [place]. Spoke with Tanya. Pt's daughter Marcella also notified that pt will be transported back to senior living today.
[2023-06-26] MEDS: ertapenem 1,000 MG in sodium chloride 0.9% (plus) 100 ML 200 MG IV (13:41)
--- NOTE | 2023-06-26 16:39 | PC.NURSE ---
Medicaid transport here to [facility] pt for tranport to [place]
== END 2023-06-26 16:41 | disposition skilled nursing facility (03) | DRG 682 ==
LOC: ER 18:52 → ICU 20:03 → MEDSURG 06-22 12:54
PROVIDERS: Internal Medicine; Admitting Provider Internal Medicine; Emergency Provider Family Medicine; PCP Internal Medicine; Visit Provider Internal Medicine
DX: N17.9 Acute kidney failure, unspecified (principal); G93.41 Metabolic encephalopathy; E87.1 Hypo-osmolality and hyponatremia; I50.32 Chronic diastolic (congestive) heart failure; N39.0 Urinary tract infection, site not specified; Z16.12 Extended spectrum beta lactamase (ESBL) resistance; I11.0 Hypertensive heart disease with heart failure; E78.5 Hyperlipidemia, unspecified; H35.30 Unspecified macular degeneration; E11.43 Type 2 diabetes mellitus with diabetic autonomic (poly)neuropathy; G31.83 Neurocognitive disorder with Lewy bodies; F02.A0 Dementia in other diseases classified elsewhere, mild, without behavioral disturbance, psychotic disturbance, mood disturbance, and anxiety; E87.5 Hyperkalemia; D64.9 Anemia, unspecified; E78.2 Mixed hyperlipidemia; W19.XXXA Unspecified fall, initial encounter; B96.1 Klebsiella pneumoniae [K. pneumoniae] as the cause of diseases classified elsewhere; I25.2 Old myocardial infarction; Z11.52 Encounter for screening for COVID-19; Z79.84 Long term (current) use of oral hypoglycemic drugs; Z79.4 Long term (current) use of insulin; Z79.02 Long term (current) use of antithrombotics/antiplatelets; Z86.711 Personal history of pulmonary embolism; Z87.891 Personal history of nicotine dependence
CPT/HCPCS: 36415; 36416; 36573; 51702; 71045; 74176; 76705; 80048; 80053; 81001; 82436; 82550; 82570; 82607; 82728; 82962; 83036; 83540; 83550; 83735; 83883; 84100; 84133; 84155; 84156; 84165; 84300; 85025; 87077; 87086; 87186; 87426; 93005; 94640; 96361; 96372; 96374; 96375; 96376; 99285; J0612; J0696; J1335; J1644; J1815; J2543; J3480; J3490; J7030; J7613; Q3014

== ENCOUNTER 2023-09-11 09:24 | Inpatient (IN) | payer MEDICARE, MEDICAID, SELFPAY ==
[2023-09-11] VITALS (88 sets, daily range): BP systolic 109–163; BP diastolic 47–108; PULSE 93–128; RESP 14–45; TEMP 36.5–36.7; O2SAT 90–100
--- NOTE | 2023-09-11 09:46 | XR_ITS ---
WS: [id number] Exam: XR chest 1V portable [id number] Date/Time of Exam: 09/11/2023 10:03 AM Reason For Exam: dyspnea/cough Comparison 06/25/2023. The lungs are clear and fully expanded. Normal cardiomediastinal silhouette. No pleural effusions. An gular thoracic scoliosis with RIGHT convexity. Remaining bony elements are intact. IMPRESSION: 1. No acute cardiopulmonary finding. 2. Angular thoracic dextroscoliosis.
--- NOTE | 2023-09-11 09:46 | ECG_ITS ---
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 Measurements Intervals [place] Rate: 129 P: 56 MA: 138 QRS: 63 QRSD: 96 T: 223 QT: 279 QTc: 410 Interpretive Statements SINUS TACHYCARDIA ST DEVIATION AND MODERATE T-WAVE ABNORMALITY, CONSIDER LATERAL ISCHEMIA [-0.1+ mV T-WAVE IN I/aVL/V5/V6] ST DEVIATION AND MODERATE T-WAVE ABNORMALITY, CONSIDER INFERIOR ISCHEMIA [-0.1+ mV T-WAVE IN II/aVF] Compared to ECG 06/25/2023 20:49:10 Possible ischemia now present T-wave abnormality still present Electronically Signed On 09-11-2023 23:53:45 CDT by Desmond Ramirez M.D. [id number]
--- NOTE | 2023-09-11 09:47 | ED_ITS ---
HPI - General Adult 2 General: Chief complaint: General Medical Stated complaint: Hyperglycima Time Seen by Provider: 09/11/23 09:31 Source: patient Mode of arrival: ambulatory History of Present Illness: 78-year-old female who presents to the e mergency room with complaint of altered mental status. She is a resident of a [place] [facility] blood sugar read as high had an Accu-Chek she was poorly responsive. On arrival here blood sugar at 369 with a heart rate in the 130s. She is nonverbal and unable to contribute any of her history all history from multiple records. She is listed as a full code. Onset (ago): unknown PFS ED 2 PFSH: Medical History (Updated 09/11/23 @ 16:18 by Tigre Martell DO) UTI (urinary tract infection) Acute renal failure Hyperkalemia Mild dementia Memory problem Status post non-ST elevation myocardial infarction (NSTEMI) Benign essential hypertension with target blood pressure below 140/90 NSTEMI (non-ST elevated myocardial infarction) History of heart failure Hyperlipidemia Macular degeneration Insulin dependent type 2 diabetes mellitus History of pulmonary embolism Hallucination, visual Surgical History History of Family History Mother Dementia CAD (coronary artery disease) Lung disease Family/Other Dementia Diabetes Grandfather Dementia Father Diabetes Lung disease Stroke Denies family history of Clotting disorder Chronic kidney disease (CKD) Suicide Anesthesia complication Bleeding disorder Cancer Social History Smoking and tobacco/nicotine status: former use of tobacco/nicotine Alcohol intake: never Substance/Drug Use: never Physical Exam 2 Const: ORIENTATION/CONSCIOUSNESS: Yes patient obtunded HENMT: COMMON NORMALS: normocephalic, atraumatic and hearing grossly normal bilaterally HEAD & SCALP: normocephalic and atraumatic Resp: COMMON NORMALS: normal respiratory effort, No retractions and No use of accessory muscles AUSCULTATION: rhonchi Cardio: COMMON NORMALS: regular rhythm and No murmurs present (Cardio) R ATE: tachycardic RHYTHM: regular rhythm GI: COMMON NORMALS: Soft to palpation and No hepatosplenomegaly present A USCULTATION: Yes normoactive bowel sounds PALPATION: Yes Soft to palpation, No Tenderness to palpation present (GI), No Guarding due to palpation present (GI) and Yes No hepatosplenomegaly present Extremity: COMMON NORMALS: normal to inspection, capillary refill normal, no clubbing, cyanosis or edema, no calf tenderness and no pedal edema Skin: COMMON NORMALS: no rashes or lesions noted GENERAL SKIN EXAM: no rashes or lesions noted Course 2 Vital Signs: Vital signs: Vital Signs Temperature 98.1 F 09/11/23 09:26 Pulse Rate 97 09/11/23 15:20 Respiratory Rate 15 09/11/23 15:20 Blood Pressure 160/104 09/11/23 15:20 Pulse Oximetry 95 09/11/23 15:20 Oxygen Delivery Me thod Nasal Cannula 09/11/23 14:11 Oxygen Flow Rate 2 09/11/23 11:58 MDM - General Adult Medical Decision Making Sepsis secondary to cystitis. She is requiring some oxygen. Chest x-ray does not show acute findings head CT shows atrophy but otherwise unremarkable. Will admit for sepsis IV fluids antibiotics cultures done lactate elevated. Discussed with daughter she is considering Do Not Recussitate status currently is a full code but her mother's expressed wishes not to be provide for quality of life would not be improved. She is can discuss with her family members and follow-up with Dr. Sarkar discussed case with Dr. Sarkar orders written Lab Data 09/11/23 09:51 09/11/23 09:51 Radiology Impressions Abdomen/Pelvis CT 09/11/23 13:01 IMPRESSION: 1. Interval appearance of bilateral lower lobe features of bronchitis with mucous plugging , parenchymal atelectasis and airspace disease. 2. Distended gallbladder with cholelithiasis, also present on 06/21/2023. 3. Stable minor findings as above. Laboratory Results WBC 13.60 10^3/uL (3.29-11.43) H 09/11/23 09:51 RBC 4.94 10^6/uL (3.85-5.65) 09/11/23 09:51 Hgb 12.70 g/dL (11.27-16.99) 09/11/23 09:51 Hct 42.4 % (36-47) 09/11/23 09:51 MCV 85.8 fl (85-98) 09/11/23 09:51 MCH 25.7 pg (27-33) L 09/11/23 09:51 MCHC 30.0 g/dL (30-55) 09/11/23 09:51 RDW 12.6 % (12.1-15.1) 09/11/23 09:51 Plt Count 427 10^3/cmm (157-399) H 09/11/23 09:51 MPV 11.1 fL (7.4-10.4) H 09/11/23 09:51 Neut % (Auto) 82.3 % 09/11/23 09:51 Lymph % (Auto) 11.3 % 09/11/23 09:51 [place] % (Auto) 4.5 % 09/11/23 09:51 Eos % (Auto) 0.1 % 09/11/23 09:51 Baso % (Auto) 0.4 % 09/11/23 09:51 Neut # (Auto) 11.19 10^3/uL (1.8-7.7) H 09/11/23 09:51 Lymph # (Auto) 1.5 10^3/uL (0.8-4.8) 09/11/23 09:51 [place] # (Auto) 0.6 10^3/uL (0.2-0.9) 09/11/23 09:51 Eos # (Auto) 0.0 10^3/uL (0.0-0.8) 09/11/23 09:51 Baso # (Auto) 0.1 10^3/uL (0.0-0.1) 09/11/23 09:51 Nucleated RBC % (auto) 0 % 09/11/23 09:51 Nucleated RBCs # 0.0 /100WBC 09/11/23 09:51 Specimen Type Arterial 09/11/23 09:53 Sample Site Radial, left 09/11/23 09:53 ABG pH 7.43 (7.35-7.45) 09/11/23 09:53 ABG pCO2 38.5 mmHg (35-45) 09/11/23 09:53 ABG pO2 81.0 mmHg (80.0-100.0) 09/11/23 09:53 ABG PO2/FiO2 Ratio 0 09/11/23 09:53 ABG HCO3 25.8 mmol/L (22-26) 09/11/23 09:53 ABG O2 Saturation 96.6 09/11/23 09:53 ABG Base Excess 1.5 mmol/L (-2.0-2.0) 09/11/23 09:53 Armando Test Pos 09/11/23 09:53 A-a O2 Gradient Not Reportable 09/11/23 09:53 Hematocrit 36.4 % (37-47) L 09/11/23 09:53 Hgb O2 Saturation 95.8 % (95-100) 09/11/23 09:53 Carboxyhemoglobin 0.4 %THgb (0.4-20.1) 09/11/23 09:53 Methemoglobin 0.4 % (0.4-1.5) 09/11/23 09:53 Total Hemoglobin 11.9 g/dL (12-16) L 09/11/23 09:53 Sodium 163.0 mmol/L (131-143) H 09/11/23 09:53 Potassium 3.1 mmol/L (3.5-5.0) L 09/11/23 09:53 Glucose 279.0 mg/dL (70-115) H 09/11/23 09:53 Ionized Calcium 1.2 mmol/L (1.1-1.4) 09/11/23 09:53 O2 Delivery Device Nc 09/11/23 09:53 O2 Liters/Min 2.0 % 09/11/23 09:53 FiO2 2.0 % 09/11/23 09:53 Cabinetmaker Supervisor ID Cak 09/11/23 09:53 Sodium 157 mmol/L (136-145) H 09/11/23 09:51 Potassium 3.6 mmol/L (3.5-5.1) 09/11/23 09:51 Chloride 112 mmol/L (98-107) H 09/11/23 09:51 Carbon Dioxide 28 mmol/L (22-29) 09/11/23 09:51 Anion Gap 20.6 (5-19) H 09/11/23 09:51 BUN 71 mg/dL (8-23) H 09/11/23 09:51 Creatinine 2.1 mg/dL (0.5-0.9) H 09/11/23 09:51 GFR Calculation Not Reportable 09/11/23 09:51 Glucose 321 mg/dL (65-115) H 09/11/23 09:51 POC Glucose 369 mg/dL (70-110) H 09/11/23 09:33 Calculated Osmolality 357 mOsm/kg (285-295) H 09/11/23 09:51 Lactic Acid 4.5 mmol/L (0.5-2.2) H* 09/11/23 09:51 Calcium 9.9 mg/dL (8.5-10.5) 09/11/23 09:51 Magnesium 2.6 mg/dL (1.7-2.3) H 09/11/23 09:51 Total Bilirubin 0.2 mg/dL (0.15-1.2) 09/11/23 09:51 AST 10 U/L (0-32) 09/11/23 09:51 ALT 11 U/L (0-33) 09/11/23 09:51 Alkaline Phosphatase 137 U/L (35-105) H 09/11/23 09:51 Creatine Kinase 43 U/L (26-192) 09/11/23 09:51 Troponin T Baseline 119 ng/L (0-10) H* 09/11/23 09:51 Troponin T 120 Minute 101.5 ng/L (0-10) H 09/11/23 11:54 Delta Troponin T -17.5 ABS# (0-10) L 09/11/23 11:54 NT-Pro-B Natriuret Pep 4717 pg/mL (0-450) H 09/11/23 09:51 Total Protein 8.2 g/dL (6.6-8.7) 09/11/23 09:51 Albumin 3.9 g/dL (3.5-5.2) 09/11/23 09:51 Globulin 4.3 g/dL (1.3-4.6) 09/11/23 09:51 Lipase 63 U/L (13-60) H 09/11/23 09:51 Urine Color Yellow (Yellow) 09/11/23 11:06 Urine Appearance Cloudy (CLEAR) A 09/11/23 11:06 Urine pH 5 (5-7) 09/11/23 11:06 Ur Specific [place] 1.025 (1.005-1.030) 09/11/23 11:06 Urine Protein Neg (Negative) 09/11/23 11:06 Urine Glucose (UA) 4+ (Normal) H 09/11/23 11:06 Urine Ketones Negative (Negative) 09/11/23 11:06 Urine Blood 2+ (Negative) H 09/11/23 11:06 Urine Nitrate Negative (Negative) 09/11/23 11:06 Urine Bilirubin Neg (Negative) 09/11/23 11:06 Urine Urobilinogen Norm mg/dL (Negative) 09/11/23 11:06 Ur Leukocyte Esterase 2+ (Negative) H 09/11/23 11:06 Urine RBC 5-10 /hpf (0-2) H 09/11/23 11:06 Urine WBC 15-25 /hpf (0-5) H 09/11/23 11:06 Ur Squamous Epith Cells 0-4 /hpf (0-5) H 09/11/23 11:06 Ur Transition Epith Cell 0-4 /hpf 09/11/23 11:06 Amorphous Sediment Not Reportable 09/11/23 11:06 Urine Bacteria 3+ /hpf (NONE) H 09/11/23 11:06 Urine Mucus 1+ /hpf 09/11/23 11:06 Urine Yeast 4+ /hpf H 09/11/23 11:06 Serum Ketones Negative (Negative) 09/11/23 09:51 Coronavirus 229E (PCR) Not detected (NOT DETECT) 09/11/23 09:59 Influenza A (H1) PCR Not detected (NOT DETECT) 09/11/23 11:59 Influ A (H1/09) PCR Not detected (NOT DETECT) 09/11/23 11:59 Influenza A (H3) PCR Detected (NOT DETECT) A 09/11/23 11:59 Influenza Type A Ag Cancelled 09/11/23 09:59 Influenza Type A (PCR) Detected (NOT DETECT) A 09/11/23 11:59 Influenza Type B Ag Cancelled 09/11/23 09:59 Influenza Type B (PCR) Not detected (NOT DETECT) 09/11/23 11:59 SARS-CoV-2 (PCR) Not detected (NOT DETECT) 09/11/23 09:59 All radiology interpretation(s) finalized by discharge Discharge Plan Discharge Patient Disposition: Admitted As Inpatient Admit Provider: Mark Garcia Clinical Impression: Sepsis, Hypernatremia, Acute metabolic encephalopathy, Acute renal failure, UTI (urinary tract infection), Status post non-ST elevation myocardial infarction (NSTEMI), Insulin dependent type 2 diabetes mellitus, Dementia Condition: Stable Coding Level of Care Code ED Director Of Strategic Initiatives for Shaniqua Ruth
--- NOTE | 2023-09-11 09:47 | CT_ITS ---
WS: [id number] CT HEAD TECHNIQUE: Noncontrast CT of the head obtained from the skullbase to the vertex. CLINICAL INFORMATION: AMS COMPARISON: None. DLP: 1004.[address] scans at [place] use at least one of these dose optimization techniques: automated e xposure control; mA and/or kV adjustment per patient size (includes targeted exams where dose is matc hed to clinical indication); or iterative reconstruction. FINDINGS: Some images degraded by motion No evidence of intracranial hemorrhage or mass effect. Ventricular system and basal cisterns are sanders nt. Advanced small vessel changes with moderate parenchymal volume loss. No extra-axial fluid collect ions. No evidence of mass or mass effect. Chronic appearing ischemia in the RIGHT lateral basal gangl ia. Benign basal ganglia calcifications. Intracranial vascular calcification. Calcification along the falx. Mucosal thickening in the paranasal sinuses. Small amount of fluid in the sphenoid sinus. Mastoid air cells are well aerated. IMPRESSION: 1. No evidence of intracranial hemorrhage or mass effect. 2. Advanced small vessel changes progressed compared to 2020. Moderate parenchymal volume loss. 3. Chronic appearing ischemia in the RIGHT lateral basal ganglia appears progressed compared to 2020 . 4. No acute intracranial findings. Notified Tigre Martell DO at 09/11/2023 10:59 AM.
[2023-09-11] MEDS: sodium chloride 0.9% 1,000 ML 999 ML IV (09:52)
[2023-09-11] MEDS: metoprolol tartrate 1 mg/1 mL SDV 5 mL 2.5 MG IVP (09:53)
[2023-09-11 10:01] LABS: Basophils # 0.1 10^3/uL (0.0-0.1); Basophils % 0.4 %; Eosinophils % 0.1 %; Hematocrit 42.4 % (36-47); Lymphocytes # 1.5 10^3/uL (0.8-4.8); Lymphocytes % 11.3 %; Mean Corpuscular Hemoglobin 25.7 pg (27-33); Mean Corpuscular Volume 85.8 fl (85-98); Mean Platelet Volume 11.1 fL (7.4-10.4); Monocytes # 0.6 10^3/uL (0.2-0.9); Monocytes % 4.5 %; Neutrophils # 11.19 10^3/uL (1.8-7.7); Neutrophils % 82.3 %; Nucleated Red Blood Cells % 0 %; Platelet Count 427 10^3/cmm (157-399); Red Blood Count 4.94 10^6/uL (3.85-5.65); Red Cell Distribution Width 12.6 % (12.1-15.1)
[2023-09-11 10:03] LABS: Glucose Point of Care 369 mg/dL (70-110)
[2023-09-11 10:05] LABS: ABG PCO2 38.5 mmHg (35-45); ABG PH Result 7.43 (7.35-7.45); Arterial Blood Gas Hematocrit 36.4 % (37-47); Base Excess ABG 1.5 mmol/L (-2.0-2.0); Blood Gas Allen Test Pos; Blood Gas Operator Identificat CAK; Blood Gas Sample Site Radial, left; Blood Gas Sample Type Arterial; Carboxyhemoglobin 0.4 %THgb (0.4-20.1); HCO3 ABG 25.8 mmol/L (22-26); HGB O2 Sat 95.8 % (95-100); Ionized Calcium Level - ABG 1.2 mmol/L (1.1-1.4); Methemoglobin 0.4 % (0.4-1.5); Oxygen Device NC; Oxygen Saturation ABG 96.6; PO2 FiO2 Ratio Arterial Blood 0; Potassium Level - ABG 3.1 mmol/L (3.5-5.0); Total Hemoglobin 11.9 g/dL (12-16)
[2023-09-11 10:14] LABS: Ketone (Acetest) Serum Negative (Negative)
--- NOTE | 2023-09-11 10:18 | PC.PHAR ---
pt is from [facility] nurse at [place] states the pt had no am meds except for 30 units of novolog flexpen-
[2023-09-11 10:23] LABS: Lactic Sepsis W/Reflex 4.5 mmol/L (0.5-2.2); Troponin(5th) Baseline 119 ng/L (0-10)
[2023-09-11 10:32] LABS: Alanine Aminotransferase 11 U/L (0-33); Albumin Level 3.9 g/dL (3.5-5.2); Alkaline Phosphatase 137 U/L (35-105); Anion Gap 20.6 (5-19); Aspartate Amino Transferase 10 U/L (0-32); Blood Urea Nitrogen 71 mg/dL (8-23); Calcium 9.9 mg/dL (8.5-10.5); Carbon Dioxide 28 mmol/L (22-29); Chloride 112 mmol/L (98-107); Creatine Phosphokinase 43 U/L (26-192); Creatinine Clr Calc Pharmacy 23.4022; Globulin 4.3 g/dL (1.3-4.6); Glucose 321 mg/dL (65-115); Lipase 63 U/L (13-60); Magnesium 2.6 mg/dL (1.7-2.3); NT Pro B Type Natriuretic Pept 4717 pg/mL (0-450); Osmolality Calculated 357 mOsm/kg (285-295); Potassium 3.6 mmol/L (3.5-5.1); Sodium 157 mmol/L (136-145); Total Bilirubin 0.2 mg/dL (0.15-1.2); Total Protein 8.2 g/dL (6.6-8.7)
--- NOTE | 2023-09-11 10:37 | ECG_ITS ---
[facility] Test Date: 2023-09-11 Pat Name: Unique Gage Department: Room: Gender: Female [employer]: : 1945 Requested By: Tigre Byrd Order Number: [id number] Jose Francisco MD: Desmond Ramirez M.D. Measurements Intervals [place] Rate: 111 P: 60 IA: 143 QRS: 61 QRSD: 95 T: 204 QT: 312 QTc: 424 Interpretive Statements SINUS TACHYCARD[address] ST DEVIATION AND MODERATE T-WAVE ABNORMALITY, CONSIDER ANTEROLATERAL ISCHEMIA [-0.1+ mV T-WAVE IN V3-V6] ST DEVIATION AND MODERATE T-WAVE ABNORMALITY, CONSIDER INFERIOR ISCHEMIA [-0.1+ mV T-WAVE IN II/aVF] Compared to ECG 09/11/2023 09:40:35 No significant changes Electronically Signed On 09-12-2023 0:02:37 CDT by Desmond Ramirez M.D. [id number]
[2023-09-11] MEDS: piperacillin-tazobactam 3.375 GM in sodium chloride 0.9% (plus) 50 ML IV (10:44)
[2023-09-11] MEDS: sodium chloride 0.9% 2,313.33 ML 2313.32999999999993 ML IV (10:51)
[2023-09-11] MEDS: vancomycin 1,000 MG in sodium chloride 0.9% 250 ML 250 MG IV (10:58)
[2023-09-11] MEDS: heparin 5,000 unit/mL INJ 1 mL IV (11:23)
[2023-09-11 11:41] LABS: Add Urine Microscopic? YES; Bilirubin Urine Neg (Negative); Blood Urine 2+ (Negative); Glucose Urine UA 4+ (Normal); Ketones Urine Negative (Negative); Leukocyte Esterase Urine 2+ (Negative); Nitrate Urine Negative (Negative); Protein Urine Neg (Negative); Specific Gravity, Urine 1.025 (1.005-1.030); Urine Appearance Cloudy (CLEAR); Urine Color Yellow (Yellow); Urobilinogen Urine Norm (Negative); pH Urine 5 (5-7)
[2023-09-11 11:44] LABS: Reflex Lactate Order REFLEX LACTIC ORDERD
[2023-09-11] MEDS: heparin drip 25,000 UNIT/500 ML PREMIX 17.6999999999999993 UNIT IV (11:44)
[2023-09-11 11:48] LABS: Adenovirus Not Detected (NOT DETECT); Chlamydia Pneumoniae Not Detected (NOT DETECT); Coronavirus 229E,HKU1,NL63,OC4 Not Detected (NOT DETECT); Human Metapneumovirus Not Detected (NOT DETECT); Human Rhinovirus/Enterovirus Not Detected (NOT DETECT); Influenza A Detected (NOT DETECT); Influenza A H1 Not Detected (NOT DETECT); Influenza A H1-2009 Not Detected (NOT DETECT); Influenza A H3 Detected (NOT DETECT); Influenza B Not Detected (NOT DETECT); Mycoplasma Pneumoniae Not Detected (NOT DETECT); Parainfluenza Virus Type 1 Not Detected (NOT DETECT); Parainfluenza Virus Type 2 Not Detected (NOT DETECT); Parainfluenza Virus Type 3 Not Detected (NOT DETECT); Parainfluenza Virus Type 4 Not Detected (NOT DETECT); Respiratory Syncytial Virus A Not Detected (NOT DETECT); Respiratory Syncytial Virus B Not Detected (NOT DETECT); SARS-COV-2 Not Detected (NOT DETECT)
[2023-09-11 11:48] LABS: Add Urine Culture? Yes; Bacteria Urine 3+ /hpf; Mucus Urine 1+ /hpf; Squamous Epithelial Cell Urine 0-4 /hpf (0-5); Transitional Epi Cells Urine 0-4 /hpf; WBC Urine 15-25 /hpf (0-5)
[2023-09-11 12:00] LABS: Influenza A Detected (NOT DETECT); Influenza A H1 Not Detected (NOT DETECT); Influenza A H1-2009 Not Detected (NOT DETECT); Influenza A H3 Detected (NOT DETECT); Influenza B Not Detected (NOT DETECT)
[2023-09-11 12:02] LABS: Results from GEN
[2023-09-11 12:19] LABS: Troponin 5 2HR Delta -17.5 ABS# (0-10)
[2023-09-11 12:20] LABS: Troponin 5 2HR 101.5 ng/L (0-10)
--- NOTE | 2023-09-11 12:27 | P.HP_ITS ---
Documented by User: SHERRILL Verde STD 09/11/23 13:22 Providers/Chief Complaint 2 Primary Care Provider: Dao Alba DO Chief Complaint: Hyperglycima History of Present Illness Unique Gage is a 78 year old female past medical history of mild dementia currently taking memantine, acute renal failure, NSTEMI, hyperlipidemia, type 2 diabetes, PE, and was recently treated for the flu. She received her last dose of tamiflu 08/12/23 presents to the emergency department for below listed complaints. Patient is a 78 year old female that presents to the emergency department for chief complaint of hyperglycemia and altered mental status. She comes from [facility] and is currently nonverbal and unable to participate in her admission interview, she lets out intermittent groans, does not make eye contact. I called the [facility] and spoke with her nurse. Her last known normal was 09/10/23 around noon when she was eating lunch. At this time she was alert and oriented to self as this is her baseline, it is noted that she does have underlying dementia. Later that day around dinnertime she had refused to eat, was not feeling good. Later on that evening around 10 PM or so Mrs. Gage blood sugar was noted to be very elevated, glucometer could not read glucose. Patient was able to drink thicken water at this time and was giving some short acting insulin. Around 0600 this morning 09/11/23 Mrs. Gage was found to have altered mental status, legs appeared to he mottled at this time, nonverbal, mostly groaning, and still hyperglycemic. She was then in brought into the Emergency Department to be evaluated. While in the Emergency Department patient received sepsis bolus of about 3.3L NS, Vancomycin 1000mg IV, Zoysn 3.375mg, 2.5mg IVP, heparin bolus, and a heparin drip was initiated. A CBC, CMP, blood culture, urine culture, lactic acid, troponin, and EKG were obtained. Patient to be transferred to the ICU for further treatment and care. Review of Systems 2 General: Reports: ROS unobtainable due to mental status Medications/Allergies Home Medications Medication Instructions Recorded Confirmed Last Taken Type acetaminophen 325 mg tablet 650 mg PO Q6H PRN Pain/FEVER 05/30/20 09/11/23 Unknown History (Tylenol) bimatoprost 0.01 % eye drops 1 drp ophthalmic (eye) BEDTIME@199910/04/20 09/11/23 09/10/23 History (Hazel) metoprolol tartrate 25 mg tablet 25 mg PO BID@06/22/23 09/11/23 09/10/23 History naloxone 2 mg/2 mL syringe kit See Rx Instructions .Route .COMPLEX 06/22/23 09/11/23 Unknown History sertraline 100 mg tablet 100 mg PO DAILY@06/22/23 09/11/23 09/10/23 History bisacodyl 10 mg rectal suppository 10 mg TX DAILY PRN Constipation 09/11/23 09/11/23 Unknown History (Dulcolax (bisacodyl)) clopidogrel 75 mg tablet 75 mg PO QAM 09/11/23 09/11/23 09/10/23 History insulin aspart U-100 100 unit/mL See Rx Instructions .Route .COMPLEX 09/11/23 09/11/23 09/11/23 History (3 mL) subcutaneous pen (Novolog 30 units FlexPen U-100 Insulin aspart) insulin degludec 100 unit/mL (3 8 unit SUBCUT BEDTIME 09/11/23 09/11/23 09/10/23 History mL) subcutaneous pen (Tresiba FlexTouch U-100 insulin) magnesium hydroxide 400 mg/5 mL 30 ml PO DAILY PRN Constipation 09/11/23 09/11/23 Unknown History oral suspension (Milk of Magnesia) memantine 5 mg tablet 5 mg PO BID 09/11/23 09/11/23 09/10/23 History olanzapine 10 mg tablet 10 mg PO BEDTIME 09/11/23 09/11/23 09/11/23 History oseltamivir 75 mg capsule 75 mg PO BID 09/11/23 09/11/23 Unknown History sennosides 8.6 mg-docusate sodium 2 tab PO BID 09/11/23 09/11/23 09/10/23 History 50 mg tablet (Senna Plus) Allergies Allergy/AdvReac Type Severity Reaction Status Date / Time Sulfa (Sulfonamide Allergy Mild Rash Verified 09/11/23 10:04 Antibiotics) atorvastatin Allergy rash Verified 09/11/23 10:04 flu vaccine Allergy ADR-Nausea Uncoded 02/21/22 11:35 PFSH Acute 2 PFSH: Medical History (Updated 09/11/23 @ 13:50 by Mark Garcia MD) UTI (urinary tract infection) Acute renal failure Hyperkalemia Mild dementia Memory problem Status post non-ST elevation myocardial infarction (NSTEMI) Benign essential hypertension with target blood pressure below 140/90 NSTEMI (non-ST elevated myocardial infarction) History of heart failure Hyperlipidemia Macular degeneration Insulin dependent type 2 diabetes mellitus History of pulmonary embolism Hallucination, visual Surgical History History of Family History Mother Dementia CAD (coronary artery disease) Lung disease Family/Other Dementia Diabetes Grandfather Dementia Father Diabetes Lung disease Stroke Denies family history of Clotting disorder Chronic kidney disease (CKD) Suicide Anesthesia complication Bleeding disorder Cancer Social History Smoking and tobacco/nicotine status: former use of tobacco/nicotine Alcohol intake: never Substance/Drug Use: never Vitals/I&O/Wt Last Vital Signs Temp 98.1 F 09/11/23 09:26 Pulse 109 H 09/11/23 12:07 Resp 20 H 09/11/23 12:07 BP 146/96 09/11/23 12:07 Pulse Ox 97 09/11/23 12:07 O2 Del Method Room Air 09/11/23 12:07 O2 Flow Rate 2 09/11/23 11:58 09/10/23 09/11/23 09/11/23 22:59 06:59 14:59 Intake Total 3613.33 / 3613.33 Balance 3613.33 / 3613.33 Weight last 48 hrs Weight 139 lb 6.4 oz Weight 170 lb Physical Exam 2 Narrative: General exam is a white female, on 2 L NC. Confused, nonverbal. HEENT: Atraumatic normocephalic. Oropharynx clear. Neck is supple, no lymphadenopathy thyromegaly Cardiovascular currently regular, no murmur. Lungs sounds noted to clear throughout. On 2 L nasal cannula. Abdomen is soft, tender-groaning on palpation. Noted to be more tender noted on right lower quadrant. Positive bowel sounds. exams deferred. Esteban catheter in place. Extremities trace edema lower legs, mottling noted to lower legs. Skin no rash Urinary Catheter Management: Esteban: Cath Placed During This Visit: yes Urinary Catheter Date of Insertion: 09/11/23 Urinary Catheter Time of Insertion: 11:09 Data 09/11/23 09:51 09/11/23 09:51 Other Labs: WBC 13.6, Neut 11.19 Na 157 Anion Gap 20.6 BUN 71, Tower Cleaner 2.1 Glucose 369 Osmolality 357 Lactic Acid 4.5 Mag 2.6 Phos 137 Baseline troponin 119, 2-hour troponin 101.5, delta troponin -17.5 BNP 4717 Lipase 63 Influenza A positive UA: 15-25 WBC with 0-4 squamous epithelial cells, 2+ leukocyte Esterase. 3+ urine bacteria, 4+ yeast, 2+ blood, 4+ glucose. Negative serum ketones. Chest x-ray impression 09/11/23: 1. No acute cardiopulmonary finding. 2. Angular thoracic dextroscoliosis. Head CT impression 09/11/23: 1. No evidence of intracranial hemorrhage or mass effect. 2. Advanced small vessel changes progressed compared to 2020. Moderate parenchymal volume loss. 3. Chronic appearing ischemia in the RIGHT lateral basal ganglia appears progressed compared to 2020. 4. No acute intracranial finding Micro: Microbiology 09/11/23 10:20 Blood Culture - Preliminary Blood SPECIMEN COLLECTED 09/11/23 09:51 Blood Culture - Preliminary Blood SPECIMEN COLLECTED A&P Assessment and plan (1) Sepsis: (2) UTI (urinary tract infection): (3) Acute metabolic encephalopathy: (4) Acute renal failure: (5) Elevated troponin: (6) Hypernatremia: (7) Elevated brain natriuretic peptide (BNP) level: (8) Dementia: (9) Insulin dependent type 2 diabetes mellitus: (10) Hypertension: Coding Level of Care Code 09750 Diagnoses Sepsis A41.9 UTI (urinary tract infection) N39.0 Acute metabolic encephalopathy G93.41 Acute renal failure N17.9 Elevated troponin R79.89 Hypernatremia E87.0 Elevated brain natriuretic peptide (BNP) level R79.89 Dementia F03.90 Insulin dependent type 2 diabetes mellitus E11.9; Z79.4 Hypertension I10 Time Spent (min) 65 Documented by User: Mark Garcia MD 09/11/23 14:01 Providers/Chief Complaint 2 Admitting Physician: Mark Garcia MD, hospitalist Chief Complaint: Hyperglycima History of Present Illness Unique Gage is a 78 year old female past medical history of mild dementia currently taking memantine, acute renal failure, NSTEMI, hyperlipidemia, type 2 diabetes, PE, and was recently treated for the flu. She received her last dose of tamiflu 08/12/23 presents to the emergency department for below listed complaints. Patient is a 78 year old female that presents to the emergency department for chief complaint of hyperglycemia and altered mental status. She comes from [facility] and is currently nonverbal and unable to participate in her admission interview, she lets out intermittent groans, does not make eye contact. I called the [facility] and spoke with her nurse. Her last known normal was 09/10/23 around noon when she was eating lunch. At this time she was alert and oriented to self as this is her baseline, it is noted that she does have underlying dementia. Later that day around dinnertime she had refused to eat, was not feeling good. Later on that evening around 10 PM or so Mrs. Gage blood sugar was noted to be very elevated, glucometer could not read glucose. Patient was able to drink thicken water at this time and was giving some short acting insulin. Around 0600 this morning 09/11/23 Mrs. Gage was found to have altered mental status, legs appeared mottled at this time, nonverbal, mostly groaning, and still hyperglycemic. She was then in brought into the Emergency Department to be evaluated. While in the Emergency Department patient received sepsis bolus of about 3.3L NS, Vancomycin 1000mg IV, Zoysn 3.375mg, 2.5mg IVP, heparin bolus, and a heparin drip was initiated. A CBC, CMP, blood culture, urine culture, lactic acid, troponin, and EKG were obtained. Patient to be transferred to the ICU for further treatment and care. Medications/Allergies Home Medications Medication Instructions Recorded Confirmed Last Taken Type acetaminophen 325 mg tablet 650 mg PO Q6H PRN Pain/FEVER 05/30/20 09/11/23 Unknown History (Tylenol) bimatoprost 0.01 % eye drops 1 drp ophthalmic (eye) BEDTIME@199910/04/20 09/11/23 09/10/23 History (Lumigan) metoprolol tartrate 25 mg tablet 25 mg PO BID@,06/22/23 09/11/23 09/10/23 History naloxone 2 mg/2 mL syringe kit See Rx Instructions .Route .COMPLEX 06/22/23 09/11/23 Unknown History sertraline 100 mg tablet 100 mg PO DAILY@07 06/22/23 09/11/23 09/10/23 History bisacodyl 10 mg rectal suppository 10 mg TX DAILY PRN Constipation 09/11/23 09/11/23 Unknown History (Dulcolax (bisacodyl)) clopidogrel 75 mg tablet 75 mg PO QAM 09/11/23 09/11/23 09/10/23 History insulin aspart U-100 100 unit/mL See Rx Instructions .Route .COMPLEX 09/11/23 09/11/23 09/11/23 History (3 mL) subcutaneous pen (Novolog 30 units FlexPen U-100 Insulin aspart) insulin degludec 100 unit/mL (3 8 unit SUBCUT BEDTIME 09/11/23 09/11/23 09/10/23 History mL) subcutaneous pen (Tresiba FlexTouch U-100 insulin) magnesium hydroxide 400 mg/5 mL 30 ml PO DAILY PRN Constipation 09/11/23 09/11/23 Unknown History oral suspension (Milk of Magnesia) memantine 5 mg tablet 5 mg PO BID 09/11/23 09/11/23 09/10/23 History olanzapine 10 mg tablet 10 mg PO BEDTIME 09/11/23 09/11/23 09/11/23 History oseltamivir 75 mg capsule 75 mg PO BID 09/11/23 09/11/23 Unknown History sennosides 8.6 mg-docusate sodium 2 tab PO BID 09/11/23 09/11/23 09/10/23 History 50 mg tablet (Senna Plus) Allergies Allergy/AdvReac Type Severity Reaction Status Date / Time Sulfa (Sulfonamide Allergy Mild Rash Verified 09/11/23 10:04 Antibiotics) atorvastatin Allergy rash Verified 09/11/23 10:04 flu vaccine Allergy ADR-Nausea Uncoded 02/21/22 11:35 PFSH Acute 2 PFSH: Medical History (Updated 09/11/23 @ 13:50 by Mark Garcia MD) UTI (urinary tract infection) Acute renal failure Hyperkalemia Mild dementia Memory problem Status post non-ST elevation myocardial infarction (NSTEMI) Benign essential hypertension with target blood pressure below 140/90 NSTEMI (non-ST elevated myocardial infarction) History of heart failure Hyperlipidemia Macular degeneration Insulin dependent type 2 diabetes mellitus History of pulmonary embolism Hallucination, visual Surgical History History of Family History Mother Dementia CAD (coronary artery disease) Lung disease Family/Other Dementia Diabetes Grandfather Dementia Father Diabetes Lung disease Stroke Denies family history of Clotting disorder Chronic kidney disease (CKD) Suicide Anesthesia complication Bleeding disorder Cancer Social History Smoking and tobacco/nicotine status: former use of tobacco/nicotine Alcohol intake: never Substance/Drug Use: never Physical Exam 2 Narrative: General exam is a white female, on 2 L NC. Confused, nonverbal. HEENT: Atraumatic normocephalic. Oropharynx clear. Neck is supple, no lymphadenopathy thyromegaly Cardiovascular currently regular, no murmur. Lungs sounds noted to clear throughout. On 2 L nasal cannula. Abdomen is soft, tender-groaning on palpation. Noted to be more tender noted on right lower quadrant. Positive bowel sounds. exams deferred. Esteban catheter in place. Extremities trace edema lower legs, mottling noted to lower legs. Capillary refill both lower extremities approximately 3 seconds, left leg slightly cooler than the right. Skin no rash Neuro: Moves all 4 extremities. No focal deficits. Obviously confused. Urinary Catheter Management: Esteban: Cath Placed During This Visit: yes Sepsis: Is patient septic: Yes Focused sepsis exam performed: Yes Date exam was performed: 09/11/23 Time exam was performed: 13:51 Data 09/11/23 09:51 09/11/23 09:51 Other Labs: WBC 13.6, Neut 11.19 Na 157 Anion Gap 20.6 BUN 71, Tower Cleaner 2.1 Glucose 369 Osmolality 357 Lactic Acid 4.5 Mag 2.6 Phos 137 Baseline troponin 119, 2-hour troponin 101.5, delta troponin -17.5 BNP 4717 Lipase 63 Influenza A positive UA: 15-25 WBC with 0-4 squamous epithelial cells, 2+ leukocyte Esterase. 3+ urine bacteria, 4+ yeast, 2+ blood, 4+ glucose. Negative serum ketones. Chest x-ray impression 09/11/23: 1. No acute cardiopulmonary finding. 2. Angular thoracic dextroscoliosis. Head CT impression 09/11/23: 1. No evidence of intracranial hemorrhage or mass effect. 2. Advanced small vessel changes progressed compared to 2020. Moderate parenchymal volume loss. 3. Chronic appearing ischemia in the RIGHT lateral basal ganglia appears progressed compared to 2020. 4. No acute intracranial finding Chest x-ray per my interpretation no infiltrate EKG per my interpretation sinus tachycardia, normal axis, rate approximately 130, ST depression with flipped T waves noted inferiorly and leads V3 through V6. There are some similarities with this with prior EKGs in regards to the flipped T waves. A&P Assessment and plan (1) Sepsis: Patient with significant sepsis. This is demonstrated by organ dysfunction with acute kidney injury, acute encephalopathy, tachycardia, focus of infection UTI and recent influenza. Blood cultures and urine cultures Sepsis bolus has been given She had some concerns of hypotension in the ER, for this reason are going to closely watch in the ICU Continue IV fluids as she is appears fluid responsive and at this point does not require any pressors. Tachycardia is improving. Lactate was high. (2) UTI (urinary tract infection): Patient with significant UTI. This appears complicated with sepsis. Previous hospitalization with ESBL, requiring 2 weeks of IV carbapenem. Initiate meropenem Urine culture Check CT renal protocol (3) Acute metabolic encephalopathy: Patient with acute metabolic encephalopathy secondary to above, superimposed on dementia Monitor closely for improvement CT head was performed demonstrating old area of ischemia basal ganglia, but no evidence of acute stroke or hemorrhage. N.p.o. for now is at risk for aspiration. (4) Acute renal failure: Patient with acute kidney injury. Overall baseline a year ago or so was normal. Do not know her current baseline. Follow for improvement. Esteban placed. CT renal protocol pending. Avoid renal toxic medication CBC, CMP, magnesium daily (5) Elevated troponin: Patient with elevated troponin. This could represent a non-ST elevation myocardial infarction, but the concern of ischemic changes on her EKG have been present before Check echocardiogram Heparin drip for now Plavix 75 mg daily No consideration for statin currently secondary to some renal failure. (6) Hypernatremia: Patient with severe hyponatremia This should improve with hydration Repeat BMP later today, and tomorrow (7) Elevated brain natriuretic peptide (BNP) level: Patient with significant elevation of BNP She has no evidence of fluid overload, in fact she looks dry IV fluids Monitor for failure Check echocardiogram (8) Dementia: Patient with underlying dementia, complicating this current illness Monitor closely for improvement to her baseline. We did talk to nursing facility regarding her baseline which is conversational, orienting to self but perhaps not place. (9) Insulin dependent type 2 diabetes mellitus: Mild sliding scale insulin No evidence of DKA (10) Hypertension: Hold antihypertensives secondary to concern of hypotension Plan Recent influenza. She recently completed a dose/course of Tamiflu. Isolation precautions. Other medical problems as outlined in past medical history Full code currently Heparin will suffice for DVT prophylaxis Protonix for GI prophylaxis, IV Attestations 2 Medical Necessity Statement*: Will need greater than 2 midnight stay for evaluation and treatment of sepsis, complicated UTI with IV antibiotics. Diagnoses Sepsis A41.9 UTI (urinary tract infection) N39.0 Acute metabolic encephalopathy G93.41 Acute renal failure N17.9 Elevated troponin R79.89 Hypernatremia E87.0 Elevated brain natriuretic peptide (BNP) level R79.89 Dementia F03.90 Insulin dependent type 2 diabetes mellitus E11.9; Z79.4 Hypertension I10 Time Spent (min) 65
--- NOTE | 2023-09-11 13:01 | CTR_ITS ---
PROCEDURE INFORMATION: Exam: CT Abdomen And Pelvis Without Contrast Exam date and time: 09/11/2023 1:13 PM Age: 78 years old Clinical indication: Patient HX: UTI, PT nonverbal, unable to follow instructions; Additional info: Sepsis, UTI TECHNIQUE: Imaging protocol: Computed tomography of the abdomen and pelvis without contrast. Radiation optimization: All CT scans at this facility use at least one of these dose optimization techniques: automated exposure control; mA and/or kV adjustment per patient size (includes targeted exams where dose is matched to clinical indication); or iterative reconstruction. COMPARISON: CT abdomen pelvis wo con [id number] 06/21/2023 7:21 PM RADIATION DOSE METRICS: Total DLP (mGy-cm): 701.43 FINDINGS: Lungs: New areas of bibasilar atelectasis and airspace disease associated with bronchial wall thickening and mucous plugging. Coronary arteries: Coronary artery calcifications. Coronary artery calcifications. Liver: Hepatic steatosis. Gallbladder and bile ducts: Cholelithiasis. Gallbladder is distended. No biliary dilatation. Pancreas: No significant pancreatic pathology. Spleen: No significant splenic pathology. Adrenal glands: Low-attenuation adrenal thickening in a pattern most consistent with adenomatous changes. Kidneys and ureters: No significant renal pathology. Stomach and bowel: Mural thickening of rectosigmoid without evidence of diverticula or pericolonic fat infiltration stable compared with the prior exam. Appendix: Appendix within normal limits. Intraperitoneal space: No ascites or free air. Vasculature: No abdominal aortic aneurysm. No abdominal aortic aneurysm. Lymph nodes: No evidence of lymphadenopathy. Urinary bladder: Urinary bladder is decompressed by Esteban catheter limiting assessment of the wall. Reproductive: Findings compatible with presence of uterine fibroids. No significant adnexal pathology. Bones/joints: Mild degenerative change present in the spine. Inferior endplate deformity of L5 again noted. Soft tissues: Small fat containing umbilical hernia. Small bilateral fat containing inguinal hernias. CT/CT kidney stone [id number] IMPRESSION: 1. Interval appearance of bilateral lower lobe features of bronchitis with mucous plugging , parenchymal atelectasis and airspace disease. 2. Distended gallbladder with cholelithiasis, also present on 06/21/2023. 3. Stable minor findings as above.
[2023-09-11 13:33] LABS: Glucose Point of Care 175 mg/dL (70-110)
--- NOTE | 2023-09-11 13:56 | PC.NURSE ---
Arrived from ED, AMS unable to answer questions
--- NOTE | 2023-09-11 14:11 | USCV_ITS ---
Unique Gage Age: 78 Gender: F : 1945 Exam Date: 09/11/2023 19:18 Ordering Phys: Mark Garcia MD Technologist: EMELY Exam Location: [facility] Indication: elevated troponin, Patient is in respiratory isolation, unresponsive in ICU-8 BP: 163 / 99 HR: 95 Rhythm: Sinus Technical Quality: Adequate MEASUREMENTS (Male / Female) Normal Values 2D ECHO LV Diastolic Diameter PLAX 3.7 cm 4.2 - 5.9 / 3.9 - 5.3 cm IVS Diastolic Thickness 1.6 cm 0.6 - 1.0 / 0.6 - 0.9 cm IVS Systolic Thickness 2.0 cm LVPW Diastolic Thickness 1.4 cm 0.6 - 1.0 / 0.6 - 0.9 cm LVPW Systolic Thickness 1.7 cm LVOT Diameter 1.8 cm LV Ejection Fraction 2D Teich 33.1 % LV Ejection Fraction MOD 2C 41.7 % LV Ejection Fraction 2C AL 40.9 % LA Diameter 4.0 cm Aorta at Sinotubular Diameter 3.1 cm IVC Diameter 1.2 cm M-MODE LA Ao Ratio MM 0.9 AV Cusp Separation MM 1.5 cm DOPPLER AV Peak Velocity 101.0 cm/s LVOT Peak Velocity 92.0 cm/s AV Area Cont Eq vti 1.7 cm squared AV Area Cont Eq pk 2.3 cm squared MV Peak Velocity 129.0 cm/s MV Area PHT 5.4 cm squared Mitral E to A Ratio 0.7 TV Peak E Velocity 30.0 cm/s PV Peak Velocity 111.0 cm/s FINDINGS Left Ventricle Left ventricle is normal size. LV is borderline normal with normal with EF of 50-55%. Mild global hypokinesis. Moderate to severe left ventricular hypertrophy. Grade 1 diastolic dysfunction Right Ventricle Normal in size and function Right Atrium Normal in size Left Atrium Normal in size Mitral Valve Moderate mitral annular calcification. Trace mitral regurgitation. Aortic Valve Structurally normal aortic valve. No significant stenosis or regurgitation. Tricuspid Valve Mild tricuspid regurgitation. Insufficient TR jet to evaluate RVSP. Pulmonic Valve Not well visualized Pericardium Normal Aorta Normal in size IVC Appears to be normal CONCLUSIONS LV systolic function is borderline normal with EF of 50-55% Moderate to severe LVH Grade 1 diastolic dysfunction Trace mitral regurgitation Mild tricuspid regurgitation Compared to prior echocardiogram from 2020, no significant changes are seen Bill Sherman MD (Electronically Signed) Final Date: 12 September 2023 10:12 S
--- NOTE | 2023-09-11 15:46 | ECG_ITS ---
[facility] Test Date: 2023-09-11 Pat Name: Unique Gage Department: Room: ICU08 Gender: Female Choker Setter: : 1945 Requested By: Tigre Byrd Order Number: [id number] Jose Francisco MD: Desmond Ramirze M.D. Measurements Intervals [place] Rate: 98 P: 56 MS: 144 QRS: 76 QRSD: 98 T: 135 QT: 354 QTc: 453 Interpretive Statements SINUS RHYTHM ST DEVIATION AND MODERATE T-WAVE ABNORMALITY, CONSIDER INFERIOR ISCHEMIA [-0.1+ mV T-WAVE IN II/aVF] Compared to ECG 09/11/2023 10:37:53 Sinus tachycardia no longer present T-wave abnormality still present Possible ischemia still present Electronically Signed On 09-12-2023 0:06:11 CDT by Desmond Ramirez M.D. [email or web address]
[2023-09-11 15:54] LABS: Lactic Acid level (Lactate) 2.4 mmol/L (0.5-2.2)
[2023-09-11 15:57] LABS: Troponin 5 6HR Delta 1.8 ng/L (0-12)
[2023-09-11 16:01] LABS: Troponin 5 6HR 120.8 ng/L (0-10)
[2023-09-11] MEDS: meropenem 1,000 MG in sodium chloride 0.9% (plus) 50 ML 100 MG IV (16:24)
[2023-09-11] MEDS: sodium chloride 0.9% 1,000 ML 100 ML IV (16:25)
[2023-09-11 18:00] LABS: Glucose Point of Care 188 mg/dL (70-110)
[2023-09-11] MEDS: insulin lispro 100 unit/1 mL SUBCUT ×2 (18:07→21:23)
[2023-09-11 19:59] LABS: Partial Thromboplastin Time 73.1 SECONDS (23.9-36.7)
[2023-09-11 20:01] LABS: Anion Gap 14.8 (5-19); Blood Urea Nitrogen 57 mg/dL (8-23); Calcium 8.8 mg/dL (8.5-10.5); Carbon Dioxide 26 mmol/L (22-29); Chloride 126 mmol/L (98-107); Creatinine Clr Calc Pharmacy 24.9416; Glucose 182 mg/dL (65-115); Osmolality Calculated 356 mOsm/kg (285-295); Potassium 3.8 mmol/L (3.5-5.1)
[2023-09-11 20:07] LABS: Sodium 163 mmol/L (136-145)
[2023-09-11 21:21] LABS: Glucose Point of Care 183 mg/dL (70-110)
[2023-09-11] MEDS: dextrose 5% 1,000 ML 75 ML IV (21:22)
[2023-09-12] VITALS (41 sets, daily range): BP systolic 96–182; BP diastolic 48–109; PULSE 76–113; RESP 13–25; TEMP 36.5–37.1; O2SAT 91–98; BMI 23.1
[2023-09-12 00:40] LABS: Anion Gap 13.5 (5-19); Blood Urea Nitrogen 58 mg/dL (8-23); Carbon Dioxide 25 mmol/L (22-29); Chloride 123 mmol/L (98-107); Creatinine Clr Calc Pharmacy 26.4087; Glucose 145 mg/dL (65-115); Osmolality Calculated 345 mOsm/kg (285-295); Potassium 3.5 mmol/L (3.5-5.1); Sodium 158 mmol/L (136-145); Sodium 159 mmol/L (136-145)
[2023-09-12] MEDS: meropenem 1,000 MG in sodium chloride 0.9% (plus) 50 ML 100 MG IV ×2 (02:28→13:57)
[2023-09-12 03:05] LABS: Basophils # 0.1 10^3/uL (0.0-0.1); Basophils % 0.7 %; Eosinophils # 0.1 10^3/uL (0.0-0.8); Lymphocytes # 2.1 10^3/uL (0.8-4.8); Lymphocytes % 20.7 %; Mean Corpuscular HGB Conc 29.7 g/dL (30-55); Mean Corpuscular Hemoglobin 25.9 pg (27-33); Mean Corpuscular Volume 87.2 fl (85-98); Mean Platelet Volume 11.5 fL (7.4-10.4); Monocytes # 0.5 10^3/uL (0.2-0.9); Monocytes % 4.8 %; Neutrophils # 6.98 10^3/uL (1.8-7.7); Neutrophils % 68.7 %; Nucleated Red Blood Cells % 0 %; Platelet Count 336 10^3/cmm (157-399); Red Blood Count 4.13 10^6/uL (3.85-5.65); Red Cell Distribution Width 12.8 % (12.1-15.1); White Blood Count 10.17 10^3/uL (3.29-11.43)
[2023-09-12 03:24] LABS: Alanine Aminotransferase 8 U/L (0-33); Alkaline Phosphatase 104 U/L (35-105); Anion Gap 13.8 (5-19); Aspartate Amino Transferase 13 U/L (0-32); Blood Urea Nitrogen 55 mg/dL (8-23); Calcium 8.8 mg/dL (8.5-10.5); Carbon Dioxide 26 mmol/L (22-29); Chloride 122 mmol/L (98-107); Creatinine Clr Calc Pharmacy 23.6288; Globulin 3.8 g/dL (1.3-4.6); Glucose 171 mg/dL (65-115); Magnesium 2.1 mg/dL (1.7-2.3); Osmolality Calculated 345 mOsm/kg (285-295); Potassium 3.8 mmol/L (3.5-5.1); Sodium 158 mmol/L (136-145); Total Bilirubin 0.2 mg/dL (0.15-1.2); Total Protein 6.8 g/dL (6.6-8.7)
[2023-09-12 03:28] LABS: Partial Thromboplastin Time 103.8 SECONDS (23.9-36.7)
[2023-09-12] MEDS: clopidogrel 75 mg Tablet PO (05:42)
[2023-09-12] MEDS: sertraline 100 mg Tablet PO (06:16)
[2023-09-12 07:46] LABS: Glucose Point of Care 137 mg/dL (70-110)
[2023-09-12] MEDS: metoprolol tartrate 25 mg Tablet 12.5 MG PO ×2 (08:00→20:59)
[2023-09-12] MEDS: pantoprazole 40 mg SDV IVP (08:00)
[2023-09-12] MEDS: memantine 5 mg tablet PO ×2 (08:00→17:09)
--- NOTE | 2023-09-12 08:18 | P.PN_ITS ---
Documented by User: SHERRILL Verde [email or web address] 09/12/23 08:39 Subjective 2 Subjective: Patient resting in bed on 2L nasal cannula, able to answer some questions this morning. Mrs. Gage was able to tell me that her stomach doesn't hurt any more and that she does feel like she is having some trouble breathing. Medications: Reviewed: Yes Vitals/I&O/Wt Last Vital Signs Temp 97.7 F 09/12/23 05:00 Pulse 101 H 09/12/23 06:15 Resp 24 H 09/12/23 06:15 BP 150/59 09/12/23 06:00 Pulse Ox 96 09/12/23 06:15 O2 Del Method Nasal Cannula 09/12/23 06:00 O2 Flow Rate 2 09/12/23 00:30 09/11/23 09/12/23 09/12/23 22:59 06:59 14:59 Intake Total 218.045 / 3831.375 121.2 / 3952.575 Output Total 500 / 500 150 / 650 Balance -281.955 / 3331.375 -28.8 / 3302.575 Weight last 48 hrs Weight 139 lb Weight 139 lb Weight 139 lb Weight 139 lb 6.4 oz Weight 170 lb Physical Exam 2 Narrative: General exam is a white female, on 2 L NC. Alert and oriented to self. Neck is supple, no lymphadenopathy thyromegaly Cardiovascular currently regular, no murmur. Lungs sounds noted to clear throughout. On 2 L nasal cannula. Abdomen is soft, tender-groaning on palpation. Positive bowel sounds. exams deferred. Esteban catheter in place. Extremities trace edema lower legs. Neuro: Moves all 4 extremities. No focal deficits. Obviously confused. Urinary Catheter Management: Esteban: Cath Placed During This Visit: yes Reason for Continuing Indwelling Catheter: Accurate Measurement of Urinary Output in Critically Ill Patients Urinary Catheter Date of Insertion: 09/11/23 Urinary Catheter Time of Insertion: 11:09 Sepsis: Is patient septic: Yes Focused sepsis exam performed: Yes Date exam was performed: 09/11/23 Time exam was performed: 13:51 Data 09/12/23 02:59 09/12/23 02:59 Micro: Microbiology 09/11/23 10:20 Blood Culture - Preliminary Blood SPECIMEN COLLECTED 09/11/23 09:51 Blood Culture - Preliminary Blood SPECIMEN COLLECTED A&P Assessment and plan (1) Sepsis: Patient came in with significant sepsis. This is demonstrated by organ dysfunction with acute kidney injury, acute encephalopathy, tachycardia, focus of infection UTI and recent influenza. Blood cultures and urine cultures pending. Sepsis bolus has been given 09/11/23 Continue IV fluids as she is appears fluid responsive and not requiring pressors. Tachycardia is improving. Lactate was high on admission. (2) UTI (urinary tract infection): Patient with significant UTI. This appears complicated with sepsis. Previous hospitalization with ESBL, requiring 2 weeks of IV carbapenem. Continue meropenem Urine culture pending. CT renal unremarkable (3) Acute metabolic encephalopathy: Patient with acute metabolic encephalopathy secondary to above, superimposed on dementia Improving, patient is answering some questions today. CT head was performed 09/11/23 demonstrated old area of ischemia basal ganglia, but no evidence of acute stroke or hemorrhage. Speech therapy consult, for possible advancement in diet as patient is more alert today. (4) Acute renal failure: Patient with acute kidney injury. Overall baseline a year ago or so was normal. Do not know her current baseline. Follow for improvement. Esteban placed. CT renal protocol unremarkable. Avoid renal toxic medication CBC, CMP, magnesium daily (5) Elevated troponin: Patient with elevated troponin. This could represent a non-ST elevation myocardial infarction, but the concern of ischemic changes on her EKG have been present before Echocardiogram pending Continue Heparin drip, possibly d/c if echo is normal. Continue Plavix 75 mg daily No consideration for statin currently secondary to some renal failure. (6) Hypernatremia: Patient with severe hyponatremia, Na 158 this am, repeat at 1130 This should improve with hydration Repeat BMP later this evening, and tomorrow (7) Elevated brain natriuretic peptide (BNP) level: Patient with significant elevation of BNP She has no evidence of fluid overload, in fact she looks dry Continue IV fluids Monitor for failure Echocardiogram pending (8) Dementia: Patient with underlying dementia, complicating this current illness Monitor closely for improvement to her baseline. We did talk to nursing facility regarding her baseline which is conversational, orienting to self but perhaps not place. Continue memantine 5mg BID (9) Insulin dependent type 2 diabetes mellitus: Mild sliding scale insulin No evidence of DKA (10) Hypertension: Patient blood pressure improved, start bad on home metoprolol starting at a lower dose of 12.5mg BID Plan Recent influenza. She recently completed a dose/course of Tamiflu. Isolation precautions. Other medical problems as outlined in past medical history Full code currently Heparin will suffice for DVT prophylaxis Protonix for GI prophylaxis, IV Coding Level of Care Code 31807 Diagnoses Sepsis A41.9 UTI (urinary tract infection) N39.0 Acute metabolic encephalopathy G93.41 Acute renal failure N17.9 Elevated troponin R79.89 Hypernatremia E87.0 Elevated brain natriuretic peptide (BNP) level R79.89 Dementia F03.90 Insulin dependent type 2 diabetes mellitus E11.9; Z79.4 Hypertension I10 Time Spent (min) 32 Documented by User: Mark Garcia MD 09/12/23 10:14 Physical Exam 2 Urinary Catheter Management: Esteban: Cath Placed During This Visit: yes Data 09/12/23 02:59 09/12/23 02:59 A&P Assessment and plan (1) Sepsis: Patient came in with significant sepsis. This is demonstrated by organ dysfunction with acute kidney injury, acute encephalopathy, tachycardia, focus of infection UTI and recent influenza. Blood cultures and urine cultures pending. Sepsis bolus has been given 09/11/23 Overall improving (2) UTI (urinary tract infection): Patient with significant UTI. This appears complicated with sepsis. Previous hospitalization with ESBL, requiring 2 weeks of IV carbapenem. Continue meropenem Urine culture pending. CT renal unremarkable, no evidence of obstruction (3) Acute metabolic encephalopathy: Patient with acute metabolic encephalopathy secondary to above, superimposed on dementia Improving, patient is answering some questions today. CT head was performed 09/11/23 demonstrated old area of ischemia basal ganglia, but no evidence of acute stroke or hemorrhage. Speech therapy consult, for possible advancement in diet as patient is more alert today. Note she was on a pur?ed diet with thickened liquids at the nursing facility (4) Acute renal failure: Patient with acute kidney injury. Overall baseline a year ago or so was normal. Do not know her current baseline. Follow for improvement. Esteban placed. CT renal protocol unremarkable. Avoid renal toxic medication CBC, CMP, magnesium daily Renal function slightly improved but still significantly abnormal (5) Elevated troponin: (6) Hypernatremia: Patient with severe hyponatremia, Na 158 this am, repeat at 1130 This should improve with hydration Repeat BMP later this evening, and tomorrow Possible transfer to floor today if sodium improving (7) Elevated brain natriuretic peptide (BNP) level: (8) Dementia: (9) Insulin dependent type 2 diabetes mellitus: (10) Hypertension: Attestations 2 Medical Necessity Statement*: Needs continued hospitalization secondary to marked hyponatremia, need for IV antibiotics secondary to sepsis. Diagnoses Sepsis A41.9 UTI (urinary tract infection) N39.0 Acute metabolic encephalopathy G93.41 Acute renal failure N17.9 Elevated troponin R79.89 Hypernatremia E87.0 Elevated brain natriuretic peptide (BNP) level R79.89 Dementia F03.90 Insulin dependent type 2 diabetes mellitus E11.9; Z79.4 Hypertension I10 Time Spent (min) 32
[2023-09-12] MEDS: dextrose 5% 1,000 ML 75 ML IV ×2 (08:20→18:02)
[2023-09-12 08:39] LABS: Glucose Point of Care 88 mg/dL (70-110)
[2023-09-12] MEDS: insulin lispro 100 unit/1 mL SUBCUT ×2 (11:15→17:08)
[2023-09-12 11:17] LABS: Glucose Point of Care 303 mg/dL (70-110)
[2023-09-12 11:17] LABS: Glucose Point of Care 305 mg/dL (70-110)
[2023-09-12 11:51] LABS: Partial Thromboplastin Time 61.3 SECONDS (23.9-36.7)
[2023-09-12 11:52] LABS: Anion Gap 16.6 (5-19); Blood Urea Nitrogen 52 mg/dL (8-23); Calcium 8.6 mg/dL (8.5-10.5); Carbon Dioxide 23 mmol/L (22-29); Chloride 115 mmol/L (98-107); Creatinine Clr Calc Pharmacy 28.0593; Glucose 317 mg/dL (65-115); Osmolality Calculated 338 mOsm/kg (285-295); Potassium 3.6 mmol/L (3.5-5.1); Sodium 151 mmol/L (136-145)
[2023-09-12 18:10] LABS: Glucose Point of Care 214 mg/dL (70-110)
[2023-09-12 20:54] LABS: Anion Gap 15.6 (5-19); Blood Urea Nitrogen 48 mg/dL (8-23); Carbon Dioxide 26 mmol/L (22-29); Chloride 122 mmol/L (98-107); Creatinine Clr Calc Pharmacy 28.0593; Glucose 127 mg/dL (65-115); Osmolality Calculated 344 mOsm/kg (285-295); Potassium 3.6 mmol/L (3.5-5.1); Sodium 160 mmol/L (136-145)
[2023-09-12 21:16] LABS: Glucose Point of Care 126 mg/dL (70-110)
[2023-09-12] MEDS: heparin 5,000 unit/mL INJ 1 mL 5000 UNIT SUBCUT (22:20)
[2023-09-13] MEDS: meropenem 1,000 MG in sodium chloride 0.9% (plus) 50 ML 100 MG IV ×2 (02:28→15:07)
[2023-09-13 04:00] VITALS: BP 143/81; PULSE 93; RESP 19; TEMP 36.4; O2SAT 90
[2023-09-13 05:54] LABS: Basophils # 0.1 10^3/uL (0.0-0.1); Basophils % 0.5 %; Eosinophils # 0.1 10^3/uL (0.0-0.8); Eosinophils % 1.2 %; Hematocrit 34.3 % (36-47); Lymphocytes # 1.5 10^3/uL (0.8-4.8); Lymphocytes % 15.1 %; Mean Corpuscular HGB Conc 30.6 g/dL (30-55); Mean Corpuscular Hemoglobin 26.1 pg (27-33); Mean Corpuscular Volume 85.1 fl (85-98); Mean Platelet Volume 11.7 fL (7.4-10.4); Monocytes # 0.4 10^3/uL (0.2-0.9); Monocytes % 4.1 %; Neutrophils # 7.33 10^3/uL (1.8-7.7); Neutrophils % 75.4 %; Nucleated Red Blood Cells % 0 %; Platelet Count 336 10^3/cmm (157-399); Red Blood Count 4.03 10^6/uL (3.85-5.65); Red Cell Distribution Width 12.6 % (12.1-15.1); White Blood Count 9.73 10^3/uL (3.29-11.43)
[2023-09-13] MEDS: clopidogrel 75 mg Tablet PO (06:10)
[2023-09-13] MEDS: sertraline 100 mg Tablet PO (06:10)
[2023-09-13 06:16] LABS: Alanine Aminotransferase 13 U/L (0-33); Alkaline Phosphatase 100 U/L (35-105); Anion Gap 17.4 (5-19); Aspartate Amino Transferase 20 U/L (0-32); Blood Urea Nitrogen 43 mg/dL (8-23); Calcium 8.6 mg/dL (8.5-10.5); Carbon Dioxide 24 mmol/L (22-29); Chloride 115 mmol/L (98-107); Creatinine Clr Calc Pharmacy 32.0677; Globulin 3.8 g/dL (1.3-4.6); Glucose 272 mg/dL (65-115); Magnesium 1.9 mg/dL (1.7-2.3); Osmolality Calculated 336 mOsm/kg (285-295); Potassium 3.4 mmol/L (3.5-5.1); Sodium 153 mmol/L (136-145); Total Bilirubin 0.2 mg/dL (0.15-1.2); Total Protein 6.8 g/dL (6.6-8.7)
[2023-09-13 06:30] LABS: Glucose Point of Care 262 mg/dL (70-110)
[2023-09-13 08:00] VITALS: BP 162/91; PULSE 98; RESP 18; TEMP 36.6; O2SAT 97
--- NOTE | 2023-09-13 08:17 | P.PN_ITS ---
Subjective 2 Subjective: Unique is more awake this morning. Denies any complaints to me but obviously confused. Medications: Reviewed: Yes Vitals/I&O/Wt Last Vital Signs Temp 97.5 F L 09/13/23 04:00 Pulse 93 09/13/23 04:00 Resp 19 H 09/13/23 04:00 BP 143/81 09/13/23 04:00 Pulse Ox 90 09/13/23 04:00 O2 Del Method Room Air 09/13/23 04:00 O2 Flow Rate 2 09/12/23 00:30 09/12/23 09/13/23 09/13/23 22:59 06:59 14:59 Intake Total 1777.5 / 2600.0 1050 / 3650.0 Output Total 500 / 500 250 / 750 Balance 1277.5 / 2100.0 800 / 2900.0 Weight last 48 hrs Weight 63.049 kg Weight 63.049 kg Weight 63.049 kg Weight 63.231 kg Weight 77.111 kg Physical Exam 2 Narrative: General exam no distress Neuro no focal deficits but confused Cardiovascular regular rate and rhythm without murmur Lungs clear Abdomen is soft Extremities This is Covid 19 Urinary Catheter Management: Esteban: Cath Placed During This Visit: yes Reason for Continuing Indwelling Catheter: Required Immobilization for Trauma or Surgery or Anesthesia Urinary Catheter Date of Insertion: 09/11/23 Urinary Catheter Time of Insertion: 11:09 Data 09/13/23 05:21 09/13/23 05:21 Micro: Microbiology 09/11/23 10:20 Blood Culture - Preliminary Blood NEGATIVE TO DATE 09/11/23 11:06 Urine Culture - Preliminary Urine,Clean Catch Gram Negative Rods 09/11/23 09:51 Blood Culture - Preliminary Blood NEGATIVE TO DATE A&P Assessment and plan (1) Sepsis: Patient came in with significant sepsis. This is demonstrated by organ dysfunction with acute kidney injury, acute encephalopathy, tachycardia, focus of infection UTI and recent influenza. Blood cultures and urine cultures pending. Urine culture growing gram-negative rods Sepsis bolus has been given 09/11/23 Resolved Discontinue Vancomycin. (2) UTI (urinary tract infection): Patient with significant UTI. This appears complicated with sepsis. Previous hospitalization with ESBL, requiring 2 weeks of IV carbapenem. Continue meropenem Urine culture pending. CT renal unremarkable, no evidence of obstruction (3) Acute metabolic encephalopathy: Patient with acute metabolic encephalopathy secondary to above, superimposed on dementia Improving, patient is answering some questions today. CT head was performed 09/11/23 demonstrated old area of ischemia basal ganglia, but no evidence of acute stroke or hemorrhage. Significantly improved. Initiate diet today. Speech therapy consult. (4) Acute renal failure: Patient with acute kidney injury. Overall baseline a year ago or so was normal. Do not know her current baseline. Follow for improvement. Esteban placed. CT renal protocol unremarkable. Avoid renal toxic medication CBC, CMP, magnesium daily Significantly improved (5) Elevated troponin: Patient with elevated troponin. This could represent a non-ST elevation myocardial infarction, but the concern of ischemic changes on her EKG have been present before Echocardiogram 50 to 55% EF, moderate to severe LVH Heparin drip has been discontinued. She had approximately 48 hours Continue Plavix 75 mg daily No consideration for statin currently secondary to some renal failure. (6) Hypernatremia: Continues to improve. Repeat sodium around 1230. Continue D5W at 75 cc an hour (7) Elevated brain natriuretic peptide (BNP) level: Patient with significant elevation of BNP She has no evidence of fluid overload, in fact she looks dry Continue IV fluids Monitor for failure Echocardiogram as above (8) Dementia: Patient with underlying dementia, complicating this current illness Monitor closely for improvement to her baseline. We did talk to nursing facility regarding her baseline which is conversational, orienting to self but perhaps not place. Continue memantine 5mg BID (9) Insulin dependent type 2 diabetes mellitus: Mild sliding scale insulin No evidence of DKA (10) Hypertension: Increase metoprolol today back to home dose Plan Recent influenza. She recently completed a dose/course of Tamiflu. Isolation precautions. Other medical problems as outlined in past medical history Full code currently Heparin will suffice for DVT prophylaxis Protonix for GI prophylaxis, IV Attestations 2 Medical Necessity Statement*: Needs continued hospitalization pending culture identification and sensitivity, but complicated UTI with sepsis, as well as correction of sodium. Diagnoses Sepsis A41.9 UTI (urinary tract infection) N39.0 Acute metabolic encephalopathy G93.41 Acute renal failure N17.9 Elevated troponin R79.89 Hypernatremia E87.0 Elevated brain natriuretic peptide (BNP) level R79.89 Dementia F03.90 Insulin dependent type 2 diabetes mellitus E11.9; Z79.4 Hypertension I10 Time Spent (min) 23
[2023-09-13] MEDS: dextrose 5% 1,000 ML 75 ML IV (11:05)
[2023-09-13] MEDS: insulin lispro 100 unit/1 mL SUBCUT ×4 (11:08→20:59)
[2023-09-13 11:09] LABS: Glucose Point of Care 400 mg/dL (70-110)
[2023-09-13] MEDS: memantine 5 mg tablet PO ×2 (11:09→18:05)
[2023-09-13] MEDS: pantoprazole 40 mg SDV IVP (11:09)
[2023-09-13] MEDS: potassium chloride oral liq 20 mEq/15 mL UDC 40 MEQ PO (11:09)
[2023-09-13] MEDS: metoprolol tartrate 25 mg Tablet PO ×2 (11:12→20:52)
[2023-09-13] MEDS: heparin 5,000 unit/mL INJ 1 mL 5000 UNIT SUBCUT ×2 (11:12→21:01)
--- NOTE | 2023-09-13 11:55 | PC.SOCIAL ---
IMM Update pg 2 of IMM updated and reviewed w/ patients daughter Marcella. Copy left @ bedside and copy dated, initialed and placed in chart.
[2023-09-13 12:00] VITALS: BP 110/60; PULSE 104; RESP 18; TEMP 36.4; O2SAT 95
[2023-09-13 16:00] VITALS: BP 120/78; PULSE 77; RESP 17; TEMP 36.4; O2SAT 98
[2023-09-13 16:58] LABS: Glucose Point of Care 245 mg/dL (70-110)
[2023-09-13 17:03] LABS: Anion Gap 15.8 (5-19); Blood Urea Nitrogen 38 mg/dL (8-23); Calcium 8.5 mg/dL (8.5-10.5); Carbon Dioxide 21 mmol/L (22-29); Chloride 117 mmol/L (98-107); Glucose 254 mg/dL (65-115); Osmolality Calculated 328 mOsm/kg (285-295); Potassium 3.8 mmol/L (3.5-5.1); Sodium 150 mmol/L (136-145)
[2023-09-13 17:08] LABS: Creatinine Clr Calc Pharmacy 32.0677
[2023-09-13 19:48] VITALS: BP 147/77; PULSE 86; RESP 18; TEMP 36.6; O2SAT 95
[2023-09-13 20:41] LABS: Glucose Point of Care 178 mg/dL (70-110)
[2023-09-13 23:21] VITALS: BP 135/93; PULSE 84; RESP 15; TEMP 36.6; O2SAT 96
[2023-09-14] MEDS: dextrose 5% 1,000 ML 75 ML IV (00:33)
[2023-09-14] MEDS: meropenem 1,000 MG in sodium chloride 0.9% (plus) 50 ML 100 MG IV ×2 (02:16→14:45)
[2023-09-14 02:48] LABS: Basophils # 0.1 10^3/uL (0.0-0.1); Basophils % 0.4 %; Eosinophils # 0.2 10^3/uL (0.0-0.8); Eosinophils % 1.6 %; Hematocrit 33.4 % (36-47); Lymphocytes # 1.7 10^3/uL (0.8-4.8); Lymphocytes % 15.4 %; Mean Corpuscular HGB Conc 30.8 g/dL (30-55); Mean Corpuscular Hemoglobin 25.8 pg (27-33); Mean Corpuscular Volume 83.7 fl (85-98); Mean Platelet Volume 11.5 fL (7.4-10.4); Monocytes # 0.5 10^3/uL (0.2-0.9); Monocytes % 4.5 %; Neutrophils # 8.29 10^3/uL (1.8-7.7); Neutrophils % 73.7 %; Nucleated Red Blood Cells % 0 %; Platelet Count 359 10^3/cmm (157-399); Red Blood Count 3.99 10^6/uL (3.85-5.65); Red Cell Distribution Width 12.4 % (12.1-15.1); White Blood Count 11.25 10^3/uL (3.29-11.43)
[2023-09-14 03:13] LABS: Alanine Aminotransferase 13 U/L (0-33); Alkaline Phosphatase 97 U/L (35-105); Anion Gap 14.8 (5-19); Aspartate Amino Transferase 19 U/L (0-32); Blood Urea Nitrogen 33 mg/dL (8-23); Calcium 8.7 mg/dL (8.5-10.5); Carbon Dioxide 25 mmol/L (22-29); Chloride 114 mmol/L (98-107); Creatinine Clr Calc Pharmacy 34.5345; Globulin 3.6 g/dL (1.3-4.6); Glucose 176 mg/dL (65-115); Magnesium 1.7 mg/dL (1.7-2.3); Osmolality Calculated 322 mOsm/kg (285-295); Potassium 3.8 mmol/L (3.5-5.1); Sodium 150 mmol/L (136-145); Total Bilirubin 0.2 mg/dL (0.15-1.2); Total Protein 6.6 g/dL (6.6-8.7)
[2023-09-14 03:35] VITALS: BP 117/66; PULSE 78; RESP 17; TEMP 36.5; O2SAT 97
[2023-09-14] MEDS: sertraline 100 mg Tablet PO (06:03)
[2023-09-14] MEDS: clopidogrel 75 mg Tablet PO (06:03)
[2023-09-14 08:00] VITALS: BP 131/73; PULSE 76; RESP 20; TEMP 36.6; O2SAT 97
[2023-09-14 08:29] LABS: Glucose Point of Care 249 mg/dL (70-110)
[2023-09-14] MEDS: pantoprazole DR 40 mg Tablet PO (08:47)
[2023-09-14] MEDS: memantine 5 mg tablet PO ×2 (08:47→18:27)
[2023-09-14] MEDS: metoprolol tartrate 25 mg Tablet PO ×2 (08:48→20:14)
[2023-09-14] MEDS: insulin lispro 100 unit/1 mL SUBCUT ×3 (08:49→21:37)
[2023-09-14 11:10] LABS: Glucose Point of Care 235 mg/dL (70-110)
[2023-09-14] MEDS: dextrose 5% 1,000 ML 100 ML IV ×2 (11:51→21:37)
[2023-09-14] MEDS: heparin 5,000 unit/mL INJ 1 mL 5000 UNIT SUBCUT ×2 (11:52→21:37)
[2023-09-14 12:00] VITALS: BP 129/76; PULSE 101; RESP 18; TEMP 36.7; O2SAT 97
--- NOTE | 2023-09-14 12:02 | P.PN_ITS ---
Subjective 2 Subjective: seen this morning pt confused Na @ 150 Vitals/I&O/Wt Last Vital Signs Temp 97.8 F 09/14/23 08:00 Pulse 76 09/14/23 08:00 Resp 20 H 09/14/23 08:00 BP 131/73 09/14/23 08:00 Pulse Ox 97 09/14/23 08:00 O2 Del Method Room Air 09/14/23 08:00 O2 Flow Rate 2 09/12/23 00:30 09/13/23 09/14/23 09/14/23 22:59 06:59 14:59 Intake Total 170 / 170 1050 / 1220 847.5 / 847.5 Output Total 775 / 775 Balance 170 / 170 275 / 445 847.5 / 847.5 Weight last 48 hrs Weight 63.049 kg Weight 63.049 kg Physical Exam 2 Narrative: General exam no distress Neuro no focal deficits but confused Cardiovascular regular rate and rhythm without murmur Lungs clear Abdomen is soft Extremities This is Covid 19 Urinary Catheter Management: Esteban: Cath Placed During This Visit: yes Reason for Continuing Indwelling Catheter: Required Immobilization for Trauma or Surgery or Anesthesia Urinary Catheter Date of Insertion: 09/11/23 Urinary Catheter Time of Insertion: 11:09 Data 09/14/23 01:53 09/14/23 01:53 Micro: Microbiology 09/11/23 11:06 Urine Culture - Final Urine,Clean Catch Klebsiella pneumonia esbl A&P Assessment and plan (1) Sepsis: Patient came in with significant sepsis. This is demonstrated by organ dysfunction with acute kidney injury, acute encephalopathy, tachycardia, focus of infection UTI and recent influenza. Blood cultures and urine cultures pending. Urine culture growing gram-negative rods Sepsis bolus has been given 09/11/23 Resolved Discontinue Vancomycin. (2) UTI (urinary tract infection): Patient with significant UTI. This appears complicated with sepsis. Previous hospitalization with ESBL, requiring 2 weeks of IV carbapenem. Continue meropenem Urine culture pending. CT renal unremarkable, no evidence of obstruction (3) Acute metabolic encephalopathy: Patient with acute metabolic encephalopathy secondary to above, superimposed on dementia Improving, patient is answering some questions today. CT head was performed 09/11/23 demonstrated old area of ischemia basal ganglia, but no evidence of acute stroke or hemorrhage. Significantly improved. Initiate diet today. Speech therapy consult. (4) Acute renal failure: Patient with acute kidney injury. Overall baseline a year ago or so was normal. Do not know her current baseline. Follow for improvement. Esteban placed. CT renal protocol unremarkable. Avoid renal toxic medication CBC, CMP, magnesium daily Significantly improved (5) Elevated troponin: Patient with elevated troponin. This could represent a non-ST elevation myocardial infarction, but the concern of ischemic changes on her EKG have been present before Echocardiogram 50 to 55% EF, moderate to severe LVH Heparin drip has been discontinued. She had approximately 48 hours Continue Plavix 75 mg daily No consideration for statin currently secondary to some renal failure. (6) Hypernatremia: Continues to improve. Repeat sodium around 1230. Continue D5W at 75 cc an hour Continue D5W (7) Elevated brain natriuretic peptide (BNP) level: Patient with significant elevation of BNP She has no evidence of fluid overload, in fact she looks dry Continue IV fluids Monitor for failure Echocardiogram as above (8) Dementia: Patient with underlying dementia, complicating this current illness Monitor closely for improvement to her baseline. We did talk to nursing facility regarding her baseline which is conversational, orienting to self but perhaps not place. Continue memantine 5mg BID (9) Insulin dependent type 2 diabetes mellitus: Mild sliding scale insulin No evidence of DKA (10) Hypertension: metoprolol tartrate 25 bid Plan Recent influenza. She recently completed a dose/course of Tamiflu. Isolation precautions. Other medical problems as outlined in past medical history Full code currently Heparin will suffice for DVT prophylaxis Protonix for GI prophylaxis, IV Attestations 2 Medical Necessity Statement*: Needs continued hospitalization pending culture identification and sensitivity, but complicated UTI with sepsis, as well as correction of sodium. Diagnoses Sepsis A41.9 UTI (urinary tract infection) N39.0 Acute metabolic encephalopathy G93.41 Acute renal failure N17.9 Elevated troponin R79.89 Hypernatremia E87.0 Elevated brain natriuretic peptide (BNP) level R79.89 Dementia F03.90 Insulin dependent type 2 diabetes mellitus E11.9; Z79.4 Hypertension I10
[2023-09-14 12:18] LABS: Anion Gap 14.6 (5-19); Blood Urea Nitrogen 29 mg/dL (8-23); Calcium 8.4 mg/dL (8.5-10.5); Carbon Dioxide 23 mmol/L (22-29); Chloride 111 mmol/L (98-107); Glucose 240 mg/dL (65-115); Osmolality Calculated 314 mOsm/kg (285-295); Potassium 3.6 mmol/L (3.5-5.1); Sodium 145 mmol/L (136-145)
[2023-09-14 12:25] LABS: Creatinine Clr Calc Pharmacy 37.4123
[2023-09-14 16:00] VITALS: BP 116/79; PULSE 77; RESP 15; TEMP 36.7; O2SAT 93
[2023-09-14 17:57] LABS: Glucose Point of Care 153 mg/dL (70-110)
[2023-09-14 19:32] VITALS: BP 128/78; PULSE 82; RESP 18; TEMP 36.9; O2SAT 96
[2023-09-14 19:58] LABS: Anion Gap 14.7 (5-19); Blood Urea Nitrogen 25 mg/dL (8-23); Calcium 8.5 mg/dL (8.5-10.5); Carbon Dioxide 24 mmol/L (22-29); Chloride 107 mmol/L (98-107); Creatinine Clr Calc Pharmacy 40.8135; Glucose 175 mg/dL (65-115); Osmolality Calculated 303 mOsm/kg (285-295); Potassium 3.7 mmol/L (3.5-5.1); Sodium 142 mmol/L (136-145)
[2023-09-14 21:12] LABS: Glucose Point of Care 194 mg/dL (70-110)
[2023-09-14 23:36] VITALS: BP 99/60; PULSE 76; RESP 18; TEMP 36.9; O2SAT 92
[2023-09-15] MEDS: meropenem 1,000 MG in sodium chloride 0.9% (plus) 50 ML 100 MG IV (02:06)
[2023-09-15 03:04] LABS: Anion Gap 12.4 (5-19); Blood Urea Nitrogen 23 mg/dL (8-23); Calcium 8.2 mg/dL (8.5-10.5); Carbon Dioxide 24 mmol/L (22-29); Chloride 106 mmol/L (98-107); Creatinine Clr Calc Pharmacy 40.8135; Glucose 152 mg/dL (65-115); Osmolality Calculated 295 mOsm/kg (285-295); Potassium 3.4 mmol/L (3.5-5.1); Sodium 139 mmol/L (136-145)
[2023-09-15 04:02] VITALS: BP 125/67; PULSE 77; RESP 18; TEMP 36.4; O2SAT 94
[2023-09-15 06:16] LABS: Glucose Point of Care 173 mg/dL (70-110)
[2023-09-15] MEDS: sertraline 100 mg Tablet PO (06:23)
[2023-09-15] MEDS: clopidogrel 75 mg Tablet PO (06:23)
[2023-09-15 06:43] VITALS: BMI 23.1
[2023-09-15 07:43] VITALS: BP 107/61; PULSE 90; RESP 19; TEMP 36.4; O2SAT 94
[2023-09-15] MEDS: memantine 5 mg tablet PO (09:17)
[2023-09-15] MEDS: metoprolol tartrate 25 mg Tablet PO (09:17)
[2023-09-15] MEDS: pantoprazole DR 40 mg Tablet PO (09:17)
[2023-09-15] MEDS: heparin 5,000 unit/mL INJ 1 mL 5000 UNIT SUBCUT (09:24)
[2023-09-15 09:40] VITALS: PULSE 77; O2SAT 93
--- NOTE | 2023-09-15 11:02 | P.DS_ITS ---
Discharge Providers Date of Admission: 09/11/23 13:14 Date of Discharge: September 15, 2023 Attending Provider at Admission: Mark Garcia MD Attending Provider at Discharge: Diana Almanza MD Primary Care Provider: Dao Alba DO Diagnoses at Discharge Discharge Diagnosis (1) Sepsis: Status: Acute (2) UTI (urinary tract infection): Status: Acute (3) Acute metabolic encephalopathy: Status: Acute (4) Acute renal failure: Status: Acute (5) Elevated troponin: Status: Acute (6) Hypernatremia: Status: Acute (7) Elevated brain natriuretic peptide (BNP) level: Status: Acute (8) Dementia: Status: Acute (9) Insulin dependent type 2 diabetes mellitus: Status: Acute (10) Hypertension: Status: Acute Reason for Visit Reason for Visit: Hyperglycima Brief History: Unique Gage is a 78 year old female past medical history of mild dementia currently taking memantine, acute renal failure, NSTEMI, hyperlipidemia, type 2 diabetes, PE, and was recently treated for the flu. She received her last dose of tamiflu 08/12/23 presents to the emergency department for below listed comp laints. Patient is a 78 year old female that presents to the emergency department for chief complaint of hyperglycemia and altered mental status. She comes from [facility] and is currently nonverbal and unable to participate in her admission interview, she lets out intermittent groans, does not make eye contact. I called the [facility] and spoke with her nurse. Her last known normal was 09/10/23 around noon when she was eating lunch. At this time she was alert and oriented to self as this is her baseline, it is noted that she does have underlying dementia. Later that day around dinnertime she had refused to eat, was not feeling good. Later on that evening around 10 PM or so Mrs. Gage blood sugar was noted to be very elevated, glucometer could not read glucose. Patient was able to drink thicken water at this time and was giving some short acting insulin. Around 0600 this morning 09/11/23 Mrs. Gage was found to have altered mental status, legs appeared to he mottled at this time, nonverbal, mostly groaning, and still hyperglycemic. She was then in brought into the Emergency Department to be evaluated. While in the Emergency Department patient received sepsis bolus of about 3.3L NS, Vancomycin 1000mg IV, Zoysn 3.375mg, 2.5mg IVP, heparin bolus, and a heparin drip was initiated. A CBC, CMP, blood culture, urine culture, lactic acid, troponin, and EKG were obtained. Patient to be transferred to the ICU for further treatment and care Hospital Course Hospital Course Patient presented with sepsis with endorgan dysfunction JOSEPH, acute encephalopathy, focus of infection UTI recent influenza. Patient was diagnosed with ESBL UTI. Acute kidney injury also improved. She was treated for NSTEMI with 48 hours of heparin, placed on Plavix. No statin given due to renal failure. Patient does have underlying dementia. She is on memantine 5 twice daily. She was kept on insulin sliding scale. Patient was hyponatremic for which she was given D5 water. Hyponatremia improved. Sodium normal today. Patient estrada already eating has slightly improved. Has poor oral intake however was able to eat half a cup of pudding this morning and has been eating 4-5 bites at breakfast lunch dinner with the nurse. She will be discharged home on Levaquin orally to complete course for her UTI. Patient did have elevated troponin but family decided not to work it up. I believe patient is back to her baseline. Patient will be discharged back to alf today. She is stable for discharge. Physical Exam Narrative: General exam no distress Neuro no focal deficits but confused Cardiovascular regular rate and rhythm without murmur Mainly clear to auscultation Patient confused at baseline but awake alert this morning Lungs clear Abdomen is soft Extremities Trace edema b/l LE Urinary Catheter Management: Esteban: Cath Placed During This Visit: yes Reason for Continuing Indwelling Catheter: Chronic Indwelling Urinary Catheter on Admission Urinary Catheter Date of Insertion: 09/11/23 Urinary Catheter Time of Insertion: 11:09 Discharge Data Studies Completed and Pending Completed Studies During Hospitalization Category Date Time Status CT abdomen renal stone [CT kidney stone 30174] Stat Cat Scan 09/11/23 13:[address] head wo con* [id number] Stat Cat Scan 09/11/23 09:47 Completed XR chest 1V portable [id number] Stat Exams 09/11/23 09:46 Completed CV. echo complete* [id number] Routine Ultrasound 09/11/23 14:11 Completed Pending at discharge Category Date Time Status Basic Metabolic Panel AM LABS Lab 09/16/23 04:00 Ordered Blood Culture Stat Lab 09/11/23 10:20 Results Complete Blood Count w/Auto AM LABS Lab 09/16/23 04:00 Ordered Magnesium AM LABS Lab 09/16/23 04:00 Ordered Radiology Impressions Abdomen/Pelvis CT 09/11/23 13:01 IMPRESSION: 1. Interval appearance of bilateral lower lobe features of bronchitis with mucous plugging , parenchymal atelectasis and airspace disease. 2. Distended gallbladder with cholelithiasis, also present on 06/21/2023. 3. Stable minor findings as above. Laboratory Results WBC 11.25 10^3/uL (3.29-11.43) 09/14/23 01:53 RBC 3.99 10^6/uL (3.85-5.65) 09/14/23 01:53 Hgb 10.30 g/dL (11.27-16.99) L 09/14/23 01:53 Hct 33.4 % (36-47) L 09/14/23 01:53 MCV 83.7 fl (85-98) L 09/14/23 01:53 MCH 25.8 pg (27-33) L 09/14/23 01:53 MCHC 30.8 g/dL (30-55) 09/14/23 01:53 RDW 12.4 % (12.1-15.1) 09/14/23 01:53 Plt Count 359 10^3/cmm (157-399) 09/14/23 01:53 MPV 11.5 fL (7.4-10.4) H 09/14/23 01:53 Neut % (Auto) 73.7 % 09/14/23 01:53 Lymph % (Auto) 15.4 % 09/14/23 01:53 Lassen % (Auto) 4.5 % 09/14/23 01:53 Eos % (Auto) 1.6 % 09/14/23 01:53 Baso % (Auto) 0.4 % 09/14/23 01:53 Neut # (Auto) 8.29 10^3/uL (1.8-7.7) H 09/14/23 01:53 Lymph # (Auto) 1.7 10^3/uL (0.8-4.8) 09/14/23 01:53 Lassen # (Auto) 0.5 10^3/uL (0.2-0.9) 09/14/23 01:53 Eos # (Auto) 0.2 10^3/uL (0.0-0.8) 09/14/23 01:53 Baso # (Auto) 0.1 10^3/uL (0.0-0.1) 09/14/23 01:53 Nucleated RBC % (auto) 0 % 09/14/23 01:53 Nucleated RBCs # 0.0 /100WBC 09/14/23 01:53 APTT 61.3 SECONDS (23.9-36.7) H 09/12/23 11:10 Specimen Type Arterial 09/11/23 09:53 Sample Site Radial, left 09/11/23 09:53 ABG pH 7.43 (7.35-7.45) 09/11/23 09:53 ABG pCO2 38.5 mmHg (35-45) 09/11/23 09:53 ABG pO2 81.0 mmHg (80.0-100.0) 09/11/23 09:53 ABG PO2/FiO2 Ratio 0 09/11/23 09:53 ABG HCO3 25.8 mmol/L (22-26) 09/11/23 09:53 ABG O2 Saturation 96.6 09/11/23 09:53 ABG Base Excess 1.5 mmol/L (-2.0-2.0) 09/11/23 09:53 Armando Test Pos 09/11/23 09:53 A-a O2 Gradient Not Reportable 09/11/23 09:53 Hematocrit 36.4 % (37-47) L 09/11/23 09:53 Hgb O2 Saturation 95.8 % (95-100) 09/11/23 09:53 Carboxyhemoglobin 0.4 %THgb (0.4-20.1) 09/11/23 09:53 Methemoglobin 0.4 % (0.4-1.5) 09/11/23 09:53 Total Hemoglobin 11.9 g/dL (12-16) L 09/11/23 09:53 Sodium 163.0 mmol/L (131-143) H 09/11/23 09:53 Potassium 3.1 mmol/L (3.5-5.0) L 09/11/23 09:53 Glucose 279.0 mg/dL (70-115) H 09/11/23 09:53 Ionized Calcium 1.2 mmol/L (1.1-1.4) 09/11/23 09:53 O2 Delivery Device Nc 09/11/23 09:53 O2 Liters/Min 2.0 % 09/11/23 09:53 FiO2 2.0 % 09/11/23 09:53 Brickmason Helper ID Cak 09/11/23 09:53 Sodium 139 mmol/L (136-145) 09/15/23 02:00 Potassium 3.4 mmol/L (3.5-5.1) L 09/15/23 02:00 Chloride 106 mmol/L (98-107) 09/15/23 02:00 Carbon Dioxide 24 mmol/L (22-29) 09/15/23 02:00 Anion Gap 12.4 (5-19) 09/15/23 02:00 BUN 23 mg/dL (8-23) 09/15/23 02:00 Creatinine 1.1 mg/dL (0.5-0.9) H 09/15/23 02:00 GFR Calculation Not Reportable 09/15/23 02:00 Glucose 152 mg/dL (65-115) H 09/15/23 02:00 POC Glucose 173 mg/dL (70-110) H 09/15/23 06:03 Calculated Osmolality 295 mOsm/kg (285-295) 09/15/23 02:00 Lactic Acid 4.5 mmol/L (0.5-2.2) H* 09/11/23 09:51 Lactic Acid (Sepsis) 2.4 mmol/L (0.5-2.2) H 09/11/23 15:11 Calcium 8.2 mg/dL (8.5-10.5) L 09/15/23 02:00 Magnesium 1.7 mg/dL (1.7-2.3) 09/14/23 01:53 Total Bilirubin 0.2 mg/dL (0.15-1.2) 09/14/23 01:53 AST 19 U/L (0-32) 09/14/23 01:53 ALT 13 U/L (0-33) 09/14/23 01:53 Alkaline Phosphatase 97 U/L (35-105) 09/14/23 01:53 Creatine Kinase 43 U/L (26-192) 09/11/23 09:51 Troponin T Baseline 119 ng/L (0-10) H* 09/11/23 09:51 Troponin T 120 Minute 101.5 ng/L (0-10) H 09/11/23 11:54 Delta Troponin T -17.5 ABS# (0-10) L 09/11/23 11:54 Troponin T Hi Sens 6Hr 120.8 ng/L (0-10) H 09/11/23 15:11 Troponin T Hi Sens 6Hr Delta 1.8 ng/L (0-12) 09/11/23 15:11 NT-Pro-B Natriuret Pep 4717 pg/mL (0-450) H 09/11/23 09:51 Total Protein 6.6 g/dL (6.6-8.7) 09/14/23 01:53 Albumin 3.0 g/dL (3.5-5.2) L 09/14/23 01:53 Globulin 3.6 g/dL (1.3-4.6) 09/14/23 01:53 Lipase 63 U/L (13-60) H 09/11/23 09:51 Urine Color Yellow (Yellow) 09/11/23 11:06 Urine Appearance Cloudy (CLEAR) A 09/11/23 11:06 Urine pH 5 (5-7) 09/11/23 11:06 Ur Specific [place] 1.025 (1.005-1.030) 09/11/23 11:06 Urine Protein Neg (Negative) 09/11/23 11:06 Urine Glucose (UA) 4+ (Normal) H 09/11/23 11:06 Urine Ketones Negative (Negative) 09/11/23 11:06 Urine Blood 2+ (Negative) H 09/11/23 11:06 Urine Nitrate Negative (Negative) 09/11/23 11:06 Urine Bilirubin Neg (Negative) 09/11/23 11:06 Urine Urobilinogen Norm mg/dL (Negative) 09/11/23 11:06 Ur Leukocyte Esterase 2+ (Negative) H 09/11/23 11:06 Urine RBC 5-10 /hpf (0-2) H 09/11/23 11:06 Urine WBC 15-25 /hpf (0-5) H 09/11/23 11:06 Ur Squamous Epith Cells 0-4 /hpf (0-5) H 09/11/23 11:06 Ur Transition Epith Cell 0-4 /hpf 09/11/23 11:06 Amorphous Sediment Not Reportable 09/11/23 11:06 Urine Bacteria 3+ /hpf (NONE) H 09/11/23 11:06 Urine Mucus 1+ /hpf 09/11/23 11:06 Urine Yeast 4+ /hpf H 09/11/23 11:06 Serum Ketones Negative (Negative) 09/11/23 09:51 Coronavirus 229E (PCR) Not detected (NOT DETECT) 09/11/23 09:59 Influenza A (H1) PCR Not detected (NOT DETECT) 09/11/23 11:59 Influ A (H1/09) PCR Not detected (NOT DETECT) 09/11/23 11:59 Influenza A (H3) PCR Detected (NOT DETECT) A 09/11/23 11:59 Influenza Type A Ag Cancelled 09/11/23 09:59 Influenza Type A (PCR) Detected (NOT DETECT) A 09/11/23 11:59 Influenza Type B Ag Cancelled 09/11/23 09:59 Influenza Type B (PCR) Not detected (NOT DETECT) 09/11/23 11:59 SARS-CoV-2 (PCR) Not detected (NOT DETECT) 09/11/23 09:59 Vitals Last Vital Signs Temp 97.6 F 09/15/23 07:43 Pulse 77 09/15/23 09:40 Resp 19 H 09/15/23 07:43 BP 107/61 09/15/23 07:43 Pulse Ox 93 09/15/23 09:40 O2 Del Method Room Air 09/15/23 09:40 O2 Flow Rate 2 09/12/23 00:30 Discharge Plan Discharge Patient Disposition: Xfer SNF Condition: Stable Prescriptions: New levofloxacin 500 mg tablet 500 mg PO DAILY 10 Days Qty: 10 0RF Continued acetaminophen [Tylenol] 325 mg Tablet 650 mg PO Q6H PRN (Reason: Pain/FEVER) Lumigan 0.01 % Drops 1 drp OPHTHALMIC (EYE) BEDTIME@1999 Rx Instructions: both eyes sertraline 100 mg tablet 100 mg PO DAILY@07 metoprolol tartrate 25 mg tablet 25 mg PO BID@07,19 Rx Instructions: hold if sbp less than 100 and dbp less than 60 naloxone 2 mg/2 mL Syringe Kit See Rx Instructions .ROUTE .COMPLEX Rx Instructions: as directed as needed for opioid overdose Senna Plus 8.6-50 mg Tablet 2 tab PO BID olanzapine 10 mg tablet 10 mg PO BEDTIME Milk of Magnesia 400 mg/5 mL Suspension 30 ml PO DAILY PRN (Reason: Constipation) Dulcolax (bisacodyl) 10 mg Suppository 10 mg [place] DAILY PRN (Reason: Constipation) Novolog FlexPen U-100 Insulin 100 unit/mL (3 mL) Insulin Pen See Rx Instructions .ROUTE .COMPLEX Rx Instructions: inject 15 units subcutaneously one time only memantine 5 mg tablet 5 mg PO BID Tresiba FlexTouch U-100 100 unit/mL (3 mL) insulin pen 8 unit SUBCUT BEDTIME clopidogrel 75 mg tablet 75 mg PO QAM Discontinued oseltamivir 75 mg capsule 75 mg PO BID Rx Instructions: for 5 days (rx filled 09/05/23) Discharge Orders: Discharge Order (Routine); Ordered 09/15/23 Ordered By: Diana Almanza Referrals: [facility] [Outside] Dao Alba DO [Primary Care Provider] - 4-7 days Discharge Diet: As Directed Discharge Activity: Resume usual activity Patient Instructions: Opioid Safety Activity Restrictions/Additional Instructions: Extremely thick puree diet Discharge Attestations Time Spent in Discharge Care*: greater than 30 min Quality Metrics Clinical Quality Measures [ No reported AMI, CVA or VTE this stay] Coding Level of Care Code 55079 Total time (in minutes) for Discharge: 30 Diagnoses Sepsis A41.9 UTI (urinary tract infection) N39.0 Acute metabolic encephalopathy G93.41 Acute renal failure N17.9 Elevated troponin R79.89 Hypernatremia E87.0 Elevated brain natriuretic peptide (BNP) level R79.89 Dementia F03.90 Insulin dependent type 2 diabetes mellitus E11.9; Z79.4 Hypertension I10
[2023-09-15] MEDS: potassium chloride oral liq 20 mEq/15 mL UDC 40 MEQ PO (11:17)
[2023-09-15 11:50] LABS: Glucose Point of Care 243 mg/dL (70-110)
[2023-09-15] MEDS: insulin lispro 100 unit/1 mL SUBCUT (12:06)
[2023-09-15 13:23] VITALS: BP 116/70; PULSE 68; RESP 18; TEMP 36.4; O2SAT 96
--- NOTE | 2023-09-15 13:49 | PC.NURSE ---
report given to Susan at [facility], [place], [facility]
[2023-09-15 16:29] LABS: Glucose Point of Care 105 mg/dL (70-110)
[2023-09-15 16:34] VITALS: BP 106/67; PULSE 70; RESP 18; TEMP 36.4; O2SAT 95
== END 2023-09-15 17:11 | disposition skilled nursing facility (03) | DRG 871 ==
LOC: ER 09:49 → ICU 13:15 → MEDSURG 09-12 18:59 → ICU 09-12 19:00 → MEDSURG 09-12 19:00
PROVIDERS: Internal Medicine; Admitting Provider Internal Medicine; Emergency Provider Family Medicine; PCP Internal Medicine; Visit Provider Internal Medicine
DX: A41.9 Sepsis, unspecified organism (principal); G93.41 Metabolic encephalopathy; I21.4 Non-ST elevation (NSTEMI) myocardial infarction; N39.0 Urinary tract infection, site not specified; N17.9 Acute kidney failure, unspecified; E87.0 Hyperosmolality and hypernatremia; Z16.12 Extended spectrum beta lactamase (ESBL) resistance; J10.1 Influenza due to other identified influenza virus with other respiratory manifestations; F03.A0 Unspecified dementia, mild, without behavioral disturbance, psychotic disturbance, mood disturbance, and anxiety; E78.5 Hyperlipidemia, unspecified; E11.65 Type 2 diabetes mellitus with hyperglycemia; I11.0 Hypertensive heart disease with heart failure; I50.9 Heart failure, unspecified; H35.30 Unspecified macular degeneration; I25.2 Old myocardial infarction; Z79.02 Long term (current) use of antithrombotics/antiplatelets; Z79.4 Long term (current) use of insulin; Z11.52 Encounter for screening for COVID-19; Z86.711 Personal history of pulmonary embolism; Z87.440 Personal history of urinary (tract) infections; Z87.891 Personal history of nicotine dependence
CPT/HCPCS: 36415; 36416; 36600; 51702; 70450; 71045; 74176; 80048; 80051; 80053; 81001; 82009; 82330; 82550; 82805; 82962; 83605; 83690; 83735; 83880; 84295; 84484; 85025; 85730; 87040; 87077; 87086; 87186; 87631; 87635; 92523; 92610; 93005; 93306; 96365; 96372; 96375; 99285; C9113; J1644; J1815; J2185; J2543; J3370; J3490; J7030; J7050; J7070

== ENCOUNTER 2023-09-21 09:48 | Emergency (ER) | payer MEDICARE, MEDICAID, SELFPAY ==
[2023-09-21 09:49] VITALS: BP 136/86; PULSE 92; RESP 18; TEMP 36.7; O2SAT 96
--- NOTE | 2023-09-21 10:01 | XRR_ITS ---
PROCEDURE INFORMATION: Exam: XR Chest Exam date and time: 09/21/2023 10:16 AM Age: 78 years old Clinical indication: Chest wall pain; Additional info: Chest pain TECHNIQUE: Imaging protocol: Radiologic exam of the chest. Views: 1 view. COMPARISON: CR XR chest 1V portable [id number] 09/11/2023 10:20 AM FINDINGS: Lungs: Unremarkable. No consolidation or mass. Pleural spaces: Unremarkable. No pleural effusion. No pneumothorax. Heart/Mediastinum: Unremarkable. No cardiomegaly. Bones/joints: Unremarkable. XR/XR chest 1V portable [id number] IMPRESSION: No acute findings.
--- NOTE | 2023-09-21 10:02 | W.ED.GENADLT ---
HPI - General Adult General: Chief complaint: Shortness of Breath/Dyspnea Stated complaint: SOB Time Seen by Provider: 09/21/23 09:50 Source: EMS Mode of arrival: EMS Limitations: altered mental status (patient has hx of dementia) History of Present Illness: Patient is a 78-year-old female with an extensive past medical history here via EMS after senior living reported low O2 readings. She was reportedly at breakfast when she was looking cyanotic . They state they took a finger pulse ox and it read in the 70s thus prompting them to call EMS. They state patient is at her mental baseline. Patient was just admitted to our hospital for multiple diagnoses including urosepsis, acute metabolic encephalopathy, dementia, acute renal failure, hyponatremia, etc. She was discharged on Levaquin for coverage of a ESBL UTI. She is still taking this medication. Upon arrival to the emergency department her fingers are cool to the touch thus finger O2 monitoring was inaccurate. Sensor placed on forehead and she is reading 98 to 100% with good waveforms. She appears in no acute distress. Patient is primarily nonverbal thus no history is able to be obtained from her. Remainder of her vitals are normal. Onset (ago): hour(s) Relieving factors: none Exacerbating factors: none Associated symptoms: Reports no associated symptoms Treatments prior to arrival: none Review of Systems General: Reports: ROS unobtainable due to medical condition and ROS unobtainable due to mental status [facility] ED PFSH: Medical History UTI (urinary tract infection) Acute renal failure Hyperkalemia Mild dementia Memory problem Status post non-ST elevation myocardial infarction (NSTEMI) Benign essential hypertension with target blood pressure below 140/90 NSTEMI (non-ST elevated myocardial infarction) History of heart failure Hyperlipidemia Macular degeneration Insulin dependent type 2 diabetes mellitus History of pulmonary embolism Hallucination, visual Surgical History History of Family History Mother Dementia CAD (coronary artery disease) Lung disease Family/Other Dementia Diabetes Grandfather Dementia Father Diabetes Lung disease Stroke Denies family history of Clotting disorder Chronic kidney disease (CKD) Suicide Anesthesia complication Bleeding disorder Cancer Social History (Reviewed 09/21/23 @ 10:03 by TONY Saldivar Smoking and tobacco/nicotine status: former use of tobacco/nicotine Alcohol intake: never Substance/Drug Use: never Physical Exam Const: COMMON NORMALS: average body habitus and alert EXAM LIMITATIONS: altered mental status (pt primarily non-verbal; dementia ) HENMT: COMMON NORMALS: normocephalic and atraumatic HEAD & SCALP: normal to inspection, normocephalic and atraumatic Eye: COMMON NORMALS: no scleral icterus GENERAL EYE: appearance normal, both eyes and all related structures and normal light reflex DIRECT OPHTHALMOSCOPY: Yes normal light reflex Resp: COMMON NORMALS: normal respiratory effort and clear to auscultation bilaterally AUSCULTATION: clear to auscultation bilaterally Cardio: COMMON NORMALS: regular rate and regular rhythm RATE: regular rate RHYTHM: regular rhythm GI: COMMON NORMALS: Normal to inspection, nondistended, normoactive bowel sounds present, Soft to palpation and non-tender PALPATION: Yes Soft to palpation Extremity: GENERAL: Yes normal exam except as noted Neuro: SENSORIUM/ORIENTATION: Yes alert Skin: COMMON NORMALS: no rashes or lesions noted GENERAL SKIN EXAM: no rashes or lesions noted Course Vital Signs: Vital signs: Vital Signs Temperature 98.1 F 09/21/23 09:49 Pulse Rate 92 09/21/23 09:49 Respiratory Rate 18 09/21/23 09:49 Blood Pressure 136/86 09/21/23 09:49 Pulse Oximetry 96 09/21/23 09:49 Oxygen Delivery Me thod Room Air 09/21/23 09:49 MDM - General Adult Medical Decision Making Patient is a 78-year-old female presents to ED today after the senior living reported a low O2 finger ox reading. Upon arrival here her fingers were cool to the touch therefore inaccurate readings were obtained. Forehead sensor reading anywhere from 98 to 100% on room air with perfect waveforms. She appears in no acute respiratory distress. Remainder of her vitals are completely normal. senior care confirms that patient is currently at her normal mental status. They states sometimes she is more verbal than others. They do state she has had a decreased appetite lately. Patient was just admitted to the hospital for multiple diagnoses. These seem resolved. She is currently taking Levaquin for Klebsiella ESBL UTI. Recommend she continue taking this until finished. Her blood work here overall is nonactionable. Her CXR is normal. There is no indication for additional emergency workup at this time. She is cleared to return to her senior living. Medical Records I reviewed the patient's medical records. Lab Data I reviewed the patient's lab results. 09/21/23 10:15 09/21/23 10:15 Radiology Impressions Chest X-Ray 09/21/23 10:01 IMPRESSION: No acute findings. Laboratory Results WBC 12.29 10^3/uL (3.29-11.43) H 09/21/23 10:15 RBC 4.40 10^6/uL (3.85-5.65) 09/21/23 10:15 Hgb 11.30 g/dL (11.27-16.99) 09/21/23 10:15 Hct 35.9 % (36-47) L 09/21/23 10:15 MCV 81.6 fl (85-98) L 09/21/23 10:15 MCH 25.7 pg (27-33) L 09/21/23 10:15 MCHC 31.5 g/dL (30-55) 09/21/23 10:15 RDW 13.2 % (12.1-15.1) 09/21/23 10:15 Plt Count 502 10^3/cmm (157-399) H 09/21/23 10:15 MPV 10.9 fL (7.4-10.4) H 09/21/23 10:15 Neut % (Auto) 79.8 % 09/21/23 10:15 Lymph % (Auto) 13.3 % 09/21/23 10:15 Perry % (Auto) 3.7 % 09/21/23 10:15 Eos % (Auto) 0.7 % 09/21/23 10:15 Baso % (Auto) 0.5 % 09/21/23 10:15 Neut # (Auto) 9.82 10^3/uL (1.8-7.7) H 09/21/23 10:15 Lymph # (Auto) 1.6 10^3/uL (0.8-4.8) 09/21/23 10:15 Perry # (Auto) 0.5 10^3/uL (0.2-0.9) 09/21/23 10:15 Eos # (Auto) 0.1 10^3/uL (0.0-0.8) 09/21/23 10:15 Baso # (Auto) 0.1 10^3/uL (0.0-0.1) 09/21/23 10:15 Nucleated RBC % (auto) 0 % 09/21/23 10:15 Nucleated RBCs # 0.0 /100WBC 09/21/23 10:15 Sodium 136 mmol/L (136-145) 09/21/23 10:15 Potassium 4.4 mmol/L (3.5-5.1) 09/21/23 10:15 Chloride 98 mmol/L (98-107) 09/21/23 10:15 Carbon Dioxide 26 mmol/L (22-29) 09/21/23 10:15 Anion Gap 16.4 (5-19) 09/21/23 10:15 BUN 17 mg/dL (8-23) 09/21/23 10:15 Creatinine 1.2 mg/dL (0.5-0.9) H 09/21/23 10:15 GFR Calculation Not Reportable 09/21/23 10:15 Glucose 196 mg/dL (65-115) H 09/21/23 10:15 Calculated Osmolality 289 mOsm/kg (285-295) 09/21/23 10:15 Calcium 9.3 mg/dL (8.5-10.5) 09/21/23 10:15 Total Bilirubin 0.3 mg/dL (0.15-1.2) 09/21/23 10:15 AST 20 U/L (0-32) 09/21/23 10:15 ALT 17 U/L (0-33) 09/21/23 10:15 Alkaline Phosphatase 142 U/L (35-105) H 09/21/23 10:15 Total Protein 7.6 g/dL (6.6-8.7) 09/21/23 10:15 Albumin 3.3 g/dL (3.5-5.2) L 09/21/23 10:15 Globulin 4.3 g/dL (1.3-4.6) 09/21/23 10:15 All radiology interpretation(s) finalized by discharge Discharge Plan Discharge Patient Disposition: Home Clinical Impression: Decreased appetite Condition: Stable Prescriptions: No Action acetaminophen [Tylenol] 325 mg Tablet 650 mg PO Q6H PRN (Reason: Pain/FEVER) Lumigan 0.01 % Drops 1 drp OPHTHALMIC (EYE) BEDTIME@1999 Rx Instructions: both eyes Remeron 15 mg Tablet 15 mg PO BEDTIME sertraline 100 mg tablet 100 mg PO DAILY@07 metoprolol tartrate 25 mg tablet 25 mg PO BID@07,19 Rx Instructions: hold if sbp less than 100 and dbp less than 60 naloxone 2 mg/2 mL Syringe Kit See Rx Instructions .ROUTE .COMPLEX Rx Instructions: as directed as needed for opioid overdose sennosides-docusate sodium [Senna Plus] 8.6-50 mg Tablet 2 tab PO BID olanzapine 10 mg tablet 10 mg PO BEDTIME magnesium hydroxide [Milk of Magnesia] 400 mg/5 mL Suspension 30 ml PO DAILY PRN (Reason: Constipation) bisacodyl [Dulcolax (bisacodyl)] 10 mg Suppository 10 mg [place] DAILY PRN (Reason: Constipation) insulin aspart U-100 [Novolog FlexPen U-100 Insulin] 100 unit/mL (3 mL) Insulin Pen See Rx Instructions .ROUTE .COMPLEX Rx Instructions: inject 15 units subcutaneously one time only memantine 5 mg tablet 5 mg PO BID insulin degludec [Tresiba FlexTouch U-100] 100 unit/mL (3 mL) insulin pen 15 unit SUBCUT BEDTIME clopidogrel 75 mg tablet 75 mg PO QAM levofloxacin 500 mg tablet 500 mg PO DAILY 10 Days Qty: 10 0RF Discharge Orders: Discharge ED (Routine); Ordered 09/21/23 Ordered By: Arianna Murdock Referrals: Dao Alba, [Primary Care Provider] - Activity Restrictions/Additional Instructions: Patient has been satting at 96 to 100% on room air throughout her emergency department stay. senior care is indicated that she is currently at her normal mental baseline. The remainder of her vitals are stable. Her blood work today is unconcerning. Her chest x-ray is normal. She is currently on Levaquin for a UTI that was diagnosed during her last hospitalization. She needs to continue these antibiotics until complete. Coding Level of Care Code ED Reservation Agent for Shaniqua Ruth
[2023-09-21 10:21] LABS: Basophils # 0.1 10^3/uL (0.0-0.1); Basophils % 0.5 %; Eosinophils # 0.1 10^3/uL (0.0-0.8); Eosinophils % 0.7 %; Hematocrit 35.9 % (36-47); Lymphocytes # 1.6 10^3/uL (0.8-4.8); Lymphocytes % 13.3 %; Mean Corpuscular HGB Conc 31.5 g/dL (30-55); Mean Corpuscular Hemoglobin 25.7 pg (27-33); Mean Corpuscular Volume 81.6 fl (85-98); Mean Platelet Volume 10.9 fL (7.4-10.4); Monocytes # 0.5 10^3/uL (0.2-0.9); Monocytes % 3.7 %; Neutrophils # 9.82 10^3/uL (1.8-7.7); Neutrophils % 79.8 %; Nucleated Red Blood Cells % 0 %; Platelet Count 502 10^3/cmm (157-399); Red Cell Distribution Width 13.2 % (12.1-15.1); White Blood Count 12.29 10^3/uL (3.29-11.43)
[2023-09-21 10:37] LABS: Alanine Aminotransferase 17 U/L (0-33); Albumin Level 3.3 g/dL (3.5-5.2); Alkaline Phosphatase 142 U/L (35-105); Aspartate Amino Transferase 20 U/L (0-32); Blood Urea Nitrogen 17 mg/dL (8-23); Calcium 9.3 mg/dL (8.5-10.5); Carbon Dioxide 26 mmol/L (22-29); Chloride 98 mmol/L (98-107); Globulin 4.3 g/dL (1.3-4.6); Glucose 196 mg/dL (65-115); Osmolality Calculated 289 mOsm/kg (285-295); Sodium 136 mmol/L (136-145); Total Bilirubin 0.3 mg/dL (0.15-1.2); Total Protein 7.6 g/dL (6.6-8.7)
[2023-09-21 10:42] LABS: Anion Gap 16.4 (5-19); Potassium 4.4 mmol/L (3.5-5.1)
--- NOTE | 2023-09-21 10:42 | ECG_ITS ---
[facility] Test Date: 2023-09-21 Pat Name: Unique Gage Department: Room: Gender: Female [employer] Detail: : 1945 Requested By: Arianna Murdock Order Number: [id number] Felton MD: Bill Sherman M.D. Measurements Intervals [place] Rate: 91 P: 67 ME: 147 QRS: 70 QRSD: 117 T: 87 QT: 362 QTc: 446 Interpretive Statements SINUS RHYTHM MODERATE INTRAVENTRICULAR CONDUCTION DELAY [110+ ms QRS DURATION] NONSPECIFIC ST & T-WAVE ABNORMALITY Compared to ECG 09/11/2023 15:16:49 Intraventricular conduction delay now present Possible ischemia no longer present T-wave abnormality still present Electronically Signed On 09-22-2023 11:20:31 CDT by Bill Sherman M.D. [id number]
--- NOTE | 2023-09-21 10:54 | PC.NURSE ---
REPORT CALLED BACK TO [facility] TO MARIZA. PT CURRENTLY WAITING ON EMS RIDE BACK TO FACILITY.
[2023-09-21 10:58] VITALS: BP 109/92; PULSE 90; O2SAT 98
[2023-09-21 13:28] VITALS: PULSE 84; O2SAT 98
[2023-09-21 15:48] VITALS: PULSE 97; O2SAT 100
== END 2023-09-21 16:25 | disposition home or self-care (01) ==
PROVIDERS: Emergency Provider Physician Assistant; PCP Internal Medicine
DX: R63.0 Anorexia (principal); Z79.4 Long term (current) use of insulin; Z79.02 Long term (current) use of antithrombotics/antiplatelets; F03.A0 Unspecified dementia, mild, without behavioral disturbance, psychotic disturbance, mood disturbance, and anxiety; I25.2 Old myocardial infarction; I11.0 Hypertensive heart disease with heart failure; I50.9 Heart failure, unspecified; E78.5 Hyperlipidemia, unspecified; H35.30 Unspecified macular degeneration; E11.9 Type 2 diabetes mellitus without complications; Z87.891 Personal history of nicotine dependence
CPT/HCPCS: 71045; 80053; 85025; 93005; 99285

== ENCOUNTER 2024-08-01 02:19 | Inpatient (IN) | payer MEDICARE, MEDICAID, SELFPAY ==
[2024-08-01] VITALS (70 sets, daily range): BP systolic 80–153; BP diastolic 42–104; PULSE 79–107; RESP 9–28; TEMP 36.6–37.2; O2SAT 90–100; BMI 27.6
--- OUTSIDE RECORDS SUMMARY | 2024-08-01 02:23 | XMS_ITS | Encounter Summary ---
[facility] Address [address] [place] [address] Care Team Providers Care Rope Maker Name Role Phone Zhao Wong MD Primary Care Provid er Encounter Details Date Type Department Care Team (Late st Contact Info) Description 07/14/2024 External Device Data [facility] ABSTRACTION Provider, Abstract NO ADDRESS ON FILE Social History Tobacco Use Types Packs/Day Years Used Date Smoking Tobacco: Unknown Feeling Safe Answer Date Recorded Are you in a relationship wi th someone who hurts you emotionally and/or physically? Unable to obtain 08/29/2022 Comments Unknown Sex and Gender Information Value Date Recorded Sex Assigned at Not on file Legal Sex Female 10:31 AM CDT Gender Identity Not on file Sexual Orientation Not on file documented as of this encounter Plan of Treatment Not on file documented as of this encounter Visit Diagnoses Not on filedocumented in this encounter Care Teams Rope Maker Relationship Specialty Start Date End Date Zhao Wong MD [address] [place] [address] PCP - General Family Practice 08/29/22 documented as of this encounter
--- OUTSIDE RECORDS SUMMARY | 2024-08-01 02:23 | XMS_ITS | Encounter Summary ---
Author Organization [facility] Address [address] [facility] [address] Attn: [place] [address] Care Team Providers Care Inspector Bicycle Name Role Phone Zhao Wong MD Primary Care Provid er Encounter Details Date Type Department Care Team (Latest Contact Info) Description 07/31/2024 Travel Social History Tobacco Use Types Packs/Day Years Used Date Smoking Tobacco: Unknown Alcohol Use Standard Drinks/Week Comments Not Currently 0 (1 standard drink = 0.6 oz pur e alcohol) Feeling Safe Answer Date Recorded Are you in a relationship wi th someone who hurts you emotionally and/or physically? No 07/31/2024 Comments Unknown Sex and Gender Information Value Date Recorded Sex Assigned at Not on file Legal Sex Female 10:31 AM CDT Gender Identity Not on file Sexual Orientation Not on file documented as of this encounter Plan of Treatment Not on file documented as of this encounter Visit Diagnoses Not on filedocumented in this encounter Additional Health Concerns Infection Onset Date Last Indicated Resolved Time R/O COVID-19 07/31/2024 07/31/2024 07/31/2024 3:51 PM SAMPLE SEWER documented as of this encounter Care Teams Inspector Bicycle Relationship Specialty Start Date End Date Zhao Wong MD [address] [place] [address] PCP - General Family Practice 08/29/22 documented as of this encounter
--- OUTSIDE RECORDS SUMMARY | 2024-08-01 02:23 | XMS_ITS | Clinical Summary ---
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 07/31/2024 Travel 07/14/2024 External Device Data [facility] ABSTRACTION Provider, Abstract from Last 3 Months Social History Tobacco Use Types Packs/Day Years Used Date Smoking Tobacco: Unknown Tobacco Cessation:Counseling Given: Not Answered Alcohol Use Standard Drinks/Week Comments Not Currently [...] on file Sexual Orientation Not on file Last Filed Vital Signs Vital Sign Reading Time Taken Comments Blood Pressure 132/51 08/01/2024 1:30 AM TRANSIT WORKER Pulse 91 08/01/2024 1:30 AM TRANSIT WORKER Temperature 36.9 ??C (98.4 ??F) 07/31/2024 7:24 PM CS T Respiratory Rate 11 08/01/2024 1:30 AM TRANSIT WORKER Oxygen Saturation 100% 08/01/2024 1:30 AM TRANSIT WORKER Inhaled Oxygen Concentration - - Weight 75.5 kg (166 lb 8 oz) 07/31/2024 2:58 PM TRANSIT WORKER Height 162.6 cm (5' 4 ) 07/31/2024 2:58 PM TRANSIT WORKER Body Mass Index 28.58 07/31/2024 2:58 PM TRANSIT WORKER Plan of Treatment Health Maintenance Due Date Last Done Comments DIABETES ANNUAL FOOT EXAM 1965 DIABETES ANNUAL RETINAL EXAM 1965 DIABETES MICROALBUMIN ANNUAL SCREEN 1965 LDL CHOLESTEROL ANNUAL 1965 DTAP/TDAP/TD VACCINES (1 - Tdap) 1966 PNEUMOCOCCAL VACCINE 65+ YEA RS (1 of 2 - PCV) 1966 Traditional Medicare (ACO) A nnual Wellness Visit 1966 ZOSTER VACCINE (1 of 2) 1997 OSTEOPOROSIS SCREENING 2012 RSV VACCINE (60+ or ) (1 - 1-dose 75+ series) 2022 INFLUENZA VACCINE (#1) 2024 DIABETES HBA1C Q 6 MONTHS 01/06/2025 07/09/2024, Procedures Procedure Name Priority Date/Time Associated Diagnosis Comments XR CHEST PA OR AP 1 VW Stat 07/31/2024 11:56 PM TRANSIT WORKER CENTRAL LINE INSERTION Routine 07/31/2024 11:[address] ABDOMEN PELVIS WO CONTRAST Stat 07/31/2024 10:30 PM TRANSIT WORKER LACTIC ACID Stat 07/31/2024 6:17 PM TRANSIT WORKER TROPONIN 2 HR, 5TH GEN Timed Study 07/31/2024 6:17 PM TRANSIT WORKER URINALYSIS MICROSCOPY ONLY Stat 07/31/2024 5:13 PM TRANSIT WORKER URINALYSIS W/REFLEX MICROSCOPIC Stat 07/31/2024 5:13 PM TRANSIT WORKER XR CHEST PA AND LATERAL 2 VW Stat 07/31/2024 4:05 PM TRANSIT WORKER COVID-19 ANTIGEN Stat 07/31/2024 3:11 PM TRANSIT WORKER TROPONIN BASELINE, 5TH GEN Stat 07/31/2024 3:11 PM TRANSIT WORKER LACTIC ACID Stat 07/31/2024 3:11 PM TRANSIT WORKER COMPREHENSIVE METABOLIC PANEL Stat 07/31/2024 3:11 PM TRANSIT WORKER PTT Stat 07/31/2024 3:11 PM TRANSIT WORKER PROTIME-INR Stat 07/31/2024 3:11 PM TRANSIT WORKER CBC WITH DIFFERENTIAL Stat 07/31/2024 3:11 PM TRANSIT WORKER INFLUENZA VIRUS A AND B, ANTIGEN DETECTION Stat 07/31/2024 3:11 PM TRANSIT WORKER from Last 3 Months Results * XR CHEST PA OR AP 1 VW (07/31/2024 11:56 PM TRANSIT WORKER) Anatomical Region Laterality Modality Chest Computed Radiogr aphy 07/31/2024 11:5 6 PM TRANSIT WORKER Impressions 08/01/2024 12:05 AM TRANSIT WORKER IMPRESSION: See below. ?? Exam: XR CHEST PA OR AP 1 VW Date/Time of Exam: 07/31/2024 11:56 PM Reason For Exam: Line Placement. Diagnosis: Severe sepsis with septic shock (CMS/HCC); Severe sepsis with septic shock (CMS/HCC); Acute cystitis without hematuria. Findings: Right IJV catheter terminates in the right atrium. The catheter is approximately 7 cm inferior to the cavoatrial junction. No evidence of lung consolidation, pleural effusion, or pneumothorax. Unremarkable mediastinal contours. Narrative Procedure Note Tom Siu MD - 08/01/2024 IMPRESSION: See below. Exam: XR CHEST PA OR AP 1 VW Date/Time of Exam: 07/31/2024 11:56 PM Reason For Exam: Line Placement. Diagnosis: Severe sepsis with septic shock (CMS/HCC); Severe sepsis with septic shock (CMS/HCC); Acute cystitis without hematuria. Findings: Right IJV catheter terminates in the right atrium. The catheter is approximately 7 cm inferior to the cavoatrial junction. No evidence of lung consolidation, pleural effusion, or pneumothorax. Unremarkable mediastinal contours. us Nhi Bertrand MD DIAGNOSTIC IMAGING ORDERABLE S Final Result * Central Line (07/31/2024 11:30 PM TRANSIT WORKER) Narrative Nhi Bertrand MD - 07/31/2024 11:30 PM TRANSIT WORKER Nhi Bertrand MD ? 07/31/2024 11:50 PM Central Line Date/Time: 07/31/2024 11:30 PM Performed by: Nhi Bertrand MD Authorized by: Nhi Bertrand MD ?? Consent: ??Consent obtained: ??Emergent situation ??Consent given by: ??Guardian ??Risks discussed: ??Arterial puncture, incorrect placement, infection and pneumothorax ??Alternatives discussed: ??Referral and no treatment [place] protocol: ??Procedure explained and questions answered to patient or proxy's satisfaction: yes ?Immediately prior to procedure, a time out was called: yes ?Patient identity confirmed: ??Verbally with patient Pre-procedure details: ??Indication(s): central venous access ?Hand hygiene: Hand hygiene performed prior to insertion ?Sterile barrier technique: All elements of maximal sterile technique followed ?Skin preparation: ??Chlorhexidine ??Skin preparation agent: Skin preparation agent completely dried prior to procedure ?? Anesthesia: ??Anesthesia method: ??Local infiltration ??Local anesthetic: ??Lidocaine 1% WITH epi Procedure details: ??Location: ??R internal jugular ??Patient position: ??Supine ??Procedural supplies: ??Triple lumen ??Landmarks identified: yes ?Ultrasound guidance: yes ?Ultrasound guidance timing: real time ?Sterile ultrasound techniques: Sterile gel and sterile probe covers were used ?Number of attempts: ??2 ??Successful placement: yes ?? Post-procedure details: ??Post-procedure: ??Dressing applied ??Assessment: ??Blood return through all ports and no pneumothorax on x-ray ??Procedure completion: ??Tolerated Nhi Bertrand MD PROCEDURE/MINOR SURGICAL ORD ERABLES Final Result * CT ABDOMEN PELVIS WO CONTRAST (07/31/2024 10:30 PM TRANSIT WORKER) Anatomical Region Laterality Modality Abdomen Computed Tomogra phy 07/31/2024 10:3 0 PM TRANSIT WORKER Impressions 07/31/2024 10:41 PM TRANSIT WORKER IMPRESSION: 1. No acute findings. 2. Chronic findings as described, including cholelithiasis and multiple calcified uterine fibroids. Narrative 07/31/2024 10:41 PM TRANSIT WORKER Exam: CT ABDOMEN PELVIS WO CONTRAST Date/Time of Exam: 07/31/2024 10:30 PM Reason For Exam: sepsis. Diagnosis: Severe sepsis with septic shock (CMS/HCC); Severe sepsis with septic shock (CMS/HCC); Acute cystitis without hematuria. Technique: CT of the abdomen was performed without the administration of intravenous contrast. Findings: Unremarkable lung bases. Multiple small calcified stones in the gallbladder. Unremarkable liver, pancreas, spleen, adrenals, kidneys, stomach, small bowel, colon, appendix, and bladder. Multiple calcified uterine fibroids. No free fluid. No aortic aneurysm. Small fat-containing umbilical hernia. Compression fractures at L5 and T11, likely chronic. Procedure Note Tom Siu MD - 07/31/2024 Exam: CT ABDOMEN PELVIS WO CONTRAST Date/Time of Exam: 07/31/2024 10:30 PM Reason For Exam: sepsis. Diagnosis: Severe sepsis with septic shock (CMS/HCC); Severe sepsis with septic shock (CMS/HCC); Acute cystitis without hematuria. Technique: CT of the abdomen was performed without the administration of intravenous contrast. Findings: Unremarkable lung bases. Multiple small calcified stones in the gallbladder. Unremarkable liver, pancreas, spleen, adrenals, kidneys, stomach, small bowel, colon, appendix, and bladder. Multiple calcified uterine fibroids. No free fluid. No aortic aneurysm. Small fat-containing umbilical hernia. Compression fractures at L5 and T11, likely chronic. IMPRESSION: 1. No acute findings. 2. Chronic findings as described, including cholelithiasis and multiple calcified uterine fibroids. us Nhi Bertrand MD CT ORDERABLES Final Result * (ABNORMAL) TROPONIN 2 HR, 5TH GEN (07/31/2024 6:17 PM TRANSIT WORKER) TROPONIN T, 2 HR 5TH GEN 45(H) <=10 ng/L 07/31/2024 6:43 PM TRANSIT WORKER [facility] DELTA 2HR TROPONIN T -5 See Interp. 07/31/2024 6:43 PM TRANSIT WORKER [facility] Blood Venipuncture / Unknown 07/31/2024 6:17 PM TRANSIT WORKER 07/31/2024 6:23 PM TRANSIT WORKER Narrative [facility] - 07/31/2024 6:43 PM TRANSIT WORKER Troponin elevated. Delta indeterminate. Delay in collection of timed specimen beyond recommended collection interval. Results must be interpreted in clinical context. us Dev Uriarte DO CHEMISTRY ORDERABLES Final Res ult Performing Organization Address [facility] Co de Phone Number [facility] CLIA # [id number] [address] [place] [address] * LACTIC ACID (07/31/2024 6:17 PM TRANSIT WORKER) Only the most recent of2 resultswithin the time period is included. LACTIC ACID 1.9 <=2.0 mmol/L 07/31/2024 6:43 PM TRANSIT WORKER [facility] Blood Venipuncture / Unknown 07/31/2024 6:17 PM TRANSIT WORKER 07/31/2024 6:23 PM TRANSIT WORKER Dev Uriarte DO CHEMISTRY ORDERABLES Final Res ult Performing Organization Address City/[facility]/ZIP Co de Phone Number [facility] CLIA # [id number] [address] [place] [phone] * (ABNORMAL) URINALYSIS MICROSCOPY ONLY (07/31/2024 5:13 PM TRANSIT WORKER) WBC UA >100(A) 0 - 2 /hpf 07/31/2024 5:50 PM TRANSIT WORKER [facility] RBC UA 0-2 0 - 2 /hpf 07/31/2024 5:50 PM TRANSIT WORKER [facility] BACTERIA UA 4+(A) Negative /hpf 07/31/2024 5:50 PM TRANSIT WORKER [facility] EPITHELIAL CELLS, URINE 0-5 0 - 5 /hpf 07/31/2024 5:50 PM TRANSIT WORKER [facility] Urine URINE SPECIMEN OBTAINED BY CLEAN CATCH PROCEDURE / Unknown Collection / Unknown 07/31/2024 5:13 PM TRANSIT WORKER 07/31/2024 5:29 PM TRANSIT WORKER Dev Uriarte DO URINE ORDERABLES Final Result [facility] CLIA # [id number] [address] [place] [address] * (ABNORMAL) URINALYSIS WITH REFLEX MICROSCOPIC (07/31/2024 5:13 PM TRANSIT WORKER) COLOR UA Yellow Pale to Dark Yellow 07/31/2024 5:50 PM TRANSIT WORKER [facility] CLARITY UA Cloudy(A) Clear 07/31/2024 5:50 PM TRANSIT WORKER [facility] SPECIFIC GRAVITY UA 1.020 1.003 - 1.035 07/31/2024 5:50 PM TRANSIT WORKER [facility] PH UA 8.5(A) 5.0 - 8.0 07/31/2024 5:50 PM [facility] LEUKOCYTE ESTERASE UA 3+(A) Negative 07/31/2024 5:50 PM TRANSIT WORKER [facility] NITRITE UA Negative Negative 07/31/2024 5:50 PM TRANSIT WORKER [facility] PROTEIN UA 2+(A) Negative 07/31/2024 5:50 PM TRANSIT WORKER [facility] GLUCOSE UA Negative Negative 07/31/2024 5:50 PM TRANSIT WORKER [facility] KETONES UA Negative Negative 07/31/2024 5:50 PM TRANSIT WORKER [facility] UROBILINOGEN UA 0.2 <2.0 mg/dL 5:50 PM TRANSIT WORKER [facility] BILIRUBIN UA Negative Negative 07/31/2024 5:50 PM [facility] BLOOD UA 2+(A) Negative 07/31/2024 5:50 PM TRANSIT WORKER [facility] Urine URINE SPECIMEN OBTAINED BY CLEAN CATCH PROCEDURE / Unknown Collection / Unknown 07/31/2024 5:13 PM TRANSIT WORKER 07/31/2024 5:29 PM TRANSIT WORKER Dev Uriarte DO URINE ORDERABLES Final Result [facility] CLIA # [id number] [address] [place] [phone] * XR CHEST PA AND LATERAL 2 VW (07/31/2024 4:05 PM TRANSIT WORKER) Anatomical Region Laterality Modality Chest Computed Radiogr aphy 07/31/2024 4:06 PM TRANSIT WORKER Impressions 07/31/2024 4:12 PM TRANSIT WORKER IMPRESSION: Please see below. Exam: XR CHEST PA AND LATERAL 2 VW Date/Time of Exam: 07/31/2024 4:05 PM Reason For Exam: Fever. Diagnosis: See Reason for Exam. Comparison: ??08/29/2022. Findings: Rotation of the patient to the left. Suboptimal inspiratory effort is present. The extreme right costophrenic angle has been clipped on the left lateral projection. A normal cardiomediastinal silhouette without acute airspace disease, pleural effusion, or pneumothorax is identified. Diffuse osteopenia. Impression: 1. ??Negative for acute cardiopulmonary process. Narrative Procedure Note Xiao Lara MD - 07/31/2024 IMPRESSION: Please see below. Exam: XR CHEST PA AND LATERAL 2 VW Date/Time of Exam: 07/31/2024 4:05 PM Reason For Exam: Fever. Diagnosis: See Reason for Exam. Comparison: 08/29/2022. Findings: Rotation of the patient to the left. Suboptimal inspiratory effort is present. The extreme right costophrenic angle has been clipped on the left lateral projection. A normal cardiomediastinal silhouette without acute airspace disease, pleural effusion, or pneumothorax is identified. Diffuse osteopenia. Impression: 1. Negative for acute cardiopulmonary process. Dev Uriarte DO DIAGNOSTIC IMAGING ORDERABLES Final Result * COVID-19 ANTIGEN (07/31/2024 3:11 PM TRANSIT WORKER) COVID-19 ANTIGEN Presumptive Negative Presumptive Negative 07/31/2024 3:51 PM TRANSIT WORKER [facility] Upper Respiratory ANTERIOR NARES SWAB / Unknown Collection / Unknown 07/31/2024 3:11 PM TRANSIT WORKER 07/31/2024 3:29 PM TRANSIT WORKER [facility] - 07/31/2024 3:51 PM TRANSIT WORKER Argenis SARS antigen test has been authorized by FDA under an emergency use authorization (EUA) and has been authorized only for the detection of proteins from SARS-CoV-2 and influenza, not for any other viruses or pathogens. Argenis SARS Antigen CHARBEL is intended for the simultaneous qualitative detection and differentiation of nucleocapsid protein antigen from SARS-CoV-2 directly from nasopharyngeal (BALING MACHINE OPERATOR) and nasal (NS) swab specimens collected from individuals who are suspected of respiratory viral infection consistent with COVID-19 by their healthcare provider within the first five (5) days of symptom onset when tested at least twice over three days with at least 48 hours between tests, or from individuals without symptoms or other epidemiological reasons to suspect COVID-19 when tested at least three times over five days with at least 48 hours between tests. This test is only authorized for the duration of the declaration that circumstances exist justifying the authorization of emergency use of in vitro diagnostics for detection and/or diagnosis of the virus that causes COVID-19 under Section 564(b)(1) of the Act, 21 U.S.C. ?? 360bbb-3(b)(1), unless the authorization is terminated or revoked sooner. Negative results should be treated as presumptive and confirmed with a molecular assay, if necessary for patient care. ??Serial testing should be performed in individuals with negative results at least twice over three days (with 48 hours between tests) for symptomatic individuals or from individuals without symptoms or other epidemiological reasons to suspect COVID-19 when tested at least three times over five days with at least 48 hours between tests. us Dev Uriarte DO MICROBIOLOGY - GENERAL ORDERAB LES Final Result Performing Organization Address [facility]/ZIP Co de Phone Number [facility] CLIA # [id number] [address] [place] [address] * (ABNORMAL) TROPONIN BASELINE, 5TH GEN (07/31/2024 3:11 PM TRANSIT WORKER) TROPONIN T, BASELINE 5TH GEN 50(H) <=10 ng/L 07/31/2024 3:49 PM TRANSIT WORKER [facility] Blood Collection / Unknown 07/31/2024 3:11 PM TRANSIT WORKER 07/31/2024 3:29 PM TRANSIT WORKER [facility] - 07/31/2024 3:49 PM TRANSIT WORKER Troponin elevated. us Dev Uriarte DO CHEMISTRY ORDERABLES Final Res ult Performing Organization Address [facility] Co de Phone Number [facility] CLIA # [id number] [address] [place] [address] * INFLUENZA VIRUS A AND B, ANTIGEN DETECTION (07/31/2024 3:11 PM TRANSIT WORKER) [facility] INFLUENZA A AG NOT DETECTED Not Detected 07/31/2024 3:51 PM TRANSIT WORKER [facility] INFLUENZA B AG NOT DETECTED Not Detected 07/31/2024 3:51 PM TRANSIT WORKER [facility] Upper Respiratory ENTIRE NASOPHARYNX / Unknown Collection / Unknown 07/31/2024 3:11 PM TRANSIT WORKER 07/31/2024 3:29 PM TRANSIT WORKER [facility] - 07/31/2024 3:51 PM TRANSIT WORKER Negative results do not rule out infection. ??If clinically indicated, consider PCR testing which is more sensitive than antigen testing. ??If PCR testing is desired, consult with your local laboratory as sample recollection may be required. us Dev Uriarte DO MICROBIOLOGY - GENERAL ORDERAB LES Final Result [facility] CLIA # [id number] [address] [place] [address] * (ABNORMAL) CBC WITH DIFFERENTIAL (07/31/2024 3:11 PM TRANSIT WORKER) WBC 30.3(H) 4.0 - 10.0 K/uL 07/31/2024 3:35 PM [facility] RBC 3.54(L) 3.93 - 5.22 M/uL 07/31/2024 3:35 PM [facility] HEMOGLOBIN 9.5(L) 11.2 - 15.7 g/dL 07/31/2024 3:35 PM [facility] HEMATOCRIT 28.4(L) 34.1 - 44.9 % 07/31/2024 3:35 PM [facility] MCV 80.2 79.4 - 94.8 fL 07/31/2024 3:35 PM [facility] MCH 26.8 25.6 - 32.2 pg 07/31/2024 3:35 PM [facility] MCHC 33.5 32.2 - 35.5 g/dL 07/31/2024 3:35 PM [facility] RDW 13.3 11.0 - 14.5 % 07/31/2024 3:35 PM [facility] RDW-STDEV 38.3 36.9 - 56.9 fL 07/31/2024 3:35 PM [facility] PLATELETS 368(H) 163 - 337 K/uL 07/31/2024 3:35 PM [facility] MPV 10.7 10.0 - 14.8 fL 07/31/2024 3:35 PM [facility] NEUTROPHILS 90(H) 34 - 71 % 07/31/2024 3:35 PM [facility] LYMPHOCYTES 4(L) 19 - 52 % 07/31/2024 3:35 PM [facility] MONOCYTES 4(L) 5 - 13 % 07/31/2024 3:35 PM [facility] EOSINOPHILS 0(L) 1 - 6 % 07/31/2024 3:35 PM [facility] BASOPHILS 0 0 - 1 % 07/31/2024 3:35 PM [facility] IMMATURE GRANULOCYTES 2 % 07/31/2024 3:35 PM [facility] NEUTROPHIL ABSOLUTE 27.26(H) 1.56 - 6.13 K/uL 07/31/2024 3:35 PM [facility] LYMPHOCYTE ABSOLUTE 1.16(L) 1.20 - 3.40 K/uL 07/31/2024 3:35 PM [facility] MONOCYTE ABSOLUTE 1.25(H) 0.24 - 0.36 K/uL 07/31/2024 3:35 PM [facility] EOSINOPHIL ABSOLUTE 0.00(L) 0.04 - 0.36 K/uL 07/31/2024 3:35 PM [facility] BASOPHILS ABSOLUTE 0.08 0.01 - 0.08 K/uL 07/31/2024 3:35 PM [facility] IMMATURE GRANULOCYTES ABSOLUTE 0.54 K/uL 07/31/2024 3:35 PM [facility] Blood Collection / Unknown 07/31/2024 3:11 PM TRANSIT WORKER 07/31/2024 3:29 PM TRANSIT WORKER us Dev Uriarte DO HEMATOLOGY ORDERABLES Final Re sult [facility] CLIA # [id number] [address] [place] [address] * (ABNORMAL) PTT (07/31/2024 3:11 PM TRANSIT WORKER) PTT 25.0(L) 25.8 - 34.0 seconds 07/31/2024 3:46 PM [facility] Blood Collection / Unknown 07/31/2024 3:11 PM TRANSIT WORKER 07/31/2024 3:29 PM TRANSIT WORKER us Dev Uriarte DO HEMATOLOGY ORDERABLES Final Re sult Performing Organization Address [facility]/ZIP Co de Phone Number [facility] CLIA # [id number] [address] [place] [address] * PROTIME-INR (07/31/2024 3:11 PM TRANSIT WORKER) PROTIME 14.2 11.9 - 14.6 Seconds 07/31/2024 3:46 PM [facility] INR 1.1 0.9 - 1.1 07/31/2024 3:46 PM [facility] Blood Collection / Unknown 07/31/2024 3:11 PM TRANSIT WORKER 07/31/2024 3:29 PM TRANSIT WORKER us Dev Uriarte DO HEMATOLOGY ORDERABLES Final Re sult Performing Organization Address [facility] Co de Phone Number [facility] CLIA # [id number] [address] [place] [address] * (ABNORMAL) COMPREHENSIVE METABOLIC PANEL (07/31/2024 3:11 PM TRANSIT WORKER) SODIUM 135(L) 136 - 145 mmol/L 07/31/2024 3:49 PM [facility] POTASSIUM 4.2 3.5 - 5.1 mmol/L 07/31/2024 3:49 PM [facility] CHLORIDE 97(L) 98 - 107 mmol/L 07/31/2024 3:49 PM [facility] CO2 23 22 - 29 mmol/L 07/31/2024 3:49 PM [facility] CALCIUM 8.7(L) 8.8 - 10.2 mg/dL 07/31/2024 3:49 PM [facility] BUN 34(H) 8 - 23 mg/dL 07/31/2024 3:49 PM [facility] CREATININE 1.22(H) 0.51 - 0.95 mg/dL 07/31/2024 3:49 PM [facility] Comment:The GFR result is no t clinically significant on patients <18 or >70 years of age. GLUCOSE 163(H) 74 - 99 mg/dL 07/31/2024 3:49 PM [facility] TOTAL PROTEIN 6.6 6.6 - 8.7 g/dL 07/31/2024 3:49 PM [facility] ALBUMIN 3.5(L) 4.0 - 4.9 g/dL 07/31/2024 3:49 PM [facility] BILIRUBIN TOTAL 0.2 <=1.2 mg/dL 07/31/2024 3:49 PM [facility] ALKALINE PHOSPHATASE 97 35 - 104 U/L 07/31/2024 3:49 PM [facility] AST 24 0 - 35 U/L 07/31/2024 3:49 PM [facility] ALT 13 0 - 35 U/L 07/31/2024 3:49 PM [facility] GFR 46 mL/min/1.7 3 sq meter 07/31/2024 3:49 PM [facility] Comment:eGFR calculated with 2020 CKD-EPI equation. Vegetarian diet, extremely high or low muscle mass, and may affect results. Cystatin C with Glomerular Filtration Rate is a suitable alternative for these patients. ANION GAP 15 5 - 20 mmol/L 07/31/2024 3:49 PM [facility] Blood Collection / Unknown 07/31/2024 3:11 PM TRANSIT WORKER 07/31/2024 3:29 PM TRANSIT WORKER us Dev Uriarte DO CHEMISTRY ORDERABLES Final Res ult [facility] CLIA # [id number] [address] [place] [phone] from Last 3 Months Insurance MEDICARE PART A AND B MEDICAID [place] Advance Directives For more information, please contact: [phone] * Full Code (Latest Code Status on File) Date Activated Date Inactivated Comments 08/29/2022 4:28 PM 08/30/2022 9:04 PM Care Teams [employer] Dean Relationship Specialty Start Date End Date Zhao Wong MD [address] [place] [phone] PCP - General Family Practice 08/29/22
--- OUTSIDE RECORDS SUMMARY | 2024-08-01 02:23 | XMS_ITS | Clinical Summary ---
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 Tri-Split Unknown 05/28 Atorvastatin Unknown 05/28/2022 Sulfa (Sulfonamide Antibiotics) Unknown 05/17 Medications Medication Sig Dispensed Refills Start Date End Date Status clopidogreL (PLAVIX) 75 mg tablet Take 75 mg by mouth in the morning. 09/16/2023 Active levoFLOXacin (LEVAQUIN) 500 MG tablet Take 500 mg by mouth in the morning. 09/13/2023 Active sertraline (ZOLOFT) 100 MG tablet Take 100 mg by mouth in the morning. 09/10/2023 Active acetaminophen (TYLENOL) 325 mg tablet Take 325 mg by mouth every 6 (six) hours as needed for mild pain. Active bisacodyL (DULCOLAX) 10 mg suppository Insert 10 mg into the rectum daily as needed for constipation. Active bimatoprost (LUMIGAN) 0.01% ophthalmic drops Administer 1 drop into both eyes nightly. Active memantine (NAMENDA) 5 MG tablet Take 5 mg by mouth in the morning and 5 mg in the evening. Active metoprolol tartrate (LOPRESSOR) 25 MG tablet Take 25 mg by mouth every 12 (twelve) hours. Active magnesium hydroxide (MILK OF MAGNESIA) 2,400 mg/10 mL CONCENTRATED oral suspension Take 30 mL by mouth daily as needed for constipation. Active naloxone 2 mg/2 mL syringe kit Inject 2 mL as directed as needed (opioid overdose). Active OLANZapine (ZYPREXA) 10 MG tablet Take 10 mg by mouth nightly. Active sennosides-docusate sodium (SENOKOT-S) 8.6-50 mg tablet Take 1 tablet by mouth in the morning and 1 tablet in the evening. Active insulin degludec 100 unit/mL (3 mL) insulin pen Inject 8 Units under the skin nightly. 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 3a chronic kidney disease, with long-term current use of insulin 06/15/2022 Dementia 06/15/2022 Depression 06/15/2022 Hyperlipidemia 06/15/2022 Recurrent falls 06/15/2022 History of pulmonary embolism 06/15/2022 Macular degeneration 06/15/2022 Glaucoma 06/15/2022 Social History Tobacco Use Types Packs/Day Years Used Date Smoking Tobacco: Never Smokeless Tobacco: Never Tobacco Cessation:Counseling Given: Not Answered PHQ-2 Answer Date Recorded PHQ-2 Score 0 07/06/2024 Sex and Gender Information Value Date Recorded Sex Assigned at Not on file Gender Identity Not on file Sexual Orientation Not on file Last Filed Vital Signs Vital Sign Reading Time Taken Comments Blood Pressure 140/72 07/27/2024 7:02 AM [employer] Pulse 89 07/27/2024 7:02 AM [employer] Temperature 36.2 ??C (97.2 ??F) 07/27/2024 7:02 AM CS T Respiratory Rate 16 07/27/2024 7:02 AM [employer] Oxygen Saturation 97% 07/27/2024 7:02 AM [employer] Inhaled Oxygen Concentration - - Weight 72.5 kg (159 lb 12.8 oz) 07/27/2024 7:02 AM [employer] Height 144.8 cm (4' 9 ) 07/27/2024 7:02 AM [employer] Body Mass Index 34.58 07/27/2024 7:02 AM [employer] Plan of Treatment Health Maintenance Due Date Last Done Comments Foot Exam 1947 Hemoglobin A1C 1947 Ophthalmology Exam 1957 Urine Microalbumin 1957 Pneumococcal Vaccine: 50+ Ye ars (1 of 2 - PCV) 1966 Td, Tdap Vaccines Adult 1966 Mammogram 1987 Colonoscopy 1992 Shingrix (ZOSTER RECOMBINANT ) (1 of 2) 1997 Bone Density Scan (DXA Scan) 2012 RSV 60+ (1 - 1-dose 75+ series) 2022 Influenza Vaccination (#1) 2024 Medicare Annual Wellness 09/05/2024 09/06/2023 HIB Vaccines Aged Out No longer eligi ble based on patient's age to complete this topic HPV Vaccines Aged Out No longer eligi ble based on patient's age to complete this topic Hepatitis A Vaccines Aged Out No long er eligible based on patient's age to complete this topic Hepatitis B Vaccines Aged Out No long er eligible based on patient's age to complete this topic IPV Vaccines Aged Out No longer eligi ble based on patient's age to complete this topic Meningococcal Vaccines Aged Out No lo nger eligible based on patient's age to complete this topic RSV Mab Nirsevimab (Beyfortu s) <20 months Aged Out No longer eligible b ased on patient's age to complete this topic Rotavirus Vaccines Aged Out No longer eligible based on patient's age to complete this topic Care Teams Con[employer] Builder Relationship Specialty Start Date End Date Zhao Wong MD [address] [place] [address] PCP - General Family Medicine 05/15/22
--- OUTSIDE RECORDS SUMMARY | 2024-08-01 02:23 | XMS_ITS | Encounter Summary ---
Author Organization [facility] Address [address] [place] [address] Care Team Providers Care Exceptional Children Teacher Assistant Name Role Phone Zhao Wong MD Primary Care Provid er Reason for Visit * Reason Comments Fever Encounter Details Date Type Department Care Team ([facility] st Contact Info) Description 07/31/2024 3:13 PM SECURITY SYSTEM INSTALLER - 08/01/2024 1:41 AM SECURITY SYSTEM INSTALLER Emergency [facility] Emergency Medicine [address] [place] [address] Dev Uriarte, [address] [place] [address] Nhi Bertrand MD [address] [place] [address] Severe sepsis with septic shock (CMS/HCC) (Primary Dx); Acute cystitis without hematuria Discharge Disposition: Acute [facility] Social History Tobacco Use Types Packs/Day Years [...] on file documented as of this encounter Last Filed Vital Signs Vital Sign Reading Time Taken Comments Blood Pressure 132/51 08/01/2024 1:30 AM SECURITY SYSTEM INSTALLER Pulse 91 08/01/2024 1:30 AM SECURITY SYSTEM INSTALLER Temperature 36.9 ??C (98.4 ??F) 07/31/2024 7:24 PM CS T Respiratory Rate 11 08/01/2024 1:30 AM SECURITY SYSTEM INSTALLER Oxygen Saturation 100% 08/01/2024 1:30 AM SECURITY SYSTEM INSTALLER Inhaled Oxygen Concentration - - Weight 75.5 kg (166 lb 8 oz) 07/31/2024 2:58 PM SECURITY SYSTEM INSTALLER Height 162.6 cm (5' 4 ) 07/31/2024 2:58 PM SECURITY SYSTEM INSTALLER Body Mass Index 28.58 07/31/2024 2:58 PM SECURITY SYSTEM INSTALLER documented in this encounter Progress Notes * Olga Lidia Roberts RN - 07/31/2024 6:41 PM CST [facility] Sepsis Note Patient was given fluid challenge. [facility] Sepsis Olga Lidia Roberts RN RITY SYSTEM INSTALLER * Olga Lidia Roberts RN - 07/31/2024 6:18 PM CST [facility] Sepsis Surveillance note (A positive vSepsis screen does not imply diagnosis) Potential Time Zero: 1807 3hr tiffany: 8 6hr tiffany: 0008 Criteria A - Questionable Infection Present?: Yes (07/31/241807) Questionable source of infection: Risk for Suspect Infection, source unknown (07/31/241807) SIRS Criteria: Heart rate (pulse) > 90 bpm;Respiration > 20/min;WBC > 12 k/mcL (07/31/241807) Organ Dysfunction Present?: Yes (07/31/241807) Organ Dysfunction Criteria: Lactate > 2;Hypotension SBP < 90 or MAP < 65 (07/31/241807) Questionable Severe Sepsis/Questionable Septic Shock/Other?: Questionable Severe Sepsis (per [facility]) (07/31/241807) Initial Lactic Acid?: Yes, Ordered by Bedside;Collected - Yes (Within time frame) (07/31/241807) Repeat Lactic Acid Ordered?: Yes, Ordered by Bedside;Collected - No (07/31/241807) Blood Cultures?: Yes, Ordered by Bedside;Collected - Yes (Within time frame) (07/31/241807) Antibiotics?: Ordered - Yes;Administered - No (07/31/241807) The [facility] Sepsis team has notified the Bedside Team, via secure chat and discussed the above. Please call [facility] Sepsis if any assistance is needed. Please call [facility] Sepsis if the patient is not septic and the sepsis alert needs to be cancelled. [facility] Sepsis Olga Lidia Roberts RN RITY SYSTEM INSTALLER * Karissa Bella RCP - 07/31/2024 3:56 PM CST EKG completed, results given to Dr Jaime for review RITY SYSTEM INSTALLER documented in this encounter ED Notes * Priscila Alba RN - 07/31/2024 6:45 PM CST Spoke to [place] concerning patient. Explained that patient would be admitted or transferred dueto her condition. [place] contact info [phone] RITY SYSTEM INSTALLER * Priscila Alba RN - 07/31/2024 6:36 PM CST Sepsis EMS Fluid Note 07/31/2024, 6:36 PM 1000 ml PlasmaLyte IV fluid bolus given by EMS. Start time 1458. Stop time 1530. Priscila Alba RN RITY SYSTEM INSTALLER * Priscila Alba RN - 07/31/2024 5:30 PM CST Patient resting in bed at this time. No needs or concerns noted. RITY SYSTEM INSTALLER * Priscila Alba RN - 07/31/2024 3:59 PM CST Patient transported to CT at this time. RITY SYSTEM INSTALLER * Priscila Alba RN - 07/31/2024 3:05 PM CST Patient presents to the ER via EMS for complaint of lethargy and fever. She is a resident of [facility]. Nurse at facility reports that patient is more lethargic than normal and has an elevated temperature. VSS other than temp of 102.5. Nurse also reports that patient is incontinent of bowel and bladder, along with being bed bound. Nurse voiced that she was fine yesterday and when she came into work noticed that the patient was more tired than normal. Nurse denies cough, or other concerns. RITY SYSTEM INSTALLER RITY SYSTEM INSTALLER * Nhi Bertrand MD - 07/31/2024 2:57 PM CSTAssociated Order(s): Central Line HISTORY OF PRESENT ILLNESS Patient here with reported fevers, lethargy per NH report; hx. Of dementia and normally bedbound; pt. Denies chest pain or abd. Pains; Fever Associated symptoms: no chest pain, no chills, no cough, no dysuria, no headaches, no nausea and novomiting PAST MEDICAL HISTORY REVIEWED MEDICAL: Patient has no past medical history on file. SURGICAL: Patient has no past surgical history on file. ALLERGIES Patient has no known allergies. Review of Systems Constitutional: Positive for fever. Negative for chills. HENT: Negative. Negative for hearing loss. Eyes: Negative. Negative for blurred vision and double vision. Respiratory: Negative. Negative for cough and hemoptysis. Cardiovascular: Negative. Negative for chest pain, palpitations and orthopnea. Gastrointestinal: Negative. Negative for heartburn, nausea and vomiting. Genitourinary: Negative. Negative for dysuria and urgency. Skin: Negative. Neurological: Negative. Negative for dizziness, tingling, tremors and headaches. PHYSICAL EXAM INITIAL VS BP: (!) 119/103 (07/31/24 1458), Heart Rate: (!) 106 bpm (07/31/241457), Resp: 24 (07/31/241457),Pulse: (!) 106 (07/31/241457), Temp: 100.3 ??F (37.9 ??C) (07/31/241457), Temp src: Temporal (07/31/241457), SpO2: 96 % (07/31/241457), Height: 5' 4 (162.6 cm) (07/31/241457), Weight: 75.5 kg (166 lb 8 oz) (07/31/241457), BMI (Calculated): (!) 28.56 (07/31/241457) No LMP recorded. Physical Exam Constitutional: General: She is not in acute distress. Comments: Lethargic but awakens easily; HENT: Head: Normocephalic and atraumatic. Right Ear: Tympanic membrane normal. Left Ear: Tympanic membrane normal. Nose: Nose normal. Mouth/Throat: Mouth: Mucous membranes are moist. Pharynx: Oropharynx is clear. Eyes: Extraocular Movements: Extraocular movements intact. Conjunctiva/sclera: Conjunctivae normal. Pupils: Pupils are equal, round, and reactive to light. Cardiovascular: Rate and Rhythm: Normal rate and regular rhythm. Pulmonary: Effort: Pulmonary effort is normal. Breath sounds: Normal breath sounds. Abdominal: Palpations: Abdomen is soft. Tenderness: There is no abdominal tenderness. Musculoskeletal: General: Normal range of motion. Cervical back: Normal range of motion. Skin: General: Skin is warm. Neurological: Mental Status: She is easily aroused. She is lethargic. Comments: Alert, disoriented to time, place; Neuro. Exam; moves all extremities; no gross deficits appreciated but exam limited due to patient condition Psychiatric: Attention and Perception: She is inattentive. Behavior: Behavior is cooperative. DIAGNOSTICS LAB: CBC WITH DIFFERENTIAL - Abnormal Result Value WBC 30.3 (*) RBC 3.54 (*) HEMOGLOBIN 9.5 (*) HEMATOCRIT 28.4 (*) MCV 80.2 MCH 26.8 MCHC 33.5 RDW 13.3 RDW-STDEV 38.3 PLATELETS 368 (*) MPV 10.7 NEUTROPHILS 90 (*) LYMPHOCYTES 4 (*) MONOCYTES 4 (*) EOSINOPHILS 0 (*) BASOPHILS 0 IMMATURE GRANULOCYTES 2 NEUTROPHIL ABSOLUTE 27.26 (*) LYMPHOCYTE ABSOLUTE 1.16 (*) MONOCYTE ABSOLUTE 1.25 (*) EOSINOPHIL ABSOLUTE 0.00 (*) BASOPHILS ABSOLUTE 0.08 IMMATURE GRANULOCYTES ABSOLUTE 0.54 PTT - Abnormal PTT 25.0 (*) COMPREHENSIVE METABOLIC PANEL - Abnormal SODIUM 135 (*) POTASSIUM 4.2 CHLORIDE 97 (*) CO2 23 CALCIUM 8.7 (*) BUN 34 (*) CREATININE 1.22 (*) GLUCOSE 163 (*) TOTAL PROTEIN 6.6 ALBUMIN 3.5 (*) BILIRUBIN TOTAL 0.2 ALKALINE PHOSPHATASE 97 AST 24 ALT 13 GFR 46 ANION GAP 15 LACTIC ACID - Abnormal LACTIC ACID 2.1 (*) TROPONIN BASELINE, 5TH GEN - Abnormal TROPONIN T, BASELINE 5TH GEN 50 (*) URINALYSIS WITH REFLEX MICROSCOPIC - Abnormal COLOR UA Yellow CLARITY UA Cloudy (*) SPECIFIC GRAVITY UA 1.020 PH UA 8.5 (*) LEUKOCYTE ESTERASE UA 3+ (*) NITRITE UA Negative PROTEIN UA 2+ (*) GLUCOSE UA Negative KETONES UA Negative UROBILINOGEN UA 0.2 BILIRUBIN UA Negative BLOOD UA 2+ (*) TROPONIN 2 HR, 5TH GEN - Abnormal TROPONIN T, 2 HR 5TH GEN 45 (*) DELTA 2HR TROPONIN T -5 URINALYSIS MICROSCOPY ONLY - Abnormal WBC UA >100 (*) RBC UA 0-2 BACTERIA UA 4+ (*) EPITHELIAL CELLS, URINE 0-5 INFLUENZA VIRUS A AND B, ANTIGEN DETECTION - Normal INFLUENZA A AG Not Detected INFLUENZA B AG Not Detected PROTIME-INR - Normal PROTIME 14.2 INR 1.1 COVID-19 ANTIGEN - Normal COVID-19 ANTIGEN Presumptive Negative LACTIC ACID - Normal LACTIC ACID 1.9 BLOOD CULTURE BLOOD CULTURE BLOOD CULTURE BLOOD CULTURE TROPONIN 6 HR, 5TH GEN RADIOLOGY: CT ABDOMEN PELVIS WO CONTRAST Radiologist Impression IMPRESSION: 1. No acute findings. 2. Chronic findings as described, including cholelithiasis and multiple calcified uterine fibroids. XR CHEST PA AND LATERAL 2 VW Radiologist Impression IMPRESSION: Please see below. Exam: XR CHEST [...] Impression: 1. Negative for acute cardiopulmonary process. EKG: PROCEDURES Central Line Date/Time: 07/31/2024 11:30 PM Performed by: Nih Bertrand MD Authorized by: Nhi Bertrand MD Consent: Consent obtained: Emergent situation Consent given by: Guardian Risks discussed: Arterial puncture, incorrect placement, infection and pneumothorax Alternatives discussed: Referral and no treatment [place] protocol: Procedure explained and questions answered to patient or proxy's satisfaction: yes Immediately prior to procedure, a time out was called: yes Patient identity confirmed: Verbally with patient Pre-procedure details: Indication(s): central venous access Hand hygiene: Hand hygiene performed prior to insertion Sterile barrier technique: All elements of maximal sterile technique followed Skin preparation: Chlorhexidine Skin preparation agent: Skin preparation agent completely dried prior to procedure Anesthesia: Anesthesia method: Local infiltration Local anesthetic: Lidocaine 1% WITH epi Procedure details: Location: R internal jugular Patient position: Supine Procedural supplies: Triple lumen Landmarks identified: yes Ultrasound guidance: yes Ultrasound guidance timing: real time Sterile ultrasound techniques: Sterile gel and sterile probe covers were used Number of attempts: 2 Successful placement: yes Post-procedure details: Post-procedure: Dressing applied Assessment: Blood return through all ports and no pneumothorax on x-ray Procedure completion: Tolerated MEDICAL DECISION MAKING AND PLAN OF CARE Medical Decision Making EKG; nsr; no st changes; labs noted; suspected sepsis; likely uti; given broad spectrum antibiotics; 30 cc/kg ns bolus given; given vanc., zosyn Cultures sent; call out to [place] for possible transfer for icu admission; start pressors if no improvement with final bolus; Transitioned care to Dr. Bertrand at 1900. 2120; d/w Dr. Siu at [place]; accepts pt. For transfer; requesting Ct abd/pelvis noncontrast; central line; Dr. Bertrand made aware. Amount and/or Complexity of Data Reviewed Labs: ordered. Radiology: ordered. ECG/medicine tests: ordered. Risk Prescription drug management. Clinical Scoring & Consults Medical decision making: Dr Bertrand. I assumed patient care from Dr. Uriarte at [facility]. He had talked to Dr. Siu, hospitalist at [place] who accepted patient in transfer but requested that a central line be inserted in addition to getting a CT abdomen/pelvis without contrast. CT abdomen/pelvis reveals no acute intra-abdominal process. I inserted a triple-lumen central line in the right internal jugular vein (please refer to the noteabove). Patient tolerated procedure well with no complications. Patient will be transferred to [facility] in [place] as planned. Medications Administered During the ED Stay from 07/31/2024 1458 to 07/31/2024 2351 Date/Time Order Dose Route Action 07/31/2024 190 SECURITY SYSTEM INSTALLER piperacillin-tazobactam (ZOSYN) 4.5 Gram in sodium chloride 0.9% 100 mL IVPB (MBP) 0 Gram IV Stopped 07/31/2024 183 SECURITY SYSTEM INSTALLER piperacillin-tazobactam (ZOSYN) 4.5 Gram in sodium chloride 0.9% 100 mL IVPB (MBP) 4.5 Gram IV New Bag 07/31/20242004 SECURITY SYSTEM INSTALLER vancomycin (VANCOCIN) 1,000 mg in sodium chloride 0.9 % 250 mL IVPB 0 mg IV Stopped 07/31/20241904 SECURITY SYSTEM INSTALLER vancomycin (VANCOCIN) 1,000 mg in sodium chloride 0.9 % 250 mL IVPB 1,000 mg IVNew Bag 07/31/2024 190 SECURITY SYSTEM INSTALLER sodium chloride 0.9 % bolus solution 500 mL 0 mL IV Stopped 07/31/2024 183 SECURITY SYSTEM INSTALLER sodium chloride 0.9 % bolus solution 500 mL 500 mL IV New Bag 07/31/2024 183 SECURITY SYSTEM INSTALLER sodium chloride 0.9 % infusion -- IV Canceled Entry 07/31/2024 190 SECURITY SYSTEM INSTALLER sodium chloride 0.9 % bolus solution 1,000 mL 0 mL IV Stopped 07/31/20241834 SECURITY SYSTEM INSTALLER sodium chloride 0.9 % bolus solution 1,000 mL 1,000 mL IV New Bag 07/31/20242007 SECURITY SYSTEM INSTALLER norepinephrine bitartrate-NS 8 mg/250 mL (32 mcg/mL) infusion 0.05 mcg/kg/min IV New Bag . LAST VS BP: 114/53 (07/31/24 2340), Heart Rate: (!) 106 bpm (07/31/24 1458), Resp: 17 (07/31/24 2110), Pulse: 89 (07/31/242339), Temp: 98.4 ??F (36.9 ??C) (07/31/241923), Temp src: Temporal (07/31/241923), SpO2: 100 % (07/31/242339) CLINICAL IMPRESSION Final diagnoses: [A41.9, R65.21] Severe sepsis with septic shock (CMS/HCC) (Primary) [N30.00] Acute cystitis without hematuria DISPOSITION, EDUCATION AND MEDICATION RECONCILIATION Medications reconciled. See after visit summary for patient education on discharged patients. ED Disposition ED Disposition Transfer Condition Stable User Dev Uriarte DO Date/Time SatJul 31, 2024 9:32 PM Comment -- ATTESTATION STATEMENTS Diagnoses Diagnosis Comment Added By Time Added Severe sepsis with septic shock (CMS/HCC) [A41.9, R65.21] Dev Uriarte DO 07/31/2024 6:35 PM Acute cystitis without hematuria [N30.00] Dev Uriarte DO 07/31/2024 6:35 PM RITY SYSTEM INSTALLER RITY SYSTEM INSTALLER RITY SYSTEM INSTALLER documented in this encounter Plan of Treatment Pending Results Name Type Priority Associated Diagnoses Date /Time BLOOD CULTURE Microbiology Stat 5 3:15 PM SECURITY SYSTEM INSTALLER BLOOD CULTURE Microbiology Stat 5 3:28 PM SECURITY SYSTEM INSTALLER BLOOD CULTURE Microbiology Stat 5 3:15 PM SECURITY SYSTEM INSTALLER BLOOD CULTURE Microbiology Stat 5 3:28 PM SECURITY SYSTEM INSTALLER Scheduled Orders Name Type Priority Associated Diagnoses Orde r Schedule TROPONIN 6 HR, 5TH GEN Lab Timed Study ONE TIME for 1 Occurrences starting 07/31/2024 until 07/31/2024 BLOOD CULTURE Microbiology Routine ONE TIME for 1 Occurrences starting 07/31/2024 until 07/31/2024 BLOOD CULTURE Microbiology Routine ONE TIME for 1 Occurrences starting 07/31/2024 until 07/31/2024 BLOOD CULTURE Microbiology Stat Once for 1 Occurrences starting 07/31/2024 until 07/31/2024 BLOOD CULTURE Microbiology Stat Once for 1 Occurrences starting 07/31/2024 until 07/31/2024 documented as of this encounter Procedures Procedure Name Priority Date/Time Associated Diagnosis Comments XR CHEST PA OR AP 1 VW Stat 07/31/2024 11:56 PM SECURITY SYSTEM INSTALLER CENTRAL LINE INSERTION Routine 07/31/2024 11:[address]ER CT ABDOMEN PELVIS WO CONTRAST Stat 07/31/2024 10:30 PM SECURITY SYSTEM INSTALLER TROPONIN 2 HR, 5TH GEN Timed Study 07/31/2024 6:17 PM SECURITY SYSTEM INSTALLER LACTIC ACID Stat 07/31/2024 6:17 PM SECURITY SYSTEM INSTALLER URINALYSIS MICROSCOPY ONLY Stat 07/31/2024 5:13 PM SECURITY SYSTEM INSTALLER URINALYSIS W/REFLEX MICROSCOPIC Stat 07/31/2024 5:13 PM SECURITY SYSTEM INSTALLER XR CHEST PA AND LATERAL 2 VW Stat 07/31/2024 4:05 PM SECURITY SYSTEM INSTALLER COVID-19 ANTIGEN Stat 07/31/2024 3:11 PM SECURITY SYSTEM INSTALLER TROPONIN BASELINE, 5TH GEN Stat 07/31/2024 3:11 PM SECURITY SYSTEM INSTALLER INFLUENZA VIRUS A AND B, ANTIGEN DETECTION Stat 07/31/2024 3:11 PM SECURITY SYSTEM INSTALLER LACTIC ACID Stat 07/31/2024 3:11 PM SECURITY SYSTEM INSTALLER CBC WITH DIFFERENTIAL Stat 07/31/2024 3:11 PM SECURITY SYSTEM INSTALLER PTT Stat 07/31/2024 3:11 PM SECURITY SYSTEM INSTALLER PROTIME-INR Stat 07/31/2024 3:11 PM SECURITY SYSTEM INSTALLER COMPREHENSIVE METABOLIC PANEL Stat 07/31/2024 3:11 PM SECURITY SYSTEM INSTALLER documented in this encounter Results * XR CHEST PA OR AP 1 VW (07/31/2024 11:56 PM SECURITY SYSTEM INSTALLER) Anatomical Region Laterality Modality Chest Computed Radiogr aphy 07/31/2024 11:5 6 PM SECURITY SYSTEM INSTALLER Impressions 08/01/2024 12:05 AM SECURITY SYSTEM INSTALLER IMPRESSION: See below. ?? Exam: XR CHEST [...] pleural effusion, or pneumothorax. Unremarkable mediastinal contours. Nhi Bertrand MD DIAGNOSTIC IMAGING ORDERABLE S Final Result * Central Line (07/31/2024 11:30 PM SECURITY SYSTEM INSTALLER) Narrative Nhi Bertrand MD - 07/31/2024 11:30 PM SECURITY SYSTEM INSTALLER Nhi Bertrand MD ? 07/31/2024 11:50 PM Central Line Date/Time: 07/31/2024 11:30 PM Performed by: Nhi Bertrand MD Authorized by: Nhi Bertrand MD ?? Consent: ??Consent obtained: ??Emergent situation ??Consent given by: ??Guardian ??Risks discussed: ??Arterial puncture, incorrect placement, infection and pneumothorax ??Alternatives discussed: ??Referral and no treatment [place] protocol: ??Procedure explained and questions answered to [...] ABDOMEN PELVIS WO CONTRAST (07/31/2024 10:30 PM SECURITY SYSTEM INSTALLER) Anatomical Region Laterality Modality Abdomen Computed Tomogra phy 07/31/2024 10:3 0 PM SECURITY SYSTEM INSTALLER Impressions 07/31/2024 10:41 PM SECURITY SYSTEM INSTALLER IMPRESSION: 1. No acute findings. 2. Chronic findings as described, including cholelithiasis and multiple calcified uterine fibroids. Narrative 07/31/2024 10:41 PM SECURITY SYSTEM INSTALLER Exam: CT ABDOMEN PELVIS WO CONTRAST Date/Time [...] including cholelithiasis and multiple calcified uterine fibroids. Nhi Bertrand MD CT ORDERABLES Final Result * LACTIC ACID (07/31/2024 6:17 PM SECURITY SYSTEM INSTALLER) LACTIC ACID 1.9 <=2.0 mmol/L 07/31/2024 6:43 PM SECURITY SYSTEM INSTALLER [facility] Blood Venipuncture / Unknown 07/31/2024 6:17 PM SECURITY SYSTEM INSTALLER 07/31/2024 6:23 PM SECURITY SYSTEM INSTALLER us Dev Uriarte DO CHEMISTRY ORDERABLES Final Res ult [id number] [address] [place] [address] * (ABNORMAL) TROPONIN 2 HR, 5TH GEN (07/31/2024 6:17 PM SECURITY SYSTEM INSTALLER) TROPONIN T, 2 HR 5TH GEN 45(H) <=10 ng/L 07/31/2024 6:43 PM SECURITY SYSTEM INSTALLER [facility] DELTA 2HR TROPONIN T -5 See Interp. 07/31/2024 6:43 PM SECURITY SYSTEM INSTALLER [facility] Blood Venipuncture / Unknown 07/31/2024 6:17 PM SECURITY SYSTEM INSTALLER 07/31/2024 6:23 PM SECURITY SYSTEM INSTALLER Narrative [facility] - 07/31/2024 6:43 PM SECURITY SYSTEM INSTALLER Troponin elevated. Delta indeterminate. Delay in collection of timed specimen beyond recommended collection interval. Results must be interpreted in clinical context. us Dev Uriarte DO CHEMISTRY ORDERABLES Final Res ult Performing Organization Address City/[facility]/ZIP Co de Phone Number [facility] CLIA # [id number] [address] [place] [address] * (ABNORMAL) URINALYSIS MICROSCOPY ONLY (07/31/2024 5:13 PM SECURITY SYSTEM INSTALLER) WBC UA >100(A) 0 - 2 /hpf 07/31/2024 5:50 PM SECURITY SYSTEM INSTALLER [facility] RBC UA 0-2 0 - 2 /hpf 07/31/2024 5:[address] [facility] BACTERIA UA 4+(A) Negative /hpf 07/31/2024 5:[address] [facility] EPITHELIAL CELLS, URINE 0-5 0 - 5 /hpf 07/31/2024 5:[address] [facility] Urine URINE SPECIMEN OBTAINED BY CLEAN CATCH PROCEDURE / Unknown Collection / Unknown 07/31/2024 5:13 PM SECURITY SYSTEM INSTALLER 07/31/2024 5:29 PM SECURITY SYSTEM INSTALLER us Dev Uriarte DO URINE ORDERABLES Final Result Performing Organization Address [facility]/ZIP Co de Phone Number [facility] CLIA # [id number] [address] [place] [phone] * (ABNORMAL) URINALYSIS WITH REFLEX MICROSCOPIC (07/31/2024 5:13 PM SECURITY SYSTEM INSTALLER) COLOR UA Yellow Pale to Dark Yellow 07/31/2024 5:[address] [facility] CLARITY UA Cloudy(A) Clear 07/31/2024 5:[address] [facility] SPECIFIC GRAVITY UA 1.020 1.003 - 1.035 07/31/2024 5:[address] [facility] PH UA 8.5(A) 5.0 - 8.0 07/31/2024 5:[address] [facility] LEUKOCYTE ESTERASE UA 3+(A) Negative 07/31/2024 5:[address] [facility] NITRITE UA Negative Negative 07/31/2024 5:50 PM SECURITY SYSTEM INSTALLER [facility] PROTEIN UA 2+(A) Negative 07/31/2024 5:[address] [facility] GLUCOSE UA Negative Negative 07/31/2024 5:[address] [facility] KETONES UA Negative Negative 07/31/2024 5:[address] [facility] UROBILINOGEN UA 0.2 <2.0 mg/dL 5:[address] [facility] BILIRUBIN UA Negative Negative 07/31/2024 5:[address] [facility] BLOOD UA 2+(A) Negative 07/31/2024 5:[address] [facility] Urine URINE SPECIMEN OBTAINED BY CLEAN CATCH PROCEDURE / Unknown Collection / Unknown 07/31/2024 5:13 PM SECURITY SYSTEM INSTALLER 07/31/2024 5:29 PM SECURITY SYSTEM INSTALLER Dev Uriarte DO URINE ORDERABLES Final Result [facility] CLIA # [id number] [address] [place] [address] [id number] * XR CHEST PA AND LATERAL 2 VW (07/31/2024 4:05 PM SECURITY SYSTEM INSTALLER) Anatomical Region Laterality Modality Chest Computed Radiogr aphy 07/31/2024 4:06 PM SECURITY SYSTEM INSTALLER Impressions 07/31/2024 4:12 PM SECURITY SYSTEM INSTALLER IMPRESSION: Please see below. Exam: XR CHEST [...] Result * COVID-19 ANTIGEN (07/31/2024 3:11 PM SECURITY SYSTEM INSTALLER) COVID-19 ANTIGEN Presumptive Negative Presumptive Negative 07/31/2024 3:51 PM SECURITY SYSTEM INSTALLER [facility] Upper Respiratory ANTERIOR NARES SWAB / Unknown Collection / Unknown 07/31/2024 3:11 PM SECURITY SYSTEM INSTALLER 07/31/2024 3:29 PM SECURITY SYSTEM INSTALLER Narrative [facility] - 07/31/2024 3:51 PM SECURITY SYSTEM INSTALLER Argenis SARS antigen test has been authorized by FDA under an emergency use authorization (EUA) and has been authorized only for the detection of proteins from SARS-CoV-2 and influenza, not for any other viruses or pathogens. Ar[employer]is SARS Antigen CHARBEL is intended for the simultaneous qualitative detection and differentiation of nucleocapsid protein antigen from SARS-CoV-2 directly from nasopharyngeal (COMMERCIAL PILOT) and nasal (NS) swab specimens collected from [...] with at least 48 hours between tests. Dev Uriarte DO MICROBIOLOGY - GENERAL ORDERAB LES Final Result [id number] [address] [place] [address] * INFLUENZA VIRUS A AND B, ANTIGEN DETECTION (07/31/2024 3:11 PM SECURITY SYSTEM INSTALLER) Pathologist [facility] INFLUENZA A AG NOT DETECTED Not Detected 07/31/2024 3:51 PM SECURITY SYSTEM INSTALLER [facility] INFLUENZA B AG NOT DETECTED Not Detected 07/31/2024 3:51 PM SECURITY SYSTEM INSTALLER [facility] Upper Respiratory ENTIRE NASOPHARYNX / Unknown Collection / Unknown 07/31/2024 3:11 PM SECURITY SYSTEM INSTALLER 07/31/2024 3:29 PM SECURITY SYSTEM INSTALLER [facility] - 07/31/2024 3:51 PM SECURITY SYSTEM INSTALLER Negative results do not rule out infection. ??If clinically indicated, consider PCR testing which is more sensitive than antigen testing. ??If PCR testing is desired, consult with your local laboratory as sample recollection may be required. us Dev Uriarte DO MICROBIOLOGY - GENERAL ORDERAB LES Final Result Performing Organization Address [facility] Co de Phone Number [facility] CLIA # [id number] [address] [place] [address] [phone] * (ABNORMAL) TROPONIN BASELINE, 5TH GEN (07/31/2024 3:11 PM SECURITY SYSTEM INSTALLER) TROPONIN T, BASELINE 5TH GEN 50(H) <=10 ng/L 07/31/2024 3:49 PM SECURITY SYSTEM INSTALLER [facility] Blood Collection / Unknown 07/31/2024 3:11 PM SECURITY SYSTEM INSTALLER 07/31/2024 3:29 PM SECURITY SYSTEM INSTALLER Narrative [facility] - 07/31/2024 3:49 PM SECURITY SYSTEM INSTALLER Troponin elevated. us Dev Uriarte DO CHEMISTRY ORDERABLES Final Res ult Performing Organization Address [facility] Co de Phone Number [facility] CLIA # [id number] [address] [place] [address] [phone] * (ABNORMAL) LACTIC ACID (07/31/2024 3:11 PM SECURITY SYSTEM INSTALLER) LACTIC ACID 2.1(H) <=2.0 mmol/L 07/31/2024 3:46 PM SECURITY SYSTEM INSTALLER [facility] Blood BLOOD SPECIMEN / Unknown Collection / Unknown 07/31/2024 3:11 PM SECURITY SYSTEM INSTALLER 07/31/2024 3:29 PM SECURITY SYSTEM INSTALLER us Dev Uriarte DO CHEMISTRY ORDERABLES Final Res ult Performing Organization Address [facility] Co de Phone Number [facility] CLIA # [id number] [address] [place] [address] [phone] * (ABNORMAL) COMPREHENSIVE METABOLIC PANEL (07/31/2024 3:11 PM SECURITY SYSTEM INSTALLER) SODIUM 135(L) 136 - 145 mmol/L 07/31/2024 3:[address] [facility] POTASSIUM 4.2 3.5 - 5.1 mmol/L 07/31/2024 3:[address] [facility] CHLORIDE 97(L) 98 - 107 mmol/L 07/31/2024 3:[address] [facility] CO2 23 22 - 29 mmol/L 07/31/2024 3:[address] [facility] CALCIUM 8.7(L) 8.8 - 10.2 mg/dL 07/31/2024 3:[address] [facility] BUN 34(H) 8 - 23 mg/dL 07/31/2024 3:[address] [facility] CREATININE 1.22(H) 0.51 - 0.95 mg/dL 07/31/2024 3:[address] [facility] Comment:The GFR result is no t clinically significant on patients <18 or >70 years of age. GLUCOSE 163(H) 74 - 99 mg/dL 07/31/2024 3:[address] [facility] TOTAL PROTEIN 6.6 6.6 - 8.7 g/dL 07/31/2024 3:[address] [facility] ALBUMIN 3.5(L) 4.0 - 4.9 g/dL 07/31/2024 3:[address] [facility] BILIRUBIN TOTAL 0.2 <=1.2 mg/dL 07/31/2024 3:[address] [facility] ALKALINE PHOSPHATASE 97 35 - 104 U/L 07/31/2024 3:[address] [facility] AST 24 0 - 35 U/L 07/31/2024 3:[address] [facility] ALT 13 0 - 35 U/L 07/31/2024 3:[address] [facility] GFR 46 mL/min/1.7 3 sq meter 07/31/2024 3:[address] [facility] Comment:eGFR calculated with 2020 CKD-EPI equation. Vegetarian diet, extremely high or low muscle mass, and may affect results. Cystatin C with Glomerular Filtration Rate is a suitable alternative for these patients. ANION GAP 15 5 - 20 mmol/L 07/31/2024 3:49 PM SECURITY SYSTEM INSTALLER [facility] Blood Collection / Unknown 07/31/2024 3:11 PM SECURITY SYSTEM INSTALLER 07/31/2024 3:29 PM SECURITY SYSTEM INSTALLER us Dev Uriarte DO CHEMISTRY ORDERABLES Final Res ult Performing Organization Address [facility]/ZIP Co de Phone Number [facility] CLIA # [id number] [address] [place] [address] [phone] * (ABNORMAL) PTT (07/31/2024 3:11 PM SECURITY SYSTEM INSTALLER) PTT 25.0(L) 25.8 - 34.0 seconds 07/31/2024 3:46 PM SECURITY SYSTEM INSTALLER [facility] Blood Collection / Unknown 07/31/2024 3:11 PM SECURITY SYSTEM INSTALLER 07/31/2024 3:29 PM SECURITY SYSTEM INSTALLER us Dev Uriarte DO HEMATOLOGY ORDERABLES Final Re sult Performing Organization Address [facility] Co de Phone Number [facility] CLIA # [id number] [address] [place] [address] [phone] * PROTIME-INR (07/31/2024 3:11 PM SECURITY SYSTEM INSTALLER) PROTIME 14.2 11.9 - 14.6 Seconds 07/31/2024 3:46 PM SECURITY SYSTEM INSTALLER [facility] INR 1.1 0.9 - 1.1 07/31/2024 3:46 PM SECURITY SYSTEM INSTALLER [facility] Blood Collection / Unknown 07/31/2024 3:11 PM SECURITY SYSTEM INSTALLER 07/31/2024 3:29 PM SECURITY SYSTEM INSTALLER Dev Uriarte DO HEMATOLOGY ORDERABLES Final Re sult Performing Organization Address [facility]/ZIP Co de Phone Number [facility] CLIA # [id number] [address] [place] [address] [phone] * (ABNORMAL) CBC WITH DIFFERENTIAL (07/31/2024 3:11 PM SECURITY SYSTEM INSTALLER) WBC 30.3(H) 4.0 - 10.0 K/uL 07/31/2024 3:[address] [facility] RBC 3.54(L) 3.93 - 5.22 M/uL 07/31/2024 3:[address] [facility] HEMOGLOBIN 9.5(L) 11.2 - 15.7 g/dL 07/31/2024 3:[address] [facility] HEMATOCRIT 28.4(L) 34.1 - 44.9 % 07/31/2024 3:[address] [facility] MCV 80.2 79.4 - 94.8 fL 07/31/2024 3:[address] [facility] MCH 26.8 25.6 - 32.2 pg 07/31/2024 3:[address] [facility] MCHC 33.5 32.2 - 35.5 g/dL 07/31/2024 3:[address] [facility] RDW 13.3 11.0 - 14.5 % 07/31/2024 3:[address] [facility] RDW-STDEV 38.3 36.9 - 56.9 fL 07/31/2024 3:[address] [facility] PLATELETS 368(H) 163 - 337 K/uL 07/31/2024 3:[address] [facility] MPV 10.7 10.0 - 14.8 fL 07/31/2024 3:[address] [facility] NEUTROPHILS 90(H) 34 - 71 % 07/31/2024 3:[address] [facility] LYMPHOCYTES 4(L) 19 - 52 % 07/31/2024 3:[address] [facility] MONOCYTES 4(L) 5 - 13 % 07/31/2024 3:[address] [facility] EOSINOPHILS 0(L) 1 - 6 % 07/31/2024 3:[address] [facility] BASOPHILS 0 0 - 1 % 07/31/2024 3:[address] [facility] IMMATURE GRANULOCYTES 2 % 07/31/2024 3:[address] [facility] NEUTROPHIL ABSOLUTE 27.26(H) 1.56 - 6.13 K/uL 07/31/2024 3:[address] [facility] LYMPHOCYTE ABSOLUTE 1.16(L) 1.20 - 3.40 K/uL 07/31/2024 3:[address] [facility] MONOCYTE ABSOLUTE 1.25(H) 0.24 - 0.36 K/uL 07/31/2024 3:[address] [facility] EOSINOPHIL ABSOLUTE 0.00(L) 0.04 - 0.36 K/uL 07/31/2024 3:[address] [facility] BASOPHILS ABSOLUTE 0.08 0.01 - 0.08 K/uL 07/31/2024 3:[address] [facility] IMMATURE GRANULOCYTES ABSOLUTE 0.54 K/uL 07/31/2024 3:[address] [facility] Blood Collection / Unknown 07/31/2024 3:11 PM SECURITY SYSTEM INSTALLER 07/31/2024 3:29 PM SECURITY SYSTEM INSTALLER us Dev Uriarte DO HEMATOLOGY ORDERABLES Final [id number] [address] [place] [address] [phone] documented in this encounter Visit Diagnoses Diagnosis Severe sepsis with septic shock (CMS/[facility])- Primary Unspecified septicemia Acute cystitis without hematuria Acute cystitis documented in this encounter Administered Medications Active Administered Medications - up to 3 most recent administrations Medication Order MAR Action Action Date Dose Rate Site norepinephrine bitartrate-NS 8 mg/250 mL (32 mcg/mL) infusion 0-0.2 mcg/kg/min ? 75.5 kg (0-28.3125 mL/hr, rounded to 0-28.31 mL/hr), IV, TITRATE, Starting on Sat07/31/24 at 2014, Until Discontinued, Should this infusion be titrated? Yes, Is this a CABG patient? No, Initial infusion dose? 0.05 mcg/kg/min, Titration Dose Increment? 0.05 mcg/kg/min, Titration Interval? 10 minutes, Goal Type? MAP Goal, MAP Goal? 65-75 New Bag 07/31/2024 8:08 PM SECURITY SYSTEM INSTALLER 0.05 mcg/kg/min 7.08 mL/hr Inactive Administered Medications - up to 3 most recent administrations Medication Order MAR Action Action Date Dose Rate Site piperacillin-tazobactam (ZOSYN) 4.5 Gram in sodium chloride 0.9% 100 mL IVPB (MBP) 4.5 Gram, IV, ONE TIME ONLY, 1 dose, On Sat07/31/24 at 1815, Routine, Antibiotic Indication: Suspected Sepsis, Unknown Source New Bag 07/31/2024 6:31 PM SECURITY SYSTEM INSTALLER 4.5 Grams 230 mL/hr sodium chloride 0.9 % bolus solution 1,000 mL 1,000 mL, IV, ONE TIME ONLY, 1 dose, On Sat07/31/24 at 1845, at 2,000 mL/hr, Administer over 30 Minutes, Stat New Bag 07/31/2024 6:35 PM SECURITY SYSTEM INSTALLER 1,000 mL 2000 mL/hr sodium chloride 0.9 % bolus solution 500 mL 500 mL, IV, ONE TIME ONLY, 1 dose, On Sat07/31/24 at 1830, at 999 mL/hr, Administer over 30 Minutes, Routine New Bag 07/31/2024 6:32 PM SECURITY SYSTEM INSTALLER 500 mL 999 mL/hr vancomycin (VANCOCIN) 1,000 mg in sodium chloride 0.9 % 250 mL IVPB 1,000 mg, IV, ONE TIME ONLY, 1 dose, On Sat07/31/24 at 1815, Routine, Antibiotic Indication: Suspected Sepsis, Unknown Source New Bag 07/31/2024 7:05 PM SECURITY SYSTEM INSTALLER 1,000 mg 285 mL/hr documented in this encounter Active and Recently Administered Medications Times are shown in SECURITY SYSTEM INSTALLER. Scheduled Medication Order 07/30/2024 07/31/2024 08/01/2024 piperacillin-tazobactam (ZOSYN) 4.5 Gram in sodium chloride 0.9% 100 mL IVPB (MBP) (COMPLETED) 4.5 Gram, IV, ONE TIME ONLY, 1 dose, On Sat07/31/24 at 1815, Routine, Antibiotic Indication: Suspected Sepsis, Unknown Source 183 (New Bag - Provider: Gage Alba RN)190 (Stopped - Provider: Priscila Alba RN) sodium chloride 0.9 % bolus solution 1,000 mL (COMPLETED) 1,000 mL, IV, ONE TIME ONLY, 1 dose, On Sat07/31/24 at 1845, at 2,000 mL/hr, Administer over 30 Minutes, Stat 1835 (New Bag - Provider: Gage Alba RN)190 (Stopped - Provider: Priscila Alba RN) sodium chloride 0.9 % bolus solution 500 mL (COMPLETED) 500 mL, IV, ONE TIME ONLY, 1 dose, On Sat07/31/24 at 1830, at 999 mL/hr, Administer over 30 Minutes, Routine 1832 (New Bag - Provider: Gage Alba RN)190 (Stopped - Provider: Priscila Alba RN) vancomycin (VANCOCIN) 1,000 mg in sodium chloride 0.9 % 250 mL IVPB (COMPLETED) 1,000 mg, IV, ONE TIME ONLY, 1 dose, On Sat07/31/24 at 1815, Routine, Antibiotic Indication: Suspected Sepsis, Unknown Source 1904 (New Bag - Provider: Gage Alba RN)2004 (Stopped - Provider: Priscila Alba, SREEDHAR) Continuous Medication Order 07/30/2024 07/31/2024 08/01/2024 norepinephrine bitartrate-NS 8 mg/250 mL (32 mcg/mL) infusion 0-0.2 mcg/kg/min ? 75.5 kg (0-28.3125 mL/hr, rounded to 0-28.31 mL/hr), IV, TITRATE, Starting on Sat07/31/24 at 2014, Until Discontinued, Should this infusion be titrated? Yes, Is this a CABG patient? No, Initial infusion dose? 0.05 mcg/kg/min, Titration Dose Increment? 0.05 mcg/kg/min, Titration Interval? 10 minutes, Goal Type? MAP Goal, MAP Goal? 65-75 2007 (New Bag - Provider: Priscila Alba RN) 139 (Stopped - Provider: Flakita Connell RN - Comment: continued by EMS) documented in this encounter Additional Health Concerns Infection Onset Date Last Indicated Resolved Time R/O COVID-19 07/31/2024 07/31/2024 07/31/2024 3:51 PM SECURITY SYSTEM INSTALLER documented as of this encounter Care Teams Exceptional Children Teacher Assistant Relationship Specialty Start Date End Date Zhao Wong MD [address] [place] [phone] PCP - General Family Practice 08/29/22 documented as of this encounter
--- NOTE | 2024-08-01 02:50 | XRR_ITS ---
PROCEDURE INFORMATION: Exam: XR Chest Exam date and time: 08/01/2024 3:23 AM Age: 79 years old Clinical indication: Abnormal findings; Abnormal diagnostic tests; Abnormal ekg; Fever with wbc of 30k. Central line in place. ; Additional info: Sepsis TECHNIQUE: Imaging protocol: Radiologic exam of the chest. Views: 1 view. COMPARISON: CR XR chest 1V portable [id number] 09/21/2023 10:16 AM FINDINGS: Tubes, catheters and devices: Right internal jugular central venous access catheter with tip at the inferior right atrium. Lungs: Unremarkable. No consolidation. Pleural spaces: Unremarkable. No pleural effusion. No pneumothorax. Heart/Mediastinum: Unremarkable. No cardiomegaly. Vasculature: Atherosclerotic disease of the aortic arch. Tortuous aorta. Bones/joints: Diffuse degenerative change of the visualized osseous structures. Demineralization of the visualized osseous structures. Other findings: Patient is rotated left. XR/XR chest 1V portable [id number] IMPRESSION: 1. Right internal jugular central venous access catheter with tip of the inferior right atrium. 2. No acute cardiopulmonary findings, given patient rotation.
--- NOTE | 2024-08-01 02:51 | PM.HP ---
Providers/Chief Complaint Admitting Physician: Naveen Siu MD Primary Care Provider: Dao Alba DO Chief Complaint: urosepsis ams hypoxia UTI History of Present Illness Unique Gage is a 79 year old female with a past medical history significant for type 2 diabetes mellitus, psychosis, delusional disorder, dementia, depression, hyperlipidemia, hypertension, kyphosis, and multiple other comorbidities who transferred from outside hospital after presenting with fever and diagnosed with septic shock secondary to urinary tract infection. Upon assessment, patient is awake and alert. She is not oriented to time place or situation. She denies fevers, chills, nausea or emesis but she is found to be a poor historian. At the outside emergency department, patient was found to have leukocytosis to 30.3. Urinalysis consistent with UTI. CT abdomen pelvis was negative for evidence of hydronephrosis or nephrolithiasis. She was treated with Zosyn, vancomycin, greater than 30 mL/kg body weight IV fluids and started on Levophed. Central line was placed. Review of Systems Narrative: A complete review of systems was obtained and is negative except as stated in HPI. Medications/Allergies Home Medications ?Medication ?Instructions ?Recorded ?Confirmed ?Last Taken ?Type acetaminophen 325 mg tablet 650 mg PO Q6H PRN Pain/FEVER 05/30/20 09/21/23 Unknown History (Tylenol) bimatoprost 0.01 % eye drops 1 drp ophthalmic (eye) BEDTIME@199910/04/20 09/21/23 09/10/23 History (Lumigan) metoprolol tartrate 25 mg tablet 25 mg PO BID@06/22/23 09/21/23 09/10/23 History naloxone 2 mg/2 mL syringe kit See Rx Instructions .Route .COMPLEX 06/22/23 09/21/23 Unknown History sertraline 100 mg tablet 100 mg PO DAILY@07 06/22/23 09/21/23 09/10/23 History bisacodyl 10 mg rectal suppository 10 mg FL DAILY PRN Constipation 09/11/23 09/21/23 Unknown History (Dulcolax (bisacodyl)) clopidogrel 75 mg tablet 75 mg PO QAM 09/11/23 09/21/23 09/10/23 History insulin aspart U-100 100 unit/mL See Rx Instructions .Route .COMPLEX 0309/21/23 09/11/23 History (3 mL) subcutaneous pen (Novolog 30 units FlexPen U-100 Insulin aspart) insulin degludec 100 unit/mL (3 15 unit SUBCUT BEDTIME 09/11/23 09/21/23 09/10/23 History mL) subcutaneous pen (Tresiba FlexTouch U-100 insulin) magnesium hydroxide 400 mg/5 mL 30 ml PO DAILY PRN Constipation 09/11/23 09/21/23 Unknown History oral suspension (Milk of Magnesia) memantine 5 mg tablet 5 mg PO BID 09/11/23 09/21/23 09/10/23 History olanzapine 10 mg tablet 10 mg PO BEDTIME 09/11/23 09/21/23 09/11/23 History sennosides 8.6 mg-docusate sodium 2 tab PO BID 09/11/23 09/21/23 09/10/23 History 50 mg tablet (Senna Plus) mirtazapine 15 mg tablet (Remeron) 15 mg PO BEDTIME 09/21/23 09/21/23 Unknown History Allergies Allergy/AdvReac Type Severity Reaction Status Date / Time Sulfa (Sulfonamide Allergy Mild Rash Verified 03/31/24 10:25 Antibiotics) atorvastatin Allergy rash Verified 03/31/24 10:25 Influenza Virus Vaccines Allergy ADR-Nausea Verified 04/30/24 11:30 PFSH Acute PFSH: Medical History UTI (urinary tract infection) Acute renal failure Hyperkalemia Mild dementia Memory problem Status post non-ST elevation myocardial infarction (NSTEMI) Benign essential hypertension with target blood pressure below 140/90 NSTEMI (non-ST elevated myocardial infarction) History of heart failure Hyperlipidemia Macular degeneration Insulin dependent type 2 diabetes mellitus History of pulmonary embolism Hallucination, visual Surgical History History of Family History Mother Dementia CAD (coronary artery disease) Lung disease Family/Other Dementia Diabetes Grandfather Dementia Father Diabetes Lung disease Stroke Denies family history of Clotting disorder Chronic kidney disease (CKD) Suicide Anesthesia complication Bleeding disorder Cancer Social History Smoking and tobacco/nicotine status: former use of tobacco/nicotine Alcohol intake: never Substance/Drug Use: never Physical Exam Narrative: General: Patient is awake. Lying in bed. Head: Normocephalic. Atraumatic. EOM intact. Dry mucous membranes. Neck: No JVD. Right IJ central line. Cardiovascular: RRR. No gallops. No murmurs. Lungs: Clear to auscultation, no use of accessory muscles, no crackles or wheezes. Skin: No jaundice. No rashes. Abdomen: Normal bowel sounds, abdomen soft and nontender. Extremities: No cyanosis or clubbing. Musculoskeletal: No swollen or erythematous joints. Neurological: Moves all 4 extremities. No myoclonus. A&P Assessment and plan (1) Septic shock: Source: UTI Status post IV fluid resuscitation at outside hospital Blood cultures x 2, urinalysis with reflex Continue cefepime, MRSA screening Levophed for MAP goal of 65 mmHg Telemetry Procalcitonin and CRP (2) UTI (urinary tract infection): Reflex urine culture Start cefepime (3) Dementia: Mentation reportedly at baseline High risk for delirium Avoid sedating medications (4) Insulin dependent type 2 diabetes mellitus: Sliding-scale insulin correction Will need to clarify home insulin regiment (5) Hypertension: Hold antihypertensives due to shock Plan DVT prophylaxis: Heparin PDMP PDMP Reviewed: Not Reviewed Attestations Medical Necessity Statement*: CODE STATUS: Full code per half-way documentation Critical Care Time: The high probability of a clinically significant, sudden or life threatening deterioration of the patient's circulatory system(s) required my full and direct attention, intervention and personal management. The critical care time is as shown. This time is in addition to time spent performing any reported procedures but includes the following: [x] Data and vital sign review and interpretation [x] Patient assessment, examination and intervention [x] Documentation [x] Medication orders and management Critical Care Time (min): 40 Coding Level of Care Code Acute Code for Chg Fwd Diagnoses Septic shock A41.9; R65.21 UTI (urinary tract infection) N39.0 Dementia F03.90 Insulin dependent type 2 diabetes mellitus E11.9; Z79.4 Hypertension I10
[2024-08-01 03:15] LABS: Glucose Point of Care 113 mg/dL (70-110)
[2024-08-01] MEDS: cefepime 2,000 mg SDV 2000 MG IVP ×2 (03:47→10:17)
[2024-08-01] MEDS: heparin 5,000 unit/mL INJ 1 mL 5000 UNIT SUBCUT ×2 (03:47→17:55)
[2024-08-01 05:38] LABS: MRSA PCR OZH (swab) NOT DETECTED (Not Detecte)
[2024-08-01 05:39] LABS: Basophils # 0.1 10^3/uL (0.0-0.1); Basophils % 0.4 %; Eosinophils # 0.1 10^3/uL (0.0-0.8); Eosinophils % 0.3 %; Hematocrit 26.6 % (36-47); Lymphocytes # 1.7 10^3/uL (0.8-4.8); Lymphocytes % 8.9 %; Mean Corpuscular HGB Conc 31.2 g/dL (30-55); Mean Corpuscular Hemoglobin 26.2 pg (27-33); Mean Corpuscular Volume 83.9 fl (85-98); Mean Platelet Volume 10.8 fL (7.4-10.4); Monocytes # 0.9 10^3/uL (0.2-0.9); Monocytes % 4.6 %; Neutrophils # 16.12 10^3/uL (1.8-7.7); Neutrophils % 85.3 %; Nucleated Red Blood Cells % 0 %; Platelet Count 305 10^3/cmm (157-399); Red Blood Count 3.17 10^6/uL (3.85-5.65); Red Cell Distribution Width 13.4 % (12.1-15.1)
[2024-08-01 06:00] LABS: Alanine Aminotransferase 13 U/L (0-33); Albumin Level 3.2 g/dL (3.5-5.2); Alkaline Phosphatase 98 U/L (35-105); Aspartate Amino Transferase 19 U/L (0-32); Blood Urea Nitrogen 27 mg/dL (8-23); C Reactive Protein 133.1 mg/L (0.0-4.9); Calcium 8.2 mg/dL (8.5-10.5); Carbon Dioxide 26 mmol/L (22-29); Chloride 105 mmol/L (98-107); Creatinine Clr Calc Pharmacy 39.9146; Globulin 2.7 g/dL (1.3-4.6); Glucose 108 mg/dL (65-115); Osmolality Calculated 294 mOsm/kg (285-295); Phosphorus 2.8 mg/dL (2.5-4.5); Sodium 139 mmol/L (136-145); Total Bilirubin 0.3 mg/dL (0.15-1.2); Total Protein 5.9 g/dL (6.6-8.7)
[2024-08-01 06:02] LABS: Lactic Sepsis W/Reflex 0.5 mmol/L (0.5-2.2)
[2024-08-01 06:05] LABS: Procalcitonin 24.75 ng/mL (0-0.5)
[2024-08-01 07:41] LABS: Glucose Point of Care 104 mg/dL (70-110)
--- NOTE | 2024-08-01 08:56 | PC.NURSE ---
Patient started coughing with regular diet feeding. Dr. Holloway was notified and he ordered for a speech evaluation.
--- NOTE | 2024-08-01 10:08 | PC.PHAR ---
Pt unresponsive. Current med rec completed via pts' current list with last fill dates and day supply added in pharmacy notes.
[2024-08-01 12:17] LABS: Glucose Point of Care 90 mg/dL (70-110)
[2024-08-01 17:17] LABS: Bilirubin Urine Negative (Negative); Blood Urine Negative (Negative); Glucose Urine UA Negative (Normal); Ketones Urine Negative (Negative); Leukocyte Esterase Urine 2+ (Negative); Nitrate Urine Negative (Negative); Protein Urine Negative (Negative); Specific Gravity, Urine 1.011 (1.005-1.030); Urine Appearance Clear (CLEAR); Urine Color Yellow (Yellow); Urobilinogen Urine 0.2 mg/dL (Negative); pH Urine 5.5 (5-7)
[2024-08-01 17:22] LABS: Bacteria Urine None Seen /hpf; RBC Urine 0-2 /hpf (0-2); Squamous Epithelial Cell Urine 0-5 /hpf (0-5); WBC Urine 21-50 /hpf (0-5)
[2024-08-01 17:30] LABS: Glucose Point of Care 143 mg/dL (70-110)
[2024-08-01 17:33] LABS: Add Urine Culture? Yes; UA Slide Review UA Slide Review Perf
[2024-08-01] MEDS: insulin lispro 100 unit/1 mL SUBCUT ×2 (17:55→20:32)
[2024-08-01] MEDS: memantine 5 mg tablet PO (17:55)
[2024-08-01] MEDS: cefepime 1,000 mg SDV 1000 MG IVP (18:28)
[2024-08-01] MEDS: OLANZapine 5 mg TABLET 15 MG PO (20:23)
[2024-08-01] MEDS: mirtazapine 15 mg Tablet PO (20:23)
[2024-08-01 21:07] LABS: Glucose Point of Care 154 mg/dL (70-110)
[2024-08-02] VITALS (22 sets, daily range): BP systolic 97–159; BP diastolic 49–95; PULSE 80–116; RESP 10–23; TEMP 36.3–36.8; O2SAT 96–100
[2024-08-02] MEDS: heparin 5,000 unit/mL INJ 1 mL 5000 UNIT SUBCUT ×2 (03:44→15:23)
[2024-08-02] MEDS: cefepime 1,000 mg SDV 1000 MG IVP ×3 (03:44→18:10)
[2024-08-02 05:41] LABS: Basophils # 0.1 10^3/uL (0.0-0.1); Basophils % 0.8 %; Eosinophils # 0.3 10^3/uL (0.0-0.8); Eosinophils % 2.7 %; Hematocrit 28.3 % (36-47); Lymphocytes # 1.6 10^3/uL (0.8-4.8); Lymphocytes % 15.2 %; Mean Corpuscular HGB Conc 31.1 g/dL (30-55); Mean Corpuscular Hemoglobin 25.9 pg (27-33); Mean Corpuscular Volume 83.2 fl (85-98); Mean Platelet Volume 10.9 fL (7.4-10.4); Monocytes # 0.6 10^3/uL (0.2-0.9); Monocytes % 6.1 %; Neutrophils # 7.63 10^3/uL (1.8-7.7); Neutrophils % 74.8 %; Nucleated Red Blood Cells % 0 %; Platelet Count 319 10^3/cmm (157-399); Red Cell Distribution Width 13.6 % (12.1-15.1)
[2024-08-02 05:56] LABS: Blood Urea Nitrogen 21 mg/dL (8-23); Calcium 8.6 mg/dL (8.5-10.5); Carbon Dioxide 26 mmol/L (22-29); Chloride 106 mmol/L (98-107); Creatinine Clr Calc Pharmacy 43.6722; Glucose 92 mg/dL (65-115); Osmolality Calculated 295 mOsm/kg (285-295); Sodium 141 mmol/L (136-145)
[2024-08-02 07:39] LABS: Glucose Point of Care 96 mg/dL (70-110)
[2024-08-02] MEDS: clopidogrel 75 mg Tablet PO (08:17)
[2024-08-02] MEDS: sertraline 100 mg Tablet PO (08:19)
[2024-08-02] MEDS: memantine 5 mg tablet PO ×2 (08:20→17:51)
[2024-08-02 11:43] LABS: Glucose Point of Care 130 mg/dL (70-110)
[2024-08-02 16:37] LABS: Glucose Point of Care 263 mg/dL (70-110)
--- NOTE | 2024-08-02 16:41 | P.PN_ITS ---
Subjective 2 Subjective: Stable overnight, was not requiring levophed. More alert. Vitals/I&O/Wt Last Vital Signs Temp 97.9 F 08/02/24 12:00 Pulse 89 08/02/24 14:00 Resp 16 08/02/24 14:00 BP 141/64 08/02/24 14:00 Pulse Ox 99 08/02/24 14:00 O2 Del Method Room Air 08/02/24 14:00 08/02/24 08/02/24 08/02/24 06:59 14:59 22:59 Intake Total 90 / 550 320 / 320 Balance 90 / -950 320 / 320 Weight last 48 hrs Weight 75.977 kg Weight 75.495 kg Weight 75.5 kg Physical Exam 2 Narrative: General: Patient is awake. Lying in bed. Head: Normocephalic. Atraumatic. EOM intact. Dry mucous membranes. Neck: No JVD. Right IJ central line. Cardiovascular: RRR. No gallops. No murmurs. Lungs: Clear to auscultation, no use of accessory muscles, no crackles or wheezes. Skin: No jaundice. No rashes. Abdomen: Normal bowel sounds, abdomen soft and nontender. Extremities: No cyanosis or clubbing. Musculoskeletal: No swollen or erythematous joints. Neurological: Moves all 4 extremities. No myoclonus. Data 08/02/24 04:54 08/02/24 04:54 A&P Assessment and plan (1) Septic shock: Continue Iv abx Follow up on cultures CBC/ BMP in am Not reuqiring levophed Shock resolved. (2) UTI (urinary tract infection): Continue IV abx Follow up on cultures (3) Dementia: Mentation reportedly at baseline High risk for delirium Avoid sedating medications (4) Insulin dependent type 2 diabetes mellitus: Sliding-scale insulin correction Will need to clarify home insulin regiment (5) Hypertension: Hold antihypertensives due to shock Plan DVT prophylaxis: Heparin PDMP PDMP Reviewed: Not Reviewed Attestations 2 Medical Necessity Statement*: Will require over 2 midnight stay for iV abx. Critical Care Time: The high probability of a clinically significant, sudden or life threatening deterioration of the patient's circulatory system(s) required my full and direct attention, intervention and personal management. The critical care time is as shown. This time is in addition to time spent performing any reported procedures but includes the following: [x] Data and vital sign review and interpretation [x] Patient assessment, examination and intervention [x] Documentation [x] Medication orders and management Critical Care Time (min): 40 Coding Level of Care Code Acute Code for Chg Fwd Diagnoses Septic shock A41.9; R65.21 UTI (urinary tract infection) N39.0 Dementia F03.90 Insulin dependent type 2 diabetes mellitus E11.9; Z79.4 Hypertension I10
[2024-08-02] MEDS: insulin lispro 100 unit/1 mL SUBCUT (17:50)
[2024-08-02] MEDS: mirtazapine 15 mg Tablet PO (22:37)
[2024-08-02] MEDS: OLANZapine 5 mg TABLET 15 MG PO (22:37)
[2024-08-02 23:10] LABS: Glucose Point of Care 133 mg/dL (70-110)
[2024-08-03] VITALS (13 sets, daily range): BP systolic 116–155; BP diastolic 68–106; PULSE 99–118; RESP 13–21; TEMP 36.6–36.8; O2SAT 92–100
[2024-08-03] MEDS: heparin 5,000 unit/mL INJ 1 mL 5000 UNIT SUBCUT ×2 (02:12→14:37)
[2024-08-03] MEDS: cefepime 1,000 mg SDV 1000 MG IVP ×3 (02:12→21:24)
[2024-08-03 05:44] LABS: Basophils # 0.1 10^3/uL (0.0-0.1); Basophils % 0.7 %; Eosinophils # 0.3 10^3/uL (0.0-0.8); Eosinophils % 3.6 %; Hematocrit 30.1 % (36-47); Lymphocytes # 1.8 10^3/uL (0.8-4.8); Lymphocytes % 20.9 %; Mean Corpuscular HGB Conc 31.6 g/dL (30-55); Mean Corpuscular Hemoglobin 26.3 pg (27-33); Mean Corpuscular Volume 83.4 fl (85-98); Mean Platelet Volume 11.2 fL (7.4-10.4); Monocytes # 0.6 10^3/uL (0.2-0.9); Monocytes % 6.7 %; Neutrophils # 5.67 10^3/uL (1.8-7.7); Neutrophils % 67.6 %; Nucleated Red Blood Cells % 0 %; Platelet Count 344 10^3/cmm (157-399); Red Blood Count 3.61 10^6/uL (3.85-5.65); Red Cell Distribution Width 13.1 % (12.1-15.1); White Blood Count 8.38 10^3/uL (3.29-11.43)
[2024-08-03 05:56] LABS: Anion Gap 16.8 (5-19); Blood Urea Nitrogen 19 mg/dL (8-23); Calcium 8.9 mg/dL (8.5-10.5); Carbon Dioxide 26 mmol/L (22-29); Chloride 102 mmol/L (98-107); Creatinine Clr Calc Pharmacy 43.6722; Glucose 107 mg/dL (65-115); Osmolality Calculated 295 mOsm/kg (285-295); Potassium 3.8 mmol/L (3.5-5.1); Sodium 141 mmol/L (136-145)
[2024-08-03] MEDS: clopidogrel 75 mg Tablet PO (05:59)
[2024-08-03] MEDS: sertraline 100 mg Tablet PO (05:59)
[2024-08-03 07:45] LABS: Glucose Point of Care 150 mg/dL (70-110)
[2024-08-03] MEDS: memantine 5 mg tablet PO ×2 (08:37→17:17)
[2024-08-03] MEDS: insulin lispro 100 unit/1 mL SUBCUT ×4 (08:37→21:24)
--- NOTE | 2024-08-03 09:39 | PC.SOCIAL ---
IMM Updated Updated pt's daughter om IMM. No questions voiced. Provided pt a copy. Initialed, dated, & timed a copy & placed in chart.
--- NOTE | 2024-08-03 09:42 | PC.NURSE ---
Transfer Note Patient transferred to med-surg room 279-2 from ICU via bed. Handoff report given to SREEDHAR Zapien. Patient oriented to environment and equipment. Covering service notified. Orders reviewed and will continue to monitor. All patient belongings transferred with patient and placed at bedside. No wounds/skin issues noted at this time. Patient on room air & alert to self at time of transfer.
[2024-08-03 12:21] LABS: Glucose Point of Care 174 mg/dL (70-110)
--- NOTE | 2024-08-03 15:57 | P.PN_ITS ---
Subjective 2 Subjective: 79 year old female with a past medical h istory significant for type 2 diabetes mellitus, psychosis, delusional disorder, dementia, depression, hyperlipidemia, hypertension, kyphosis, and multiple other comorbidities who transferred from outside hospital after presenting with fever with suspected sepsis with shock. Initially patient had a central line placed/pressor per chart. At the time i assumed care Patient had been weaned off of Levophed. She was continued on IV antibiotics.Blood culture x2 remain negative. Patient remained hemodynamically stable and was transferred to regular medical floor on . 08/03 Patient was confused and wanting to go home. No insight into why she was hospitalized. Pulled out her central line this am. Vitals/I&O/Wt Last Vital Signs Temp 98.3 F 08/03/24 11:32 Pulse 108 H 08/03/24 11:32 Resp 16 08/03/24 11:32 BP 123/68 08/03/24 11:32 Pulse Ox 100 08/03/24 11:32 O2 Del Method Room Air 08/03/24 11:32 08/03/24 08/03/24 08/03/24 06:59 14:59 22:59 Intake Total 120 / 880 370 / 370 Balance 120 / 879 370 / 370 Weight last 48 hrs Weight 73.5 kg Weight 75.977 kg Physical Exam 2 Narrative: General: Patient is awake. Lying in bed. Head: Normocephalic. Atraumatic. EOM intact. Dry mucous membranes. Neck: Removed central line - no hematoma Cardiovascular: RRR. No gallops. No murmurs. Lungs: Clear to auscultation, no use of accessory muscles, no crackles or wheezes. Skin: No jaundice. No rashes. Abdomen: Normal bowel sounds, abdomen soft and nontender. Extremities: No cyanosis or clubbing. Musculoskeletal: No swollen or erythematous joints. Neurological: Moves all 4 extremities. No myoclonus. Data 08/03/24 04:30 08/03/24 04:30 Micro: Microbiology 08/01/24 17:09 Urine Culture - Preliminary Urine,Clean Catch 08/01/24 05:00 Blood Culture - Preliminary Blood SPECIMEN COLLECTED 08/01/24 04:55 Blood Culture - Preliminary Blood SPECIMEN COLLECTED A&P Assessment and plan (1) Septic shock: - Resolved - Blood culture remain negative - Continue IV abx for now - De-escalate in next few days - CBC in am (2) UTI (urinary tract infection): Continue IV abx Culture - so far have been negative. (3) Dementia: Patient is confused. Unclear what her baseline is. no fever, chills, nausea or vomiting. (4) Insulin dependent type 2 diabetes mellitus: Sliding-scale insulin correction ACHS check Follow up on A1c (5) Hypertension: No longer hypotensive Will gradully resume Plan DVT prophylaxis: Heparin PDMP PDMP Reviewed: Not Reviewed Attestations 2 Medical Necessity Statement*: Will require further hospitalizaton for IV abx Coding Level of Care Code Acute Code for g Fwd Diagnoses Septic shock A41.9; R65.21 UTI (urinary tract infection) N39.0 Dementia F03.90 Insulin dependent type 2 diabetes mellitus E11.9; Z79.4 Hypertension I10
[2024-08-03 16:44] LABS: Glucose Point of Care 166 mg/dL (70-110)
[2024-08-03 21:05] LABS: Glucose Point of Care 142 mg/dL (70-110)
[2024-08-03] MEDS: OLANZapine 5 mg TABLET 15 MG PO (21:24)
[2024-08-03] MEDS: mirtazapine 15 mg Tablet PO (21:25)
[2024-08-04] VITALS (7 sets, daily range): BP systolic 102–137; BP diastolic 66–86; PULSE 94–107; RESP 16–18; TEMP 36.6–37; O2SAT 97–99
[2024-08-04] MEDS: cefepime 1,000 mg SDV 1000 MG IVP (02:47)
[2024-08-04] MEDS: heparin 5,000 unit/mL INJ 1 mL 5000 UNIT SUBCUT ×2 (02:47→15:36)
[2024-08-04 04:58] LABS: Basophils # 0.1 10^3/uL (0.0-0.1); Eosinophils # 0.6 10^3/uL (0.0-0.8); Lymphocytes # 1.8 10^3/uL (0.8-4.8); Lymphocytes % 25.8 %; Mean Corpuscular HGB Conc 31.7 g/dL (30-55); Mean Corpuscular Hemoglobin 26.7 pg (27-33); Mean Corpuscular Volume 84.1 fl (85-98); Mean Platelet Volume 10.5 fL (7.4-10.4); Monocytes # 0.5 10^3/uL (0.2-0.9); Monocytes % 6.9 %; Neutrophils # 4.12 10^3/uL (1.8-7.7); Neutrophils % 57.6 %; Nucleated Red Blood Cells % 0 %; Platelet Count 334 10^3/cmm (157-399); Red Blood Count 3.45 10^6/uL (3.85-5.65); Red Cell Distribution Width 13.2 % (12.1-15.1); White Blood Count 7.14 10^3/uL (3.29-11.43)
[2024-08-04 05:12] LABS: Anion Gap 15.9 (5-19); Blood Urea Nitrogen 18 mg/dL (8-23); Calcium 8.7 mg/dL (8.5-10.5); Carbon Dioxide 25 mmol/L (22-29); Chloride 103 mmol/L (98-107); Creatinine Clr Calc Pharmacy 39.3469; Glucose 112 mg/dL (65-115); Osmolality Calculated 293 mOsm/kg (285-295); Potassium 3.9 mmol/L (3.5-5.1); Sodium 140 mmol/L (136-145)
[2024-08-04] MEDS: sertraline 100 mg Tablet PO (05:40)
[2024-08-04] MEDS: clopidogrel 75 mg Tablet PO (05:41)
[2024-08-04 05:50] LABS: Glucose Point of Care 117 mg/dL (70-110)
[2024-08-04 06:22] LABS: Glucose Point of Care 117 mg/dL (70-110)
--- NOTE | 2024-08-04 09:11 | PC.NURSE ---
Pt spit out Namenda and bit this RNs gloved finger while attempting to help. Medication non-administered.
--- NOTE | 2024-08-04 11:04 | PC.SLP ---
Patient was sleeping upon arrival. Therapist attempted to wake the patient and the patient stated no when asked if she wanted to eat.
[2024-08-04 11:14] LABS: Glucose Point of Care 149 mg/dL (70-110)
[2024-08-04 13:12] LABS: Procalcitonin 6.48 ng/mL (0-0.5)
[2024-08-04] MEDS: insulin lispro 100 unit/1 mL SUBCUT ×2 (13:23→22:37)
[2024-08-04] MEDS: meropenem 1,000 mg SDV 1000 MG IVP ×2 (13:24→22:37)
--- NOTE | 2024-08-04 15:27 | P.PN_ITS ---
Subjective 2 Subjective: 79 year old female with a past medical h istory significant for type 2 diabetes mellitus, psychosis, delusional disorder, dementia, depression, hyperlipidemia, hypertension, kyphosis, and multiple other comorbidities who transferred from outside hospital after presenting with fever with suspected sepsis with shock. Initially patient had a central line placed/pressor per chart. At the time i assumed care Patient had been weaned off of Levophed. She was continued on IV antibiotics.Blood culture x2 remain negative. Patient remained hemodynamically stable and was transferred to regular medical floor on . 08/04: Hospital course, labs appreciated. Patient lying considerably in bed. Awake and alert. Denies any nausea, vomiting, headache. Otherwise hemodynamically stable. Remains on room air. Vitals/I&O/Wt Last Vital Signs Temp 98.6 F 08/04/24 11:24 Pulse 94 08/04/24 11:24 Resp 18 08/04/24 11:24 BP 102/66 08/04/24 11:24 Pulse Ox 99 08/04/24 11:24 O2 Del Method Room Air 08/04/24 11:24 08/04/24 08/04/24 08/04/24 06:59 14:59 22:59 Intake Total 120 / 1040 Balance 120 / 1040 Weight last 48 hrs Weight 73.21 kg Weight 73.5 kg Physical Exam 2 Narrative: General: Patient is awake. Lying in bed. Head: Normocephalic. Atraumatic. EOM intact. Dry mucous membranes. Neck: Removed central line - no hematoma Cardiovascular: RRR. No gallops. No murmurs. Lungs: Clear to auscultation, no use of accessory muscles, no crackles or wheezes. Skin: No jaundice. No rashes. Abdomen: Normal bowel sounds, abdomen soft and nontender. Extremities: No cyanosis or clubbing. Musculoskeletal: No swollen or erythematous joints. Neurological: Moves all 4 extremities. No myoclonus. Data 08/04/24 04:40 08/04/24 04:40 Micro: Microbiology 08/01/24 17:09 Urine Culture - Final Urine,Clean Catch 08/01/24 05:00 Blood Culture - Preliminary Blood NEGATIVE TO DATE 08/01/24 04:55 Blood Culture - Preliminary Blood NEGATIVE TO DATE A&P Assessment and plan (1) Septic shock: - Resolved - Blood culture remain negative - Continue IV abx for now - De-escalate in next few days - CBC in am (2) UTI (urinary tract infection): Continue IV abx Culture - so far have been negative. (3) Dementia: Patient is confused. Unclear what her baseline is. no fever, chills, nausea or vomiting. (4) Insulin dependent type 2 diabetes mellitus: Sliding-scale insulin correction ACHS check Follow up on A1c (5) Hypertension: No longer hypotensive Will gradully resume Plan Plan for the day: Follow-up blood cultures. So far negative. Switch to meropenem given history of ESBL E. coli in the past. Monitor CBC and CMP daily. Goal blood pressure less than 140/90 mmHg with mean over 65. Holding off on home dose of metoprolol for now. Creatinine 1.2. Stable. Baseline creatinine seems to be around 1.1-1.4. Blood sugar stable. A1c of 6.7. Continue chronic home medication including olanzapine, memantine, sertraline. Discharge plan: Can plan to discharge in next 24 hours back to correction on oral antibiotics to finish a 7-day course if patient's urine culture remains non-ESBL and blood cultures remain negative. DVT prophylaxis: Heparin PDMP PDMP Reviewed: Not Reviewed Attestations 2 Medical Necessity Statement*: Requested hospitalization for management of resolving sepsis in setting of UTI in a patient with history of ESBL UTI in the past, resolving septic shock Diagnoses Septic shock A41.9; R65.21 UTI (urinary tract infection) N39.0 Dementia F03.90 Insulin dependent type 2 diabetes mellitus E11.9; Z79.4 Hypertension I10
[2024-08-04 16:40] LABS: Glucose Point of Care 54 mg/dL (70-110)
[2024-08-04] MEDS: memantine 5 mg tablet PO (17:46)
[2024-08-04 17:52] LABS: Glucose Point of Care 109 mg/dL (70-110)
[2024-08-04 20:50] LABS: Glucose Point of Care 159 mg/dL (70-110)
[2024-08-04] MEDS: mirtazapine 15 mg Tablet PO (22:37)
[2024-08-04] MEDS: OLANZapine 5 mg TABLET 15 MG PO (22:37)
[2024-08-05 04:00] VITALS: BP 108/74; PULSE 92; RESP 15; TEMP 36.9; O2SAT 97
[2024-08-05] MEDS: heparin 5,000 unit/mL INJ 1 mL 5000 UNIT SUBCUT (04:03)
[2024-08-05 05:24] LABS: Basophils # 0.1 10^3/uL (0.0-0.1); Basophils % 1.2 %; Eosinophils # 0.6 10^3/uL (0.0-0.8); Eosinophils % 7.9 %; Hematocrit 30.9 % (36-47); Lymphocytes # 1.9 10^3/uL (0.8-4.8); Lymphocytes % 26.1 %; Mean Corpuscular HGB Conc 30.4 g/dL (30-55); Mean Corpuscular Hemoglobin 26.3 pg (27-33); Mean Corpuscular Volume 86.6 fl (85-98); Mean Platelet Volume 10.7 fL (7.4-10.4); Monocytes # 0.5 10^3/uL (0.2-0.9); Monocytes % 6.9 %; Neutrophils # 4.19 10^3/uL (1.8-7.7); Neutrophils % 56.8 %; Nucleated Red Blood Cells % 0 %; Platelet Count 358 10^3/cmm (157-399); Red Blood Count 3.57 10^6/uL (3.85-5.65); Red Cell Distribution Width 13.3 % (12.1-15.1); White Blood Count 7.37 10^3/uL (3.29-11.43)
[2024-08-05 05:54] LABS: Alanine Aminotransferase 18 U/L (0-33); Albumin Level 3.4 g/dL (3.5-5.2); Alkaline Phosphatase 95 U/L (35-105); Anion Gap 19.5 (5-19); Aspartate Amino Transferase 26 U/L (0-32); Blood Urea Nitrogen 21 mg/dL (8-23); Carbon Dioxide 24 mmol/L (22-29); Chloride 102 mmol/L (98-107); Creatinine Clr Calc Pharmacy 36.5069; Globulin 2.9 g/dL (1.3-4.6); Glucose 109 mg/dL (65-115); Osmolality Calculated 296 mOsm/kg (285-295); Potassium 4.5 mmol/L (3.5-5.1); Sodium 141 mmol/L (136-145); Total Bilirubin 0.2 mg/dL (0.15-1.2); Total Protein 6.3 g/dL (6.6-8.7)
[2024-08-05 06:27] LABS: Glucose Point of Care 107 mg/dL (70-110)
[2024-08-05] MEDS: clopidogrel 75 mg Tablet PO (06:33)
[2024-08-05] MEDS: meropenem 1,000 mg SDV 1000 MG IVP ×2 (06:33→10:45)
[2024-08-05] MEDS: sertraline 100 mg Tablet PO (06:33)
[2024-08-05 08:00] VITALS: BP 142/81; PULSE 98; RESP 16; TEMP 36.8; O2SAT 92
--- NOTE | 2024-08-05 10:14 | PC.SOCIAL ---
IMM Updated Updated pt's daughter on IMM. No questions voiced. Provided pt a copy. Initialed, dated, & timed copy in chart.
--- NOTE | 2024-08-05 10:16 | P.DS_ITS ---
Discharge Providers Date of Admission: 08/01/24 02:19 Date of Discharge: August 05, 2024 Attending Provider at Admission: Naveen Siu MD Attending Provider at Discharge: Armando Hernandez MD Primary Care Provider: Dao Alba DO Diagnoses at Discharge Discharge Diagnosis (1) Septic shock: Status: Acute (2) UTI (urinary tract infection): Status: Acute (3) Dementia: Status: Acute (4) Insulin dependent type 2 diabetes mellitus: Status: Acute (5) Hypertension: Status: Acute Reason for Visit Reason for Visit: urosepsis ams hypoxia UTI Brief History: History as per HPI: Unique Gage is a 79 year old female with a past medical history significant for type 2 diabetes mellitus, psychosis, delusional disorder, dementia, depression, hyperlipidemia, hypertension, kyphosis, and multiple other comorbidities who transferred from outside hospital after presenting with fever and diagnosed with septic shock secondary to urinary tract infection. Upon assessment, patient is awake and alert. She is not oriented to time place or situation. She denies fevers, chills, nausea or emesis but she is found to be a poor historian. At the outside emergency department, patient was found to have leukocytosis to 30.3. Urinalysis consistent with UTI. CT abdomen pelvis was negative for evidence of hydronephrosis or nephrolithiasis. She was treated with Zosyn, vancomycin, greater than 30 mL/kg body weight IV fluids and started on Levophed. Central line was placed. Hospital Course Hospital Course Patient was transferred from outside hospital with concerns of possible septic shock. Patient was given IV fluid bolus as per severe sepsis. She required vasopressor for a short while. She was started on broad-spectrum IV antibiotics. During hospitalization her cultures including blood and urine culture remain negative. She responded well to the treatment and her leukocytosis resolved. Patient has been back to her baseline mentation. She has been discharged back to [facility] in hemodynamically stable condition after completion of IV antibiotic course. Physical Exam Narrative: General: Patient is awake. Lying in bed. Head: Normocephalic. Atraumatic. EOM intact. Dry mucous membranes. Neck: Removed central line - no hematoma Cardiovascular: RRR. No gallops. No murmurs. Lungs: Clear to auscultation, no use of accessory muscles, no crackles or wheezes. Skin: No jaundice. No rashes. Abdomen: Normal bowel sounds, abdomen soft and nontender. Extremities: No cyanosis or clubbing. Musculoskeletal: No swollen or erythematous joints. Neurological: Moves all 4 extremities. No myoclonus. Discharge Data Studies Completed and Pending Completed Studies During Hospitalization Category Date Time Status XR chest 1V portable [id number] Routine Exams 08/01/24 02:50 Completed Pending at discharge Category Date Time Status Blood Culture Routine Lab 08/01/24 05:00 Results Radiology Impressions Chest X-Ray 08/01/24 02:50 IMPRESSION: 1. Right internal jugular central venous access catheter with tip of the inferior right atrium. 2. No acute cardiopulmonary findings, given patient rotation. Microbiology 08/01/24 17:09 Urine,Clean Catch Urine Culture - Final 08/01/24 05:00 Blood Blood Culture - Preliminary NEGATIVE TO DATE 08/01/24 04:55 Blood Blood Culture - Preliminary NEGATIVE TO DATE Laboratory Results WBC 7.37 10^3/uL (3.29-11.43) 08/05/24 04:52 RBC 3.57 10^6/uL (3.85-5.65) L 08/05/24 04:52 Hgb 9.40 g/dL (11.27-16.99) L 08/05/24 04:52 Hct 30.9 % (36-47) L 08/05/24 04:52 MCV 86.6 fl (85-98) 08/05/24 04:52 MCH 26.3 pg (27-33) L 08/05/24 04:52 MCHC 30.4 g/dL (30-55) 08/05/24 04:52 RDW 13.3 % (12.1-15.1) 08/05/24 04:52 Plt Count 358 10^3/cmm (157-399) 08/05/24 04:52 MPV 10.7 fL (7.4-10.4) H 08/05/24 04:52 Neut % (Auto) 56.8 % 08/05/24 04:52 Lymph % (Auto) 26.1 % 08/05/24 04:52 [place] % (Auto) 6.9 % 08/05/24 04:52 Eos % (Auto) 7.9 % 08/05/24 04:52 Baso % (Auto) 1.2 % 08/05/24 04:52 Neut # (Auto) 4.19 10^3/uL (1.8-7.7) 08/05/24 04:52 Lymph # (Auto) 1.9 10^3/uL (0.8-4.8) 08/05/24 04:52 [place] # (Auto) 0.5 10^3/uL (0.2-0.9) 08/05/24 04:52 Eos # (Auto) 0.6 10^3/uL (0.0-0.8) 08/05/24 04:52 Baso # (Auto) 0.1 10^3/uL (0.0-0.1) 08/05/24 04:52 Nucleated RBC % (auto) 0 % 08/05/24 04:52 Nucleated RBCs # 0.0 /100WBC 08/05/24 04:52 Sodium 141 mmol/L (136-145) 08/05/24 04:52 Potassium 4.5 mmol/L (3.5-5.1) 08/05/24 04:52 Chloride 102 mmol/L (98-107) 08/05/24 04:52 Carbon Dioxide 24 mmol/L (22-29) 08/05/24 04:52 Anion Gap 19.5 (5-19) H 08/05/24 04:52 BUN 21 mg/dL (8-23) 08/05/24 04:52 Creatinine 1.3 mg/dL (0.5-0.9) H 08/05/24 04:52 GFR Calculation Not Reportable 08/05/24 04:52 Glucose 109 mg/dL (65-115) 08/05/24 04:52 POC Glucose 107 mg/dL (70-110) 08/05/24 06:16 Calculated Osmolality 296 mOsm/kg (285-295) H 08/05/24 04:52 Lactic Acid 0.5 mmol/L (0.5-2.2) 08/01/24 04:55 Calcium 9.0 mg/dL (8.5-10.5) 08/05/24 04:52 Phosphorus 2.8 mg/dL (2.5-4.5) 08/01/24 04:55 Magnesium 2.0 mg/dL (1.7-2.3) 08/01/24 04:55 Total Bilirubin 0.2 mg/dL (0.15-1.2) 08/05/24 04:52 AST 26 U/L (0-32) 08/05/24 04:52 ALT 18 U/L (0-33) 08/05/24 04:52 Alkaline Phosphatase 95 U/L (35-105) 08/05/24 04:52 C-Reactive Protein 133.1 mg/L (0.0-4.9) H 08/01/24 04:55 Total Protein 6.3 g/dL (6.6-8.7) L 08/05/24 04:52 Albumin 3.4 g/dL (3.5-5.2) L 08/05/24 04:52 Globulin 2.9 g/dL (1.3-4.6) 08/05/24 04:52 Procalcitonin 6.48 ng/mL (0-0.5) H 08/04/24 04:40 TSH 3.00 uIU/mL (0.27-4.20) 08/04/24 04:40 Urine Color Yellow (Yellow) 08/01/24 17:09 Urine Appearance Clear (CLEAR) 08/01/24 17:09 Urine pH 5.5 (5-7) 08/01/24 17:09 Ur Specific [place] 1.011 (1.005-1.030) 08/01/24 17:09 Urine Protein Negative (Negative) 08/01/24 17:09 Urine Glucose (UA) Negative (Normal) 08/01/24 17:09 Urine Ketones Negative (Negative) 08/01/24 17:09 Urine Blood Negative (Negative) 08/01/24 17:09 Urine Nitrate Negative (Negative) 08/01/24 17:09 Urine Bilirubin Negative (Negative) 08/01/24 17:09 Urine Urobilinogen 0.2 mg/dL (Negative) 08/01/24 17:09 Ur Leukocyte Esterase 2+ (Negative) A 08/01/24 17:09 Urine RBC 0-2 /hpf (0-2) 08/01/24 17:09 Urine WBC 21-50 /hpf (0-5) H 08/01/24 17:09 Ur Squamous Epith Cells 0-5 /hpf (0-5) 08/01/24 17:09 Amorphous Sediment Not Reportable 08/01/24 17:09 Urine Bacteria None seen /hpf (NONE) 08/01/24 17:09 Hyaline Casts 0.40 /lpf 08/01/24 17:09 Nasal MRSA (PCR) Not detected (Not Detecte) 08/01/24 03:23 Vitals Last Vital Signs Temp 98.5 F 08/05/24 04:00 Pulse 92 08/05/24 04:00 Resp 15 08/05/24 04:00 BP 108/74 08/05/24 04:00 Pulse Ox 97 08/05/24 04:00 O2 Del Method Room Air 08/05/24 04:00 Discharge Plan Discharge Patient Disposition: Xfer SNF Condition: Stable Prescriptions: Continued acetaminophen [Tylenol] 325 mg Tablet 650 mg PO Q6H PRN (Reason: Pain/FEVER) [place] 0.01 % Drops 1 drp OPHTHALMIC (EYE) BEDTIME@1999 mirtazapine [Remeron] 15 mg Tablet 15 mg PO BEDTIME olanzapine 15 mg tablet 15 mg PO BEDTIME Ozempic 0.25 mg or 0.5 mg (2 mg/3 mL) pen injector 0.5 mg SUBCUT Q7D sertraline 100 mg tablet 100 mg PO DAILY@07 metoprolol tartrate 25 mg tablet 25 mg PO BID@ Rx Instructions: hold if sbp less than 100 and dbp less than 60 sennosides-docusate sodium [Senna Plus] 8.6-50 mg Tablet 2 tab PO BID magnesium hydroxide [Milk of Magnesia] 400 mg/5 mL Suspension 30 ml PO DAILY PRN (Reason: Constipation) bisacodyl [Dulcolax (bisacodyl)] 10 mg Suppository 10 mg [place] DAILY PRN (Reason: Constipation) insulin aspart U-100 [Novolog FlexPen U-100 Insulin] 100 unit/mL (3 mL) Insulin Pen 15 unit SUBCUT DAILY memantine 5 mg tablet 5 mg PO BID insulin degludec [Tresiba FlexTouch U-100] 100 unit/mL (3 mL) insulin pen 15 unit SUBCUT BEDTIME clopidogrel 75 mg tablet 75 mg PO QAM Discharge Orders: Discharge Order (Routine); Ordered 08/05/24 Ordered By: Armando Hernandez Referrals: [facility] [Outside] Discharge Diet: As Directed Discharge Activity: Resume usual activity and Increase activity as tolerated Patient Instructions: Opioid Safety Activity Restrictions/Additional Instructions: Dysphagia level 5 diet?minced and moist Discharge Attestations Time Spent in Discharge Care*: greater than 30 min Specific Discharge Activities: educating patient, discussing with pcp/other providers, discussing with keycase assembler/social workers/dc planners, documenting/other paperwork and evaluating patient/reviewing data Status at Discharge: Cognitive status at discharge: mildly impaired cognition , Behavioral status at discharge: cooperative and can be uncooperative , Overall status at discharge: patient is back to baseline Quality Metrics Clinical Quality Measures [ No reported AMI, CVA or VTE this stay] Coding Level of Care Code 69133 Total time (in minutes) for Discharge: 60 Diagnoses Septic shock A41.9; R65.21 UTI (urinary tract infection) N39.0 Dementia F03.90 Insulin dependent type 2 diabetes mellitus E11.9; Z79.4 Hypertension I10
[2024-08-05] MEDS: memantine 5 mg tablet PO (10:45)
[2024-08-05 11:39] LABS: Glucose Point of Care 112 mg/dL (70-110)
[2024-08-05 12:00] VITALS: BP 142/81; PULSE 92; RESP 16; TEMP 36.7; O2SAT 93
[2024-08-05 15:31] VITALS: BP 142/81; PULSE 92; RESP 16; TEMP 36.7; O2SAT 93
== END 2024-08-05 15:25 | disposition intermediate care facility (04) | DRG 871 ==
LOC: ICU 10:08 → MEDSURG 08-03 09:28
PROVIDERS: Hospitalist; Admitting Provider Internal Medicine; PCP Internal Medicine; Visit Provider Student in an Organized Health Care Education/Training Program
DX: A41.9 Sepsis, unspecified organism (principal); R65.21 Severe sepsis with septic shock; N39.0 Urinary tract infection, site not specified; F03.90 Unspecified dementia, unspecified severity, without behavioral disturbance, psychotic disturbance, mood disturbance, and anxiety; I10 Essential (primary) hypertension; E11.9 Type 2 diabetes mellitus without complications; Z86.73 Personal history of transient ischemic attack (TIA), and cerebral infarction without residual deficits; I25.2 Old myocardial infarction; Z79.02 Long term (current) use of antithrombotics/antiplatelets; Z79.4 Long term (current) use of insulin
CPT/HCPCS: 36415; 36416; 36592; 71045; 80048; 80053; 81001; 82962; 83605; 83735; 84100; 84145; 84443; 85025; 86140; 87040; 87086; 92523; 92526; 92610; 96372; 96374; 96376; J0692; J1644; J1815; J2185